=== PATIENT | male | born 1945 | race Caucasian/White ===

== ENCOUNTER → 2017-03-05 | Outpatient (REF) | payer MEDICARE, MEDICAID ==
[2016-10-17 10:15] VITALS: BMI 37.4
[~2017-03-05] MED LIST: ACE3 PO; ACE500 PO; ACET500T68 PO; ACET650T40 PO; ACLI400A2 IH; ACYC-1 PO; ALB0.5 IH; ALB17R INH; ALB18R INH; ALB6.7R INH; ALBU1.257 IH; ALBU8.5H IH; ALBUTEROL INH; AMOX-559 PO; AMOX1TAB3 PO; AMOX500T10 PO; ANUS PR; ASPI-764 PO; ASPI-816 PO; ATOR-1 PO; ATOR40TA24 PO; AZIT-1 PO; AZIT-18 PO; AZIT500T47 PO; BENZ200C38 PO; BUDE0.5A IH; BUM2 FT; CEF300 PO; CEFD300C35 PO; CEP500 PO; CETI10CA8 PO; CHOL200021 PO; CHOL200074 PO; CLIN300C99 PO; CYAN20003 PO; CYAN25004 PO; DEXL60CA6 PO; DIGO125T90 PO; DILT120C18 PO; DILT120T13 PO; DILT240C76 PO; DILT360T9 PO; DOCU-202 PO; DUONEB INH; DUTA0.5C14 PO; ENA10 PO; ENA5 PO; ENAL2.5T52 PO; ENAL20TA99 PO; ESOM40CA42 PO; EZET1TAB55 PO; FERR-53 PO; FEXO180T74 PO; FLUT10SP; FLUT16SP19 NS; FLUT1DIS29 IH; FLUT1DIS32 IH; FUR20 PO; FUR80 PO; FURO-47 PO; FURO20TA19 PO; FURO40SO5 PO; FURO40TA35 PO; FURO80TA10 PO; GABA-549 PO; GUAI1200 PO; GUAI600T57 PO; GUALA600 PO; HYDR-385 PO; HYDR-4225 PO; HYDR-4308 PO; IPRA0.2S8 IH; IPRA3AMP IH; IRO150 PO; IRON150C19 PO; KENALOG TOP; LEVO-3 PO; LEVO125T77 PO; LEVO50TA80 PO; LEVO750T27 PO; LEVO750T44 PO; LEVO75TA73 PO; LEVO88TA42 PO; LORA10CA3 PO; MELA3TAB31 PO; MELO-150 PO; MELO-207 PO; METO-231 PO; METO-253 PO; METO2.5T15 PO; METO25TA23 PO; METO25TA91 PO; METO25TA93 PO; METO5TAB79 PO; MIR PO; MOM PO; MONT10TA PO; MONT10TA4 PO; MOX400 PO; MULT-898 PO; MULT1TAB64 PO; NIT4 SL; OLO2ODPT ASDIRECTED; OLO2ODPT OP; OLO2ODPT OU; OXYGEN INH; OXYGENHOME INH; POLY17PO21 PO; POLY17PO25 PO; POTA10TA PO; POTA20TA94 PO; POTA25TA28 PO; POTA8CAP14 PO; PRAM0.2520 PO; PRAM1TAB22 PO; PRAV40TA77 PO; PRAV40TA78 PO; PRAV80TA29 PO; PRE10 PO; PRED-1 PO; PRED20TA6 PO; RIV10 PO; RIVA15TA PO; RIVA20TA PO; ROF0.5PT PO; ROPI0.5T24 PO; ROPI1TAB35 PO; ROPI1TAB36 PO; ROSU40TA18 PO; SALSP; SODI30SP6 NS; SPIR100T30 PO; SPIR25TA76 PO; SPIR25TA78 PO; SULF-198 PO; TADA20TA33 PO; TAM4 PO; TAMS0.4C70 PO; TUCKS TOP; UMEC1DIS INH; UMECLIDINIUM BRM INH; VILANTEROL TR INH; WAR5 PO; WARF-1 PO; WARF-12 PO; WARF7.5T26 PO; ZPACK; [UNRECOGNIZED DRUG - CODE] IV; [UNRECOGNIZED DRUG - CODE] OP; [UNRECOGNIZED DRUG - CODE] PO; [UNRECOGNIZED DRUG - CODE] PO; multivitamin; oxygen; oxygen INH
[2017-03-05 12:28] LABS: PLATELET COUNT, AUTOMATED 244 K/uL (150-450)
[2017-03-05 12:39] LABS: LDL CHOLESTEROL 101 mg/dl
== END ==
LOC: ZZSENDIN 12:17
PROVIDERS: ATTEND Emergency Medicine
DX: E03.9 Hypothyroidism, unspecified (principal); I10 Essential (primary) hypertension
CPT/HCPCS: 82040; 82247; 82310; 82374; 82435; 82465; 82565; 82947; 83718; 84075; 84132; 84155; 84295; 84443; 84450; 84460; 84478; 84520; 85025

== ENCOUNTER 2017-03-16 06:51 | Emergency (ER) | payer MEDICARE, MEDICAID ==
[2016-10-17 10:15] VITALS: Ht 182.9 cm; Wt 125.4 kg
[~2017-03-16] VITALS: Ht 182.9 cm; Wt 125.4 kg
[~2017-03-16 06:51] MED LIST changes: -DIPH-1 PO; -ONDA4TAB PO
--- NOTE | 2017-03-16 07:11 | ER Report ---
History and Physical Time Seen By MD: 07:10 Hx. of Stated Complaint: N/V/D, WEAKNESS SINCE THURSDAY. HPI/ROS CHIEF COMPLAINT: Nausea vomiting and diarrhea since Thursday also weakness HISTORY OF PRESENT ILLNESS: Patient is a 72-year-old male who presents to the emergency department complaining of nausea, vomiting and watery diarrhea along with weakness since this Thursday. Patient states that symptoms have persisted throughout the weekend. Because he's feeling no better and because he's been unable to take any of his prescribed medications at home since Thursday he presents to the emergency department for evaluation. Patient denies any headache or body aches but does report subjective fever and chills. Reports generalized abdominal pain without focality. Denies any dysuria or flank pain. Denies hematuria. Patient denies any chest pain or shortness of breath. REVIEW OF SYSTEMS: Constitutional: Fevers, chills Eyes: No discharge. No pain ENT: No sore throat. Cardiovascular: No chest pain, no palpitations. Respiratory: No cough, no shortness of breath. Gastrointestinal: Generalized abdominal pain, nausea, vomiting, diarrhea Genitourinary: No hematuria. Musculoskeletal: No back pain. Skin: No rashes. Neurological: No headache. Allergies: Coded Allergies: tiotropium (Verified Allergy, Mild, visual changes, 01/23/17) Home Meds Active Scripts Diphenoxylate Hcl/Atropine (LOMOTIL TABLET) 1 Each Tablet, 1 EACH PO Q4H for diarrhea, #10 TAB 0 Refills Prov:NORTH HIDALGO MD 03/16/17 Ondansetron (ZOFRAN ODT) 4 Mg Tab.rapdis, 4 MG PO Q8H for Nausea, #20 TAB.SHANE 0 Refills Prov:NORTH HIDALGO MD 03/16/17 Sertraline Hcl (ZOLOFT) 50 Mg Tablet, 1 TAB PO QDAY, #30 TAB Prov:JODY LALA MD 03/11/17 Pravastatin Sodium (PRAVASTATIN SODIUM) 80 Mg Tablet, 1 TAB PO QDAY, #90 TAB 3 Refills Prov:JODY LALA MD 03/11/17 Levothyroxine Sodium (LEVOTHYROXINE SODIUM) 150 Mcg Tablet, 150 MCG PO QDAY, # 30 TAB Prov:JODY LALA MD 03/11/17 Furosemide (LASIX) 80 Mg Tablet, 1 TAB PO BID, #180 TAB 3 Refills Prov:JODY LALA MD 03/05/17 Digoxin (Digox) 125 Mcg Tablet, 1 TAB PO QDAY, #90 TAB 1 Refill Prov:SAL TARANGO APRN 02/13/17 Dutasteride (AVODART) 0.5 Mg Capsule, 1 TAB PO QDAY, #90 CAPSULE 1 Refill Prov:SAL TARANGO APRN 02/09/17 Montelukast Sodium (SINGULAIR) 10 Mg Tablet, 1 TAB PO QDAY, #90 TAB 1 Refill Prov:JODY LALA MD 01/29/17 Polyethylene Glycol 3350 (MIRALAX) 17 Gm Powd.pack, 1 PACKET PO DAILY, #90 PKT 4 Refills Prov:JODY LALA MD 01/06/17 Gabapentin (GABAPENTIN) 300 Mg Capsule, 1 CAP PO TID, #90 CAPSULE 11 Refills Prov:SAL TARANGO APRN 01/01/17 Rivaroxaban 20 Mg (XARELTO 20 MG) 20 Mg Tablet, 1 TAB PO DAILY, #90 TAB 1 Refill Prov:SAL TARANGO APRN 10/31/16 Tamsulosin Hcl (TAMSULOSIN HCL) 0.4 Mg Cap.er.24h, 1 CAP PO BID, #180 CAP 1 Refill Prov:JODY LALA MD 10/09/16 Potassium Chloride (POTASSIUM CHLORIDE) 20 Meq Tab.er.prt, 2 TAB PO TID, #180 TAB 5 Refills Prov:MICHAEL DIEZ MD 09/11/16 Oxygen (OXYGEN) Inha, 7 L INH QDAY for 30 Days, L Prov:MICHAEL DIEZ MD 09/11/16 Fluticasone/Salmeterol (ADVAIR 500-50 DISKUS) 1 Each Disk.w.dev, 1 EACH IH BID, #1 EACH 11 Refills Prov:JODY LALA MD 09/08/16 Diltiazem Hcl (DILTIAZEM 24HR CD) 120 Mg Cap.er.24h, 240 MG PO QDAY, #180 3 Refills Prov:JODY LALA MD 07/31/16 Fluticasone Prop 50 Mcg Ns (FLONASE 50 MCG NS) 16 Gm [place].susp, 1 SPRAY NS DAILY, #1 BOT 11 Refills Prov:JODY LALA MD 06/06/16 Dexlansoprazole (DEXILANT) 60 Mg Cap., 1 CAP PO DAILY, #90 TAB 4 Refills Prov:JODY LALA MD 03/13/16 Nitroglycerin (NITROSTAT) 0.4 Mg Subl, 0.4 MG SL Q5MIN Y for CHEST PAIN, #30 TAB 11 Refills Prov:JODY LALA MD 02/04/16 Ropinirole Hcl (ROPINIROLE HCL) 1 Mg Tablet, 1 MG PO QHS, #30 TAB 9 Refills Prov:JODY LALA MD 08/06/15 Reported Medications Albuterol Sulfate (PROVENTIL HFA) 6.7 Gm Inh, 1-2 PUFF INH Q4-6H Y for SHORTNESS OF BREATH, INH 09/05/16 Cyanocobalamin (Vitamin B-12) (VITAMIN B-12) 2,000 Mcg Tablet.er, 2000 MCG PO DAILY 09/05/16 Ferrous Sulfate (FERROUS SULFATE) 325 Mg Tablet, 325 MG PO BID, #60 05/07/16 Cholecalciferol (Vitamin D3) (VITAMIN D-3) 2,000 Unit Capsule, 2000 UNIT PO DAILY, CAPSULE 12/21/14 Multivitamin (MULTI VITAMIN DAILY) 1 Each Tablet, 1 EACH PO DAILY 12/21/14 Guaifenesin (MUCINEX) 600 Mg Tablet.er, 600 MG PO BID 10/29/12 Discontinued Scripts Levothyroxine Sodium (SYNTHROID) 125 Mcg Tablet, 125 MCG PO QDAY, #30 TAB 1 Refill Prov:JODY LALA MD 03/02/17 Pravastatin Sodium (PRAVASTATIN SODIUM) 40 Mg Tablet, 40 MG PO QDAY, #30 TAB 11 Refills Prov:JODY LALA MD 01/06/17 Past Medical/Surgical History Past Family Social History Reviewed Reviewed by: Dr. 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) pulmonary embolism other respiratory history (cor pulmonale) Gastrointestinal: Reports hx of: GERD Genitourinary: Reports hx of: benign prostatic hypertro Endocrine: Reports hx of: hypothyroidism Hematology/oncology (M): Reports hx of: anemia Denies hx of: prostate cancer Past Surgical History Gastrointestinal: Reports hx of: other GI surgery (02/06: 8 polyps removed from colon (benign)) Hx Smoking: No Smoking Status: Former Smoker Exposure to Second Hand Smoke?: Yes Hx Substance Use Disorder: No Hx Alcohol Use: Yes Constitutional Vital Sign - Last 24 Hours 03/16/17 03/16/17 03/16/17 03/16/17 06:53 07:00 07:15 07:30 Temp 97.9 Pulse 122 112 101 95 Resp 20 12 14 13 B/P (MAP) 153/100 151/93 (112) 139/81 (100) 141/81 (101) Pulse Ox 91 95 95 96 O2 Delivery Nasal Cannula 03/16/17 03/16/17 03/16/17 03/16/17 07:45 08:00 08:00 08:19 Pulse 94 106 67 Resp 15 13 B/P (MAP) 140/89 (106) 147/84 (105) 130/70 (90) Pulse Ox 96 97 03/16/17 03/16/17 03/16/17 03/16/17 08:30 08:45 09:00 09:15 Pulse 100 123 104 76 Resp 14 20 15 13 B/P (MAP) 126/84 (98) 119/86 (97) 130/85 (100) 138/87 (104) Pulse Ox 96 94 97 97 03/16/17 03/16/17 03/16/17 03/16/17 09:30 09:45 10:08 10:15 Pulse 94 98 95 Resp 14 13 12 B/P (MAP) 129/78 (95) 135/73 (93) 120/52 (74) 139/80 (99) Pulse Ox 99 97 98 03/16/17 10:28 B/P (MAP) 131/61 (84) Intake and Output 03/16/17 03/16/17 03/17/17 15:00 23:00 07:00 Intake Total 750 ml Balance 750 ml Physical Exam General Appearance: The patient is alert, has no immediate need for airway protection and no signs of toxicity. Eyes: Pupils equal and round no pallor or injection. ENT, Mouth: Mucous membranes are dry Respiratory: There are no retractions, lungs are clear to auscultation. Cardiovascular: Irregularly irregular and tachycardic Gastrointestinal: Abdomen is protuberent; diffuse tenderness without focal tenderness, guarding or rebound Neurological: awake, alert, Skin: Warm and dry, venous stasis changes to b/l lower extremities Musculoskeletal: Neck is supple non tender. Extremities are nontender, nonswollen and have full range of motion. Medical Decision Making Data Points Result Diagram: 03/16/17 0706 03/16/17 0706 Laboratory Hematology Test 03/16/17 07:06 03/16/17 07:40 03/16/17 10:01 Red Blood Count 5.07 M/uL (4.00-5.60) Mean Corpuscular Volume 100.8 fL (80.0-96.0) Mean Corpuscular Hemoglobin 34.2 pg (26.0-33.0) Mean Corpuscular Hemoglobin Concent 33.9 g/dL (32.0-36.0) Red Cell Distribution Width 13.9 % (11.5-14.5) Mean Platelet Volume 6.9 fL (7.2-11.1) Neutrophils (%) (Auto) 74.7 % (39.4-72.5) Lymphocytes (%) (Auto) 13.9 % (17.6-49.6) Monocytes (%) (Auto) 8.1 % (4.1-12.4) Eosinophils (%) (Auto) 2.6 % (0.4-6.7) Basophils (%) (Auto) 0.7 % (0.3-1.4) Nucleated RBC Relative Count (auto) 0.1 /100WBC Neutrophils # (Auto) 5.1 K/uL (2.0-7.4) Lymphocytes # (Auto) 1.0 K/uL (1.3-3.6) Monocytes # (Auto) 0.6 K/uL (0.3-1.0) Eosinophils # (Auto) 0.2 K/uL (0.0-0.5) Basophils # (Auto) 0.0 K/uL (0.0-0.1) Nucleated RBC Absolute Count (auto) 0.01 K/uL Sodium Level 138 mmol/L (137-145) Potassium Level 3.3 mmol/L (3.5-5.0) Chloride Level 95 mmol/L (98-107) Carbon Dioxide Level 36 mmol/L (22-30) Blood Urea Nitrogen 7 mg/dl (9-21) Creatinine 0.90 mg/dl (0.66-1.25) Glomerular Filtration Rate Calc > 60.0 Random Glucose 97 mg/dl (75-110) Calcium Level 8.8 mg/dl (8.4-10.2) Total Bilirubin 1.5 mg/dl (0.2-1.3) Aspartate Amino Transf (AST/SGOT) 53 U/L (0-35) Alanine Aminotransferase (ALT/SGPT) 47 U/L (0-56) Alkaline Phosphatase 116 U/L (0-126) Total Protein 7.9 gm/dl (6.3-8.2) Albumin 3.9 g/dl (3.5-5.0) Lipase 103 U/L (23-300) Thyroid Stimulating Hormone (TSH) 13.40 uIU/ml (0.46-4.68) Digoxin Level 0.5 ng/ml Digoxin Last Dose Date 03/13/17 Digoxin Last Dose Time unk Influenza Virus Type A (PCR) Negative (NEGATIVE) Influenza Virus Type B (PCR) Negative (NEGATIVE) Urine Color Vita Urine Clarity Clear Urine pH 5.0 pH (4.8-9.5) Urine Specific [place] >1.060 Urine Protein 30 mg/dL (NEGATIVE) Urine Glucose (UA) Negative mg/dL (NEGATIVE) Urine Ketones Negative mg/dL (NEGATIVE) Urine Blood Small (NEGATIVE) Urine Nitrite Negative (NEGATIVE) Urine Bilirubin Negative (NEGATIVE) Urine Urobilinogen 4.0 mg/dL (0.2-1.9) Urine Leukocyte Esterase Negative (NEGATIVE) Urine RBC 8 /HPF (0-2/HPF) Urine WBC 2 /HPF (0-5/HPF) Urine Squamous Epithelial Cells Many /LPF (</=FEW) Urine Transitional Epithelial Cells Few /LPF (NONE-FEW) Urine Bacteria Negative /HPF (NONE-FEW) Urine Mucus None /HPF (NONE-FEW) Chemistry Test 03/16/17 07:06 03/16/17 07:40 03/16/17 10:01 White Blood Count 6.9 k/uL (4.5-11.0) Red Blood Count 5.07 M/uL (4.00-5.60) Hemoglobin 17.3 g/dL (14.0-18.0) Hematocrit 51.1 % (42.0-52.0) Mean Corpuscular Volume 100.8 fL (80.0-96.0) Mean Corpuscular Hemoglobin 34.2 pg (26.0-33.0) Mean Corpuscular Hemoglobin Concent 33.9 g/dL (32.0-36.0) Red Cell Distribution Width 13.9 % (11.5-14.5) Platelet Count 215 K/uL (150-450) Mean Platelet Volume 6.9 fL (7.2-11.1) Neutrophils (%) (Auto) 74.7 % (39.4-72.5) Lymphocytes (%) (Auto) 13.9 % (17.6-49.6) Monocytes (%) (Auto) 8.1 % (4.1-12.4) Eosinophils (%) (Auto) 2.6 % (0.4-6.7) Basophils (%) (Auto) 0.7 % (0.3-1.4) Nucleated RBC Relative Count (auto) 0.1 /100WBC Neutrophils # (Auto) 5.1 K/uL (2.0-7.4) Lymphocytes # (Auto) 1.0 K/uL (1.3-3.6) Monocytes # (Auto) 0.6 K/uL (0.3-1.0) Eosinophils # (Auto) 0.2 K/uL (0.0-0.5) Basophils # (Auto) 0.0 K/uL (0.0-0.1) Nucleated RBC Absolute Count (auto) 0.01 K/uL Glomerular Filtration Rate Calc > 60.0 Calcium Level 8.8 mg/dl (8.4-10.2) Total Bilirubin 1.5 mg/dl (0.2-1.3) Aspartate Amino Transf (AST/SGOT) 53 U/L (0-35) Alanine Aminotransferase (ALT/SGPT) 47 U/L (0-56) Alkaline Phosphatase 116 U/L (0-126) Total Protein 7.9 gm/dl (6.3-8.2) Albumin 3.9 g/dl (3.5-5.0) Lipase 103 U/L (23-300) Thyroid Stimulating Hormone (TSH) 13.40 uIU/ml (0.46-4.68) Digoxin Level 0.5 ng/ml Digoxin Last Dose Date 03/13/17 Digoxin Last Dose Time unk Influenza Virus Type A (PCR) Negative (NEGATIVE) Influenza Virus Type B (PCR) Negative (NEGATIVE) Urine Color Vita Urine Clarity Clear Urine pH 5.0 pH (4.8-9.5) Urine Specific [place] >1.060 Urine Protein 30 mg/dL (NEGATIVE) Urine Glucose (UA) Negative mg/dL (NEGATIVE) Urine Ketones Negative mg/dL (NEGATIVE) Urine Blood Small (NEGATIVE) Urine Nitrite Negative (NEGATIVE) Urine Bilirubin Negative (NEGATIVE) Urine Urobilinogen 4.0 mg/dL (0.2-1.9) Urine Leukocyte Esterase Negative (NEGATIVE) Urine RBC 8 /HPF (0-2/HPF) Urine WBC 2 /HPF (0-5/HPF) Urine Squamous Epithelial Cells Many /LPF (</=FEW) Urine Transitional Epithelial Cells Few /LPF (NONE-FEW) Urine Bacteria Negative /HPF (NONE-FEW) Urine Mucus None /HPF (NONE-FEW) Toxicology Test 03/16/17 07:06 Digoxin Level 0.5 ng/ml Digoxin Last Dose Date 03/13/17 Digoxin Last Dose Time unk Urinalysis Test 03/16/17 10:01 Urine Color Vita Urine Clarity Clear Urine pH 5.0 pH (4.8-9.5) Urine Specific [place] >1.060 Urine Protein 30 mg/dL (NEGATIVE) Urine Glucose (UA) Negative mg/dL (NEGATIVE) Urine Ketones Negative mg/dL (NEGATIVE) Urine Blood Small (NEGATIVE) Urine Nitrite Negative (NEGATIVE) Urine Bilirubin Negative (NEGATIVE) Urine Urobilinogen 4.0 mg/dL (0.2-1.9) Urine Leukocyte Esterase Negative (NEGATIVE) Urine RBC 8 /HPF (0-2/HPF) Urine WBC 2 /HPF (0-5/HPF) Urine Squamous Epithelial Cells Many /LPF (</=FEW) Urine Transitional Epithelial Cells Few /LPF (NONE-FEW) Urine Bacteria Negative /HPF (NONE-FEW) Urine Mucus None /HPF (NONE-FEW) EKG/Imaging EKG Interpretation EKG shows atrial flutter with variable block and ventricular rate is approximately 108 bpm. Monitor Interpretation: Atrial Flutter (with variable block) Imaging FACILITY: [facility] - [place] PATIENT NAME: Jaquan Orlando : 1945 MR: [id number] V: [id number] EXAM DATE: ORDERING PHYSICIAN: NORTH HIDALGO TECHNOLOGIST: Location: [facility] [place] Patient: Jaquan Orlando : 1945 Visit/Account:[id number] Date of Sevice: 03/16/2017 EXAMINATION: CT Abdomen and Pelvis With Contrast 03/16/2017 7:20 AM HISTORY: Abdominal pain. TECHNIQUE: Spiral scan was through the abdomen and pelvis during injection of nonionic iodinated intravenous contrast. Contrast: 75 mL of IV Isovue 370. One of the following dose optimization techniques was utilized in the performance of this exam: Automated exposure control; adjustment of the mA and/ or kV according to the patient's size; or use of an iterative reconstruction technique. Specific details can be referenced in the facility's radiology CT exam operational policy. COMPARISON STUDIES: CT 06/12/2008. FINDINGS: Liver / biliary: Mildly decreased attenuation fatty liver. Multiple small gallstones. Gallbladder is not clearly inflamed by CT. No choledocholithiasis or biliary dilatation. Pancreas: negative Spleen: Incidental accessory splenule. Adrenal glands: negative Kidneys / retroperitoneum: negative Pelvic structures: negative Bowel / peritoneum / mesenteries: Mild diverticulosis of the distal colon. No acute focal diverticular inflammation. What is probably a normal caliber small appendix is seen posteromedial to the cecum. Certainly there is no ileocecal area inflammatory change. No obstruction. Vessels: Short segment of the infrarenal abdominal aorta dilates to 3.5 x 3.5 cm , minimally increased from previous. Musculoskeletal / Body wall: Moderate L3 compression deformity. Eventration of the midline abdominal wall is mildly increased from previous. No hernia. Lymph node assessment: negative Lower chest: negative IMPRESSION: 1. Probably negative for significant acute finding in the abdomen or pelvis. 2. Cholecystolithiasis. No CT findings of acute cholecystitis or biliary obstruction. 3. 3.5 cm infrarenal abdominal aortic aneurysm is minimally grown since 2008. 4. Moderate L3 compression deformity. Comparing axial images this is probably stable since 2008. Report Dictated By: Frank Elder MD at 03/16/2017 8:32 AM Report E-Signed By: Frank Elder MD at 03/16/2017 8:44 AM WSN:DARIO ED Course/Re-evaluation Clinical Indication for ER IV: Hydration, IV Access ED Course After history and physical exam was performed differential diagnosis was formulated which includes but is not limited to gastroenteritis, GI obstruction , urinary tract infection, influenza. Plan at this time will be to perform abdominal workup including CBC CMP and lipase urinalysis with culture will also do a CT of the abdomen and pelvis I will also do influenza screen. I will give IV fluids and Zofran. We'll also give Pepcid along with oral trial of Xarelto and Cardizem which are his daily medications. Re-evaluation 03/16/2017 10:18:47 am patient feeling improved no further episodes of vomiting nausea is improved after IV fluids and Zofran. A CT scan of blood work is reassuring urinalysis just showing concentration of urine without evidence of infection. Further patient was able to tolerate some of his usual oral medications at this time. Plan will be discharge home with prescriptions for both nausea and diarrhea medicine we'll have him follow up with primary care provider 1-2 days or have him return to the emergency department if his symptoms worsen at any time. Decision to Disposition Date: Mar 16, 2017 Decision to Disposition Time: 10:19 Depart Departure Latest Vital Signs Vital Signs Date Time Temp Pulse Resp B/P (MAP) Pulse Ox O2 Delivery O2 Flow Rate FiO2 03/16/17 10:28 131/61 (84) 03/16/17 10:15 95 12 98 03/16/17 06:53 97.9 Nasal Cannula Impression: Primary Impression: Gastroenteritis Condition: Improved Disposition: HOME OR SELF-CARE Referrals: JODY LALA MD (PCP) 2 Days If symptoms persist New Scripts Diphenoxylate Hcl/Atropine (LOMOTIL TABLET) 1 Each Tablet 1 EACH PO Q4H for diarrhea, #10 TAB 0 Refills Prov: NORTH HIDALGO MD 03/16/17 Ondansetron (ZOFRAN ODT) 4 Mg Tab.rapdis 4 MG PO Q8H for Nausea, #20 TAB.SHANE 0 Refills Prov: NORTH HIDALGO MD 03/16/17 Patient Instructions: Gastroenteritis (ED) NORTH HIDALGO MD Mar 16, 2017 07:11
[2017-03-16] MEDS ORDERED: FAMOTIDINE(*) 20MG/50ML PREMIX 50 ML IVPB ONE (07:20)
[2017-03-16] MEDS ORDERED: NS(*) 0.9% 1000 ML BAG 1,000 ML IV ONE (07:20)
[2017-03-16] MEDS ORDERED: ONDANSETRON 4 MG/2 ML VIAL IVP ONE ×2 (07:20→08:00)
[2017-03-16] MEDS ORDERED: DILTIAZEM CD 120 MG CAPCR PO SCH (07:25)
[2017-03-16 07:34] LABS: PLATELET COUNT, AUTOMATED 215 K/uL (150-450)
[2017-03-16] MEDS ORDERED: DILTIAZEM CD 120 MG CAPCR PO ONE (07:35)
[2017-03-16] MEDS ORDERED: KCL (*) 20 MEQ/100 ML PREMIX 100 ML IV ONE (07:50)
[2017-03-16] MEDS ORDERED: IOPAMIDOL 76% 75 ML INFUS BTL 75 ML ONE (07:56)
[2017-03-16] MEDS ORDERED: NS(*) 0.9% 10 ML VIAL 0 ML ONE (07:56)
[2017-03-16] MEDS ORDERED: NS 0.9% 20 ML SDV 60 ML ONE (07:57)
[2017-03-16] MEDS ORDERED: DIGOXIN 0.125 MG TAB PO ONE (08:00)
--- NOTE | 2017-03-16 08:49 | RADIOLOGY IMAGING REPORT ---
FACILITY: [facility] [place] PATIENT NAME: Jaquan Orlando : 1945 MR: [id number] V: [id number] EXAM DATE: ORDERING PHYSICIAN: NORTH HIDALGO TECHNOLOGIST: Location: [facility] - [place] Patient: Jaquan Orlando : 1945 Visit/Account:[id number] Date of Sevice: 03/16/2017 EXAMINATION: CT Abdomen and Pelvis With Contrast 03/16/2017 7:20 AM HISTORY: Abdominal pain. TECHNIQUE: Spiral scan was through the abdomen and pelvis during injection of nonionic iodinated in travenous contrast. Contrast: 75 mL of IV Isovue 370. One of the following dose optimization techniques was utilized in the performance of this exam: Autom ated exposure control; adjustment of the mA and/or kV according to the patient's size; or use of an i terative reconstruction technique. Specific details can be referenced in the facility's radiology C T exam operational policy. COMPARISON STUDIES: CT 06/12/2008. FINDINGS: Liver / biliary: Mildly decreased attenuation fatty liver. Multiple small gallstones. Gallbladder i s not clearly inflamed by CT. No choledocholithiasis or biliary dilatation. Pancreas: negative Spleen: Incidental accessory splenule. Adrenal glands: negative Kidneys / retroperitoneum: negative Pelvic structures: negative Bowel / peritoneum / mesenteries: Mild diverticulosis of the distal colon. No acute focal diverticul ar inflammation. What is probably a normal caliber small appendix is seen posteromedial to the cecum . Certainly there is no ileocecal area inflammatory change. No obstruction. Vessels: Short segment of the infrarenal abdominal aorta dilates to 3.5 x 3.5 cm, minimally increased from previous. Musculoskeletal / Body wall: Moderate L3 compression deformity. Eventration of the midline abdominal wall is mildly increased from previous. No hernia. Lymph node assessment: negative Lower chest: negative IMPRESSION: 1. Probably negative for significant acute finding in the abdomen or pelvis. 2. Cholecystolithiasis. No CT findings of acute cholecystitis or biliary obstruction. 3. 3.5 cm infrarenal abdominal aortic aneurysm is minimally grown since 2008. 4. Moderate L3 compression deformity. Comparing axial images this is probably stable since 2008. Report Dictated By: Frank Edler MD at 03/16/2017 8:32 AM Report E-Signed By: Frank Elder MD at 03/16/2017 8:44 AM WSN:DARIO
[2017-03-16] MEDS ORDERED: RIVAROXABAN 10 MG TAB PO SCH (09:00)
[2017-03-16] MEDS ORDERED: DIPH-1 PO (10:23)
[2017-03-16] MEDS ORDERED: ONDA4TAB PO (10:23)
[2017-03-16 10:28] VITALS: BP 131/61
--- NOTE | 2017-03-16 14:21 | EKG ---
FACILITY: [facility] - [place] PATIENT NAME: LEWIS FLETCHER : [id number] MR: [id number] V: [id number] EXAM DATE: ORDERING PHYSICIAN: NORTH HIDALGO TECHNOLOGIST: REINA Curiel Reason : gi problem Blood Pressure : / mmHG Vent. Rate : 105 BPM Atrial Rate : 242 BPM P-R Int : 000 ms QRS Dur : 094 ms QT Int : 368 ms P-R-T Axes : 000 073 063 degrees QTc Int : 486 ms Atrial flutter with variable AV block Nonspecific ST abnormality Abnormal ECG Confirmed by MICHAEL DIEZ ([id number] on 03/16/2017 7:49:47 PM Referred By: Confirmed By:MICHAEL DIEZ
== END 2017-03-16 10:35 | disposition home or self-care (01) ==
LOC: ER 06:58
DX: K52.9 Noninfective gastroenteritis and colitis, unspecified (principal)
CPT/HCPCS: 74177; 80162; 81001; 83690; 84443; 85025; 87088; 87502; 93005; 96365; 96366; 96367; 96375; 99284; A9270; J2405; J3480; J3490; J7030; J7050; Q9967; 82040; 82247; 82310; 82374; 82435; 82565; 82947; 84075; 84132; 84155; 84295; 84450; 84460; 84520; 87077; 87186

== ENCOUNTER → 2017-03-16 | Outpatient (CLI) | payer MEDICARE, MEDICAID ==
[2016-10-17 10:15] VITALS: BMI 37.4
[~2017-03-16] MED LIST changes: +DIPH-1 PO; +LEVO150T78 PO; +ONDA4TAB PO; +SERT-1 PO
== END ==
LOC: AMB 10:35
PROVIDERS: ATTEND Nurse Practitioner
DX: K52.9 Noninfective gastroenteritis and colitis, unspecified (principal)
CPT/HCPCS: A0425; A0428

== ENCOUNTER → 2017-03-16 | Outpatient (CLI) | payer MEDICARE, MEDICAID ==
[2016-10-17 10:15] VITALS: BMI 37.4
== END ==
LOC: AMB 06:25
PROVIDERS: ATTEND Nurse Practitioner
DX: R53.1 Weakness (principal); R11.2 Nausea with vomiting, unspecified; R50.9 Fever, unspecified
CPT/HCPCS: A0425; A0427

== ENCOUNTER 2017-03-27 08:39 | Inpatient (IN) | payer MEDICARE, MEDICAID ==
[~2017-03-27] VITALS: Ht 182.9 cm; Wt 119.7 kg
--- NOTE | 2017-03-27 08:47 | ER Report ---
History and Physical Time Seen By MD: 08:44 HPI/ROS CHIEF COMPLAINT: Abdominal pain, black tarry stools HISTORY OF PRESENT ILLNESS: Patient a 72-year-old male who presents to the emergency department for complaint of left upper quadrant abdominal pain. He also has noticed black tarry stools over the last day. Patient is anticoagulated on Xarelto secondary to atrial fibrillation. He was seen in the emergency department on March 16 for nausea vomiting and some diarrhea. He was ultimately diagnosed as gastroenteritis at that time having a normal CT scan of his abdomen and pelvis. Patient states the abdominal discomfort and stools began early this morning but he waited for his home health nurse to come for evaluation before calling 911. REVIEW OF SYSTEMS: Constitutional: No fever, no chills. Eyes: No discharge. ENT: No sore throat. Cardiovascular: No chest pain, no palpitations. Respiratory: No cough, no shortness of breath. Gastrointestinal: Left upper quadrant abdominal pain, black tarry stools Genitourinary: No hematuria. Musculoskeletal: No back pain. Skin: No rashes. Neurological: No headache. Allergies: Coded Allergies: tiotropium (Verified Allergy, Mild, visual changes, 03/27/17) Home Meds Active Scripts Dexlansoprazole (DEXILANT) 60 Mg Cap., 1 CAP PO DAILY, #90 TAB 4 Refills Prov:EILEEN SANTANA MD 03/27/17 Diphenoxylate Hcl/Atropine (LOMOTIL TABLET) 1 Each Tablet, 1 EACH PO Q4H for diarrhea, #10 TAB 0 Refills Prov:NORTH HIDALGO MD 03/16/17 Ondansetron (ZOFRAN ODT) 4 Mg Tab.rapdis, 4 MG PO Q8H for Nausea, #20 TAB.SHANE 0 Refills Prov:NORTH HIDALGO MD 03/16/17 Sertraline Hcl (ZOLOFT) 50 Mg Tablet, 1 TAB PO QDAY, #30 TAB Prov:EILEEN SANTANA MD 03/11/17 Pravastatin Sodium (PRAVASTATIN SODIUM) 80 Mg Tablet, 1 TAB PO QDAY, #90 TAB 3 Refills Prov:EILEEN SANTANA MD 03/11/17 Levothyroxine Sodium (LEVOTHYROXINE SODIUM) 150 Mcg Tablet, 150 MCG PO QDAY, # 30 TAB Prov:EILEEN SANTANA MD 03/11/17 Furosemide (LASIX) 80 Mg Tablet, 1 TAB PO BID, #180 TAB 3 Refills Prov:EILEEN SANTANA MD 03/05/17 Digoxin (Digox) 125 Mcg Tablet, 1 TAB PO QDAY, #90 TAB 1 Refill Prov:SAL TARANGO APRN 02/13/17 Dutasteride (AVODART) 0.5 Mg Capsule, 1 TAB PO QDAY, #90 CAPSULE 1 Refill Prov:SAL TARANGO APRN 02/09/17 Montelukast Sodium (SINGULAIR) 10 Mg Tablet, 1 TAB PO QDAY, #90 TAB 1 Refill Prov:EILEEN SANTANA MD 01/29/17 Polyethylene Glycol 3350 (MIRALAX) 17 Gm Powd.pack, 1 PACKET PO DAILY, #90 PKT 4 Refills Prov:EILEEN SANTANA MD 01/06/17 Gabapentin (GABAPENTIN) 300 Mg Capsule, 1 CAP PO TID, #90 CAPSULE 11 Refills Prov:SAL TARANGO APRN 01/01/17 Rivaroxaban 20 Mg (XARELTO 20 MG) 20 Mg Tablet, 1 TAB PO DAILY, #90 TAB 1 Refill Prov:SLA TARANGO APRN 10/31/16 Tamsulosin Hcl (TAMSULOSIN HCL) 0.4 Mg Cap.er.24h, 1 CAP PO BID, #180 CAP 1 Refill Prov:EILEEN SANTANA MD 10/09/16 Potassium Chloride (POTASSIUM CHLORIDE) 20 Meq Tab.er.prt, 2 TAB PO TID, #180 TAB 5 Refills Prov:MICHAEL DIEZ MD 09/11/16 Oxygen (OXYGEN) Inha, 7 L INH QDAY for 30 Days, L Prov:MICHAEL DIEZ MD 09/11/16 Fluticasone/Salmeterol (ADVAIR 500-50 DISKUS) 1 Each Disk.w.dev, 1 EACH IH BID, #1 EACH 11 Refills Prov:EILEEN SANTANA MD 09/08/16 Diltiazem Hcl (DILTIAZEM 24HR CD) 120 Mg Cap.er.24h, 240 MG PO QDAY, #180 3 Refills Prov:EILEEN SANTANA MD 07/31/16 Fluticasone Prop 50 Mcg Ns (FLONASE 50 MCG NS) 16 Gm [place].susp, 1 SPRAY NS DAILY, #1 BOT 11 Refills Prov:EILEEN SANTANA MD 06/06/16 Nitroglycerin (NITROSTAT) 0.4 Mg Subl, 0.4 MG SL Q5MIN Y for CHEST PAIN, #30 TAB 11 Refills Prov:EILEEN SANTANA MD 02/04/16 Ropinirole Hcl (ROPINIROLE HCL) 1 Mg Tablet, 1 MG PO QHS, #30 TAB 9 Refills Prov:EILEEN SANTANA MD 08/06/15 Reported Medications Albuterol Sulfate (PROVENTIL HFA) 6.7 Gm Inh, 1-2 PUFF INH Q4-6H Y for SHORTNESS OF BREATH, INH 09/05/16 Cyanocobalamin (Vitamin B-12) (VITAMIN B-12) 2,000 Mcg Tablet.er, 2000 MCG PO DAILY 09/05/16 Ferrous Sulfate (FERROUS SULFATE) 325 Mg Tablet, 325 MG PO BID, #60 05/07/16 Cholecalciferol (Vitamin D3) (VITAMIN D-3) 2,000 Unit Capsule, 2000 UNIT PO DAILY, CAPSULE 12/21/14 Multivitamin (MULTI VITAMIN DAILY) 1 Each Tablet, 1 EACH PO DAILY 12/21/14 Guaifenesin (MUCINEX) 600 Mg Tablet.er, 600 MG PO BID 10/29/12 Past Medical/Surgical History Past medical history for stroke in 2014, history of atrial fibrillation history of peripheral edema. History of COPD and history of pulmonary embolism. History of gastroesophageal reflux disease, history of benign prostatic hypertrophy, history of hypothyroidism, history of anemia and prostate cancer. Hx Smoking: No Smoking Status: Former Smoker Exposure to Second Hand Smoke?: Yes Hx Substance Use Disorder: No Hx Alcohol Use: Yes Constitutional Vital Sign - Last 24 Hours 03/27/17 03/27/17 03/27/17 03/27/17 08:42 08:44 08:54 09:00 Temp 98.5 Pulse 90 91 Resp 16 13 B/P (MAP) 161/81 (107) 161/81 146/72 (96) Pulse Ox 98 95 O2 Delivery Nasal Cannula 03/27/17 03/27/17 03/27/17 03/27/17 09:09 09:24 09:30 09:39 Pulse 91 87 92 Resp 13 11 14 B/P (MAP) 137/90 (106) Pulse Ox 93 92 94 03/27/17 03/27/17 03/27/17 03/27/17 09:54 10:00 10:09 10:14 Pulse 91 93 93 Resp 13 18 9 B/P (MAP) 124/81 (95) Pulse Ox 92 93 92 Intake and Output 03/27/17 03/27/17 03/28/17 15:00 23:00 07:00 Intake Total 600 ml Balance 600 ml Physical Exam General Appearance: The patient is alert, has no immediate need for airway protection and no signs of toxicity. Eyes: Pupils equal and round no pallor or injection. ENT, Mouth: Mucous membranes are moist. Respiratory: There are no retractions, lungs are clear to auscultation. Cardiovascular: Irregularly irregular rhythm but rate controlled Gastrointestinal: Left upper quadrant pain with abdominal distention [Neurological:] Awake and alert Skin: Warm and dry, no rashes. Musculoskeletal: Neck is supple non tender. Extremities are nontender, nonswollen and have full range of motion. Rectal exam: Black tarry stool noted normal rectal tone [DIFFERENTIAL DIAGNOSIS: After history and physical exam differential diagnosis was considered for] [ ] Medical Decision Making Data Points Result Diagram: 03/27/1730 03/27/1730 Laboratory Hematology Test 03/27/17 09:30 03/27/17 09:45 Red Blood Count 4.85 M/uL (4.00-5.60) Mean Corpuscular Volume 101.8 fL (80.0-96.0) Mean Corpuscular Hemoglobin 34.2 pg (26.0-33.0) Mean Corpuscular Hemoglobin Concent 33.6 g/dL (32.0-36.0) Red Cell Distribution Width 14.4 % (11.5-14.5) Mean Platelet Volume 7.0 fL (7.2-11.1) Neutrophils (%) (Auto) 75.8 % (39.4-72.5) Lymphocytes (%) (Auto) 12.1 % (17.6-49.6) Monocytes (%) (Auto) 5.9 % (4.1-12.4) Eosinophils (%) (Auto) 3.8 % (0.4-6.7) Basophils (%) (Auto) 2.4 % (0.3-1.4) Nucleated RBC Relative Count (auto) 0.2 /100WBC Neutrophils # (Auto) 3.7 K/uL (2.0-7.4) Lymphocytes # (Auto) 0.6 K/uL (1.3-3.6) Monocytes # (Auto) 0.3 K/uL (0.3-1.0) Eosinophils # (Auto) 0.2 K/uL (0.0-0.5) Basophils # (Auto) 0.1 K/uL (0.0-0.1) Nucleated RBC Absolute Count (auto) 0.01 K/uL Prothrombin Time 14.7 seconds (12.0-14.4) Prothromb Time International Ratio 1.14 Activated Partial Thromboplast Time 33 seconds (23-35) Sodium Level 136 mmol/L (137-145) Potassium Level 3.9 mmol/L (3.5-5.0) Chloride Level 92 mmol/L (98-107) Carbon Dioxide Level 34 mmol/L (22-30) Blood Urea Nitrogen 7 mg/dl (9-21) Creatinine 0.90 mg/dl (0.66-1.25) Glomerular Filtration Rate Calc > 60.0 Random Glucose 91 mg/dl (75-110) Calcium Level 8.9 mg/dl (8.4-10.2) Total Bilirubin 1.2 mg/dl (0.2-1.3) Aspartate Amino Transf (AST/SGOT) 58 U/L (0-35) Alanine Aminotransferase (ALT/SGPT) 46 U/L (0-56) Alkaline Phosphatase 102 U/L (0-126) Total Protein 7.7 gm/dl (6.3-8.2) Albumin 3.8 g/dl (3.5-5.0) Amylase Level 58 U/L (0-110) Lipase 103 U/L (23-300) Digoxin Level 0.6 ng/ml Digoxin Last Dose Date unk Digoxin Last Dose Time unk Helicobacter pylori IgG Antibody Negative (NEGATIVE) Stool Occult Blood (IFOB) Positive (NEGATIVE) Chemistry Test 03/27/17 09:30 03/27/17 09:45 White Blood Count 4.9 k/uL (4.5-11.0) Red Blood Count 4.85 M/uL (4.00-5.60) Hemoglobin 16.6 g/dL (14.0-18.0) Hematocrit 49.4 % (42.0-52.0) Mean Corpuscular Volume 101.8 fL (80.0-96.0) Mean Corpuscular Hemoglobin 34.2 pg (26.0-33.0) Mean Corpuscular Hemoglobin Concent 33.6 g/dL (32.0-36.0) Red Cell Distribution Width 14.4 % (11.5-14.5) Platelet Count 178 K/uL (150-450) Mean Platelet Volume 7.0 fL (7.2-11.1) Neutrophils (%) (Auto) 75.8 % (39.4-72.5) Lymphocytes (%) (Auto) 12.1 % (17.6-49.6) Monocytes (%) (Auto) 5.9 % (4.1-12.4) Eosinophils (%) (Auto) 3.8 % (0.4-6.7) Basophils (%) (Auto) 2.4 % (0.3-1.4) Nucleated RBC Relative Count (auto) 0.2 /100WBC Neutrophils # (Auto) 3.7 K/uL (2.0-7.4) Lymphocytes # (Auto) 0.6 K/uL (1.3-3.6) Monocytes # (Auto) 0.3 K/uL (0.3-1.0) Eosinophils # (Auto) 0.2 K/uL (0.0-0.5) Basophils # (Auto) 0.1 K/uL (0.0-0.1) Nucleated RBC Absolute Count (auto) 0.01 K/uL Prothrombin Time 14.7 seconds (12.0-14.4) Prothromb Time International Ratio 1.14 Activated Partial Thromboplast Time 33 seconds (23-35) Glomerular Filtration Rate Calc > 60.0 Calcium Level 8.9 mg/dl (8.4-10.2) Total Bilirubin 1.2 mg/dl (0.2-1.3) Aspartate Amino Transf (AST/SGOT) 58 U/L (0-35) Alanine Aminotransferase (ALT/SGPT) 46 U/L (0-56) Alkaline Phosphatase 102 U/L (0-126) Total Protein 7.7 gm/dl (6.3-8.2) Albumin 3.8 g/dl (3.5-5.0) Amylase Level 58 U/L (0-110) Lipase 103 U/L (23-300) Digoxin Level 0.6 ng/ml Digoxin Last Dose Date unk Digoxin Last Dose Time unk Helicobacter pylori IgG Antibody Negative (NEGATIVE) Stool Occult Blood (IFOB) Positive (NEGATIVE) Coagulation Test 03/27/17 09:30 Prothrombin Time 14.7 seconds Prothromb Time International Ratio 1.14 Activated Partial Thromboplast Time 33 seconds Toxicology Test 03/27/17 09:30 Digoxin Level 0.6 ng/ml Digoxin Last Dose Date unk Digoxin Last Dose Time unk EKG/Imaging EKG Interpretation EKG shows atrial flutter with variable block ventricular rate is 90 bpm Monitor Interpretation: Atrial Flutter Imaging Date of [facility] [place]: 03/27/2017 ABDOMEN/PELVIS WITH CONTRAST HISTORY: abdominal pain TECHNIQUE: Following administration of IV contrast contiguous axial images acquired through the abdomen/pelvis. Coronal and sagittal reformatting also performed. Dose Lowering Technique One of the following dose optimization techniques was utilized in the performance of this exam: Automated exposure control; adjustment of the mA and/ or kV according to the patient's size; or use of an iterative reconstruction technique. Specific details can be referenced in the facility's radiology CT exam operational policy. CONTRAST: 75 mL Isovue-370 COMPARISON: March 16, 2017 FINDINGS: Visualized lung bases: Severe emphysematous changes are seen in the lower lung rodney. There is increasing linear stranding likely related to bibasilar atelectasis. There is a tiny posterior layering right pleural effusion. Hepatobiliary: In the mid right lobe there is a subtle irregular area of decreased attenuation. There was a small enhancing nodule in this location seen on a prior CT from June 12, 2008. There is suggestion of subtle enhancement centrally within this hypoattenuating region. Further evaluation with MR is recommended. Cholelithiasis although no evidence of biliary ductal dilatation Spleen: Negative. Adrenals: Negative. Pancreas: Negative. Kidneys ureters or bladder: Negative. Genitalia: Negative. GI: There is diverticulosis left-sided colon although no CT evidence of acute diverticulitis Vessels/spaces/nodes: Small infrarenal abdominal aortic aneurysm is again seen unchanged measuring 3.5 x 3.5 cm. moderate vascular calcification seen throughout the abdomen and pelvis. Bones/soft tissues: Diastases of the midline of the rectus sheath again noted. . Moderate compression fracture of L3 remains unchanged Additional findings: None pertinent. IMPRESSION: Severe emphysematous changes in the lower lung rodney. There is increasing linear stranding likely related to bibasilar atelectasis. Also noted is a tiny posterior layering right pleural effusion In the mid right lobe of the liver there is a subtle irregular area of decreased attenuation. There was a small enhancing nodule in this location on a prior CT from 2008. There is suggestion of subtle enhancement centrally within this hypoattenuating region there for further evaluation with MR is recommended Cholelithiasis although no evidence of biliary ductal dilatation Diverticulosis left-sided colon although no CT evidence of acute diverticulitis Small infrarenal abdominal aortic aneurysm unchanged measuring 3.5 cm in diameter. Additional chronic findings as described Report Dictated By: Yu Holden MD at 03/27/2017 10:54 AM Report E-Signed By: Yu Holden MD at 03/27/2017 11:05 AM WSN:DARIO ED Course/Re-evaluation ED Course 03/27/2017 11:39:44 am patient with lower GI bleed on several toe hemodynamically stable CT scan showing diverticulosis without evidence of diverticulitis. Because of the anticoagulation plan at this time will be to admit the patient for continued observation and potential surgical consult if needed for endoscopy due to GI bleed. Patient made aware no questions or concerns at time of disposition. History physical exam ED course and pertinent information shared with Dr. Tomas, who is accepted the patient at this time Decision to Disposition Date: Mar 27, 2017 Decision to Disposition Time: 11:39 Depart Departure Latest Vital Signs Vital Signs Date Time Temp Pulse Resp B/P (MAP) Pulse Ox O2 Delivery O2 Flow Rate FiO2 03/27/17 10:14 93 9 92 03/27/17 10:00 124/81 (95) 03/27/17 08:44 98.5 Nasal Cannula Impression: Primary Impression: GI bleed Condition: Improved Disposition: Admitted from ER (to dr tomas) Referrals: EILEEN SANTANA MD (PCP) Problem Qualifiers Primary Impression: GI bleed GI bleed type/associated pathology: unspecified gastrointestinal hemorrhage type Qualified Codes: K92.2 - Gastrointestinal hemorrhage, unspecified NORTH HIDALGO MD Mar 27, 2017 08:47
[2017-03-27] MEDS ORDERED: NS(*) 0.9% 500 ML BAG 500 ML IV ONE (08:52)
[2017-03-27] MEDS ORDERED: PANTOPRAZOLE SOD(*)40 MG VIAL 80 MG in NS(*) 0.9% 100 ML BAG 100 ML IV SCH (08:55)
[2017-03-27] MEDS ORDERED: PANTOPRAZOLE SOD(*)40 MG VIAL 80 MG in NS(*) 0.9% 100 ML BAG 100 ML IVPB ONE (08:55)
[2017-03-27] MEDS ORDERED: NS 0.9% 20 ML SDV 60 ML ONE (09:02)
[2017-03-27] MEDS ORDERED: IOPAMIDOL 76% 75 ML INFUS BTL 75 ML ONE (09:02)
--- NOTE | 2017-03-27 09:06 | EKG ---
FACILITY: [facility] PATIENT NAME: LEWIS FLETCHER : [id number] MR: [id number] V: [id number] EXAM DATE: ORDERING PHYSICIAN: NORTH HIDALGO TECHNOLOGIST: REINA Curiel Reason : Blood Pressure : / mmHG Vent. Rate : 090 BPM Atrial Rate : 258 BPM P-R Int : 000 ms QRS Dur : 096 ms QT Int : 366 ms P-R-T Axes : 262 072 056 degrees QTc Int : 447 ms Atrial flutter with variable AV block Nonspecific ST and T wave abnormality Abnormal ECG When compared with ECG of 16-MAR-2017 07:03, ST now depressed in Inferior leads Confirmed by RONAN NGUYEN ([id number]) on 03/28/2017 7:44:21 AM Referred By: ROCKY Confirmed By:RONAN NGUYEN
[2017-03-27] MEDS ORDERED: EMS NS 0.9%(*) 1000 ML BAG 1,000 ML IV ONE (09:10)
[2017-03-27 09:42] LABS: PLATELET COUNT, AUTOMATED 178 K/uL (150-450)
[2017-03-27] MEDS ORDERED: MORPHINE 4 MG/ML SYR IVP ONE (09:50)
[2017-03-27 09:51] LABS: INR 1.14
[2017-03-27] MEDS ORDERED: fentaNYL CITR 100 MCG/2 ML AMP IVP ONE (10:05)
--- NOTE | 2017-03-27 11:09 | RADIOLOGY IMAGING REPORT ---
FACILITY: [facility] [place] PATIENT NAME: Jaquan Orlando : 1945 MR: [id number] V: [id number] EXAM DATE: ORDERING PHYSICIAN: NORTH HIDALGO TECHNOLOGIST: Location: [facility] [place] Patient: Jaquan Orlando : 1945 Visit/Account:[id number] Date of Sevice: 03/27/2017 ABDOMEN/PELVIS WITH CONTRAST HISTORY: abdominal pain TECHNIQUE: Following administration of IV contrast contiguous axial images acquired through the abdom en/pelvis. Coronal and sagittal reformatting also performed. Dose Lowering Technique One of the following dose optimization techniques was utilized in the performance of this exam: Autom ated exposure control; adjustment of the mA and/or kV according to the patient's size; or use of an i terative reconstruction technique. Specific details can be referenced in the facility's radiology C T exam operational policy. CONTRAST: 75 mL Isovue-370 COMPARISON: March 16, 2017 FINDINGS: Visualized lung bases: Severe emphysematous changes are seen in the lower lung rodney. There is inc reasing linear stranding likely related to bibasilar atelectasis. There is a tiny posterior layering right pleural effusion. Hepatobiliary: In the mid right lobe there is a subtle irregular area of decreased attenuation. The re was a small enhancing nodule in this location seen on a prior CT from June 12, 2008. There is pena ggestion of subtle enhancement centrally within this hypoattenuating region. Further evaluation with MR is recommended. Cholelithiasis although no evidence of biliary ductal dilatation Spleen: Negative. Adrenals: Negative. Pancreas: Negative. Kidneys ureters or bladder: Negative. Genitalia: Negative. GI: There is diverticulosis left-sided colon although no CT evidence of acute diverticulitis Vessels/spaces/nodes: Small infrarenal abdominal aortic aneurysm is again seen unchanged measuring 3 .5 x 3.5 cm. moderate vascular calcification seen throughout the abdomen and pelvis. Bones/soft tissues: Diastases of the midline of the rectus sheath again noted. . Moderate compress ion fracture of L3 remains unchanged Additional findings: None pertinent. IMPRESSION: Severe emphysematous changes in the lower lung rodney. There is increasing linear stranding likely r elated to bibasilar atelectasis. Also noted is a tiny posterior layering right pleural effusion In the mid right lobe of the liver there is a subtle irregular area of decreased attenuation. There was a small enhancing nodule in this location on a prior CT from 2008. There is suggestion of subtle enhancement centrally within this hypoattenuating region there for further evaluation with MR is rec ommended Cholelithiasis although no evidence of biliary ductal dilatation Diverticulosis left-sided colon although no CT evidence of acute diverticulitis Small infrarenal abdominal aortic aneurysm unchanged measuring 3.5 cm in diameter. Additional chronic findings as described Report Dictated By: uY Holden MD at 03/27/2017 10:54 AM Report E-Signed By: Yu Holden MD at 03/27/2017 11:05 AM KVNGN:AMIAYANNAVGenie
[2017-03-27] MEDS ORDERED: LORazepam 2 MG/ML VIAL IVP ONE (11:20)
[2017-03-27] MEDS ORDERED: DEXL60CA6 PO (11:50)
[2017-03-27] MEDS ORDERED: NITROGLYCERIN 0.4 MG SUBL SL PRN (12:45)
[2017-03-27 12:48] VITALS: BP 155/84
[2017-03-27] MEDS ORDERED: NS(*) 0.9% 1000 ML BAG 1,000 ML IV PRN (13:45)
[2017-03-27] MEDS ORDERED: ONDANSETRON 4 MG/2 ML VIAL IVP PRN (13:45)
[2017-03-27] MEDS ORDERED: ROPI1TAB36 PO (14:02)
[2017-03-27] MEDS: GABAPENTIN 300 MG CAP PO SCH ×2 (14:44→21:13)
[2017-03-27] MEDS: MONTELUKAST SODIUM 10 MG TAB PO SCH (14:44)
--- NOTE | 2017-03-27 15:30 | History & Physical ---
History of Present Illness Chief Complaint Abdominal pain, black stools and swelling and redness of both Legs History of Present Illness Mr. Orlando is a 72-year-old male with PMH of HTN on Lasix 80mg bid, COPD on Sigulair and Advair, A.Flutter on Diltiazem CD 240mg, BPH/Prostate Cancer on Flomax and Avodart, Dyslipidemia on Pravacor 80mg, Hypothyroidism on Synthroid 150mcg, P. Neuropathy on Neurontin 300mg tid, h/o Pulmonary Embolism on Xarelto , who presented to the emergency department for complaint of left upper quadrant abdominal pain. He also has noticed black tarry stools over the last day. Patient is anticoagulated on Xarelto secondary to atrial fibrillation. He was seen in the emergency department on March 16 for nausea vomiting and some diarrhea. He was ultimately diagnosed as gastroenteritis at that time having a normal CT scan of his abdomen and pelvis. Patient stated the abdominal discomfort and stools began early this morning but he waited for his home health nurse to come for evaluation before calling 911. ER evaluation revealed stool guaiac positive but patient takes Iron pill daily. Thjere was no ER evidence having active GIB. His H/H are stable at 16/49 and he was hemodynamically stable with BP 142/76. I discussed the case with the ER-MD and admitted the patient for further evaluation and management. He has been having worsening legs swelling and redness of both LE. He also c/o hotness and pain in these legs. He does not have fever or high WBC. His chemistry was in normal range. Dexlansoprazole (DEXILANT) 60 Mg Boo., 1 CAP PO DAILY, #90 TAB 4 Refills Prov:EILEEN SANTANA MD 03/27/17 Diphenoxylate Hcl/Atropine (LOMOTIL TABLET) 1 Each Tablet, 1 EACH PO Q4H for diarrhea, #10 TAB 0 Refills Prov:NORTH HIDALGO MD 03/16/17 Ondansetron (ZOFRAN ODT) 4 Mg Tab.rapdis, 4 MG PO Q8H for Nausea, #20 TAB.SHANE 0 Refills Prov:NORTH HIDALGO MD 03/16/17 Sertraline Hcl (ZOLOFT) 50 Mg Tablet, 1 TAB PO QDAY, #30 TAB Prov:EILEEN SANTANA MD 03/11/17 Pravastatin Sodium (PRAVASTATIN SODIUM) 80 Mg Tablet, 1 TAB PO QDAY, #90 TAB 3 Refills Prov:EILEEN SANTANA MD 03/11/17 Levothyroxine Sodium (LEVOTHYROXINE SODIUM) 150 Mcg Tablet, 150 MCG PO QDAY, # 30 TAB Prov:EILEEN SANTANA MD 03/11/17 Furosemide (LASIX) 80 Mg Tablet, 1 TAB PO BID, #180 TAB 3 Refills Prov:EILEEN SANTANA MD 03/05/17 Digoxin (Digox) 125 Mcg Tablet, 1 TAB PO QDAY, #90 TAB 1 Refill Prov:SAL TARANGO APRN 02/13/17 Dutasteride (AVODART) 0.5 Mg Capsule, 1 TAB PO QDAY, #90 CAPSULE 1 Refill Prov:SAL TARANGO APRN 02/09/17 Montelukast Sodium (SINGULAIR) 10 Mg Tablet, 1 TAB PO QDAY, #90 TAB 1 Refill Prov:EILEEN SANTANA MD 01/29/17 Polyethylene Glycol 3350 (MIRALAX) 17 Gm Powd.pack, 1 PACKET PO DAILY, #90 PKT 4 Refills Prov:EILEEN SANTANA MD 01/06/17 Gabapentin (GABAPENTIN) 300 Mg Capsule, 1 CAP PO TID, #90 CAPSULE 11 Refills Prov:SAL TARANGO APRNC 01/01/17 Rivaroxaban 20 Mg (XARELTO 20 MG) 20 Mg Tablet, 1 TAB PO DAILY, #90 TAB 1 Refill Prov:SAL TARANGO APRNC 10/31/16 Tamsulosin Hcl (TAMSULOSIN HCL) 0.4 Mg Cap.er.24h, 1 CAP PO BID, #180 CAP 1 Refill Prov:EILEEN SANTANA MD 10/09/16 Potassium Chloride (POTASSIUM CHLORIDE) 20 Meq Tab.er.prt, 2 TAB PO TID, #180 TAB 5 Refills Prov:MICHAEL DIEZ MD 09/11/16 Oxygen (OXYGEN) Inha, 7 L INH QDAY for 30 Days, L Prov:MICHAEL DIEZ MD 09/11/16 Fluticasone/Salmeterol (ADVAIR 500-50 DISKUS) 1 Each Disk.w.dev, 1 EACH IH BID, #1 EACH 11 Refills Prov:EILEEN SANTANA MD 09/08/16 Diltiazem Hcl (DILTIAZEM 24HR CD) 120 Mg Cap.er.24h, 240 MG PO QDAY, #180 3 Refills Prov:EILEEN SANTANA MD 07/31/16 Fluticasone Prop 50 Mcg Ns (FLONASE 50 MCG NS) 16 Gm [place].susp, 1 SPRAY NS DAILY, #1 BOT 11 Refills Prov:EILEEN SANTANA MD 06/06/16 Nitroglycerin (NITROSTAT) 0.4 Mg Subl, 0.4 MG SL Q5MIN Y for CHEST PAIN, #30 TAB 11 Refills Prov:EILEEN SANTANA MD 02/04/16 Ropinirole Hcl (ROPINIROLE HCL) 1 Mg Tablet, 1 MG PO QHS, #30 TAB 9 Refills Prov:EILEEN SANTANA MD 08/06/15 Reported Medications Albuterol Sulfate (PROVENTIL HFA) 6.7 Gm Inh, 1-2 PUFF INH Q4-6H Y for SHORTNESS OF BREATH, INH 09/05/16 Cyanocobalamin (Vitamin B-12) (VITAMIN B-12) 2,000 Mcg Tablet.er, 2000 MCG PO DAILY 09/05/16 Ferrous Sulfate (FERROUS SULFATE) 325 Mg Tablet, 325 MG PO BID, #60 05/07/16 Cholecalciferol (Vitamin D3) (VITAMIN D-3) 2,000 Unit Capsule, 2000 UNIT PO DAILY, CAPSULE 12/21/14 Multivitamin (MULTI VITAMIN DAILY) 1 Each Tablet, 1 EACH PO DAILY 12/21/14 Guaifenesin (MUCINEX) 600 Mg Tablet.er, 600 MG PO BID 10/29/12 Past Medical/Surgical History Past medical history for stroke in 2015, history of atrial fibrillation history of peripheral edema. History of COPD and history of pulmonary embolism. History of gastroesophageal reflux disease, history of benign prostatic hypertrophy, history of hypothyroidism, history of anemia and prostate cancer. Hx Smoking: No Smoking Status: Former Smoker Exposure to Second Hand Smoke?: Yes Hx Substance Use Disorder: No Hx Alcohol Use: Yes Constitutional Vital Sign - Last 24 Hours 03/27/17 03/27/17 03/27/17 03/27/17 08:42 08:44 08:54 09:00 Temp 98.5 Pulse 90 91 Resp 16 13 B/P (MAP) 161/81 (107) 161/81 146/72 (96) Pulse Ox 98 95 History Home Meds Active Scripts Ropinirole Hcl (ROPINIROLE HCL) 1 Mg Tablet, 1 MG PO QHS, #30 TAB 11 Refills Prov:EILEEN SANTANA MD 03/27/17 Dexlansoprazole (DEXILANT) 60 Mg Cap., 1 CAP PO DAILY, #90 TAB 4 Refills Prov:EILEEN SANTANA MD 03/27/17 Diphenoxylate Hcl/Atropine (LOMOTIL TABLET) 1 Each Tablet, 1 EACH PO Q4H for diarrhea, #10 TAB 0 Refills Prov:NORTH HIDALGO MD 03/16/17 Ondansetron (ZOFRAN ODT) 4 Mg Tab.rapdis, 4 MG PO Q8H for Nausea, #20 TAB.SHANE 0 Refills Prov:NORTH HIDALGO MD 03/16/17 Sertraline Hcl (ZOLOFT) 50 Mg Tablet, 1 TAB PO QDAY, #30 TAB Prov:EILEEN SANTANA MD 03/11/17 Pravastatin Sodium (PRAVASTATIN SODIUM) 80 Mg Tablet, 1 TAB PO QDAY, #90 TAB 3 Refills Prov:EILEEN SANTANA MD 03/11/17 Levothyroxine Sodium (LEVOTHYROXINE SODIUM) 150 Mcg Tablet, 150 MCG PO QDAY, # 30 TAB Prov:EILEEN SANTANA MD 03/11/17 Furosemide (LASIX) 80 Mg Tablet, 1 TAB PO BID, #180 TAB 3 Refills Prov:EILEEN SANTANA MD 03/05/17 Digoxin (Digox) 125 Mcg Tablet, 1 TAB PO QDAY, #90 TAB 1 Refill Prov:SAL TARANGO APRN 02/13/17 Dutasteride (AVODART) 0.5 Mg Capsule, 1 TAB PO QDAY, #90 CAPSULE 1 Refill Prov:SAL TARANGO APRN 02/09/17 Montelukast Sodium (SINGULAIR) 10 Mg Tablet, 1 TAB PO QDAY, #90 TAB 1 Refill Prov:EILEEN SANTANA MD 01/29/17 Polyethylene Glycol 3350 (MIRALAX) 17 Gm Powd.pack, 1 PACKET PO DAILY, #90 PKT 4 Refills Prov:EILEEN SANTANA MD 01/06/17 Gabapentin (GABAPENTIN) 300 Mg Capsule, 1 CAP PO TID, #90 CAPSULE 11 Refills Prov:SAL TARANGO APRN-Aaron 01/01/17 Rivaroxaban 20 Mg (XARELTO 20 MG) 20 Mg Tablet, 1 TAB PO DAILY, #90 TAB 1 Refill Prov:SAL TARANGO APRN-Aaron 10/31/16 Tamsulosin Hcl (TAMSULOSIN HCL) 0.4 Mg Cap.er.24h, 1 CAP PO BID, #180 CAP 1 Refill Prov:EILEEN SANTANA MD 10/09/16 Potassium Chloride (POTASSIUM CHLORIDE) 20 Meq Tab.er.prt, 2 TAB PO TID, #180 TAB 5 Refills Prov:MICHAEL DIEZ MD 09/11/16 Oxygen (OXYGEN) Inha, 7 L INH QDAY for 30 Days, L Prov:MICHAEL DIEZ MD 09/11/16 Fluticasone/Salmeterol (ADVAIR 500-50 DISKUS) 1 Each Disk.w.dev, 1 EACH IH BID, #1 EACH 11 Refills Prov:EILEEN SANTANA MD 09/08/16 Diltiazem Hcl (DILTIAZEM 24HR CD) 120 Mg Cap.er.24h, 240 MG PO QDAY, #180 3 Refills Prov:EILEEN SANTANA MD 07/31/16 Fluticasone Prop 50 Mcg Ns (FLONASE 50 MCG NS) 16 Gm [place].susp, 1 SPRAY NS DAILY, #1 BOT 11 Refills Prov:EILEEN SANTANA MD 06/06/16 Nitroglycerin (NITROSTAT) 0.4 Mg Subl, 0.4 MG SL Q5MIN Y for CHEST PAIN, #30 TAB 11 Refills Prov:EILEEN SANTANA MD 02/04/16 Reported Medications Albuterol Sulfate (PROVENTIL HFA) 6.7 Gm Inh, 1-2 PUFF INH Q4-6H Y for SHORTNESS OF BREATH, INH 09/05/16 Cyanocobalamin (Vitamin B-12) (VITAMIN B-12) 2,000 Mcg Tablet.er, 2000 MCG PO DAILY 09/05/16 Ferrous Sulfate (FERROUS SULFATE) 325 Mg Tablet, 325 MG PO BID, #60 05/07/16 Cholecalciferol (Vitamin D3) (VITAMIN D-3) 2,000 Unit Capsule, 2000 UNIT PO DAILY, CAPSULE 12/21/14 Multivitamin (MULTI VITAMIN DAILY) 1 Each Tablet, 1 EACH PO DAILY 12/21/14 Guaifenesin (MUCINEX) 600 Mg Tablet.er, 600 MG PO BID 10/29/12 Allergies: Coded Allergies: tiotropium (Verified Allergy, Mild, visual changes, 03/27/17) Patient History: FH: multiple sclerosis BROTHER OR SISTER FH: prostate cancer FATHER Paraplegia MOTHER Hx Smoking: No Smoking Status: Former Smoker Exposure to Second Hand Smoke?: Yes Caffeine Intake: Soda Caffeine/Cups Per Day: none Hx Alcohol Use: Yes Hx Substance Use Disorder: No Social Drug Use: Never Review of Systems Constitutional: Weight Gain, No Fever, No Weight Loss, No Chills Neurological: Weakness, No Dizziness ENT: No Sinus Congestion, No Sore Throat Cardiovascular: No Chest Pain, No Palpitations Respiratory: Shortness of Breath, No Cough, No Wheezing Gastrointestinal: Nausea, No Vomiting, No Diarrhea, No Dysphagia, No Constipation, No Early Satiety, No Hematemesis, No Hematochezia, No Melena, No Abdominal Pain Genitourinary: No Dysuria, No Hematuria Musculoskeletal: Pain, No Sprain, No Strain Psychiatric: No Depression, No Anxiety Exam Vital Signs Vital Signs Date Time Temp Pulse Resp B/P (MAP) Pulse Ox O2 Delivery O2 Flow Rate FiO2 03/27/17 13:00 97 High-Flow Nasal Cannula 7.0 03/27/17 12:48 98.5 109 20 155/84 (107) General Appearance: Alert, Awake, No Acute Distress, Afebrile Neuro: No Gross deficits Eyes: PERRLA ENT: Normal Neck: No Masses Cardiovascular: Other (positive atrial flutter) Respiratory: Other (mild to moderate respiratory distress) GI: Abd Soft and Non-Tender : Normal Extremities: Warm, Edema (tender and hot bilateral loer legs) Psych: Alert & Oriented X3, Appropriate Mood & Affect Medical Decision Making Data Points Result Diagram: 03/27/17 0930 03/27/17 0930 EKG / Imaging Imaging reviewed Pre-Admit Course Medical Record Review: Yes Assessment and Plan Problems: (1) Bilateral cellulitis of lower leg Status: Acute Assessment & Plan: I will admit him to the medical floor for bilateral LE cellulitis and possible LGIB. I will start him on IVF with 40meq KCL at 60ml/h I will start Lasix 40mg IV q8h I will start IV Unasyn 3gm IVPB q 6h for Cellulitis I will elevate his legs above his heart level I will place SCD's for his DVTP (2) GI bleed Status: Acute Assessment & Plan: I will get CBC q8h for [address] IVF NS at 60ml/h with KCL 40meq I will get T & C if his H/H drops I will get surgical consult if he drops his Hb. (3) HTN (hypertension) Status: Chronic Assessment & Plan: I will resume his home medications including Lasix Central Venous Access Medical Necessity for Access: IV Access, Medication Administration Time Spent on Plan of Care: < 30 min Copies to: EILEEN SANTANA MD Venous Thromboembolism VTE Risk Physician Assess for VTE Risk: Yes Patient's VTE Risk: Low VTE Diagnostic Test 2 Days Prior to Admit: No Antithrombotics Is Pt On Any Antithrombotics?: No Heart Failure Ejection Fraction %: 68 RVSP (mmHg): 60 NYHA Class: III Is Patient on JUDY Inhibitor?: Yes Is Patient on Beta Janet?: Yes Admission Weight: 280 Exam Sepsis Risk: No Definite Risk Problem Qualifiers (1) GI bleed: GI bleed type/associated pathology: unspecified gastrointestinal hemorrhage type Qualified Codes: K92.2 - Gastrointestinal hemorrhage, unspecified CAILIN VIVAR MD Mar 27, 2017 15:30
[2017-03-27] MEDS ORDERED: KCL 2 MEQ/ML 20 MEQ/10 ML VIAL 40 MEQ in NS(*) 0.9% 1000 ML BAG 1,000 ML IV PRN (15:35)
[2017-03-27] MEDS: NS IVPB SCH ×2 (15:51→21:15)
[2017-03-27] MEDS: AMPICILLIN IVPB SCH ×2 (15:51→21:15)
[2017-03-27] MEDS: SULBACTAM IVPB SCH ×2 (15:51→21:15)
[2017-03-27 16:37] VITALS: BP 148/76
[2017-03-27] MEDS ORDERED: KETOROLAC 15 MG/ML VIAL IVP PRN (17:05)
[2017-03-27] MEDS: FUROSEMIDE 40 MG/4 ML VIAL IVP SCH (17:17)
[2017-03-27 18:10] LABS: PLATELET COUNT, AUTOMATED 181 K/uL (150-450)
[2017-03-27 18:50] VITALS: BP 137/74
[2017-03-27 19:33] VITALS: Ht 182.9 cm; Wt 119.7 kg
[2017-03-27] MEDS ORDERED: PANTOPRAZOLE SOD 40 MG IV VIAL IVP SCH (21:00)
[2017-03-27] MEDS: PRAVASTATIN SOD 20 MG TAB PO SCH (21:13)
[2017-03-27] MEDS: FERROUS SULFATE 325 MG TAB PO SCH (21:13)
[2017-03-27] MEDS: TAMSULOSIN HCL 0.4 MG CAP PO SCH (21:13)
[2017-03-27 23:03] VITALS: BP 130/75
[2017-03-28] MEDS: FUROSEMIDE 40 MG/4 ML VIAL IVP SCH ×3 (01:30→17:12)
[2017-03-28 03:13] VITALS: BP 127/81
[2017-03-28] MEDS: AMPICILLIN IVPB SCH (03:16)
[2017-03-28] MEDS: SULBACTAM IVPB SCH (03:16)
[2017-03-28] MEDS: NS IVPB SCH (03:16)
[2017-03-28 03:18] LABS: PLATELET COUNT, AUTOMATED 184 K/uL (150-450)
[2017-03-28] MEDS: SALMETEROL/FLUTIC 500/50 1 INH INH SCH ×2 (05:06→16:59)
[2017-03-28] MEDS: LEVOTHYROXINE SOD 0.150 MG TAB PO SCH (06:18)
[2017-03-28 07:51] VITALS: BP 122/76
[2017-03-28] MEDS ORDERED: GI COCKTAIL 60 ML BTL PO PRN (08:35)
[2017-03-28] MEDS ORDERED: DEXLANSOPRAZOLE PO SCH (09:00)
[2017-03-28] MEDS ORDERED: OXYGEN INH SCH (09:00)
[2017-03-28] MEDS: FLUTICASONE PROP 0.05% 16 GM SCH (09:24)
[2017-03-28] MEDS: POLYETHYLENE GLYCOL 17 GM PKT PO SCH (09:26)
[2017-03-28] MEDS: CHOLECALCIFEROL 1000 UNIT TAB PO SCH (09:31)
[2017-03-28] MEDS: DUTASTERIDE 0.5 MG CAP PO SCH (09:31)
[2017-03-28] MEDS: MONTELUKAST SODIUM 10 MG TAB PO SCH (09:31)
[2017-03-28] MEDS: CYANOCOBALAMIN 1000 MCG TAB PO SCH (09:31)
--- NOTE | 2017-03-28 09:31 | Hospitalist Progress Note ---
Subjective Progress Notes Subjective This patient was admitted for GI bleed, but has not had any of this since admission. He is complaining of swelling in the legs and abdominal pressure. Patient Complains of: Cardiovascular: No: Chest Pain Respiratory: No: Shortness of Breath Physical Exam Vital Signs Date Time Temp Pulse Resp B/P (MAP) Pulse Ox O2 Delivery O2 Flow Rate FiO2 03/28/17 07:51 98.1 107 20 122/76 (91) 95 High-Flow Nasal Cannula 8.0 102 Cardiovascular: Regular Rate and Rhythm, Other (JVD present.) Respiratory: Clear to Auscultation GI: Other (Distended with tenderness throughout.) Extremities: Edema Integumentary: No Cyanosis Result Diagram: 03/28/1730903/28/17309 Monitor Interpretation: Atrial Flutter Assessment and Plan Problems: (1) Acute diastolic (congestive) heart failure Assessment & Plan: He has been complaining of increased lower leg swelling and abdominal distention. A BNP was not done, but he does have a history of diastolic failure in the past. His last echocardiogram showed a preserved ejection fraction at 52%. He is receiving scheduled IV Lasix. Daily weights have been ordered. (2) Bilateral cellulitis of lower leg Status: Acute Assessment & Plan: He was reported to have increased edema of bilateral lower extremities and was started on Unasyn. He had no fever and his WBC was normal. Blood cultures are not available. Today these skin changes appear to be mostly chronic. Antibiotics have been discontinued. (3) GI bleed Status: Acute Assessment & Plan: He presented with complaints of black stools and was Hemoccult positive in the emergency department. His Xarelto was discontinued. His Hgb has been in normal range throughout this admission. We will restart his Xarelto. (4) Iron deficiency anemia Status: Chronic Assessment & Plan: He is on chronic iron therapy. (5) History of pulmonary embolism Status: Chronic Assessment & Plan: He is on chronic treatment with Xarelto. (6) Paroxysmal a-fib Status: Chronic Assessment & Plan: He is on chronic treatment with digoxin and diltiazem. (7) Centrilobular emphysema Status: Chronic Assessment & Plan: He is on chronic treatment with Advair. Central Venous Access Medical Necessity for Access: IV Access, Medication Administration Heart Failure Ejection Fraction %: 68 RVSP (mmHg): 60 NYHA Class: III Is Patient on JUDY Inhibitor?: Yes Is Patient on Beta Janet?: Yes Admission Weight: 280 Exam Sepsis Risk: No Definite Risk Problem Qualifiers (1) GI bleed: GI bleed type/associated pathology: unspecified gastrointestinal hemorrhage type Qualified Codes: K92.2 - Gastrointestinal hemorrhage, unspecified RONAN NGUYEN DO Mar 28, 2017 09:31
[2017-03-28] MEDS: GABAPENTIN 300 MG CAP PO SCH ×3 (09:32→21:04)
[2017-03-28] MEDS: guaiFENesin 600 MG TABCR PO SCH ×2 (09:32→21:04)
[2017-03-28] MEDS: TAMSULOSIN HCL 0.4 MG CAP PO SCH ×2 (09:32→21:04)
[2017-03-28] MEDS: FERROUS SULFATE 325 MG TAB PO SCH ×2 (09:32→17:11)
[2017-03-28] MEDS: MULTIVITAMINS TAB PO SCH (09:32)
[2017-03-28] MEDS: DILTIAZEM CD 120 MG CAPCR PO SCH (09:32)
[2017-03-28] MEDS: SERTRALINE HCL 50 MG TAB PO SCH (09:32)
[2017-03-28] MEDS: DIGOXIN 0.125 MG TAB PO SCH (09:35)
[2017-03-28] MEDS: GI COCKTAIL 60 ML BTL PO PRN ×2 (09:45→17:12)
[2017-03-28] MEDS: RIVAROXABAN 10 MG TAB PO SCH (11:56)
[2017-03-28] MEDS: ACETAMINOPHEN 325 MG TAB PO PRN ×2 (11:58→19:07)
[2017-03-28 11:59] VITALS: BP 132/62
[2017-03-28 14:39] VITALS: BP 119/67
[2017-03-28 19:05] VITALS: BP 124/65
[2017-03-28] MEDS: PRAVASTATIN SOD 20 MG TAB PO SCH (21:05)
[2017-03-29] MEDS: FUROSEMIDE 40 MG/4 ML VIAL IVP SCH (00:24)
[2017-03-29 00:28] VITALS: BP 109/59
[2017-03-29 04:13] VITALS: BP 129/71
[2017-03-29] MEDS: SALMETEROL/FLUTIC 500/50 1 INH INH SCH ×2 (05:11→19:03)
[2017-03-29] MEDS: LEVOTHYROXINE SOD 0.150 MG TAB PO SCH (06:23)
[2017-03-29 07:55] VITALS: BP 123/69
[2017-03-29] MEDS ORDERED: POTASSIUM CHL 20 MEQ TABCR PO SCH (08:00)
[2017-03-29] MEDS ORDERED: KCL (*) 20 MEQ/100 ML PREMIX 100 ML IV ONE (08:20)
[2017-03-29] MEDS ORDERED: SIMETHICONE 80 MG CHEW CHEW PRN (08:50)
--- NOTE | 2017-03-29 08:54 | Hospitalist Progress Note ---
Subjective Progress Notes Subjective He reports some improvement in his breathing and his legs are less swollen. He is still having some belching. Physical Exam Vital Signs Date Time Temp Pulse Resp B/P (MAP) Pulse Ox O2 Delivery O2 Flow Rate FiO2 03/29/17 07:55 97.7 88 20 123/69 (87) 90 High-Flow Nasal Cannula 8.0 General Appearance: Alert, Awake, No Acute Distress Cardiovascular: Regular Rate and Rhythm Respiratory: Clear to Auscultation (Doesn't move air well past about 2/3 down the lung) Extremities: Edema (Legs with wraps over up to the knees. Noticeably more swollen than baseline.) Result Diagram: 03/28/17 0310 03/29/17 0500 Monitor Interpretation: Atrial Flutter Assessment and Plan Problems: (1) Acute diastolic (congestive) heart failure Assessment & Plan: He has been complaining of increased lower leg swelling and abdominal distention. A BNP was not done, but he does have a history of diastolic failure in the past. His last echocardiogram showed a preserved ejection fraction at 52%. He is receiving scheduled IV Lasix. Daily weights have been ordered. He is feeing improvement. (2) Hypokalemia Status: Acute Assessment & Plan: Secondary to Lasix. He is back on oral potassium tid and his to get a dose of IV today. Will follow. (3) Bilateral cellulitis of lower leg Status: Acute Assessment & Plan: He was reported to have increased edema of bilateral lower extremities and was started on Unasyn. He had no fever and his WBC was normal. Blood cultures are not available. These skin changes appear to be mostly chronic. Antibiotics have been discontinued. (4) GI bleed Status: Acute Assessment & Plan: He presented with complaints of black stools and was Hemoccult positive in the emergency department., but he takes daily iron. His Xarelto was discontinued. His Hgb has been in normal range throughout this admission. Xarelto restarted. Follow Hgb. (5) Iron deficiency anemia Status: Chronic Assessment & Plan: He is on chronic iron therapy. (6) History of pulmonary embolism Status: Chronic Assessment & Plan: He is on chronic treatment with Xarelto. (7) Paroxysmal a-fib Status: Chronic Assessment & Plan: He is on chronic treatment with digoxin and diltiazem. (8) Centrilobular emphysema Status: Chronic Assessment & Plan: He is on chronic treatment with Advair. Central Venous Access Medical Necessity for Access: IV Access, Medication Administration Heart Failure Ejection Fraction %: 68 RVSP (mmHg): 60 NYHA Class: III Is Patient on JUDY Inhibitor?: Yes Is Patient on Beta Janet?: Yes Admission Weight: 280 Exam Sepsis Risk: No Definite Risk Problem Qualifiers (1) GI bleed: GI bleed type/associated pathology: unspecified gastrointestinal hemorrhage type Qualified Codes: K92.2 - Gastrointestinal hemorrhage, unspecified PAUL GAINES MD Mar 29, 2017 08:54
[2017-03-29] MEDS: FLUTICASONE PROP 0.05% 16 GM SCH (09:00)
[2017-03-29] MEDS ORDERED: RIVAROXABAN 10 MG TAB PO SCH (09:00)
[2017-03-29] MEDS: FUROSEMIDE 100 MG/10 ML VIAL IVP SCH ×2 (09:00→14:00)
[2017-03-29] MEDS: RIVAROXABAN 10 MG TAB PO SCH (09:10)
[2017-03-29] MEDS: POLYETHYLENE GLYCOL 17 GM PKT PO SCH (09:10)
[2017-03-29] MEDS: MULTIVITAMINS TAB PO SCH (09:11)
[2017-03-29] MEDS: DILTIAZEM CD 120 MG CAPCR PO SCH (09:12)
[2017-03-29] MEDS: MONTELUKAST SODIUM 10 MG TAB PO SCH (09:13)
[2017-03-29] MEDS: CHOLECALCIFEROL 1000 UNIT TAB PO SCH (09:13)
[2017-03-29] MEDS: CYANOCOBALAMIN 1000 MCG TAB PO SCH (09:13)
[2017-03-29] MEDS: TAMSULOSIN HCL 0.4 MG CAP PO SCH ×2 (09:13→20:48)
[2017-03-29] MEDS: guaiFENesin 600 MG TABCR PO SCH ×2 (09:13→20:48)
[2017-03-29] MEDS: FERROUS SULFATE 325 MG TAB PO SCH ×2 (09:14→17:31)
[2017-03-29] MEDS: GABAPENTIN 300 MG CAP PO SCH ×3 (09:14→20:48)
[2017-03-29] MEDS: SERTRALINE HCL 50 MG TAB PO SCH (09:14)
[2017-03-29] MEDS: DUTASTERIDE 0.5 MG CAP PO SCH (09:14)
[2017-03-29] MEDS: POTASSIUM CHL 20 MEQ TABCR PO SCH ×3 (09:14→17:31)
[2017-03-29] MEDS: GI COCKTAIL 60 ML BTL PO PRN (09:15)
[2017-03-29] MEDS: DIGOXIN 0.125 MG TAB PO SCH (09:19)
[2017-03-29] MEDS ORDERED: NS(*) 0.9% 1000 ML BAG 1,000 ML ONE (09:46)
[2017-03-29] MEDS: ACETAMINOPHEN 325 MG TAB PO PRN ×2 (12:41→19:26)
[2017-03-29 14:43] VITALS: BP 121/66
[2017-03-29 19:31] VITALS: BP 122/70
[2017-03-29] MEDS: PRAVASTATIN SOD 20 MG TAB PO SCH (20:49)
[2017-03-29 23:25] VITALS: BP 124/73
[2017-03-30 03:18] VITALS: BP 122/72
[2017-03-30] MEDS: ACETAMINOPHEN 325 MG TAB PO PRN (03:23)
[2017-03-30] MEDS: SALMETEROL/FLUTIC 500/50 1 INH INH SCH ×2 (05:06→16:56)
[2017-03-30 05:18] LABS: PLATELET COUNT, AUTOMATED 160 K/uL (150-450)
[2017-03-30] MEDS: LEVOTHYROXINE SOD 0.150 MG TAB PO SCH (05:36)
[2017-03-30 07:29] VITALS: BP 129/75
[2017-03-30] MEDS ORDERED: KCL (*) 20 MEQ/100 ML PREMIX 100 ML IV ONE (08:20)
[2017-03-30] MEDS: POLYETHYLENE GLYCOL 17 GM PKT PO SCH (08:42)
[2017-03-30] MEDS: CYANOCOBALAMIN 1000 MCG TAB PO SCH (08:43)
[2017-03-30] MEDS: DIGOXIN 0.125 MG TAB PO SCH (08:43)
[2017-03-30] MEDS: SERTRALINE HCL 50 MG TAB PO SCH (08:44)
[2017-03-30] MEDS: FERROUS SULFATE 325 MG TAB PO SCH ×2 (08:44→16:51)
[2017-03-30] MEDS: CHOLECALCIFEROL 1000 UNIT TAB PO SCH (08:44)
[2017-03-30] MEDS: POTASSIUM CHL 20 MEQ TABCR PO SCH ×3 (08:45→16:50)
[2017-03-30] MEDS: RIVAROXABAN 10 MG TAB PO SCH (08:45)
[2017-03-30] MEDS: DILTIAZEM CD 120 MG CAPCR PO SCH (08:46)
[2017-03-30] MEDS: DUTASTERIDE 0.5 MG CAP PO SCH (08:46)
[2017-03-30] MEDS: TAMSULOSIN HCL 0.4 MG CAP PO SCH ×2 (08:46→20:37)
[2017-03-30] MEDS: guaiFENesin 600 MG TABCR PO SCH ×2 (08:47→20:37)
[2017-03-30] MEDS: MONTELUKAST SODIUM 10 MG TAB PO SCH (08:47)
[2017-03-30] MEDS: FUROSEMIDE 100 MG/10 ML VIAL IVP SCH ×2 (08:47→13:35)
[2017-03-30] MEDS: GABAPENTIN 300 MG CAP PO SCH ×3 (08:47→20:37)
[2017-03-30] MEDS: MULTIVITAMINS TAB PO SCH (08:48)
[2017-03-30] MEDS: FLUTICASONE PROP 0.05% 16 GM SCH (08:48)
[2017-03-30] MEDS: MOISTURIZING CREAM 120 GM JAR TP SCH ×2 (08:48→20:38)
[2017-03-30] MEDS: TRIAMCINOLONE ACE 0.1% CR 80GM TP SCH ×2 (08:48→20:39)
--- NOTE | 2017-03-30 08:49 | Hospitalist Progress Note ---
Subjective Progress Notes Subjective No bloody stools. No diarrhea. Still some edema/leg discomfort. Physical Exam Vital Signs Date Time Temp Pulse Resp B/P (MAP) Pulse Ox O2 Delivery O2 Flow Rate FiO2 03/30/17 07:29 97.8 61 20 129/75 (93) 94 High-Flow Nasal Cannula 7.5 Intake and Output 03/31/17 07:00 # Voids 1 # Bowel Movements 1 General Appearance: Alert, Awake Cardiovascular: Other (Irregular distant tones) Respiratory: Other (diminished breath sounds throughout/no rales or wheezes) GI: Soft and Non-Tender Extremities: Warm, Perfused, Edema (1+ both LE/chronic venous stasis changes with some mild dermatitis) Psych: Alert & Oriented X3 Result Diagram: 03/30/1743903/30/17439 Monitor Interpretation: Atrial Flutter Assessment and Plan Problems: (1) Acute diastolic (congestive) heart failure Assessment & Plan: He has been complaining of increased lower leg swelling and abdominal distention. A BNP was not done, but he does have a history of diastolic failure in the past. His last echocardiogram showed a preserved ejection fraction at 52%. He is receiving scheduled IV Lasix. Daily weights have been ordered. He is feeing improved. Will re-check echocardiogram. (2) Hypokalemia Status: Acute Assessment & Plan: Secondary to Lasix. He is back on oral potassium and will resume his usual dose 40mEq TID. He will also get 20mEq rider IV today. Will follow. (3) Bilateral cellulitis of lower leg Status: Acute Assessment & Plan: He was reported to have increased edema of bilateral lower extremities and was started on Unasyn. He had no fever and his WBC was normal. Blood cultures are not available. These skin changes appear to be mostly chronic. Antibiotics have been discontinued. Will add soem Eucerin cream and a few days of Kenalog 1% topical BID. (4) GI bleed Status: Acute Assessment & Plan: He presented with complaints of black stools and was Hemoccult positive in the emergency department, but he takes daily iron. His Xarelto was discontinued initially. His Hgb/Hct have been in normal range throughout this admission. Xarelto has been restarted. He had EGD and colonoscopy in 12/2014 (unremarkable). Follow lab. (5) Iron deficiency anemia Status: Chronic Assessment & Plan: He has not been anemic during this stay, but has been on chronic iron therapy. He had endoscopy in 12/2014. (6) History of pulmonary embolism Status: Chronic Assessment & Plan: He is on chronic treatment with Xarelto. (7) Paroxysmal a-fib Status: Chronic Assessment & Plan: He is on chronic treatment with digoxin, diltiazem, and Xarelto. (8) Centrilobular emphysema Status: Chronic Assessment & Plan: He is on chronic treatment with Advair. Central Venous Access Medical Necessity for Access: IV Access, Medication Administration Heart Failure Ejection Fraction %: 68 RVSP (mmHg): 60 NYHA Class: III Is Patient on JUDY Inhibitor?: Yes Is Patient on Beta Janet?: Yes Admission Weight: 280 Exam Sepsis Risk: No Definite Risk Problem Qualifiers (1) GI bleed: GI bleed type/associated pathology: unspecified gastrointestinal hemorrhage type Qualified Codes: K92.2 - Gastrointestinal hemorrhage, unspecified MICHAEL DIEZ MD Mar 30, 2017 08:49
[2017-03-30 14:19] VITALS: BP 128/68
[2017-03-30] MEDS: APAP/HYDROCODONE 325/5 TAB PO PRN ×2 (17:03→23:32)
[2017-03-30 20:21] VITALS: BP 114/71
[2017-03-30] MEDS: PRAVASTATIN SOD 20 MG TAB PO SCH (20:37)
[2017-03-30 23:28] VITALS: BP 111/60
[2017-03-31] MEDS: APAP/HYDROCODONE 325/5 TAB PO PRN ×3 (03:35→13:11)
[2017-03-31 03:43] VITALS: BP 129/74
[2017-03-31] MEDS: SALMETEROL/FLUTIC 500/50 1 INH INH SCH (05:55)
[2017-03-31 05:58] LABS: PLATELET COUNT, AUTOMATED 172 K/uL (150-450)
[2017-03-31] MEDS: LEVOTHYROXINE SOD 0.150 MG TAB PO SCH (06:36)
[2017-03-31 07:59] VITALS: BP 132/78
[2017-03-31] MEDS: TAMSULOSIN HCL 0.4 MG CAP PO SCH (08:32)
[2017-03-31] MEDS: SERTRALINE HCL 50 MG TAB PO SCH (08:32)
[2017-03-31] MEDS: FERROUS SULFATE 325 MG TAB PO SCH (08:32)
[2017-03-31] MEDS: RIVAROXABAN 10 MG TAB PO SCH (08:32)
[2017-03-31] MEDS: MULTIVITAMINS TAB PO SCH (08:33)
[2017-03-31] MEDS: CHOLECALCIFEROL 1000 UNIT TAB PO SCH (08:33)
[2017-03-31] MEDS: DILTIAZEM CD 120 MG CAPCR PO SCH (08:33)
[2017-03-31] MEDS: POTASSIUM CHL 20 MEQ TABCR PO SCH ×2 (08:33→13:10)
[2017-03-31] MEDS: MONTELUKAST SODIUM 10 MG TAB PO SCH (08:33)
[2017-03-31] MEDS: GABAPENTIN 300 MG CAP PO SCH (08:33)
[2017-03-31] MEDS: DIGOXIN 0.125 MG TAB PO SCH (08:33)
[2017-03-31] MEDS: guaiFENesin 600 MG TABCR PO SCH (08:33)
[2017-03-31] MEDS: CYANOCOBALAMIN 1000 MCG TAB PO SCH (08:34)
[2017-03-31] MEDS: POLYETHYLENE GLYCOL 17 GM PKT PO SCH (08:34)
[2017-03-31] MEDS: DUTASTERIDE 0.5 MG CAP PO SCH (08:34)
[2017-03-31] MEDS: FLUTICASONE PROP 0.05% 16 GM SCH (08:39)
[2017-03-31] MEDS ORDERED: METOLAZONE 2.5 MG TAB PO SCH (09:00)
[2017-03-31] MEDS ORDERED: FUROSEMIDE 80 MG TAB PO SCH (09:00)
--- NOTE | 2017-03-31 09:11 | RADIOLOGY IMAGING REPORT ---
FACILITY: [facility] PATIENT NAME: LEWIS FLETCHER : [id number] MR: [id number] V: [id number] EXAM DATE: ORDERING PHYSICIAN: PAUL GAINES TECHNOLOGIST: Mary Javier EXAMINATION:TWO-DIMENSIONAL ECHOCARDIOGRAPH REASON:EDEMA. 2D Measurements (normal values in centimeters) LV endLV endRV endVent.LV PostAorticLeftPercent DiastolicSystolicDiastolicSeptumWallRootAtriumShortening (3.5-5.7)(0.9-2.6)(0.6-1.1)(0.6-1.1)(2.0-3.7)(1.9-4.0)(25-35%) [id number]% STROKE VOLUME: 61 mL ESTIMATED EJECTION FRACTION:52% PARASTERNAL LONG AXIS: The view was somewhat technically difficult. The aortic valve appears to be sclerotic. Left ventricular systolic function appears to be within normal ranges. Color examination of the aortic valve was unremarkable. The patient appears to be in atrial fibrillation. No thrombi are noted but the left atrial appendage is not seen. PARASTERNAL SHORT AXIS: Again somewhat technically difficult echocardiograph but overall left ventricular systolic function appears to be at the lower range of normal. The aortic valve was sclerotic but does not appear to be stenotic. It is trileaflet in configuration. APICAL FOUR AND TWO CHAMBER: Left ventricular function appears to be lower range of normal if not mildly decreased. Right ventricle is borderline enlarged. Right ventricle appears to contract normally. The TAPSE measured at 2.2. Aortic valve area and mitral valve area both measured within normal ranges at 3.3 and 2.7 cm2 respectively. The left atrial volume is measured within normal range at 23 ml/m2. Right atrial volume is severely increased at 52 ml/m2. A trace amount of tricuspid insufficiency is noted. Tricuspid regurgitation V-max is measured at 2.74 m/sec. Estimated right atrial pressure is 3 mmHg. No wall motion abnormalities are noted. Mild amount of mitral insufficiency is noted. SUBCOSTAL VIEW: No pericardial effusion was noted. No atrial septal or ventricular septal defects were appreciated. Doppler examination of the mitral valve in diastole does reveal a normal pattern. There is no reversal with Valsalva, and the medial and E prime velocities are measured within normal ranges. The patient may possibly be in atrial fib/flutter at times. IVC is mildly enlarged at 2.3 cm. OVERALL IMPRESSION: 1. The estimated ejection fraction of approximately 52% with normal diastolic function. 2. Right ventricle appears to be mildly enlarged. The right atrium is severely enlarged. The left sided heart chambers are normal in size. 3. A trileaflet aortic valve with mild aortic sclerosis but no stenosis and a trace of aortic insufficiency. 4. There is a trace of pulmonic insufficiency, a mild amount of mitral insufficiency and a trace to mild amount of tricuspid insufficiency. Estimated right ventricular systolic pressure is 43 mmHg which does include an estimated right atrial pressure of 8 mmHg indicating mild pulmonary hypertension and increased right ventricular systolic pressures. 5. At times the patient appears to be in atrial flutter. Clinical correlation is recommended. No thrombi were noted but the left atrial appendage was not seen. Dictated by: Usman Nuñez M.D. on 03/30/2017 at 18:44 Transcribed by: ADELA on 03/30/2017 at 22:00 Approved by: Usman Nuñez M.D. on 03/31/2017 at 9:10 [facility]
[2017-03-31] MEDS: TRIAMCINOLONE ACE 0.1% CR 80GM TP SCH (09:34)
[2017-03-31] MEDS: MOISTURIZING CREAM 120 GM JAR TP SCH (09:34)
[2017-03-31] MEDS ORDERED: METO2.5T15 PO (09:37)
--- NOTE | 2017-03-31 09:41 | Hospitalist Depart ---
Discharge Summary Reason for Hosp/Final Diag: (1) Acute diastolic (congestive) heart failure Hospital Course & Plan: He has been complaining of increased lower leg swelling and abdominal distention. A BNP was not done, but he does have a history of diastolic failure in the past. His last echocardiogram showed a preserved ejection fraction at 52% and it was measured at 50% during this admission. We did treat him with IV Lasix. He is now back on his scheduled Lasix dose and metolazone has been added to enhance his diuresis. (2) Hypokalemia Status: Acute Hospital Course & Plan: Resolved with supplementation. (3) Bilateral cellulitis of lower leg Status: Acute Hospital Course & Plan: He was reported to have increased edema of bilateral lower extremities and was started on Unasyn. He had no fever and his WBC was normal. Blood cultures are not available. These skin changes appear to be mostly chronic. Antibiotics have been discontinued. (4) GI bleed Status: Acute Hospital Course & Plan: He presented with complaints of black stools and was Hemoccult positive in the emergency department, but he takes daily iron. His Xarelto was discontinued initially. His Hgb/Hct have been in normal range throughout this admission. Xarelto has been restarted. He had EGD and colonoscopy in 12/2014 (unremarkable). (5) Iron deficiency anemia Status: Chronic Hospital Course & Plan: He has not been anemic during this stay, but has been on chronic iron therapy. He had endoscopy in 12/2014. (6) History of pulmonary embolism Status: Chronic Hospital Course & Plan: He is on chronic treatment with Xarelto. (7) Paroxysmal a-fib Status: Chronic Hospital Course & Plan: He is on chronic treatment with digoxin, diltiazem, and Xarelto. (8) Centrilobular emphysema Status: Chronic Hospital Course & Plan: He is on chronic treatment with Advair. Departure Latest Vital Signs Vital Signs 03/31/17 08:33 Pulse 88 Weight (Pounds): 264 Weight (Ounces): 9.0 Result Diagram: 03/31/1754003/31/17540 Condition: Improved Discharge: Home, Home Health Home Health RN Follow Up For: Nursing Assessment Home Health [employer] Follow Up For: ADL Assistance Discharge Code Status: DNR, DNI Discharge Instructions Home Meds Active Scripts Metolazone (METOLAZONE) 2.5 Mg Tablet, 2.5 MG PO BIDD, #60 TAB Prov:RONAN NGUYEN DO 03/31/17 Ropinirole Hcl (ROPINIROLE HCL) 1 Mg Tablet, 1 MG PO QHS, #30 TAB 11 Refills Prov:EILEEN SANTANA MD 03/27/17 Dexlansoprazole (DEXILANT) 60 Mg Cap., 1 CAP PO DAILY, #90 TAB 4 Refills Prov:EILEEN SANTANA MD 03/27/17 Sertraline Hcl (ZOLOFT) 50 Mg Tablet, 1 TAB PO QDAY, #30 TAB Prov:EILEEN SANTANA MD 03/11/17 Pravastatin Sodium (PRAVASTATIN SODIUM) 80 Mg Tablet, 1 TAB PO QDAY, #90 TAB 3 Refills Prov:EILEEN SANTANA MD 03/11/17 Levothyroxine Sodium (LEVOTHYROXINE SODIUM) 150 Mcg Tablet, 150 MCG PO QDAY, # 30 TAB Prov:EILEEN SANTANA MD 03/11/17 Furosemide (LASIX) 80 Mg Tablet, 1 TAB PO BID, #180 TAB 3 Refills Prov:EILEEN SANTANA MD 03/05/17 Digoxin (Digox) 125 Mcg Tablet, 1 TAB PO QDAY, #90 TAB 1 Refill Prov:SAL TARANGO APRN 02/13/17 Dutasteride (AVODART) 0.5 Mg Capsule, 1 TAB PO QDAY, #90 CAPSULE 1 Refill Prov:SAL TARANGO APRN 02/09/17 Montelukast Sodium (SINGULAIR) 10 Mg Tablet, 1 TAB PO QDAY, #90 TAB 1 Refill Prov:EILEEN SANTANA MD 01/29/17 Polyethylene Glycol 3350 (MIRALAX) 17 Gm Powd.pack, 1 PACKET PO DAILY, #90 PKT 4 Refills Prov:EILEEN SANTANA MD 01/06/17 Gabapentin (GABAPENTIN) 300 Mg Capsule, 1 CAP PO TID, #90 CAPSULE 11 Refills Prov:SAL TARANGO APRN-C 01/01/17 Rivaroxaban 20 Mg (XARELTO 20 MG) 20 Mg Tablet, 1 TAB PO DAILY, #90 TAB 1 Refill Prov:EMELINASAL BART HARDWARE ENGINEER-C 10/31/16 Tamsulosin Hcl (TAMSULOSIN HCL) 0.4 Mg Cap.er.24h, 1 CAP PO BID, #180 CAP 1 Refill Prov:EILEEN SANTANA MD 10/09/16 Potassium Chloride (POTASSIUM CHLORIDE) 20 Meq Tab.er.prt, 2 TAB PO TID, #180 TAB 5 Refills Prov:MICHAEL DIEZ MD 09/11/16 Oxygen (OXYGEN) Inha, 7 L INH QDAY for 30 Days, L Prov:MICHAEL DIEZ MD 09/11/16 Fluticasone/Salmeterol (ADVAIR 500-50 DISKUS) 1 Each Disk.w.dev, 1 EACH IH BID, #1 EACH 11 Refills Prov:EILEEN SANTANA MD 09/08/16 Diltiazem Hcl (DILTIAZEM 24HR CD) 120 Mg Cap.er.24h, 240 MG PO QDAY, #180 3 Refills Prov:EILEEN SANTANA MD 07/31/16 Fluticasone Prop 50 Mcg Ns (FLONASE 50 MCG NS) 16 Gm [place].susp, 1 SPRAY NS DAILY, #1 BOT 11 Refills Prov:EILEEN SANTANA MD 06/06/16 Nitroglycerin (NITROSTAT) 0.4 Mg Subl, 0.4 MG SL Q5MIN Y for CHEST PAIN, #30 TAB 11 Refills Prov:EILEEN SANTANA MD 02/04/16 Reported Medications Albuterol Sulfate (PROVENTIL HFA) 6.7 Gm Inh, 1-2 PUFF INH Q4-6H Y for SHORTNESS OF BREATH, INH 09/05/16 Cyanocobalamin (Vitamin B-12) (VITAMIN B-12) 2,000 Mcg Tablet.er, 2000 MCG PO DAILY 09/05/16 Ferrous Sulfate (FERROUS SULFATE) 325 Mg Tablet, 325 MG PO BID, #60 05/07/16 Cholecalciferol (Vitamin D3) (VITAMIN D-3) 2,000 Unit Capsule, 2000 UNIT PO DAILY, CAPSULE 12/21/14 Multivitamin (MULTI VITAMIN DAILY) 1 Each Tablet, 1 EACH PO DAILY 12/21/14 Guaifenesin (MUCINEX) 600 Mg Tablet.er, 600 MG PO BID 10/29/12 Discontinued Scripts Diphenoxylate Hcl/Atropine (LOMOTIL TABLET) 1 Each Tablet, 1 EACH PO Q4H for diarrhea, #10 TAB 0 Refills Prov:NORTH HIDALGO MD 03/16/17 Ondansetron (ZOFRAN ODT) 4 Mg Tab.rapdis, 4 MG PO Q8H for Nausea, #20 TAB.SHANE 0 Refills Prov:NORTH HIDALGO MD 03/16/17 Diet: Regular Activity: As Tolerated Copies to: EILEEN SANTANA MD Venous Thromboembolism Antithrombotics Is Pt On Any Antithrombotics?: No Heart Failure Ejection Fraction %: 68 RVSP (mmHg): 60 NYHA Class: III Is Patient on JUDY Inhibitor?: Yes Is Patient on Beta Janet?: Yes Admission Weight: 280 [id number] Certification Face to Face Home Health Certification Institutional Provider conducted the [id number] encounter. Electronic Undersigning Physician Certifies Home Health. I certify that the patient has been under my care and that I had a [id number] encounter that meets the physician [id number] encounter requirements with this patient. This patient is home-bound due to safety issues and continues to require assistance with ADL's. I certify that based on my findings, that Nursing, Aides and the following Home Health services are medically necessary: Medical Necessity: Nursing Date Face to Face Conducted: Mar 31, 2017 Problem Qualifiers (1) GI bleed: GI bleed type/associated pathology: unspecified gastrointestinal hemorrhage type Qualified Codes: K92.2 - Gastrointestinal hemorrhage, unspecified RONAN NGUYEN DO Mar 31, 2017 09:41
== END 2017-03-31 13:30 | disposition home health service (06) | DRG 292 ==
LOC: ER 08:40 → MED 12:20
PROVIDERS: ADMIT Specialist; ATTEND Specialist
DX: I11.0 Hypertensive heart disease with heart failure (principal); K92.2 Gastrointestinal hemorrhage, unspecified; L03.115 Cellulitis of right lower limb; L03.116 Cellulitis of left lower limb; I50.31 Acute diastolic (congestive) heart failure; I48.0 Paroxysmal atrial fibrillation; E03.9 Hypothyroidism, unspecified; G62.9 Polyneuropathy, unspecified; J43.2 Centrilobular emphysema; D50.9 Iron deficiency anemia, unspecified; E87.6 Hypokalemia; E78.5 Hyperlipidemia, unspecified; G47.30 Sleep apnea, unspecified; Z79.01 Long term (current) use of anticoagulants; Z66 Do not resuscitate; Z88.8 Allergy status to other drugs, medicaments and biological substances; Z99.81 Dependence on supplemental oxygen; Z86.73 Personal history of transient ischemic attack (TIA), and cerebral infarction without residual deficits; Z87.891 Personal history of nicotine dependence; Z86.711 Personal history of pulmonary embolism; Z85.46 Personal history of malignant neoplasm of prostate; K21.9 Gastro-esophageal reflux disease without esophagitis; Z87.438 Personal history of other diseases of male genital organs
CPT/HCPCS: 36415; 74177; 80162; 81001; 81479; 82040; 82150; 82247; 82274; 82310; 82374; 82435; 82565; 82947; 83690; 84075; 84132; 84155; 84295; 84450; 84460; 84520; 85025; 85610; 85730; 86677; 86850; 86870; 86900; 86901; 87088; 87186; 93005; 93306; 94640; 96361; 96374; 96375; 97161; 99285; C9113; J0295; J1940; J2060; J3010; J3480; J7030; J7050; Q9967

== ENCOUNTER → 2017-03-27 | Outpatient (CLI) | payer MEDICARE, MEDICAID ==
[~2017-03-27] MED LIST changes: +DIPH-1 PO; +ONDA4TAB PO
[2017-03-27 19:33] VITALS: BMI 37.0
== END ==
LOC: AMB 08:18
PROVIDERS: ATTEND Nurse Practitioner
DX: R10.12 Left upper quadrant pain (principal); I48.91 Unspecified atrial fibrillation; R09.02 Hypoxemia
CPT/HCPCS: A0425; A0427

== ENCOUNTER → 2017-03-31 | Outpatient (CLI) | payer MEDICARE, MEDICAID ==
[2017-03-27 19:33] VITALS: BMI 37.0
== END ==
LOC: AMB 13:22
PROVIDERS: ATTEND Nurse Practitioner
DX: Z76.89 Persons encountering health services in other specified circumstances (principal)
CPT/HCPCS: A0425; A0428

== ENCOUNTER → 2017-04-14 | Outpatient (CLI) | payer MEDICARE, MEDICAID ==
[2017-03-27 19:33] VITALS: BMI 37.0
[2017-04-14 14:34] LABS: LDL CHOLESTEROL 71 mg/dl
== END ==
LOC: LAB 14:06
PROVIDERS: ATTEND Emergency Medicine
DX: E78.5 Hyperlipidemia, unspecified (principal); R06.9 Unspecified abnormalities of breathing; E03.9 Hypothyroidism, unspecified
CPT/HCPCS: 36415; 82310; 82374; 82435; 82465; 82565; 82947; 83718; 84132; 84295; 84443; 84478; 84520

== ENCOUNTER 2017-07-03 08:16 | Emergency (ER) | payer MEDICARE, MEDICAID ==
[2017-03-27 19:33] VITALS: Wt 109.8 kg
--- NOTE | 2017-07-03 08:21 | ER Report ---
History and Physical Time Seen By MD: 08:20 HPI/ROS CHIEF COMPLAINT: Constipation, Diffuse abdominal discomfort, dehydration, Nausea HISTORY OF PRESENT ILLNESS: Patient is a 72-year-old male here with complaints of 4 days of constipation. Last bowel movement was 4 days ago. Patient reports associated nausea without vomiting, poor PO intake, decreased urine output. Patient also has a history of congestive heart failure, on Lasix and reports baseline oxygen requirement of 7 L/m. Patient reports diffuse abdominal pain and distention. Patient denies fevers, chills, chest pain, worsening shortness breath, blood in stools or urine. REVIEW OF SYSTEMS: Constitutional: No fever, no chills. Eyes: No discharge. ENT: No sore throat. Cardiovascular: No chest pain, no palpitations. Respiratory: No cough, no shortness of breath. Gastrointestinal: + Diffuse, aching abdominal pain, no vomiting. Genitourinary: No hematuria, + decreased UO Musculoskeletal: + mild low back pain. Skin: No rashes. Neurological: No headache. Allergies: Coded Allergies: tiotropium (Verified Allergy, Mild, visual changes, 03/27/17) Home Meds Active Scripts Rivaroxaban 20 Mg (XARELTO 20 MG) 20 Mg Tablet, 1 TAB PO DAILY, #90 TAB 1 Refill Prov:SAL TARANGO APRNP-C 04/30/17 Potassium Chloride (POTASSIUM CHLORIDE) 20 Meq Tab.er.prt, 2 TAB PO TID, #180 TAB 5 Refills Prov:EILEEN SANTANA MD 04/27/17 Acetaminophen With Codeine # 3 (TYLENOL WITH CODEINE #3 TABLET) 1 Each Tablet, 2 EACH PO Q4-6H, #30 TAB Prov:EILEEN SANTANA MD 04/23/17 Sertraline Hcl (ZOLOFT) 50 Mg Tablet, 1 TAB PO QDAY, #90 TAB 1 Refill Prov:EILEEN SANTANA MD 04/16/17 Tamsulosin Hcl (TAMSULOSIN HCL) 0.4 Mg Cap.er.24h, 1 CAP PO BID, #180 CAP 1 Refill Prov:EILEEN SANTANA MD 04/16/17 Levothyroxine Sodium (LEVOTHYROXINE SODIUM) 150 Mcg Tablet, 150 MCG PO QDAY, # 90 TAB 3 Refills Prov:EILEEN SANTANA MD 04/15/17 Metolazone (METOLAZONE) 2.5 Mg Tablet, 2.5 MG PO BIDD, #180 TAB 3 Refills Prov:EILEEN SANTANA MD 04/14/17 Ropinirole Hcl (ROPINIROLE HCL) 1 Mg Tablet, 1 MG PO QHS, #30 TAB 11 Refills Prov:EILEEN SANTANA MD 03/27/17 Dexlansoprazole (DEXILANT) 60 Mg Cap., 1 CAP PO DAILY, #90 TAB 4 Refills Prov:EILEEN SANTANA MD 03/27/17 Pravastatin Sodium (PRAVASTATIN SODIUM) 80 Mg Tablet, 1 TAB PO QDAY, #90 TAB 3 Refills Prov:EILEEN SANTANA MD 03/11/17 Furosemide (LASIX) 80 Mg Tablet, 1 TAB PO BID, #180 TAB 3 Refills Prov:EILEEN SANTNAA MD 03/05/17 Digoxin (Digox) 125 Mcg Tablet, 1 TAB PO QDAY, #90 TAB 1 Refill Prov:SAL TARANGO APRN-Aaron 02/13/17 Dutasteride (AVODART) 0.5 Mg Capsule, 1 TAB PO QDAY, #90 CAPSULE 1 Refill Prov:SAL TARANGO APRN 02/09/17 Montelukast Sodium (SINGULAIR) 10 Mg Tablet, 1 TAB PO QDAY, #90 TAB 1 Refill Prov:EILEEN SANTANA MD 01/29/17 Polyethylene Glycol 3350 (MIRALAX) 17 Gm Powd.pack, 1 PACKET PO DAILY, #90 PKT 4 Refills Prov:EILEEN SANTANA MD 01/06/17 Gabapentin (GABAPENTIN) 300 Mg Capsule, 1 CAP PO TID, #90 CAPSULE 11 Refills Prov:SAL TARANGO APRNC 01/01/17 Oxygen (OXYGEN) Inha, 7 L INH QDAY for 30 Days, L Prov:MICHAEL DIEZ MD 09/11/16 Fluticasone/Salmeterol (ADVAIR 500-50 DISKUS) 1 Each Disk.w.dev, 1 EACH IH BID, #1 EACH 11 Refills Prov:EILEEN SANTANA MD 09/08/16 Diltiazem Hcl (DILTIAZEM 24HR CD) 120 Mg Cap.er.24h, 240 MG PO QDAY, #180 3 Refills Prov:EILEEN SANTANA MD 07/31/16 Fluticasone Prop 50 Mcg Ns (FLONASE 50 MCG NS) 16 Gm [place].susp, 1 SPRAY NS DAILY, #1 BOT 11 Refills Prov:EILEEN SANTANA MD 06/06/16 Nitroglycerin (NITROSTAT) 0.4 Mg Subl, 0.4 MG SL Q5MIN Y for CHEST PAIN, #30 TAB 11 Refills Prov:EILEEN SANTANA MD 02/04/16 Reported Medications Albuterol Sulfate (PROVENTIL HFA) 6.7 Gm Inh, 1-2 PUFF INH Q4-6H Y for SHORTNESS OF BREATH, INH 09/05/16 Cyanocobalamin (Vitamin B-12) (VITAMIN B-12) 2,000 Mcg Tablet.er, 2000 MCG PO DAILY 09/05/16 Ferrous Sulfate (FERROUS SULFATE) 325 Mg Tablet, 325 MG PO BID, #60 05/07/16 Cholecalciferol (Vitamin D3) (VITAMIN D-3) 2,000 Unit Capsule, 2000 UNIT PO DAILY, CAPSULE 12/21/14 Multivitamin (MULTI VITAMIN DAILY) 1 Each Tablet, 1 EACH PO DAILY 12/21/14 Guaifenesin (MUCINEX) 600 Mg Tablet.er, 600 MG PO BID 10/29/12 Past Medical/Surgical History TIA, CVA, NV, AFIB, CHF, DVT, Pneumonia, PE, Arthritis, CABG Reviewed Nurses Notes: Yes Old Medical Records Reviewed: Yes Hx Smoking: No Smoking Status: Former Smoker Exposure to Second Hand Smoke?: Yes Hx Substance Use Disorder: No Hx Alcohol Use: Yes Constitutional Vital Sign - Last 24 Hours 07/03/17 07/03/17 07/03/17 07/03/17 08:18 08:21 08:30 08:46 Pulse 91 Resp 24 9 B/P (MAP) 128/77 128/77 (94) 108/53 (71) Pulse Ox 79 89 O2 Delivery Nasal Cannula 07/03/17 07/03/17 07/03/17 07/03/17 09:16 09:30 09:46 10:00 Pulse 104 98 Resp 24 13 B/P (MAP) 118/64 (82) 123/57 (79) Pulse Ox 95 93 07/03/17 07/03/17 07/03/17 07/03/17 10:15 10:20 11:30 13:00 Temp 97.7 Pulse 95 95 107 Resp 12 B/P (MAP) 123/106 (112) 118/70 (86) Pulse Ox 98 85 O2 Delivery Oxy Mask O2 Flow Rate 7 Intake and Output 07/03/17 07/03/17 07/04/17 14:59 22:59 06:59 Intake Total 500 ml Balance 500 ml Physical Exam General Appearance: The patient is alert, has no immediate need for airway protection and no signs of toxicity. No acute distress Eyes: Pupils equal and round no pallor or injection. ENT, Mouth: Mucous membranes are moist. Respiratory: There are no retractions, lungs are clear to auscultation. Cardiovascular: Regular rate and rhythm. Gastrointestinal: Abdomen is soft with mild distension, + diffusely tender without rebound or guarding Neurological: No acute focal neurological deficits Skin: Warm and dry, no rashes. Musculoskeletal: Neck is supple non tender. Extremities are nontender, nonswollen and have full range of motion. DIFFERENTIAL DIAGNOSIS: After history and physical exam differential diagnosis was considered for abdominal pain including but not limited to bowel obstruction , constipation, cholecystitis, gastritis, urinary tract infection, nephrolithiasis Medical Decision Making Data Points Result Diagram: 07/03/17 0829 07/03/17 0829 Laboratory Hematology Test 07/03/17 08:29 07/03/17 08:47 Red Blood Count 4.59 M/uL (4.00-5.60) Mean Corpuscular Volume 98.2 fL (80.0-96.0) Mean Corpuscular Hemoglobin 34.4 pg (26.0-33.0) Mean Corpuscular Hemoglobin Concent 35.0 g/dL (32.0-36.0) Red Cell Distribution Width 13.7 % (11.5-14.5) Mean Platelet Volume 7.1 fL (7.2-11.1) Neutrophils (%) (Auto) 74.5 % (39.4-72.5) Lymphocytes (%) (Auto) 14.7 % (17.6-49.6) Monocytes (%) (Auto) 6.8 % (4.1-12.4) Eosinophils (%) (Auto) 3.5 % (0.4-6.7) Basophils (%) (Auto) 0.5 % (0.3-1.4) Nucleated RBC Relative Count (auto) 0.1 /100WBC Neutrophils # (Auto) 6.1 K/uL (2.0-7.4) Lymphocytes # (Auto) 1.2 K/uL (1.3-3.6) Monocytes # (Auto) 0.6 K/uL (0.3-1.0) Eosinophils # (Auto) 0.3 K/uL (0.0-0.5) Basophils # (Auto) 0.0 K/uL (0.0-0.1) Nucleated RBC Absolute Count (auto) 0.00 K/uL Sodium Level 134 mmol/L (137-145) Potassium Level 2.6 mmol/L (3.5-5.0) Chloride Level 77 mmol/L (98-107) Carbon Dioxide Level 46 mmol/L (22-30) Blood Urea Nitrogen 14 mg/dl (9-21) Creatinine 1.00 mg/dl (0.66-1.25) Glomerular Filtration Rate Calc > 60.0 Random Glucose 117 mg/dl (75-110) Lactate 1.7 mmol/L (0.7-2.1) Calcium Level 9.0 mg/dl (8.4-10.2) Total Bilirubin 0.8 mg/dl (0.2-1.3) Aspartate Amino Transf (AST/SGOT) 38 U/L (0-35) Alanine Aminotransferase (ALT/SGPT) 24 U/L (0-56) Alkaline Phosphatase 102 U/L (0-126) Total Protein 7.6 gm/dl (6.3-8.2) Albumin 3.5 g/dl (3.5-5.0) Lipase 92 U/L (23-300) Stool Occult Blood (IFOB) Positive (NEGATIVE) Chemistry Test 07/03/17 08:29 07/03/17 08:47 White Blood Count 8.2 k/uL (4.5-11.0) Red Blood Count 4.59 M/uL (4.00-5.60) Hemoglobin 15.8 g/dL (14.0-18.0) Hematocrit 45.1 % (42.0-52.0) Mean Corpuscular Volume 98.2 fL (80.0-96.0) Mean Corpuscular Hemoglobin 34.4 pg (26.0-33.0) Mean Corpuscular Hemoglobin Concent 35.0 g/dL (32.0-36.0) Red Cell Distribution Width 13.7 % (11.5-14.5) Platelet Count 246 K/uL (150-450) Mean Platelet Volume 7.1 fL (7.2-11.1) Neutrophils (%) (Auto) 74.5 % (39.4-72.5) Lymphocytes (%) (Auto) 14.7 % (17.6-49.6) Monocytes (%) (Auto) 6.8 % (4.1-12.4) Eosinophils (%) (Auto) 3.5 % (0.4-6.7) Basophils (%) (Auto) 0.5 % (0.3-1.4) Nucleated RBC Relative Count (auto) 0.1 /100WBC Neutrophils # (Auto) 6.1 K/uL (2.0-7.4) Lymphocytes # (Auto) 1.2 K/uL (1.3-3.6) Monocytes # (Auto) 0.6 K/uL (0.3-1.0) Eosinophils # (Auto) 0.3 K/uL (0.0-0.5) Basophils # (Auto) 0.0 K/uL (0.0-0.1) Nucleated RBC Absolute Count (auto) 0.00 K/uL Glomerular Filtration Rate Calc > 60.0 Lactate 1.7 mmol/L (0.7-2.1) Calcium Level 9.0 mg/dl (8.4-10.2) Total Bilirubin 0.8 mg/dl (0.2-1.3) Aspartate Amino Transf (AST/SGOT) 38 U/L (0-35) Alanine Aminotransferase (ALT/SGPT) 24 U/L (0-56) Alkaline Phosphatase 102 U/L (0-126) Total Protein 7.6 gm/dl (6.3-8.2) Albumin 3.5 g/dl (3.5-5.0) Lipase 92 U/L (23-300) Stool Occult Blood (IFOB) Positive (NEGATIVE) EKG/Imaging EKG Interpretation 12 lead EKG: Atrial Flutter with variable block, stable when compared to prior EKG on 03/27/17 Rhythm: Atrial Flutter w/ variable AV block Rate: 99 Monitor Interpretation: Atrial Flutter Imaging Exam type: ACUTE ABDOMEN SERIES 3 VIEW History: diffuse abdominal pain Comparison: Abdomen series November 20, 2015 and chest October 16, 2016. Findings: Linear scarring in the lung bases appears relatively unchanged. Chronic interstitial prominence and peribronchial thickening also appears stable. No acute areas of pulmonary consolidation are seen. The cardiac silhouette is normal in size. Supine and upright views of abdomen reveal a moderate amount of fecal material in the right-sided colon. Air-fluid levels are seen in several loops of minimally prominent small bowel in the left upper abdomen. There is no gross evidence of organomegaly. There are moderate spondylotic changes of the lumbar spine IMPRESSION: 1. Bibasilar scarring in the lungs and chronic interstitial prominence and peribronchial thickening throughout the lungs appear stable Moderate amount of fecal material seen in the right-sided colon Air-fluid levels are seen in several loops of minimally prominent small bowel left upper abdomen. This could represent localized ileus. Obstructive pattern would be less likely. EXAMINATION: CT abdomen with IV contrast CT pelvis with IV contrast HISTORY: Diffuse abdominal pain. Hemoccult positive. COMPARISON: 03/27/2017. TECHNIQUE: Axial images were taken through the abdomen and pelvis with intravenous contrast. Sagittal and coronal reformatted images are also submitted. CONTRAST: 100 mL of IV [id number] One of the following dose optimization techniques was utilized in the performance of this exam: Automated exposure control; adjustment of the mA and/ or kV according to the patient's size; or use of an iterative reconstruction technique. Specific details can be referenced in the facility's radiology CT exam operational policy. FINDINGS: Liver/biliary: Cholelithiasis without CT evidence of cholecystitis. The liver is unremarkable. Pancreas: Negative. Spleen: Negative. Accessory spleen at the splenic hilum. Adrenal glands: Negative. Kidneys: Negative. Pelvic structures: Urinary bladder wall appears mildly thickened, likely due to underdistention. Bowel: There is haziness and stranding circumferentially in the perirectal fat. The wall of the rectum may be mildly thickened circumferentially. Colonic diverticulosis without evidence of diverticulitis. Normal appendix. Peritoneum/retroperitoneum/mesenteries: Haziness and stranding in the perirectal fat as noted above. No intraperitoneal free air. Vessels: Fusiform aneurysm of the infrarenal abdominal aorta measuring 3.7 x 3.5 cm in axial dimensions. Calcified plaque along the aorta and iliac arteries. Musculoskeletal/body wall: Diastases of the rectus abdominis. Unchanged chronic moderate compression deformity of the L3 vertebral body. Lymph node assessment: Negative. Lower chest: Severe emphysematous changes in the lungs. Subsegmental atelectasis scattered at the lung bases. IMPRESSION: The wall of the rectum appears mildly thickened circumferentially and there is haziness and stranding in the perirectal fat circumferentially. These findings are suggestive of a proctitis. Colonic diverticulosis without evidence of diverticulitis. Cholelithiasis. Infrarenal abdominal aortic aneurysm measuring 3.7 x 3.5 cm in axial dimensions. Hypoattenuating region in the liver noted on the previous CT examination is not seen on the current examination. Pulmonary emphysema. ED Course/Re-evaluation Clinical Indication for ER IV: Hydration, IV Access ED Course Patient is a 72-year-old male here with complaints of diffuse abdominal pain, constipation, decreased oral intake, decreased urine output in the setting of congestive heart failure, ongoing constipation. Patient has a nonobstructive bowel gas pattern on abdominal x-ray with possible ileus. He was noted to have hypokalemia was repleted with oral potassium. At home, he takes 40 meq TID with concurrent lasix dosing BID (80mg). Patient was given a Fleet enema with + BM. Heme occult test was performed with ELDA with soft stool palpated, stool was heme +. Due to persistent abdominal pain with stool being heme +, CT AP was ordered. EKG was completed due to presence of electrolyte imbalance, no acute differences were noted when compared to prior EKG. Patient was advised to follow up with primary care doctor in the next several days to 1 week to have stools checked for blood, blood counts checked, electrolytes checked. CT scan of the abdomen and pelvis was completed and showed signs of constipation, possible proctitis. I discussed the findings with the patient and he voiced understanding. Patient was stable at time of discharge. Re-evaluation Patient had a moderate-sized bowel movement and voiced that he had moderate improvement of his abdominal pain and distention. Decision to Disposition Date: July 03, 2017 Decision to Disposition Time: 12:42 Depart Departure Latest Vital Signs Vital Signs Date Time Temp Pulse Resp B/P (MAP) Pulse Ox O2 Delivery O2 Flow Rate FiO2 07/03/17 13:00 97.7 107 118/70 (86) 85 Oxy Mask 7 07/03/17 10:20 12 Impression: Primary Impression: Constipation Additional Impressions: GI bleed Hypokalemia Condition: Improved Disposition: HOME OR SELF-CARE Referrals: EILEEN SANTANA MD (PCP) Patient Instructions: Constipation (ED), Hypokalemia (ED), Laxative, Stool Softeners (By mouth) Additional Instructions: Today you were found to have a large amount of stool in the bowels consistent with constipation. You're also noted to have stool that was positive for blood. Your blood counts were stable today however we recommend that you follow-up with your family doctor in a week to have repeat blood work or repeat stool checks for blood. You may consider taking stool softeners along with her MiraLAX to help with stool transit. Please return promptly if you notice increased dark stools, bright red blood in her stools, increased weakness, pallor, shortness of breath, abdominal pain, fevers or chills. You are also found to have low potassium levels which were supplemented with oral potassium here today. Please have your potassium levels rechecked in the next several days. Low potassium levels can cause you to have neurological issues as well as metabolic problems. Problem Qualifiers JUDITH NIXON DO July 03, 2017 08:21
[2017-07-03] MEDS ORDERED: NS(*) 0.9% 500 ML BAG 500 ML IV ONE (08:38)
[2017-07-03] MEDS ORDERED: ONDANSETRON 4 MG/2 ML VIAL IVP ONE (08:40)
[2017-07-03 08:57] LABS: PLATELET COUNT, AUTOMATED 246 K/uL (150-450)
--- NOTE | 2017-07-03 09:24 | EKG ---
FACILITY: [facility] - [place], [place] PATIENT NAME: LEWIS FLETCHER : [id number] MR: [id number] V: [id number] EXAM DATE: ORDERING PHYSICIAN: JUDITH NIXON TECHNOLOGIST: REINA Curiel Reason : LOW POTASSIUM Blood Pressure : / mmHG Vent. Rate : 099 BPM Atrial Rate : 242 BPM P-R Int : 000 ms QRS Dur : 096 ms QT Int : 346 ms P-R-T Axes : 073 068 050 degrees QTc Int : 444 ms Atrial flutter with variable AV block with premature ventricular or aberrantly conducted complexes Nonspecific ST and T wave abnormality Abnormal ECG When compared with ECG of 27-MAR-2017 08:58, Nonspecific T wave abnormality, improved in Inferior leads Confirmed by RONAN NGUYEN ([id number]) on 07/03/2017 1:03:16 PM Referred By: Confirmed By:RONAN NGUYEN
[2017-07-03] MEDS ORDERED: POTASSIUM CHL 20 MEQ TABCR PO ONE (09:25)
--- NOTE | 2017-07-03 09:44 | RADIOLOGY IMAGING REPORT ---
FACILITY: [facility] - [place] PATIENT NAME: Jaquan Orlando : 1945 MR: [id number] V: [id number] EXAM DATE: ORDERING PHYSICIAN: JUDITH NIXON TECHNOLOGIST: Location: [facility] [place] Patient: Jaquan Orlando : 1945 Visit/Account:[id number] Date of Sevice: 07/03/2017 Exam type: ACUTE ABDOMEN SERIES 3 VIEW History: diffuse abdominal pain Comparison: Abdomen series November 20, 2015 and chest October 16, 2016. Findings: Linear scarring in the lung bases appears relatively unchanged. Chronic interstitial prominence and peribronchial thickening also appears stable. No acute areas of pulmonary consolidation are seen. T he cardiac silhouette is normal in size. Supine and upright views of abdomen reveal a moderate amount of fecal material in the right-sided col on. Air-fluid levels are seen in several loops of minimally prominent small bowel in the left upper abdomen. There is no gross evidence of organomegaly. There are moderate spondylotic changes of the lumbar spine IMPRESSION: 1. Bibasilar scarring in the lungs and chronic interstitial prominence and peribronchial thickening throughout the lungs appear stable Moderate amount of fecal material seen in the right-sided colon Air-fluid levels are seen in several loops of minimally prominent small bowel left upper abdomen. Th is could represent localized ileus. Obstructive pattern would be less likely. Report Dictated By: Yu Holden MD at 07/03/2017 9:37 AM Report E-Signed By: Yu Holden MD at 07/03/2017 9:40 AM WSN:[id number]
[2017-07-03] MEDS ORDERED: IOPAMIDOL 76% 100 ML INFUS BTL 100 ML ONE (11:21)
[2017-07-03] MEDS ORDERED: NS 0.9% 150 ML BAG 150 ML ONE (11:21)
--- NOTE | 2017-07-03 12:22 | RADIOLOGY IMAGING REPORT ---
FACILITY: [facility] - [place] PATIENT NAME: Jaquan Orlando : 1945 MR: [id number] V: [id number] EXAM DATE: ORDERING PHYSICIAN: JUDITH NIXON TECHNOLOGIST: Location: [facility] - [place] Patient: Jaquan Orlando : 1945 Visit/Account:[id number] Date of Sevice: 07/03/2017 EXAMINATION: CT abdomen with IV contrast CT pelvis with IV contrast HISTORY: Diffuse abdominal pain. Hemoccult positive. COMPARISON: 03/27/2017. TECHNIQUE: Axial images were taken through the abdomen and pelvis with intravenous contrast. Sagitt al and coronal reformatted images are also submitted. CONTRAST: 100 mL of IV [id number] One of the following dose optimization techniques was utilized in the performance of this exam: Autom ated exposure control; adjustment of the mA and/or kV according to the patient's size; or use of an i terative reconstruction technique. Specific details can be referenced in the facility's radiology C T exam operational policy. FINDINGS: Liver/biliary: Cholelithiasis without CT evidence of cholecystitis. The liver is unremarkable. Pancreas: Negative. Spleen: Negative. Accessory spleen at the splenic hilum. Adrenal glands: Negative. Kidneys: Negative. Pelvic structures: Urinary bladder wall appears mildly thickened, likely due to underdistention. Bowel: There is haziness and stranding circumferentially in the perirectal fat. The wall of the rectu m may be mildly thickened circumferentially. Colonic diverticulosis without evidence of diverticuliti s. Normal appendix. Peritoneum/retroperitoneum/mesenteries: Haziness and stranding in the perirectal fat as noted above. No intraperitoneal free air. Vessels: Fusiform aneurysm of the infrarenal abdominal aorta measuring 3.7 x 3.5 cm in axial dimensio ns. Calcified plaque along the aorta and iliac arteries. Musculoskeletal/body wall: Diastases of the rectus abdominis. Unchanged chronic moderate compression deformity of the L3 vertebral body. Lymph node assessment: Negative. Lower chest: Severe emphysematous changes in the lungs. Subsegmental atelectasis scattered at the ahsan g bases. IMPRESSION: The wall of the rectum appears mildly thickened circumferentially and there is haziness and stranding in the perirectal fat circumferentially. These findings are suggestive of a proctitis. Colonic diverticulosis without evidence of diverticulitis. Cholelithiasis. Infrarenal abdominal aortic aneurysm measuring 3.7 x 3.5 cm in axial dimensions. Hypoattenuating region in the liver noted on the previous CT examination is not seen on the current e xamination. Pulmonary emphysema. Report Dictated By: Rolando Senior MD at 07/03/2017 11:57 AM Report E-Signed By: Rolando Senior MD at 07/03/2017 12:17 PM WSN:[id number]
[2017-07-03 13:00] VITALS: BP 118/70
== END 2017-07-03 13:23 | disposition home or self-care (01) ==
LOC: ER 08:17
DX: K59.00 Constipation, unspecified (principal); K92.2 Gastrointestinal hemorrhage, unspecified; E87.6 Hypokalemia
CPT/HCPCS: 74022; 74177; 82274; 83605; 83690; 85025; 93005; 96361; 96374; 99284; A9270; J2405; J7040; Q9967; 82040; 82247; 82310; 82374; 82435; 82565; 82947; 84075; 84132; 84155; 84295; 84450; 84460; 84520

== ENCOUNTER → 2017-07-03 | Outpatient (CLI) | payer MEDICARE, MEDICAID ==
[~2017-07-03] MED LIST changes: +ACET-3017 PO; -ASPI-816 PO; +ASPI-870 PO
[2017-07-06 09:39] VITALS: BMI 30.1
== END ==
LOC: AMB 13:18
PROVIDERS: ATTEND Nurse Practitioner
DX: K59.00 Constipation, unspecified (principal); R09.02 Hypoxemia; E86.0 Dehydration
CPT/HCPCS: A0425; A0428

== ENCOUNTER → 2017-07-03 | Outpatient (CLI) | payer MEDICARE, MEDICAID ==
[2017-07-06 09:39] VITALS: BMI 30.1
== END ==
LOC: AMB 08:02
PROVIDERS: ATTEND Nurse Practitioner
DX: M54.9 Dorsalgia, unspecified (principal); K59.00 Constipation, unspecified; R09.02 Hypoxemia; E86.0 Dehydration
CPT/HCPCS: A0425; A0427

== ENCOUNTER 2017-07-05 16:20 | Inpatient (IN) | payer MEDICARE, MEDICAID ==
[~2017-07-05] VITALS: Ht 182.9 cm; Wt 117.9 kg
--- NOTE | 2017-07-05 16:27 | ER Report ---
History and Physical Time Seen By MD: 16:27 HPI/ROS CHIEF COMPLAINT: Stroke symptoms HISTORY OF PRESENT ILLNESS: This is a 72 help male who presents to the emergency department with concerns of a stroke. Patient states that he woke up at 3:30 this morning and felt like he was having a "mini stroke again" however he did go to the bathroom and ended up going back to bed and thought "it would just go away". Patient states that he aches all over, no headache specifically, no nausea or vomiting. Patient states that he has "muscle twitches". Patient denies any visual changes no unilateral the Marquez, he states that he has weakness all over. Patient is very vague with his description of symptoms. Patient also states he has not had a bowel movement since he was discharged from the emergency department 2 days ago. Patient denies chest pain, rashes, no worsening shortness breath. REVIEW OF SYSTEMS: Constitutional: No fever, no chills. Eyes: No discharge. ENT: No sore throat. Cardiovascular: No chest pain, no palpitations. Respiratory: No cough, no shortness of breath. Gastrointestinal: As above. Genitourinary: No hematuria. Musculoskeletal: No back pain. Skin: No rashes. Neurological: As above. Allergies: Coded Allergies: tiotropium (Verified Allergy, Mild, visual changes, 07/05/17) Home Meds Active Scripts Rivaroxaban 20 Mg (XARELTO 20 MG) 20 Mg Tablet, 1 TAB PO DAILY, #90 TAB 1 Refill Prov:SAL TARANGO APRN PLODDER OPERATOR-C 04/30/17 Potassium Chloride (POTASSIUM CHLORIDE) 20 Meq Tab.er.prt, 2 TAB PO TID, #180 TAB 5 Refills Prov:EILEEN SANTANA MD 04/27/17 Acetaminophen With Codeine # 3 (TYLENOL WITH CODEINE #3 TABLET) 1 Each Tablet, 2 EACH PO Q4-6H, #30 TAB Prov:EILEEN SANTANA MD 04/23/17 Sertraline Hcl (ZOLOFT) 50 Mg Tablet, 1 TAB PO QDAY, #90 TAB 1 Refill Prov:EILEEN SANTANA MD 04/16/17 Tamsulosin Hcl (TAMSULOSIN HCL) 0.4 Mg Cap.er.24h, 1 CAP PO BID, #180 CAP 1 Refill Prov:EILEEN SANTANA MD 04/16/17 Levothyroxine Sodium (LEVOTHYROXINE SODIUM) 150 Mcg Tablet, 150 MCG PO QDAY, # 90 TAB 3 Refills Prov:EILEEN SANTANA MD 04/15/17 Metolazone (METOLAZONE) 2.5 Mg Tablet, 2.5 MG PO BIDD, #180 TAB 3 Refills Prov:EILEEN SANTANA MD 04/14/17 Ropinirole Hcl (ROPINIROLE HCL) 1 Mg Tablet, 1 MG PO QHS, #30 TAB 11 Refills Prov:EILEEN SANTANA MD 03/27/17 Dexlansoprazole (DEXILANT) 60 Mg Cap., 1 CAP PO DAILY, #90 TAB 4 Refills Prov:EILEEN SANTANA MD 03/27/17 Pravastatin Sodium (PRAVASTATIN SODIUM) 80 Mg Tablet, 1 TAB PO QDAY, #90 TAB 3 Refills Prov:EILEEN SANTANA MD 03/11/17 Furosemide (LASIX) 80 Mg Tablet, 1 TAB PO BID, #180 TAB 3 Refills Prov:EILEEN SANTANA MD 03/05/17 Digoxin (Digox) 125 Mcg Tablet, 1 TAB PO QDAY, #90 TAB 1 Refill Prov:SAL TARANGO APRN 02/13/17 Dutasteride (AVODART) 0.5 Mg Capsule, 1 TAB PO QDAY, #90 CAPSULE 1 Refill Prov:SAL TARANGO APRN-C 02/09/17 Montelukast Sodium (SINGULAIR) 10 Mg Tablet, 1 TAB PO QDAY, #90 TAB 1 Refill Prov:EILEEN SANTANA MD 01/29/17 Polyethylene Glycol 3350 (MIRALAX) 17 Gm Powd.pack, 1 PACKET PO DAILY, #90 PKT 4 Refills Prov:EILEEN SANTANA MD 01/06/17 Gabapentin (GABAPENTIN) 300 Mg Capsule, 1 CAP PO TID, #90 CAPSULE 11 Refills Prov:SAL TARANGO APRN-C 01/01/17 Oxygen (OXYGEN) Inha, 7 L INH QDAY for 30 Days, L Prov:MICHAEL DIEZ MD 09/11/16 Fluticasone/Salmeterol (ADVAIR 500-50 DISKUS) 1 Each Disk.w.dev, 1 EACH IH BID, #1 EACH 11 Refills Prov:EILEEN SANTANA MD 09/08/16 Diltiazem Hcl (DILTIAZEM 24HR CD) 120 Mg Cap.er.24h, 240 MG PO QDAY, #180 3 Refills Prov:EILEEN SANTANA MD 07/31/16 Fluticasone Prop 50 Mcg Ns (FLONASE 50 MCG NS) 16 Gm [place].susp, 1 SPRAY NS DAILY, #1 BOT 11 Refills Prov:EILEEN SANTANA MD 06/06/16 Nitroglycerin (NITROSTAT) 0.4 Mg Subl, 0.4 MG SL Q5MIN Y for CHEST PAIN, #30 TAB 11 Refills Prov:EILEEN SANTANA MD 02/04/16 Reported Medications Albuterol Sulfate (PROVENTIL HFA) 6.7 Gm Inh, 1-2 PUFF INH Q4-6H Y for SHORTNESS OF BREATH, INH 09/05/16 Cyanocobalamin (Vitamin B-12) (VITAMIN B-12) 2,000 Mcg Tablet.er, 2000 MCG PO DAILY 09/05/16 Ferrous Sulfate (FERROUS SULFATE) 325 Mg Tablet, 325 MG PO BID, #60 05/07/16 Cholecalciferol (Vitamin D3) (VITAMIN D-3) 2,000 Unit Capsule, 2000 UNIT PO DAILY, CAPSULE 12/21/14 Multivitamin (MULTI VITAMIN DAILY) 1 Each Tablet, 1 EACH PO DAILY 12/21/14 Guaifenesin (MUCINEX) 600 Mg Tablet.er, 600 MG PO BID 10/29/12 Past Medical/Surgical History Patient has a past medical and surgical history of TIAs, heart attack, angina, A. fib, CHF, DVT, hypertension, hypercholesterolemia, pneumonia, PE, COPD, constipation, history of polyps, urinary retention, enlarged prostate, left knee surgery, arthritis, ankle fracture, chronic eye watering, wears glasses, blind in right eye, from a stroke, hard of hearing, hypothyroidism, cellulitis, alcohol abuse. Reviewed Nurses Notes: Yes Hx Smoking: No Smoking Status: Former Smoker Exposure to Second Hand Smoke?: Yes Hx Substance Use Disorder: No Hx Alcohol Use: Yes Constitutional Vital Sign - Last 24 Hours 07/05/17 07/05/17 07/05/17 07/05/17 16:21 16:23 16:30 16:50 Temp 98.1 Pulse 90 82 Resp 20 13 B/P (MAP) 133/64 133/64 (87) 123/98 (106) Pulse Ox 98 94 O2 Delivery Non-Rebreather 07/05/17 07/05/17 07/05/17 07/05/17 16:55 17:00 17:05 17:15 Pulse 91 Resp 15 B/P (MAP) 120/63 (82) 105/54 (71) ???/??? (1665) Pulse Ox 94 07/05/17 07/05/17 07/05/17 07/05/17 17:30 17:35 17:45 18:00 Pulse ??? Resp 31 B/P (MAP) 108/54 (72) 119/59 (79) 113/52 (72) Pulse Ox 96 07/05/17 07/05/17 07/05/17 07/05/17 18:05 18:15 18:20 18:30 Pulse 80 95 Resp 13 12 B/P (MAP) 116/55 (75) 120/52 (74) Pulse Ox 94 93 07/05/17 07/05/17 07/05/17 07/05/17 18:35 18:45 18:50 18:55 Pulse 81 80 81 Resp 15 17 15 B/P (MAP) 114/53 (73) Pulse Ox 96 97 97 07/05/17 07/05/17 07/05/17 07/05/17 19:00 19:10 19:15 19:25 Pulse 83 81 Resp 9 13 B/P (MAP) 110/52 (71) 106/48 (67) Pulse Ox 90 90 07/05/17 07/05/17 07/05/17 19:30 19:40 19:42 Pulse 80 Resp 17 B/P (MAP) 117/53 (74) 112/51 (71) Pulse Ox 90 Intake and Output 07/05/17 07/05/17 07/06/17 14:59 22:59 06:59 Intake Total 100 ml Balance 100 ml Physical Exam General Appearance: The patient is alert, has no immediate need for airway protection and no signs of toxicity, appears mildly anxious but interactive. Eyes: Pupils equal and round no pallor or injection. ENT, Mouth: Mucous membranes are moist. Respiratory: There are no retractions, lungs are clear to auscultation. Distant lung sounds. Cardiovascular: Regular rate and rhythm, no murmurs, clicks or rubs. Gastrointestinal: Abdomen is firm, round and non tender, no masses, very few bowel sounds in all quadrants. Neurological: Alert and oriented 4. Moving all extremities. Following all commands. No focal neuro deficits. He shouldn't is able to lift his legs off the gurney, no unilateral deficits identified. Cranial nerves II through XII intact. Skin: Warm and dry, no rashes. Musculoskeletal: Neck is supple non tender. Extremities are nontender, nonswollen and have full range of motion. DIFFERENTIAL DIAGNOSIS: After history and physical exam differential diagnosis was considered for weakness including but not limited to electrolyte abnormality , depression, anxiety, CVA, spinal cord abnormality, and infectious causes. abdominal pain including but not limited to appendicitis, GI bleed, constipation , cholecystitis, gastritis and urinary tract infection. Medical Decision Making Data Points Result Diagram: 07/05/17 1654 07/05/17 1654 Laboratory Hematology Test 07/05/17 00:00 07/05/17 16:54 07/05/17 17:41 07/05/17 18:40 Prothrombin Time 19.9 seconds (12.0-14.4) Prothromb Time International Ratio 1.66 Activated Partial Thromboplast Time 50 seconds (23-35) Red Blood Count 3.90 M/uL (4.00-5.60) Mean Corpuscular Volume 100.0 fL (80.0-96.0) Mean Corpuscular Hemoglobin 35.1 pg (26.0-33.0) Mean Corpuscular Hemoglobin Concent 35.1 g/dL (32.0-36.0) Red Cell Distribution Width 14.5 % (11.5-14.5) Mean Platelet Volume 7.1 fL (7.2-11.1) Neutrophils (%) (Auto) 78.0 % (39.4-72.5) Lymphocytes (%) (Auto) 11.9 % (17.6-49.6) Monocytes (%) (Auto) 7.1 % (4.1-12.4) Eosinophils (%) (Auto) 1.9 % (0.4-6.7) Basophils (%) (Auto) 1.1 % (0.3-1.4) Nucleated RBC Relative Count (auto) 0.1 /100WBC Neutrophils # (Auto) 6.8 K/uL (2.0-7.4) Lymphocytes # (Auto) 1.0 K/uL (1.3-3.6) Monocytes # (Auto) 0.6 K/uL (0.3-1.0) Eosinophils # (Auto) 0.2 K/uL (0.0-0.5) Basophils # (Auto) 0.1 K/uL (0.0-0.1) Nucleated RBC Absolute Count (auto) 0.01 K/uL Peripheral Blood Smear Yes Y/N Sodium Level 135 mmol/L (137-145) Potassium Level 3.1 mmol/L (3.5-5.0) Chloride Level 83 mmol/L (98-107) Carbon Dioxide Level 44 mmol/L (22-30) Blood Urea Nitrogen 23 mg/dl (9-21) Creatinine 1.60 mg/dl (0.66-1.25) Glomerular Filtration Rate Calc 42.5 Random Glucose 176 mg/dl (75-110) Calcium Level 8.3 mg/dl (8.4-10.2) Total Bilirubin 0.6 mg/dl (0.2-1.3) Aspartate Amino Transf (AST/SGOT) 32 U/L (0-35) Alanine Aminotransferase (ALT/SGPT) 21 U/L (0-56) Alkaline Phosphatase 84 U/L (0-126) Troponin I 0.015 ng/ml Total Protein 6.8 gm/dl (6.3-8.2) Albumin 3.2 g/dl (3.5-5.0) Serum Alcohol < 10 mg/dl Urine Color Straw Urine Clarity Clear Urine pH 5.0 pH (4.8-9.5) Urine Specific [place] 1.006 Urine Protein Negative mg/dL (NEGATIVE) Urine Glucose (UA) Negative mg/dL (NEGATIVE) Urine Ketones Negative mg/dL (NEGATIVE) Urine Blood Negative (NEGATIVE) Urine Nitrite Negative (NEGATIVE) Urine Bilirubin Negative (NEGATIVE) Urine Urobilinogen Negative mg/dL (0.2-1.9) Urine Leukocyte Esterase Trace (NEGATIVE) Urine RBC None /HPF (0-2/HPF) Urine WBC 4 /HPF (0-5/HPF) Urine Squamous Epithelial Cells None /LPF (</=FEW) Urine Bacteria Negative /HPF (NONE-FEW) Urine Hyaline Casts Few /LPF (NONE-FEW) Urine Mucus None /HPF (NONE-FEW) Stool Occult Blood (IFOB) Positive (NEGATIVE) Chemistry Test 07/05/17 00:00 07/05/17 16:54 07/05/17 17:41 07/05/17 18:40 Prothrombin Time 19.9 seconds (12.0-14.4) Prothromb Time International Ratio 1.66 Activated Partial Thromboplast Time 50 seconds (23-35) White Blood Count 8.7 k/uL (4.5-11.0) Red Blood Count 3.90 M/uL (4.00-5.60) Hemoglobin 13.7 g/dL (14.0-18.0) Hematocrit 39.0 % (42.0-52.0) Mean Corpuscular Volume 100.0 fL (80.0-96.0) Mean Corpuscular Hemoglobin 35.1 pg (26.0-33.0) Mean Corpuscular Hemoglobin Concent 35.1 g/dL (32.0-36.0) Red Cell Distribution Width 14.5 % (11.5-14.5) Platelet Count 221 K/uL (150-450) Mean Platelet Volume 7.1 fL (7.2-11.1) Neutrophils (%) (Auto) 78.0 % (39.4-72.5) Lymphocytes (%) (Auto) 11.9 % (17.6-49.6) Monocytes (%) (Auto) 7.1 % (4.1-12.4) Eosinophils (%) (Auto) 1.9 % (0.4-6.7) Basophils (%) (Auto) 1.1 % (0.3-1.4) Nucleated RBC Relative Count (auto) 0.1 /100WBC Neutrophils # (Auto) 6.8 K/uL (2.0-7.4) Lymphocytes # (Auto) 1.0 K/uL (1.3-3.6) Monocytes # (Auto) 0.6 K/uL (0.3-1.0) Eosinophils # (Auto) 0.2 K/uL (0.0-0.5) Basophils # (Auto) 0.1 K/uL (0.0-0.1) Nucleated RBC Absolute Count (auto) 0.01 K/uL Peripheral Blood Smear Yes Y/N Glomerular Filtration Rate Calc 42.5 Calcium Level 8.3 mg/dl (8.4-10.2) Total Bilirubin 0.6 mg/dl (0.2-1.3) Aspartate Amino Transf (AST/SGOT) 32 U/L (0-35) Alanine Aminotransferase (ALT/SGPT) 21 U/L (0-56) Alkaline Phosphatase 84 U/L (0-126) Troponin I 0.015 ng/ml Total Protein 6.8 gm/dl (6.3-8.2) Albumin 3.2 g/dl (3.5-5.0) Serum Alcohol < 10 mg/dl Urine Color Straw Urine Clarity Clear Urine pH 5.0 pH (4.8-9.5) Urine Specific [place] 1.006 Urine Protein Negative mg/dL (NEGATIVE) Urine Glucose (UA) Negative mg/dL (NEGATIVE) Urine Ketones Negative mg/dL (NEGATIVE) Urine Blood Negative (NEGATIVE) Urine Nitrite Negative (NEGATIVE) Urine Bilirubin Negative (NEGATIVE) Urine Urobilinogen Negative mg/dL (0.2-1.9) Urine Leukocyte Esterase Trace (NEGATIVE) Urine RBC None /HPF (0-2/HPF) Urine WBC 4 /HPF (0-5/HPF) Urine Squamous Epithelial Cells None /LPF (</=FEW) Urine Bacteria Negative /HPF (NONE-FEW) Urine Hyaline Casts Few /LPF (NONE-FEW) Urine Mucus None /HPF (NONE-FEW) Stool Occult Blood (IFOB) Positive (NEGATIVE) Coagulation Test 07/05/17 00:00 Prothrombin Time 19.9 seconds Prothromb Time International Ratio 1.66 Activated Partial Thromboplast Time 50 seconds Toxicology Test 07/05/17 16:54 Serum Alcohol < 10 mg/dl Urinalysis Test 07/05/17 17:41 Urine Color Straw Urine Clarity Clear Urine pH 5.0 pH (4.8-9.5) Urine Specific [place] 1.006 Urine Protein Negative mg/dL (NEGATIVE) Urine Glucose (UA) Negative mg/dL (NEGATIVE) Urine Ketones Negative mg/dL (NEGATIVE) Urine Blood Negative (NEGATIVE) Urine Nitrite Negative (NEGATIVE) Urine Bilirubin Negative (NEGATIVE) Urine Urobilinogen Negative mg/dL (0.2-1.9) Urine Leukocyte Esterase Trace (NEGATIVE) Urine RBC None /HPF (0-2/HPF) Urine WBC 4 /HPF (0-5/HPF) Urine Squamous Epithelial Cells None /LPF (</=FEW) Urine Bacteria Negative /HPF (NONE-FEW) Urine Hyaline Casts Few /LPF (NONE-FEW) Urine Mucus None /HPF (NONE-FEW) EKG/Imaging EKG Interpretation 12 lead EKG: Time of EKG 1629. Rhythm: Sinus rhythm, 81 bpm. [place]: normal QRS: normal ST segments: No ST depression or elevation identified. There is however there are flattened and inverted T waves in the V leads. No significant changes from the 07/03/2017 EKG other than it that show a PVC, it does show flattened and inverted T waves in the V leads as well. Imaging KUB SINGLE VIEW ABDOMEN INDICATION: No bowel movement in 4 days. Altered level of consciousness. COMPARISON: 07/03/2017. FINDINGS: AP view the abdomen. Some stool seen throughout colon. Bowel gas pattern is nonobstructed and nondilated. Abdominal soft tissues are grossly normal without suspicious lucencies or abnormal calcifications. Lung bases show mild scarring. No acute bony abnormality. IMPRESSION: Unremarkable exam of the abdomen. Report Dictated By: Ross Steve at 07/05/2017 5:58 PM Report E-Signed By: Ross Steve at 07/05/2017 6:01 PM [id number] CHEST SINGLE AP Indication: Altered level of consciousness.. Comparison: 07/03/2017. Findings: Cardiac silhouettes upper limits normal for size. Mediastinal silhouette and pulmonary vessels within normal limits. Lungs show chronic interstitial changes with mild scarring seen in both lower lobes. There is continued mild blunting the right costophrenic angle which could be due to pleural thickening or small effusion. No left effusion. No indication of pneumothorax or discrete nodules. No focal consolidations. Upper abdomen is unremarkable. No acute bony abnormality. Surgical clips seen overlying the upper right chest. IMPRESSION: 1. No acute cardiopulmonary process. Report Dictated By: Ross Steve at 07/05/2017 6:01 PM Report E-Signed By: Ross Steve at 07/05/2017 6:03 PM [id number] CT Head without contrast Indication: Altered level of consciousness. Comparison: 01/23/2017. Technique: Axial CT images were obtained through the brain from the skull base to the vertex without administration of IV contrast. Reformatted coronal and sagittal images were also obtained. One of the following dose optimization techniques was utilized in the performance of this exam: automated exposure control; adjustment of the mA and/ or kV according to the patient's size; or use of an iterative reconstruction technique. Specific details can be referenced in the facility's radiology CT exam operational policy. Findings: No evidence of mass, mass effect, or midline shift. No acute intracranial hemorrhage or acute territorial infarction. No extra-axial fluid collection or hydrocephalus. Age-related related cerebral atrophy is again present. There is continued periventricular white matter ischemic changes consistent small vessel disease. Focal geographic area of decreased attenuation in the right cerebellar hemisphere and the left occipital lobe consistent previous ischemic events. [place]/white matter differentiation appears normal. Bony structures show no fractures or lesions. Small amount of debris seen in the left external auditory canal. The visualized paranasal sinuses and mastoid air cells are clear. IMPRESSION: 1. Stable exam without acute abnormality. Report Dictated By: Ross Steve at 07/05/2017 6:03 PM Report E-Signed By: Ross Steve at 07/05/2017 6:08 PM [id number] ED Course/Re-evaluation Clinical Indication for ER IV: IV Access ED Course The patient was admitted to room. A history and physical were obtained. Differential diagnoses were considered. An IV is started. A CBC, CMP, PT and INR were obtained. H&H is down from 2 days ago, 13.7 and 39.0. BUN and creatinine are now elevated at 23 and 1.60, which is a change from previous studies. Glucose 176. Positive for occult blood in the stool. Head CT negative. Negative chest x-ray. KUB unremarkable. Patient was given 1 g of IV Ofimirev, 4 mg IV morphine for generalized pain and back pain. I did review these results with the patient and his daughter, we discussed the possibility of an admission because of his drop in his hemoglobin and hematocrits and the change in his BUN and creatinine. Patient also states that he does not feel he be able to take care of himself at home and his current state. The patient was concerned about "a stroke or mini stroke" however during my neurologic exam there were no deficits that were consistent with a stroke. I did review this with the patient and his daughter. I did speak with Dr. Tomas the hospitalist on-call, he is accepted the patient into his services for occult blood in the stool and dehydration. The patient and his daughter are in agreement with this and will be admitted to the medical floor. 07/05/2017 6:41:51 pm I did speak with Dr. Tomas the hospitalist on-call about admitting Mr. Orlando, he said check stool for occult blood. I did do a rectal exam patient does have a very firm stool in the rectal vault. No bright red blood. A sample was collected and sent to lab. 07/05/2017 7:30:29 pm I did speak with Dr. Tomas again who has accepted the patient into his services. Decision to Disposition Date: July 05, 2017 Decision to Disposition Time: 19:27 Depart Departure Latest Vital Signs Vital Signs Date Time Temp Pulse Resp B/P (MAP) Pulse Ox O2 Delivery O2 Flow Rate FiO2 07/05/17 19:42 112/51 (71) 07/05/17 19:40 80 17 90 07/05/17 16:21 98.1 Non-Rebreather Impression: Primary Impression: Occult blood positive stool Additional Impressions: Dehydration Chronic anticoagulation Condition: Improved Disposition: Admitted from ER Referrals: EILEEN SANTANA MD (PCP) Problem Qualifiers PROMISE BOGGS PLODDER OPERATOR-BC July 05, 2017 16:27
--- NOTE | 2017-07-05 16:58 | EKG ---
[place] [facility] [place] NAME[place] LEWIS FLETCHER : [id number] MR: [id number] V: [id number] EXAM DATE: ORDERING PHYSICIAN: PROMISE BOGGS TECHNOLOGIST: Test Reason : stroke symptoms Blood Pressure : / mmHG Vent. Rate : 081 BPM Atrial Rate : 078 BPM P-R Int : 182 ms QRS Dur : 100 ms QT Int : 386 ms P-R-T Axes : 000 073 051 degrees QTc Int : 448 ms Atrial flutter with controlled ventricular response Poor R wave progression anteriorly Nonspecific interventricular conduction delay Artifact in several leads - repeat if needed Abnormal ECG Confirmed by MICHAEL DIEZ ([id number] on 07/06/2017 11:26:27 AM Referred By: Confirmed By:MICHAEL DIEZ
[2017-07-05 17:05] LABS: PLATELET COUNT, AUTOMATED 221 K/uL (150-450)
[2017-07-05] MEDS ORDERED: ACETAMINOPHEN(*)1000 MG/100 ML 100 ML IVPB ONE (17:50)
[2017-07-05 18:04] LABS: INR 1.66
--- NOTE | 2017-07-05 18:04 | RADIOLOGY IMAGING REPORT ---
FACILITY: [facility] PATIENT NAME: Jaquan Orlando : 1945 MR: [id number] V: [id number] EXAM DATE: ORDERING PHYSICIAN: PROMISE BOGGS TECHNOLOGIST: [place] [facility] [place] Jaquan Orlando : 1945 Visit/Account:[id number] Date of Sevice: 07/05/2017 KUB SINGLE VIEW ABDOMEN INDICATION: No bowel movement in 4 days. Altered level of consciousness. COMPARISON: 07/03/2017. FINDINGS: AP view the abdomen. Some stool seen throughout colon. Bowel gas pattern is nonobstructed and nondilated. Abdominal soft tissues are grossly normal without suspicious lucencies or abnormal c alcifications. Lung bases show mild scarring. No acute bony abnormality. IMPRESSION: Unremarkable exam of the abdomen. Report Dictated By: Ross Steve at 07/05/2017 5:58 PM Report E-Signed By: Ross Steve at 07/05/2017 6:01 PM [id number]
--- NOTE | 2017-07-05 18:06 | RADIOLOGY IMAGING REPORT ---
FACILITY: [facility] PATIENT NAME: Jaquan Orlando : 1945 MR: [id number] V: [id number] EXAM DATE: ORDERING PHYSICIAN: PROMISE BOGGS TECHNOLOGIST: Location: [facility] Patient: Jaquan Orlando : 1945 Visit/Account:[id number] Date of Sevice: 07/05/2017 CHEST SINGLE AP Indication: Altered level of consciousness.. Comparison: 07/03/2017. Findings: Cardiac silhouettes upper limits normal for size. Mediastinal silhouette and pulmonary vessels within normal limits. Lungs show chronic interstitial changes with mild scarring seen in both lower lobes. There is continu ed mild blunting the right costophrenic angle which could be due to pleural thickening or small effus ion. No left effusion. No indication of pneumothorax or discrete nodules. No focal consolidations. Upper abdomen is unremarkable. No acute bony abnormality. Surgical clips seen overlying the upper rig ht chest. IMPRESSION: 1. No acute cardiopulmonary process. Report Dictated By: Ross Steve at 07/05/2017 6:01 PM Report E-Signed By: Ross Steve at 07/05/2017 6:03 PM WSN:[id number]
--- NOTE | 2017-07-05 18:12 | RADIOLOGY IMAGING REPORT ---
[place] [facility] [place] NAME: Jaquan Orlando : 1945 MR: [id number] V: [id number] EXAM DATE: ORDERING PHYSICIAN: PROMISE BOGGS TECHNOLOGIST: Location: [facility] - [place] Patient: Jaquan Orlando : 1945 Visit/Account:[id number] Date of Sevice: 07/05/2017 CT Head without contrast Indication: Altered level of consciousness. Comparison: 01/23/2017. Technique: Axial CT images were obtained through the brain from the skull base to the vertex without administration of IV contrast. Reformatted coronal and sagittal images were also obtained. One of the following dose optimization techniques was utilized in the performance of this exam: autom ated exposure control; adjustment of the mA and/or kV according to the patient's size; or use of an i terative reconstruction technique. Specific details can be referenced in the facility's radiology CT exam operational policy. Findings: No evidence of mass, mass effect, or midline shift. No acute intracranial hemorrhage or acute territorial infarction. No extra-axial fluid collection or hydrocephalus. Age-related related cerebral atrophy is again prese nt. There is continued periventricular white matter ischemic changes consistent small vessel disease. Focal geographic area of decreased attenuation in the right cerebellar hemisphere and the left occip ital lobe consistent previous ischemic events. [place]/white matter differentiation appears normal. Bony structures show no fractures or lesions. Small amount of debris seen in the left external audito ry canal. The visualized paranasal sinuses and mastoid air cells are clear. IMPRESSION: 1. Stable exam without acute abnormality. Report Dictated By: Ross Steve at 07/05/2017 6:03 PM Report E-Signed By: Ross Steve at 07/05/2017 6:08 PM [id number]
[2017-07-05] MEDS ORDERED: MORPHINE 4 MG/ML SDV IVP ONE (19:40)
[2017-07-05 20:05] VITALS: BP 112/54
--- NOTE | 2017-07-05 20:45 | History & Physical ---
History of Present Illness Chief Complaint Generalized weakness, "I am having stroke" History of Present Illness Mr. Orlando is a 72 y.o male with PMH of HTN on Lasix 80mg bid, COPD on Singulair and Advair, A.Flutter on Cardizem and Xarelto, BPH/Prostate cancer on Flomax and Avodart, Dyslipidemia on Pravastatin 80mg, Hypothyroidism on Synthroid 150mcg, P.Neuropathy on Neurontin 300mg tid, h/o PE on Xarelto who presented to the emergency department with concerns of a stroke. Patient stated that he woke up at 3:30 this morning and felt like he was having a "mini stroke again" however he did go to the bathroom and ended up going back to bed and thought " it would just go away". Patient stated that he had generalized fatigue and headache but no nausea or vomiting, chest pain, rashes or worsening shortness of breath. Patient stated that he had "muscle twitches". Patient denied any visual changes,dysarthria or dysphagia. Patient was very vague with his description of symptoms. Patient also stated he has not had a bowel movement since he was discharged from the emergency department 2 days ago. ER Course: ER evaluation revealed low Hb 13.7 and high BUN/ creatinine at 23 and 1.60 with low GFR , changed from previous studies. His stool was positive for occult blood. Head CT negative. Negative chest x-ray. KUB unremarkable. Patient was given 1 g of IV Tylenol, 4 mg IV morphine for generalized pain and back pain. Case was discussed with family member by the ER-MD. Patient also stated that he would not be able to take care of himself at home at his current state. The patient was concerned about "a stroke or mini stroke" however during neurologic exam there were no deficits that were consistent with a stroke done by the ER-MD. I discussed the case with the ER-MD and admitted the patient for further evaluation and management on the medical floor. Patient remained very weak and fatigued but moving all his extremities.He denies any fever, CP/dysphagia/ dysarthria/visual changes etc. His CT scan of head was negative for acute stroke or hemorrhage. History Home Meds Active Scripts Rivaroxaban 20 Mg (XARELTO 20 MG) 20 Mg Tablet, 1 TAB PO DAILY, #90 TAB 1 Refill Prov:SAL TARANGO APRNC 04/30/17 Potassium Chloride (POTASSIUM CHLORIDE) 20 Meq Tab.er.prt, 2 TAB PO TID, #180 TAB 5 Refills Prov:EILEEN SANTANA MD 04/27/17 Tamsulosin Hcl (TAMSULOSIN HCL) 0.4 Mg Cap.er.24h, 1 CAP PO BID, #180 CAP 1 Refill Prov:EILEEN SANTANA MD 04/16/17 Levothyroxine Sodium (LEVOTHYROXINE SODIUM) 150 Mcg Tablet, 150 MCG PO QDAY, # 90 TAB 3 Refills Prov:EILEEN SANTANA MD 04/15/17 Ropinirole Hcl (ROPINIROLE HCL) 1 Mg Tablet, 1 MG PO QHS, #30 TAB 11 Refills Prov:EILEEN SANTANA MD 03/27/17 Dexlansoprazole (DEXILANT) 60 Mg Cap., 1 CAP PO DAILY, #90 TAB 4 Refills Prov:EILEEN SANTANA MD 03/27/17 Pravastatin Sodium (PRAVASTATIN SODIUM) 80 Mg Tablet, 1 TAB PO QDAY, #90 TAB 3 Refills Prov:EILEEN SANTANA MD 03/11/17 Furosemide (LASIX) 80 Mg Tablet, 1 TAB PO BID, #180 TAB 3 Refills Prov:EILEEN SANTANA MD 03/05/17 Digoxin (Digox) 125 Mcg Tablet, 1 TAB PO QDAY, #90 TAB 1 Refill Prov:SAL TARANGO APRN-Aaron 02/13/17 Dutasteride (AVODART) 0.5 Mg Capsule, 1 TAB PO QDAY, #90 CAPSULE 1 Refill Prov:SAL TARANGO APRN-C 02/09/17 Montelukast Sodium (SINGULAIR) 10 Mg Tablet, 1 TAB PO QDAY, #90 TAB 1 Refill Prov:EILEEN SANTANA MD 01/29/17 Polyethylene Glycol 3350 (MIRALAX) 17 Gm Powd.pack, 1 PACKET PO DAILY, #90 PKT 4 Refills Prov:EILEEN SANTANA MD 01/06/17 Gabapentin (GABAPENTIN) 300 Mg Capsule, 1 CAP PO TID, #90 CAPSULE 11 Refills Prov:SAL TARANGO APRN 01/01/17 Oxygen (OXYGEN) Inha, 7 L INH QDAY for 30 Days, L Prov:MICHAEL DIEZ MD 09/11/16 Fluticasone/Salmeterol (ADVAIR 500-50 DISKUS) 1 Each Disk.w.dev, 1 EACH IH BID, #1 EACH 11 Refills Prov:EILEEN SANTANA MD 09/08/16 Diltiazem Hcl (DILTIAZEM 24HR CD) 120 Mg Cap.er.24h, 240 MG PO QDAY, #180 3 Refills Prov:EILEEN SANTANA MD 07/31/16 Fluticasone Prop 50 Mcg Ns (FLONASE 50 MCG NS) 16 Gm [place].susp, 1 SPRAY NS DAILY, #1 BOT 11 Refills Prov:EILEEN SANTANA MD 06/06/16 Nitroglycerin (NITROSTAT) 0.4 Mg Subl, 0.4 MG SL Q5MIN Y for CHEST PAIN, #30 TAB 11 Refills Prov:EILEEN SANTANA MD 02/04/16 Reported Medications Metolazone (METOLAZONE) 2.5 Mg Tablet, 2.5 MG PO DAILY, #1 07/05/17 Guaifenesin (MUCINEX) 600 Mg Tablet.er, 1200 MG PO BID, #2 TAB 07/05/17 Albuterol Sulfate (PROVENTIL HFA) 6.7 Gm Inh, 1-2 PUFF INH Q4-6H Y for SHORTNESS OF BREATH, INH 09/05/16 Cyanocobalamin (Vitamin B-12) (VITAMIN B-12) 2,000 Mcg Tablet.er, 2000 MCG PO DAILY 09/05/16 Ferrous Sulfate (FERROUS SULFATE) 325 Mg Tablet, 325 MG PO BID, #60 05/07/16 Cholecalciferol (Vitamin D3) (VITAMIN D-3) 2,000 Unit Capsule, 2000 UNIT PO DAILY, CAPSULE 12/21/14 Multivitamin (MULTI VITAMIN DAILY) 1 Each Tablet, 1 EACH PO DAILY 12/21/14 Discontinued Reported Medications Guaifenesin (MUCINEX) 600 Mg Tablet.er, 600 MG PO BID 10/29/12 Discontinued Scripts Acetaminophen With Codeine # 3 (TYLENOL WITH CODEINE #3 TABLET) 1 Each Tablet, 2 EACH PO Q4-6H, #30 TAB Prov:EILEEN SANTANA MD 04/23/17 Sertraline Hcl (ZOLOFT) 50 Mg Tablet, 1 TAB PO QDAY, #90 TAB 1 Refill Prov:EILEEN SANTANA MD 04/16/17 Metolazone (METOLAZONE) 2.5 Mg Tablet, 2.5 MG PO BIDD, #180 TAB 3 Refills Prov:EILEEN SANTANA MD 04/14/17 Allergies: Coded Allergies: tiotropium (Verified Allergy, Mild, visual changes, 07/05/17) Patient History: FH: multiple sclerosis BROTHER OR SISTER FH: prostate cancer FATHER Paraplegia MOTHER Hx Smoking: No Smoking Status: Former Smoker Exposure to Second Hand Smoke?: Yes Caffeine Intake: Soda Caffeine/Cups Per Day: none Hx Alcohol Use: Yes (COUPLE DAILY, NOT TODAY) Hx Substance Use Disorder: No Social Drug Use: Never Review of Systems Constitutional: No Fever, No Weight Loss, No Weight Gain, No Chills Neurological: No Confusion, No Weakness, No Dizziness Cardiovascular: No Chest Pain, No Palpitations Respiratory: Shortness of Breath, No Cough Gastrointestinal: No Nausea, No Vomiting, No Diarrhea, No Dysphagia, Constipation, No Hematochezia, No Melena, No Abdominal Pain Genitourinary: No Dysuria, No Hematuria Musculoskeletal: Impaired Mobility, No Pain, No Sprain, No Strain Psychiatric: No Depression, No Anxiety Exam Vital Signs Vital Signs Date Time Temp Pulse Resp B/P (MAP) Pulse Ox O2 Delivery O2 Flow Rate FiO2 07/05/17 20:05 98.3 96 16 112/54 (73) 91 High-Flow Nasal Cannula 10.0 General Appearance: Alert, Awake, No Acute Distress, Afebrile Neuro: No Gross deficits Eyes: PERRLA ENT: Normal Cardiovascular: No Edema, No JVD, Other (a.flutter) Respiratory: No Respiratory Distress GI: Abd Soft and Non-Tender (mild tender on deep palpation, no R/G/D) Extremities: Soft and Non Tender Psych: Alert & Oriented X3 Medical Decision Making Data Points Result Diagram: 07/05/17 1654 07/05/17 1654 EKG / Imaging Monitor Interpretation: Atrial Flutter Pre-Admit Course ED Medications reviewed Medical Record Review: Yes Assessment and Plan Problems: (1) GI bleed Status: Acute Assessment & Plan: Patient's last Hb was 16gm and he presented with Hb of 13g and his stool was positive for occult blood. He was on Xarelto for his A.flutter and PE and his INR was 1.66 I will admit the patient to medical floor for further evaluation and management for possible GIB I will hold his Xarelto for now I will start Protonix 40mg IV bid I will keep the patient NPO for now except meds I will start Zofran 4mg IV as needed for nausea I will use Miralax for his constipation I will get surgical consult in am for possible colonoscopy I will check BMP, BNP, Troponin, CBC in am I will also check his H/H q 4h for 12h and then q 12h I will get type and cross and possible transfusion if his Hb drops. I will use FFP if he actively bleeds. (2) Acute kidney injury Status: Acute Assessment & Plan: Patient's BUN/Cr is elevated 23/1.6 with GFR 42.5 ml/min likely due to high doses of diuretics I will hold his Lasix 80mg bid I will start IVF D5NS wit 20meq KCL at 100ml/h I will repeat his renal function in am I will also check his K and Mag level (3) Dehydration Status: Acute Assessment & Plan: Patient was taking Lasix 80mg po bid and presented with hypokalemia, contracted metabolic alkalosis and clinically dehydrated I will hold his Lasix 80mg bid I will start IVF D5NS with 20meq KCL at 100ml/h I will repeat BMP in am (4) COPD (chronic obstructive pulmonary disease) Status: Chronic Assessment & Plan: I will continue his Advair and Singulair I will start Albuterol nebulizer as needed (5) Hypokalemia Status: Acute Assessment & Plan: I will hold his Lasix 80mg bid I will start IVF D5NS with 20meq KCL at 100ml/h I will repeat BMP in am and Mag level Central Venous Access Medical Necessity for Access: IV Access, Medication Administration Time Spent on Plan of Care: > 30 min Copies to: EILEEN SANTANA MD Venous Thromboembolism VTE Risk Physician Assess for VTE Risk: Yes Patient's VTE Risk: Low VTE Diagnostic Test 2 Days Prior to Admit: No Antithrombotics Is Pt On Any Antithrombotics?: No Heart Failure Ejection Fraction %: 68 RVSP (mmHg): 60 NYHA Class: III Is Patient on JUDY Inhibitor?: Yes Is Patient on Beta Janet?: Yes Admission Weight: 280 Exam Sepsis Risk: No Definite Risk CAILIN VIVAR MD July 05, 2017 20:45
[2017-07-05] MEDS ORDERED: METO2.5T15 PO (20:49)
[2017-07-05] MEDS ORDERED: GUAI600T57 PO (20:49)
[2017-07-05] MEDS ORDERED: NITROGLYCERIN 0.4 MG SUBL SL PRN (23:00)
[2017-07-05] MEDS ORDERED: ONDANSETRON 4 MG/2 ML VIAL IVP PRN (23:15)
[2017-07-05] MEDS: KCL/DNS 20 MEQ/1000 ML PREMIX 1,000 ML IV SCH (23:42)
[2017-07-05] MEDS: PRAVASTATIN SOD 20 MG TAB PO SCH (23:42)
[2017-07-05] MEDS: MONTELUKAST SODIUM 10 MG TAB PO SCH (23:42)
[2017-07-05] MEDS: POLYETHYLENE GLYCOL 17 GM PKT PO SCH (23:42)
[2017-07-05 23:55] VITALS: BP 125/62
[2017-07-06] MEDS: ACETAMINOPHEN 325 MG TAB PO PRN (02:10)
[2017-07-06 02:46] VITALS: BP 119/59
[2017-07-06] MEDS: SALMETEROL/FLUTIC 250/50 1 INH INH SCH ×2 (05:33→16:53)
[2017-07-06] MEDS: LEVOTHYROXINE SOD 0.150 MG TAB PO SCH (06:33)
[2017-07-06] MEDS: ACETAMIN/CODEINE #3 300-30 MG PO PRN ×3 (06:33→20:17)
[2017-07-06 07:55] VITALS: BP 127/85
[2017-07-06] MEDS: TAMSULOSIN HCL 0.4 MG CAP PO SCH (08:56)
[2017-07-06] MEDS: DIGOXIN 0.125 MG TAB PO SCH (08:56)
[2017-07-06] MEDS: PANTOPRAZOLE SOD 40 MG IV VIAL IVP SCH ×2 (08:56→20:17)
[2017-07-06] MEDS: GABAPENTIN 300 MG CAP PO SCH ×3 (08:57→20:16)
[2017-07-06] MEDS: DILTIAZEM CD 120 MG CAPCR PO SCH (08:57)
[2017-07-06] MEDS: DUTASTERIDE 0.5 MG CAP PO SCH (08:57)
[2017-07-06] MEDS: KCL (*) 20 MEQ/100 ML PREMIX 100 ML IV SCH ×3 (08:57→18:19)
[2017-07-06] MEDS: POLYETHYLENE GLYCOL 17 GM PKT PO SCH (08:57)
[2017-07-06] MEDS ORDERED: BISACODYL 10 MG SUPP PR ONE ×2 (09:05→16:20)
[2017-07-06] MEDS: FLUTICASONE PROP 0.05% 16 GM ENA SCH (09:23)
--- NOTE | 2017-07-06 09:36 | RADIOLOGY IMAGING REPORT ---
FACILITY: [facility] PATIENT NAME: Jaquan Orlando : 1945 MR: [id number] V: [id number] EXAM DATE: ORDERING PHYSICIAN: MICHAEL DIEZ TECHNOLOGIST: Location: [facility] [place] Patient: Jaquan Orlando : 1945 Visit/Account:[id number] Date of Sevice: 07/06/2017 Study: FINGER RIGHT 5TH DIGIT Indication: Injury Comparison study: None available Findings: AP lateral and oblique views of the right upper extremity fifth digit demonstrates no evide nce of acute bony abnormality. There is mild degenerative arthropathy at the distal and proximal interphalangeal joints. There is m ild soft tissue swelling present. There is no evidence of lytic or blastic bony lesion. IMPRESSION: Mild degenerative arthropathy at the interphalangeal joints. No evidence of acute bony a bnormality. Report Dictated By: Conor Christie at 07/06/2017 9:31 AM Report E-Signed By: Conor Christie at 07/06/2017 9:33 AM WSN:[id number]
[2017-07-06 09:39] VITALS: Ht 182.9 cm; Wt 117.9 kg
[2017-07-06] MEDS ORDERED: KCL (*) 20 MEQ/100 ML PREMIX 100 ML IV ONE ×2 (10:00→12:00)
--- NOTE | 2017-07-06 10:12 | Hospitalist Progress Note ---
Subjective Progress Notes Subjective He reports constipation. No BM for several days now. No abdominal pain, but some distended sensation. Pain/swelling right 5th finger. Physical Exam Vital Signs Date Time Temp Pulse Resp B/P (MAP) Pulse Ox O2 Delivery O2 Flow Rate FiO2 07/06/17 08:56 85 07/06/17 07:55 97.9 16 127/85 (99) 93 Nasal Cannula 8.0 07/06/17 02:46 96.0 General Appearance: Alert, Awake Cardiovascular: Other (Irregular with distant tones.) Respiratory: Other (diminished breath sounds bilaterally/no rales or wheezes) GI: Other (slightly distended, but soft/BS present) Extremities: Warm, Perfused, Edema, Other (PETR hose on/swelling and tenderness proximal and distal to IP joint right 5th finger) Integumentary: Generalized Fragile Skin Psych: Alert & Oriented X3 Result Diagram: 07/06/17 0709 07/06/17 0543 Monitor Interpretation: Atrial Flutter Assessment and Plan Problems: (1) GI bleed Status: Acute Assessment & Plan: Patient's last Hgb was 16gm and he presented with Hb of 13g and his stool was positive for occult blood. He was on Xarelto for his A.flutter and PE and his INR was 1.66 I will admit the patient to medical floor for further evaluation and management for possible GIB I will hold his Xarelto for now I will start Protonix 40mg IV bid I will keep the patient NPO for now except meds I will start Zofran 4mg IV as needed for nausea I will use Miralax for his constipation I will get surgical consult in am for possible colonoscopy I will check BMP, BNP, Troponin, CBC in am I will also check his H/H q 4h for 12h and then q 12h I will get type and cross and possible transfusion if his Hb drops. I will use FFP if he actively bleeds. 07/06: Hgb/Hct have been stable, albeit slightly low. He does not appear to have any ongoing acute bleeding. He did have EGD and colonoscopy in 12/2014. He was found to have a few polyps that did have adenomatous changes and diverticulosis. We did discuss the fact that he will need a follow up colonoscopy soon. As it appears he is not acutely bleeding at this time, will start him on clear liquid diet. Continue to watch Hgb/Hct closely. Hold off on endoscopy for now, unless he had evidence of ongoing/recurrent bleeding. (2) Acute kidney injury Status: Acute Assessment & Plan: Patient's BUN/Cr is elevated 23/1.6 with GFR 42.5 ml/min likely due to high doses of diuretics I will hold his Lasix 80mg bid I will start IVF D5NS wit 20meq KCL at 100ml/h I will repeat his renal function in am I will also check his K and Mag level 07/06: Creatinine significantly improved with IV fluids and off diuretics. Watch labs closely. (3) Dehydration Status: Acute Assessment & Plan: Patient was taking Lasix 80mg po bid and presented with hypokalemia, contracted metabolic alkalosis and clinically dehydrated I will hold his Lasix 80mg bid I will start IVF D5NS with 20meq KCL at 100ml/h I will repeat BMP in am 07/06: Clinically appears improved. No changes at this time. (4) COPD (chronic obstructive pulmonary disease) Status: Chronic Assessment & Plan: I will continue his Advair and Singulair I will start Albuterol nebulizer as needed 07/06: He appears stable from respiratory standpoint. (5) Hypokalemia Status: Acute Assessment & Plan: I will hold his Lasix 80mg bid I will start IVF D5NS with 20meq KCL at 100ml/h I will repeat BMP in am and Mag level 07/06: Even a little lower today. Will replace with IV formulations. Watch labs. Re- check magnesium level in AM as well. (6) Finger pain Status: Acute Assessment & Plan: It appear he may have an acute injury to his right fifth digit. Will check x-rays. Central Venous Access Medical Necessity for Access: IV Access, Medication Administration Heart Failure Ejection Fraction %: 68 RVSP (mmHg): 60 NYHA Class: III Is Patient on JUDY Inhibitor?: Yes Is Patient on Beta Janet?: Yes Admission Weight: 280 Exam Sepsis Risk: No Definite Risk MICHAEL DIEZ MD July 06, 2017 10:12
[2017-07-06] MEDS: KCL/DNS 20 MEQ/1000 ML PREMIX 1,000 ML IV SCH ×2 (11:19→19:53)
[2017-07-06] MEDS: NYSTATIN 100,000 U/GM PWD 15GM TP SCH ×2 (11:58→20:17)
[2017-07-06 19:31] VITALS: BP 145/74
[2017-07-06 20:14] VITALS: BP 120/71
[2017-07-06] MEDS: MONTELUKAST SODIUM 10 MG TAB PO SCH (20:16)
[2017-07-06] MEDS: PRAVASTATIN SOD 20 MG TAB PO SCH (20:16)
[2017-07-06 22:19] VITALS: BP 150/59
[2017-07-07] MEDS: ACETAMIN/CODEINE #3 300-30 MG PO PRN ×4 (02:03→20:12)
[2017-07-07 03:45] VITALS: BP 119/61
[2017-07-07] MEDS: LEVOTHYROXINE SOD 0.150 MG TAB PO SCH (05:25)
[2017-07-07] MEDS: ACETAMINOPHEN 325 MG TAB PO PRN (05:25)
[2017-07-07] MEDS: SALMETEROL/FLUTIC 250/50 1 INH INH SCH ×2 (05:46→17:00)
[2017-07-07 06:17] LABS: PLATELET COUNT, AUTOMATED 208 K/uL (150-450)
[2017-07-07] MEDS ORDERED: KCL (*) 20 MEQ/100 ML PREMIX 100 ML IV ONE ×4 (06:50→19:00)
[2017-07-07 07:37] VITALS: BP 118/75
[2017-07-07] MEDS: FLUTICASONE PROP 0.05% 16 GM ENA SCH (09:53)
[2017-07-07] MEDS: TAMSULOSIN HCL 0.4 MG CAP PO SCH (09:54)
[2017-07-07] MEDS: POLYETHYLENE GLYCOL 17 GM PKT PO SCH (09:54)
[2017-07-07] MEDS: DUTASTERIDE 0.5 MG CAP PO SCH (09:54)
[2017-07-07] MEDS: DILTIAZEM CD 120 MG CAPCR PO SCH (09:54)
[2017-07-07] MEDS: GABAPENTIN 300 MG CAP PO SCH ×3 (09:54→20:21)
[2017-07-07] MEDS: PANTOPRAZOLE SOD 40 MG IV VIAL IVP SCH ×2 (09:54→20:21)
[2017-07-07] MEDS: DIGOXIN 0.125 MG TAB PO SCH (09:54)
[2017-07-07] MEDS: NYSTATIN 100,000 U/GM PWD 15GM TP SCH ×2 (09:55→20:21)
[2017-07-07 10:44] VITALS: BP 133/80
--- NOTE | 2017-07-07 13:54 | Hospitalist Progress Note ---
Subjective Progress Notes Subjective Mr. Orlando is a 72 y.o male with PMH of HTN on Lasix 80mg bid, COPD on Singulair and Advair, A.Flutter on Cardizem and Xarelto, BPH/Prostate cancer on Flomax and Avodart, Dyslipidemia on Pravastatin 80mg, Hypothyroidism on Synthroid 150mcg, P.Neuropathy on Neurontin 300mg tid, h/o PE on Xarelto who presented to the emergency department with concerns of a stroke. Patient stated that he woke up at 3:30 this morning and felt like he was having a "mini stroke again" however he did go to the bathroom and ended up going back to bed and thought " it would just go away". Patient stated that he had generalized fatigue and headache but no nausea or vomiting, chest pain, rashes or worsening shortness of breath. Patient stated that he had "muscle twitches". Patient denied any visual changes,dysarthria or dysphagia. Patient was very vague with his description of symptoms. Patient also stated he has not had a bowel movement since he was discharged from the emergency department 2 days ago. ER Course: ER evaluation revealed low Hb 13.7 and high BUN/ creatinine at 23 and 1.60 with low GFR , changed from previous studies. His stool was positive for occult blood. Head CT negative. Negative chest x-ray. KUB unremarkable. Patient was given 1 g of IV Tylenol, 4 mg IV morphine for generalized pain and back pain. Case was discussed with family member by the ER-MD. Patient also stated that he would not be able to take care of himself at home at his current state. The patient was concerned about "a stroke or mini stroke" however during neurologic exam there were no deficits that were consistent with a stroke done by the ER-MD. I discussed the case with the ER-MD and admitted the patient for further evaluation and management on the medical floor. Patient remained very weak and fatigued but moving all his extremities.He denies any fever, CP/dysphagia/ dysarthria/visual changes etc. His CT scan of head was negative for acute stroke or hemorrhage. 07/07: Today patient is afebrile and hemodynamically stable with c/o generalized weakness and fatigue. His K level is still low despite replacement. His Mag level is normal. He is metabolically alkalotic due to his underlying COPD and he is on D5NS. His HB is stable and no active bleed noted. I discussed the case with Dr. Stewart regarding out patient EGD/Colonoscopy. Patient Complains of: Neurological: Weakness, No: Confusion, Dizziness Cardiovascular: No: Chest Pain, Palpitations Respiratory: No: Cough, Congestion, Shortness of Breath Gastrointestinal: Flatus, Bowel Movement, No Nausea, No Vomiting Genitourinary: No Dysuria, No Hematuria Musculoskeletal: Pain, Impaired Mobility, No: Sprain, Strain Physical Exam Vital Signs Date Time Temp Pulse Resp B/P (MAP) Pulse Ox O2 Delivery O2 Flow Rate FiO2 07/07/17 10:44 97.8 79 20 133/80 (97) 94 High-Flow Nasal Cannula 6.0 07/06/17 02:46 96.0 Intake and Output 07/08/17 06:59 Intake Total 2655 ml Output Total 400 ml Balance 2255 ml Intake Oral 920 ml IV Total 1735 ml Output Urine Total 400 ml # Voids 1 General Appearance: Alert, Awake, No Acute Distress, Afebrile Neuro: No Gross deficits Eyes: PERRLA ENT: Normal Neck: No Masses Cardiovascular: No Edema, No JVD, Other (positive for AF) Respiratory: No Respiratory Distress GI: Soft and Non-Tender (mild tender on deep palpation) Extremities: Other (Discoloration and tender with symmetrical decrease strength ) Psych: Alert & Oriented X3, Appropriate Mood & Affect Result Diagram: 07/07/17 0610 07/07/17 0610 Monitor Interpretation: Atrial Flutter Assessment and Plan Problems: (1) GI bleed Status: Acute Assessment & Plan: Patient's last Hgb was 16gm and he presented with Hb of 13g and his stool was positive for occult blood. He was on Xarelto for his A.flutter and PE and his INR was 1.66 I will admit the patient to medical floor for further evaluation and management for possible GIB I will hold his Xarelto for now I will start Protonix 40mg IV bid I will keep the patient NPO for now except meds I will start Zofran 4mg IV as needed for nausea I will use Miralax for his constipation I will get surgical consult in am for possible colonoscopy I will check BMP, BNP, Troponin, CBC in am I will also check his H/H q 4h for 12h and then q 12h I will get type and cross and possible transfusion if his Hb drops. I will use FFP if he actively bleeds. 07/06: Hgb/Hct have been stable, albeit slightly low. He does not appear to have any ongoing acute bleeding. He did have EGD and colonoscopy in 12/2014. He was found to have a few polyps that did have adenomatous changes and diverticulosis. We did discuss the fact that he will need a follow up colonoscopy soon. As it appears he is not acutely bleeding at this time, will start him on clear liquid diet. Continue to watch Hgb/Hct closely. Hold off on endoscopy for now, unless he had evidence of ongoing/recurrent bleeding. 07/07: Today patient is afebrile and hemodynamically stable with c/o generalized weakness and fatigue. His K level is still low despite replacement. His Mag level is normal. He is metabolically alkalotic due to his underlying COPD and he is on D5NS and these could be the reason for his low K level. His HB is stable and no active bleed noted. His Hb level is 13.1 and stable. I will repeat his CBC in am and continue the present management (2) Acute kidney injury Status: Resolved Assessment & Plan: Patient's BUN/Cr is elevated 23/1.6 with GFR 42.5 ml/min likely due to high doses of diuretics I will hold his Lasix 80mg bid I will start IVF D5NS wit 20meq KCL at 100ml/h I will repeat his renal function in am I will also check his K and Mag level 07/06: Creatinine significantly improved with IV fluids and off diuretics. Watch labs closely. 07/07: His renal function improved with IVF (3) Dehydration Status: Resolved Assessment & Plan: Patient was taking Lasix 80mg po bid and presented with hypokalemia, contracted metabolic alkalosis and clinically dehydrated I will hold his Lasix 80mg bid I will start IVF D5NS with 20meq KCL at 100ml/h I will repeat BMP in am 07/06: Clinically appears improved. No changes at this time. (4) COPD (chronic obstructive pulmonary disease) Status: Chronic Assessment & Plan: I will continue his Advair and Singulair I will start Albuterol nebulizer as needed 07/06: He appears stable from respiratory standpoint. (5) Hypokalemia Status: Acute Assessment & Plan: I will hold his Lasix 80mg bid I will start IVF D5NS with 20meq KCL at 100ml/h I will repeat BMP in am and Mag level 07/06: Even a little lower today. Will replace with IV formulations. Watch labs. Re- check magnesium level in AM as well. 07/07: Today patient is afebrile and hemodynamically stable with c/o generalized weakness and fatigue. His K level is still low despite replacement. His Mag level is normal. He is metabolically alkalotic due to his underlying COPD and he is on D5NS and these could be the reason for his low K level. His K level is 2.9 I will replace 80meq KCL IV today I will repeat his BMP in am (6) Finger pain Status: Acute Assessment & Plan: It appear he may have an acute injury to his right fifth digit. Will check x-rays. Central Venous Access Medical Necessity for Access: IV Access, Medication Administration Time Spent on Plan of Care: < 30 min Copies to: EILEEN SANTANA MD Heart Failure Ejection Fraction %: 68 RVSP (mmHg): 60 NYHA Class: III Is Patient on JUDY Inhibitor?: Yes Is Patient on Beta Janet?: Yes Admission Weight: 280 Exam Sepsis Risk: No Definite Risk CAILIN VIVAR MD July 07, 2017 13:54
[2017-07-07] MEDS: KCL/DNS 20 MEQ/1000 ML PREMIX 1,000 ML IV SCH (18:32)
[2017-07-07] MEDS: MONTELUKAST SODIUM 10 MG TAB PO SCH (20:21)
[2017-07-07] MEDS: PRAVASTATIN SOD 20 MG TAB PO SCH (20:21)
[2017-07-07 20:30] VITALS: BP 125/73
[2017-07-08] MEDS: ACETAMIN/CODEINE #3 300-30 MG PO PRN ×4 (02:07→20:23)
[2017-07-08 02:08] VITALS: BP 123/69
[2017-07-08] MEDS: SALMETEROL/FLUTIC 250/50 1 INH INH SCH ×2 (04:31→18:27)
[2017-07-08] MEDS: LEVOTHYROXINE SOD 0.150 MG TAB PO SCH (06:00)
[2017-07-08 06:45] LABS: INR 1.09
[2017-07-08] MEDS ORDERED: KCL (*) 20 MEQ/100 ML PREMIX 100 ML IV ONE ×4 (07:30→21:30)
[2017-07-08 08:09] VITALS: BP 121/65
[2017-07-08] MEDS: DUTASTERIDE 0.5 MG CAP PO SCH (08:24)
[2017-07-08] MEDS: POTASSIUM CHL 20 MEQ TABCR PO SCH ×2 (08:24→17:43)
[2017-07-08] MEDS: DIGOXIN 0.125 MG TAB PO SCH (08:24)
[2017-07-08] MEDS: POLYETHYLENE GLYCOL 17 GM PKT PO SCH (08:24)
[2017-07-08] MEDS: GABAPENTIN 300 MG CAP PO SCH ×3 (08:24→20:19)
[2017-07-08] MEDS: DILTIAZEM CD 120 MG CAPCR PO SCH (08:24)
[2017-07-08] MEDS: guaiFENesin 600 MG TABCR PO SCH ×2 (08:24→20:19)
[2017-07-08] MEDS: TAMSULOSIN HCL 0.4 MG CAP PO SCH (08:24)
[2017-07-08] MEDS: NYSTATIN 100,000 U/GM PWD 15GM TP SCH ×2 (08:25→20:43)
[2017-07-08] MEDS: FLUTICASONE PROP 0.05% 16 GM ENA SCH (08:25)
[2017-07-08] MEDS: PANTOPRAZOLE SOD 40 MG IV VIAL IVP SCH (08:25)
--- NOTE | 2017-07-08 09:33 | Hospitalist Progress Note ---
Subjective Progress Notes Subjective Mr. Orlnado is a 72 y.o male with PMH of HTN on Lasix 80mg bid, COPD on Singulair and Advair, A.Flutter on Cardizem and Xarelto, BPH/Prostate cancer on Flomax and Avodart, Dyslipidemia on Pravastatin 80mg, Hypothyroidism on Synthroid 150mcg, P.Neuropathy on Neurontin 300mg tid, h/o PE on Xarelto who presented to the emergency department with concerns of a stroke. Patient stated that he woke up at 3:30 this morning and felt like he was having a "mini stroke again" however he did go to the bathroom and ended up going back to bed and thought " it would just go away". Patient stated that he had generalized fatigue and headache but no nausea or vomiting, chest pain, rashes or worsening shortness of breath. Patient stated that he had "muscle twitches". Patient denied any visual changes,dysarthria or dysphagia. Patient was very vague with his description of symptoms. Patient also stated he has not had a bowel movement since he was discharged from the emergency department 2 days ago. ER Course: ER evaluation revealed low Hb 13.7 and high BUN/ creatinine at 23 and 1.60 with low GFR , changed from previous studies. His stool was positive for occult blood. Head CT negative. Negative chest x-ray. KUB unremarkable. Patient was given 1 g of IV Tylenol, 4 mg IV morphine for generalized pain and back pain. Case was discussed with family member by the ER-MD. Patient also stated that he would not be able to take care of himself at home at his current state. The patient was concerned about "a stroke or mini stroke" however during neurologic exam there were no deficits that were consistent with a stroke done by the ER-MD. I discussed the case with the ER-MD and admitted the patient for further evaluation and management on the medical floor. Patient remained very weak and fatigued but moving all his extremities.He denies any fever, CP/dysphagia/ dysarthria/visual changes etc. His CT scan of head was negative for acute stroke or hemorrhage. 07/07: Today patient is afebrile and hemodynamically stable with c/o generalized weakness and fatigue. His K level is still low despite replacement. His Mag level is normal. He is metabolically alkalotic due to his underlying COPD and he is on D5NS. His HB is stable and no active bleed noted. I discussed the case with Dr. Stewart regarding out patient EGD/Colonoscopy. 07/08: Today patient is afebrile and hemodynamically stable with c/o ongoing SOB and he feels weak and fatigued. His K level is 3.1 and Mag level is 2.1. He said he has been feeling somewhat better than since admission. Patient Complains of: Neurological: Weakness, No: Confusion, Dizziness Cardiovascular: No: Chest Pain, Palpitations Respiratory: Shortness of Breath, No: Cough, Congestion Gastrointestinal: No Nausea, No Vomiting, No Bowel Movement Genitourinary: No Dysuria, No Hematuria Musculoskeletal: Other (generalized weakness), No: Pain, Sprain, Strain, Impaired Mobility Physical Exam Vital Signs Date Time Temp Pulse Resp B/P (MAP) Pulse Ox O2 Delivery O2 Flow Rate FiO2 07/08/17 08:24 105 07/08/17 08:20 91 High-Flow Nasal Cannula 7.0 07/08/17 08:09 98.5 20 121/65 (83) 07/06/17 02:46 96.0 Intake and Output 07/09/17 07:00 Intake Total 440 ml Output Total 300 ml Balance 140 ml Intake Oral 440 ml Output Urine Total 300 ml General Appearance: Alert, Awake, No Acute Distress (mild respiratory distress) , Afebrile Neuro: No Gross deficits Eyes: PERRLA ENT: Other (dry oral mucosa) Neck: No Masses Cardiovascular: No Edema, Other (positive for AF) Respiratory: No Respiratory Distress (decrease BS) GI: Soft and Non-Tender Extremities: Soft and Non Tender Integumentary: Generalized Fragile Skin Psych: Alert & Oriented X3, Other (seems down) Result Diagram: 07/08/17 0630 07/08/17 0630 Monitor Interpretation: Atrial Flutter Assessment and Plan Problems: (1) Hypokalemia Status: Acute Assessment & Plan: I will hold his Lasix 80mg bid I will start IVF D5NS with 20meq KCL at 100ml/h I will repeat BMP in am and Mag level 07/06: Even a little lower today. Will replace with IV formulations. Watch labs. Re- check magnesium level in AM as well. 07/07: Today patient is afebrile and hemodynamically stable with c/o generalized weakness and fatigue. His K level is still low despite replacement. His Mag level is normal. He is metabolically alkalotic due to his underlying COPD and he is on D5NS and these could be the reason for his low K level. His K level is 2.9 I will replace 80meq KCL IV today I will repeat his BMP in am 07/08: His K level is still low to 3.1 and Mag level is 2.1. I will replace K with 80meq KCL IV and 20meq po bid I will repeat his BMP in am I will get PT evaluation and management (2) GI bleed Status: Resolved Assessment & Plan: Patient's last Hgb was 16gm and he presented with Hb of 13g and his stool was positive for occult blood. He was on Xarelto for his A.flutter and PE and his INR was 1.66 I will admit the patient to medical floor for further evaluation and management for possible GIB I will hold his Xarelto for now I will start Protonix 40mg IV bid I will keep the patient NPO for now except meds I will start Zofran 4mg IV as needed for nausea I will use Miralax for his constipation I will get surgical consult in am for possible colonoscopy I will check BMP, BNP, Troponin, CBC in am I will also check his H/H q 4h for 12h and then q 12h I will get type and cross and possible transfusion if his Hb drops. I will use FFP if he actively bleeds. 07/06: Hgb/Hct have been stable, albeit slightly low. He does not appear to have any ongoing acute bleeding. He did have EGD and colonoscopy in 12/2014. He was found to have a few polyps that did have adenomatous changes and diverticulosis. We did discuss the fact that he will need a follow up colonoscopy soon. As it appears he is not acutely bleeding at this time, will start him on clear liquid diet. Continue to watch Hgb/Hct closely. Hold off on endoscopy for now, unless he had evidence of ongoing/recurrent bleeding. 07/07: Today patient is afebrile and hemodynamically stable with c/o generalized weakness and fatigue. His K level is still low despite replacement. His Mag level is normal. He is metabolically alkalotic due to his underlying COPD and he is on D5NS and these could be the reason for his low K level. His HB is stable and no active bleed noted. His Hb level is 13.1 and stable. I will repeat his CBC in am and continue the present management 07/08: His Hb has been stable without any obvious evidence of GIB since his admission. (3) Acute kidney injury Status: Resolved Assessment & Plan: Patient's BUN/Cr is elevated 23/1.6 with GFR 42.5 ml/min likely due to high doses of diuretics I will hold his Lasix 80mg bid I will start IVF D5NS wit 20meq KCL at 100ml/h I will repeat his renal function in am I will also check his K and Mag level 07/06: Creatinine significantly improved with IV fluids and off diuretics. Watch labs closely. 07/07: His renal function improved with IVF (4) Dehydration Status: Resolved Assessment & Plan: Patient was taking Lasix 80mg po bid and presented with hypokalemia, contracted metabolic alkalosis and clinically dehydrated I will hold his Lasix 80mg bid I will start IVF D5NS with 20meq KCL at 100ml/h I will repeat BMP in am 07/06: Clinically appears improved. No changes at this time. (5) COPD (chronic obstructive pulmonary disease) Status: Chronic Assessment & Plan: I will continue his Advair and Singulair I will start Albuterol nebulizer as needed 07/06: He appears stable from respiratory standpoint. (6) Finger pain Status: Acute Assessment & Plan: It appear he may have an acute injury to his right fifth digit. Will check x-rays. Central Venous Access Medical Necessity for Access: IV Access, Medication Administration Time Spent on Plan of Care: < 30 min Copies to: EILEEN SANTANA MD Heart Failure Ejection Fraction %: 68 RVSP (mmHg): 60 NYHA Class: III Is Patient on JUDY Inhibitor?: Yes Is Patient on Beta Janet?: Yes Admission Weight: 280 Exam Sepsis Risk: No Definite Risk CAILIN VIVAR MD July 08, 2017 09:33
[2017-07-08] MEDS: PANTOPRAZOLE SOD 40 MG TABEC PO SCH ×2 (10:12→20:20)
[2017-07-08] MEDS: FOLIC ACID/CYANOCOB/PYRIDOXINE PO SCH (11:01)
[2017-07-08] MEDS: traMADol 50 MG TAB PO PRN ×3 (11:01→23:51)
[2017-07-08 11:12] VITALS: BP 127/75
--- NOTE | 2017-07-08 15:18 | Medical Nutrition Therapy ---
Nutrition Anthropometrics Height (Inches): 72.00 Height (Calculated Centimeters: 182.667726 Weight (Pounds): 257 Weight (Calculated Kilograms): 116.573 BMI Calculated: 30.11 Hank Nutrition Score: Adequate Hank Nutrition Risk Score: 17 Dietary Referral Nutrition Risk Factors: Special Diet Nutrition Risk Comment: NO SALT Physical Findings Physical Appearance: Obese BMI 30-39 Skin Appearance Skin Appearance: Edema Edema Location Modifier: Both Edema Location: Leg Type of Edema: Degree of Edema: 1+ Gastrointestinal Symptoms GI Symtoms: Blood in Stool, Constipation, Change in Bowel Pattern Tube Present: Bowel Sounds: Recent Bowel Pattern: Constipated Stool Characteristics: Nutritional Diagnosis Nutritional Risk Acuity 3: Fair Appetite, GERD, COPD Unstable Past Medical History: COPD, HTN, GERD, hypothyroid, anemia, a-fib, hypothyroidism, hyperlipidemia, acute diastolic heart failure, finger pain. Nutritional Acuity: 3-Mild Nutrition Diagnosis: Increased Nutrient Needs Nutrition Etiology: Physiological Causes Nutrition Problem/Etiology/Sym: Increase nutrient needs related to physiological causes AEB low Na 134 and low K+3.1. Energy Requirement: 2169 (Velasquez Strunk Adj >BMI 27.5 X 1.3 AF) Adjusted Energy Requirement Re: 117 (1g/kg 1 X 116.75) Fluid Requirement: 2169 (1ml/kcal 1 X 2169) Diet Type: Cardiac Nutrition Intervention: Cont diet as ordered, Change diet, Incr diet as tolerated Do Not Serve Any of the Follow: Broccoli, Brussel Sprouts, Spinach, [place] Lettuce, Cranberry Juice Nutrition Monitoring & Eval Nutrition Goals: Eat 75-100% Meal RD Patient Assessment Time: [address] Assessment Type: RD Assessment Patient Nutrition Acuity: 3-Mild Follow Up Date: July 11, 2017 Nutritional Comment: 07/06: Pt admitted for possible stroke and blood in stool. Pt was diagnosed with GI bleed and was on a NPO diet and was advanced to clear liquid diet this morning. No intake has been documented at this time. Pt states he is not experinceing N/V. Pt has low K+ 2.6 and is taking a supplement at this time. Pt has elevated random blood glucose 128. Continue to monitor pt progress and diet advancement.-MT 07/08 Pt continue on cardiac diet with oral intake 75-100%. Pt states he feel weak and fatigue, and feeling somewhat better. GI bleed is resolved, acute kidney injury resolved and dehydration has been resolved. [place] labs at this time are K+ remains to be low 3.1 and Na 134. Continue to montior pt progress and encourage intake. DEYSI RICE July 08, 2017 10:55
[2017-07-08 15:46] VITALS: BP 131/78
[2017-07-08 20:15] VITALS: BP 133/75
[2017-07-08] MEDS: PRAVASTATIN SOD 20 MG TAB PO SCH (20:20)
[2017-07-08] MEDS: MONTELUKAST SODIUM 10 MG TAB PO SCH (20:20)
[2017-07-08 23:41] VITALS: BP 116/68
[2017-07-09] MEDS: ACETAMIN/CODEINE #3 300-30 MG PO PRN ×3 (02:53→15:43)
[2017-07-09 02:58] VITALS: BP 116/69
[2017-07-09] MEDS: SALMETEROL/FLUTIC 250/50 1 INH INH SCH ×2 (05:26→16:53)
[2017-07-09] MEDS: LEVOTHYROXINE SOD 0.150 MG TAB PO SCH (05:40)
[2017-07-09] MEDS: traMADol 50 MG TAB PO PRN ×3 (05:58→22:34)
[2017-07-09 06:01] LABS: PLATELET COUNT, AUTOMATED 210 K/uL (150-450)
[2017-07-09 06:49] VITALS: BP 128/60
[2017-07-09] MEDS: POTASSIUM CHL 20 MEQ TABCR PO SCH ×2 (08:57→16:21)
[2017-07-09] MEDS: RIVAROXABAN 10 MG TAB PO SCH (08:58)
[2017-07-09] MEDS: TAMSULOSIN HCL 0.4 MG CAP PO SCH (08:58)
[2017-07-09] MEDS: guaiFENesin 600 MG TABCR PO SCH ×2 (08:58→20:36)
[2017-07-09] MEDS: PANTOPRAZOLE SOD 40 MG TABEC PO SCH ×2 (08:58→20:36)
[2017-07-09] MEDS: GABAPENTIN 300 MG CAP PO SCH ×3 (08:58→20:36)
[2017-07-09] MEDS: FOLIC ACID/CYANOCOB/PYRIDOXINE PO SCH (08:58)
[2017-07-09] MEDS: POLYETHYLENE GLYCOL 17 GM PKT PO SCH (08:58)
[2017-07-09] MEDS: DUTASTERIDE 0.5 MG CAP PO SCH (08:59)
[2017-07-09] MEDS: FLUTICASONE PROP 0.05% 16 GM ENA SCH (09:01)
[2017-07-09] MEDS: NYSTATIN 100,000 U/GM PWD 15GM TP SCH ×2 (09:02→20:41)
[2017-07-09] MEDS: SPIRONOLACTONE 25 MG TAB PO SCH (09:02)
[2017-07-09] MEDS: FUROSEMIDE 80 MG TAB PO SCH (09:02)
[2017-07-09] MEDS: DILTIAZEM CD 120 MG CAPCR PO SCH (09:02)
[2017-07-09] MEDS: DIGOXIN 0.125 MG TAB PO SCH (10:36)
[2017-07-09 11:16] VITALS: BP 107/71
--- NOTE | 2017-07-09 11:18 | Hospitalist Progress Note ---
Subjective Progress Notes Subjective He reports continued malaise. He still has a higher than baseline O2 requirement. Physical Exam Vital Signs Date Time Temp Pulse Resp B/P (MAP) Pulse Ox O2 Delivery O2 Flow Rate FiO2 07/09/17 10:36 84 07/09/17 09:15 91 High-Flow Nasal Cannula 12.0 07/09/17 06:49 97.9 15 128/60 (82) 07/06/17 02:46 96.0 Intake and Output 07/10/17 07:00 Intake Total 24 ml Balance 24 ml Intake Oral 24 ml # Voids 2 General Appearance: Alert, Awake, Other (Mild increased work of breathing) Cardiovascular: Regular Rate and Rhythm Respiratory: Clear to Auscultation Extremities: Edema (trace pitting edema in the shins) Result Diagram: 07/09/17 0538 07/09/17 0538 Monitor Interpretation: Atrial Flutter Assessment and Plan Problems: (1) Hypokalemia Status: Acute Assessment & Plan: He presented with a potassium of 3.1 that has required multiple IV infusions to correct. Mg has been wnl. Likely, chronic Lasix use has depleted his body stores. Today, the potassium is 3.7. Will continue oral supplementation (2) GI bleed Status: Resolved Assessment & Plan: Patient's last Hgb prior to admission was 16 and he presented with Hgb of 13. His stool was positive for occult blood. He was on Xarelto for his A.flutter and PE, which was stopped upon admission. Since admission, his Hgb has been stable and hasn't had any BM. Will restart Xarelto today and follow symptoms and Hgb. (3) Acute kidney injury Status: Resolved Assessment & Plan: He presented with a creatinine of 1.6 with GFR 42.5 ml/min likely due to high doses of diuretics. He was hydrated and Lasix was held. Will restart his chronic Lasix but only with once a day dosing. Also, will start spironolactone. (4) Dehydration Status: Resolved Assessment & Plan: Patient was taking Lasix 80mg po bid and presented with hypokalemia, contracted metabolic alkalosis and clinically dehydrated I will hold his Lasix 80mg bid I will start IVF D5NS with 20meq KCL at 100ml/h I will repeat BMP in am 07/06: Clinically appears improved. No changes at this time. (5) Atrial flutter Status: Chronic Assessment & Plan: Rate controlled with digoxin and diltiazem. Digoxin level is wnl. Chronically, he is on Xarelto for stroke prophylaxis. See above. (6) COPD (chronic obstructive pulmonary disease) Status: Chronic Assessment & Plan: Lungs are clear, but his O2 requirement is higher than baseline. Will continue Advair, Singulair and prn Albuterol. (7) Finger pain Status: Acute Assessment & Plan: He had an acute injury to his right fifth digit. No fracture by Xray. Will follow symptoms. Central Venous Access Medical Necessity for Access: IV Access, Medication Administration Heart Failure Ejection Fraction %: 68 RVSP (mmHg): 60 NYHA Class: III Is Patient on JUDY Inhibitor?: Yes Is Patient on Beta Janet?: Yes Admission Weight: 280 Exam Sepsis Risk: No Definite Risk PAUL GAINES MD July 09, 2017 11:18
[2017-07-09] MEDS: KCL/DNS 20 MEQ/1000 ML PREMIX 1,000 ML IV SCH (13:39)
[2017-07-09 20:26] VITALS: BP 128/71
[2017-07-09] MEDS: PRAVASTATIN SOD 20 MG TAB PO SCH (20:36)
[2017-07-09] MEDS: MONTELUKAST SODIUM 10 MG TAB PO SCH (20:37)
[2017-07-09 23:23] VITALS: BP 122/68
[2017-07-10] MEDS: SALMETEROL/FLUTIC 250/50 1 INH INH SCH ×2 (05:52→16:59)
[2017-07-10 05:54] LABS: PLATELET COUNT, AUTOMATED 200 K/uL (150-450)
[2017-07-10] MEDS: LEVOTHYROXINE SOD 0.150 MG TAB PO SCH (05:57)
[2017-07-10 07:40] VITALS: BP_SYST 120; BP_DIAS 7; BP_DIAS 71
[2017-07-10] MEDS: FOLIC ACID/CYANOCOB/PYRIDOXINE PO SCH (08:41)
[2017-07-10] MEDS: DILTIAZEM CD 120 MG CAPCR PO SCH (08:41)
[2017-07-10] MEDS: DUTASTERIDE 0.5 MG CAP PO SCH (08:42)
[2017-07-10] MEDS: RIVAROXABAN 10 MG TAB PO SCH (08:42)
[2017-07-10] MEDS: guaiFENesin 600 MG TABCR PO SCH ×2 (08:42→20:22)
[2017-07-10] MEDS: DIGOXIN 0.125 MG TAB PO SCH (08:42)
[2017-07-10] MEDS: TAMSULOSIN HCL 0.4 MG CAP PO SCH (08:42)
[2017-07-10] MEDS: GABAPENTIN 300 MG CAP PO SCH ×3 (08:42→20:22)
[2017-07-10] MEDS: PANTOPRAZOLE SOD 40 MG TABEC PO SCH ×2 (08:42→20:22)
[2017-07-10] MEDS: SPIRONOLACTONE 25 MG TAB PO SCH (08:43)
[2017-07-10] MEDS: POLYETHYLENE GLYCOL 17 GM PKT PO SCH (08:43)
[2017-07-10] MEDS: NYSTATIN 100,000 U/GM PWD 15GM TP SCH ×2 (08:43→20:27)
[2017-07-10] MEDS: FLUTICASONE PROP 0.05% 16 GM ENA SCH (08:50)
[2017-07-10] MEDS: POTASSIUM CHL 20 MEQ TABCR PO SCH ×2 (08:50→16:24)
[2017-07-10] MEDS ORDERED: FUROSEMIDE 40 MG/4 ML VIAL IVP ONE ×2 (09:00→15:00)
--- NOTE | 2017-07-10 10:43 | Hospitalist Progress Note ---
Subjective Progress Notes Subjective This patient was admitted for diarrhea and bloody stools. He continues to have an increased oxygen requirement. Patient Complains of: Cardiovascular: No: Chest Pain Respiratory: Shortness of Breath Physical Exam Vital Signs Date Time Temp Pulse Resp B/P (MAP) Pulse Ox O2 Delivery O2 Flow Rate FiO2 07/10/17 08:42 104 07/10/17 07:48 92 High-Flow Nasal Cannula 10.0 07/10/17 07:40 97.7 16 120/71 (87) Intake and Output 07/11/17 07:00 Intake Total 1040 ml Output Total 1300 ml Balance -260 ml Intake Oral 1040 ml Output Urine Total 1300 ml # Voids 4 Result Diagram: 07/10/17 0507/10/17 05 Monitor Interpretation: Atrial Flutter Assessment and Plan Problems: (1) GI bleed Status: Resolved Assessment & Plan: He did present with diarrhea and bloody stools. His Xarelto was placed on hold. The bleeding has since stopped and his Hgb has remained stable. The Xarelto has been restarted. (2) Hypokalemia Status: Acute Assessment & Plan: He did have a decreased potassium at admission. It has been gradually improving, but we increased his dose further today secondary to restarting the Lasix. (3) Acute kidney injury Status: Resolved Assessment & Plan: Resolved with IV fluids. (4) Dehydration Status: Resolved Assessment & Plan: Resolved with IV fluids. (5) Atrial flutter Status: Chronic Assessment & Plan: He is on chronic treatment with digoxin and diltiazem. He is also on Xarelto. (6) COPD (chronic obstructive pulmonary disease) Status: Chronic Assessment & Plan: He is on chronic treatment with Advair, Singulair and prn Albuterol. (7) Finger pain Status: Acute Assessment & Plan: He had an acute injury to his right fifth digit. No fracture by Xray. (8) Acute diastolic (congestive) heart failure Status: Acute Assessment & Plan: He does have a 4KG weight gain and an increased oxygen requirement. We have restarted his Lasix and will also give an IV dose today. Spironolactone has also been added. Central Venous Access Medical Necessity for Access: IV Access, Medication Administration Heart Failure Ejection Fraction %: 68 RVSP (mmHg): 60 NYHA Class: III Is Patient on JUDY Inhibitor?: Yes Is Patient on Beta Janet?: Yes Admission Weight: 280 Exam Sepsis Risk: No Definite Risk RONAN NGUYEN DO July 10, 2017 10:43
[2017-07-10 11:17] VITALS: BP 114/74
[2017-07-10] MEDS: ACETAMIN/CODEINE #3 300-30 MG PO PRN ×3 (11:21→23:39)
[2017-07-10] MEDS: traMADol 50 MG TAB PO PRN ×2 (13:18→19:40)
[2017-07-10 14:46] VITALS: BP 123/60
[2017-07-10 19:04] VITALS: BP 119/63
[2017-07-10] MEDS: PRAVASTATIN SOD 20 MG TAB PO SCH (20:22)
[2017-07-10] MEDS: MONTELUKAST SODIUM 10 MG TAB PO SCH (20:22)
[2017-07-10 22:56] VITALS: BP 105/59
[2017-07-11] MEDS: KCL/DNS 20 MEQ/1000 ML PREMIX 1,000 ML IV SCH (00:26)
[2017-07-11 04:37] VITALS: BP 114/84
[2017-07-11] MEDS: traMADol 50 MG TAB PO PRN ×3 (04:44→21:03)
[2017-07-11] MEDS: SALMETEROL/FLUTIC 250/50 1 INH INH SCH ×2 (05:15→17:12)
[2017-07-11] MEDS: LEVOTHYROXINE SOD 0.150 MG TAB PO SCH (05:20)
[2017-07-11 06:05] LABS: PLATELET COUNT, AUTOMATED 220 K/uL (150-450)
[2017-07-11 08:14] VITALS: BP 123/76
[2017-07-11 08:29] VITALS: BP 126/68
[2017-07-11] MEDS: POTASSIUM CHL 20 MEQ TABCR PO SCH ×2 (08:45→17:46)
[2017-07-11] MEDS: NYSTATIN 100,000 U/GM PWD 15GM TP SCH ×2 (08:45→21:01)
[2017-07-11] MEDS: PANTOPRAZOLE SOD 40 MG TABEC PO SCH ×2 (08:46→21:02)
[2017-07-11] MEDS: RIVAROXABAN 10 MG TAB PO SCH (08:46)
[2017-07-11] MEDS: TAMSULOSIN HCL 0.4 MG CAP PO SCH (08:46)
[2017-07-11] MEDS: guaiFENesin 600 MG TABCR PO SCH ×2 (08:46→21:01)
[2017-07-11] MEDS: DILTIAZEM CD 120 MG CAPCR PO SCH (08:46)
[2017-07-11] MEDS: SPIRONOLACTONE 25 MG TAB PO SCH (08:46)
[2017-07-11] MEDS: GABAPENTIN 300 MG CAP PO SCH ×3 (08:46→21:01)
[2017-07-11] MEDS: FLUTICASONE PROP 0.05% 16 GM ENA SCH (08:46)
[2017-07-11] MEDS: DUTASTERIDE 0.5 MG CAP PO SCH (08:46)
[2017-07-11] MEDS: FOLIC ACID/CYANOCOB/PYRIDOXINE PO SCH (08:49)
[2017-07-11] MEDS: POLYETHYLENE GLYCOL 17 GM PKT PO SCH (08:49)
[2017-07-11] MEDS: DIGOXIN 0.125 MG TAB PO SCH (08:49)
[2017-07-11] MEDS: FUROSEMIDE 80 MG TAB PO SCH (09:56)
--- NOTE | 2017-07-11 10:02 | Hospitalist Progress Note ---
Subjective Progress Notes Subjective This patient was admitted for GI bleeding, but then developed worsening hypoxia. He had no acute issues overnight. Patient Complains of: Cardiovascular: No: Chest Pain Respiratory: No: Shortness of Breath Physical Exam Vital Signs Date Time Temp Pulse Resp B/P (MAP) Pulse Ox O2 Delivery O2 Flow Rate FiO2 07/11/17 08:49 60 07/11/17 08:29 98.5 15 126/68 (87) 93 Nasal Cannula 11.0 07/10/17 19:45 96.0 Intake and Output 07/12/17 07:00 Intake Total 222 ml Balance 222 ml Intake Oral 222 ml # Voids 2 Cardiovascular: Regular Rate and Rhythm Respiratory: Clear to Auscultation Extremities: No Edema Result Diagram: 07/11/17 0523 07/11/17 05 Monitor Interpretation: Atrial Flutter Assessment and Plan Problems: (1) GI bleed Status: Resolved Assessment & Plan: He did present with diarrhea and bloody stools. His Xarelto was placed on hold. The bleeding has since stopped and his Hgb has remained stable. The Xarelto has been restarted. (2) Hypokalemia Status: Acute Assessment & Plan: He did have a decreased potassium at admission. It has been gradually improving, but we increased his dose further after restarting the Lasix. (3) Acute kidney injury Status: Resolved Assessment & Plan: Resolved with IV fluids. (4) Dehydration Status: Resolved Assessment & Plan: Resolved with IV fluids. (5) Atrial flutter Status: Chronic Assessment & Plan: He is on chronic treatment with digoxin and diltiazem. He is also on Xarelto. (6) COPD (chronic obstructive pulmonary disease) Status: Chronic Assessment & Plan: He is on chronic treatment with Advair, Singulair and prn Albuterol. (7) Finger pain Status: Acute Assessment & Plan: He had an acute injury to his right fifth digit. No fracture by Xray. (8) Acute diastolic (congestive) heart failure Status: Acute Assessment & Plan: He does have a 4KG weight gain and an increased oxygen requirement. We have restarted his Lasix and also gave additional IV dose yesterday. Spironolactone has also been added. His weights are pending for today. (9) Hypoxia Assessment & Plan: He has had increased hypoxia this admission. It seems to have improved slightly after diuretics, but there was a gap in his anticoagulation. We may need to consider a CT scan if this continues. Central Venous Access Medical Necessity for Access: IV Access, Medication Administration Heart Failure Ejection Fraction %: 68 RVSP (mmHg): 60 NYHA Class: III Is Patient on JUDY Inhibitor?: Yes Is Patient on Beta Janet?: Yes Admission Weight: 280 Exam Sepsis Risk: No Definite Risk RONAN NGUYEN DO July 11, 2017 10:02
[2017-07-11] MEDS: ACETAMIN/CODEINE #3 300-30 MG PO PRN ×2 (12:58→21:03)
--- NOTE | 2017-07-11 13:45 | Medical Nutrition Therapy ---
Nutrition Anthropometrics Height (Inches): 72.00 Height (Calculated Centimeters: 182.873730 Weight (Pounds): 263 Weight (Calculated Kilograms): 119.295 BMI Calculated: 30.11 Hank Nutrition Score: Adequate Hank Nutrition Risk Score: 17 Dietary Referral Nutrition Risk Factors: Special Diet Nutrition Risk Comment: NO SALT Physical Findings Physical Appearance: Obese BMI 30-39 Skin Appearance Skin Appearance: Edema Edema Location Modifier: Both Edema Location: Leg Type of Edema: Degree of Edema: 2+ Gastrointestinal Symptoms GI Symtoms: Constipation Tube Present: Bowel Sounds: Recent Bowel Pattern: Constipated Stool Characteristics: Nutrition/Food History No Significant Nutr. HX Nutritional Diagnosis Nutritional Risk Acuity 3: GERD, COPD Unstable Nutritional Risk Acuity 4: Good Appetite Past Medical History: COPD, HTN, GERD, hypothyroid, anemia, a-fib, hypothyroidism, hyperlipidemia, acute diastolic heart failure, finger pain. Nutritional Acuity: 3-Mild Nutrition Diagnosis: Increased Nutrient Needs Nutrition Etiology: Physiological Causes Nutrition Problem/Etiology/Sym: Increase nutrient needs related to physiological causes AEB low Na 134 and low K+3.1. Energy Requirement: 2169 (Velasquez [place] Adj >BMI 27.5 X 1.3 AF) Adjusted Energy Requirement Re: 117 (1g/kg 1 X 116.75) Fluid Requirement: 2169 (1ml/kcal 1 X 2169) Diet Type: Cardiac Nutrition Intervention: Cont diet as ordered Do Not Serve Any of the Follow: Broccoli, Brussel Sprouts, Spinach, [place] Lettuce, Cranberry Juice Nutrition Monitoring & Eval Nutrition Goals: Eat 50-100% Meal RD Patient Assessment Time: [address] Assessment Type: RD Re-Assessment Patient Nutrition Acuity: 3-Mild Follow Up Date: July 14, 2017 Nutritional Comment: 07/06: Pt admitted for possible stroke and blood in stool. Pt was diagnosed with GI bleed and was on a NPO diet and was advanced to clear liquid diet this morning. No intake has been documented at this time. Pt states he is not experinceing N/V. Pt has low K+ 2.6 and is taking a supplement at this time. Pt has elevated random blood glucose 128. Continue to monitor pt progress and diet advancement.-MT 07/08 Pt continue on cardiac diet with oral intake 75-100%. Pt states he feel weak and fatigue, and feeling somewhat better. GI bleed is resolved, acute kidney injury resolved and dehydration has been resolved. [place]bale labs at this time are K+ remains to be low 3.1 and Na 134. Continue to montior pt progress and encourage intake. MT 07/11 Alb 2.8, Low Na+/K+. Hypoxia continues. Pt receiving Cardiac diet and tolerating with 75-100% intake. Follow intake, labs, clinical progression, etc. MERE BUENO July 11, 2017 13:45
[2017-07-11 13:55] VITALS: BP 118/64
[2017-07-11 20:56] VITALS: BP 117/63
[2017-07-11] MEDS: PRAVASTATIN SOD 20 MG TAB PO SCH (21:02)
[2017-07-11] MEDS: MONTELUKAST SODIUM 10 MG TAB PO SCH (21:02)
[2017-07-12] MEDS: ALBUTEROL 2.5 MG/3 ML NEB NEB PRN ×2 (02:11→18:58)
[2017-07-12 03:00] VITALS: BP 124/70
[2017-07-12] MEDS: traMADol 50 MG TAB PO PRN ×3 (03:05→17:28)
[2017-07-12] MEDS: ACETAMIN/CODEINE #3 300-30 MG PO PRN ×3 (03:06→17:28)
[2017-07-12] MEDS: SALMETEROL/FLUTIC 250/50 1 INH INH SCH ×2 (05:28→16:58)
[2017-07-12] MEDS: LEVOTHYROXINE SOD 0.150 MG TAB PO SCH (05:31)
[2017-07-12 07:27] VITALS: BP 108/63
[2017-07-12] MEDS: POTASSIUM CHL 20 MEQ TABCR PO SCH ×2 (08:39→17:44)
[2017-07-12] MEDS: FUROSEMIDE 80 MG TAB PO SCH (08:40)
[2017-07-12] MEDS: TAMSULOSIN HCL 0.4 MG CAP PO SCH (08:40)
[2017-07-12] MEDS: RIVAROXABAN 10 MG TAB PO SCH (08:40)
[2017-07-12] MEDS: DUTASTERIDE 0.5 MG CAP PO SCH (08:40)
[2017-07-12] MEDS: SPIRONOLACTONE 25 MG TAB PO SCH (08:40)
[2017-07-12] MEDS: POLYETHYLENE GLYCOL 17 GM PKT PO SCH (08:40)
[2017-07-12] MEDS: DILTIAZEM CD 120 MG CAPCR PO SCH (08:41)
[2017-07-12] MEDS: GABAPENTIN 300 MG CAP PO SCH ×3 (08:41→20:58)
[2017-07-12] MEDS: PANTOPRAZOLE SOD 40 MG TABEC PO SCH ×2 (08:41→20:59)
[2017-07-12] MEDS: guaiFENesin 600 MG TABCR PO SCH ×2 (08:41→20:59)
[2017-07-12] MEDS: DIGOXIN 0.125 MG TAB PO SCH (08:43)
[2017-07-12] MEDS: FLUTICASONE PROP 0.05% 16 GM ENA SCH (08:44)
[2017-07-12] MEDS: NYSTATIN 100,000 U/GM PWD 15GM TP SCH ×2 (08:44→20:59)
[2017-07-12] MEDS: FOLIC ACID/CYANOCOB/PYRIDOXINE PO SCH (08:45)
[2017-07-12 11:06] VITALS: BP 117/56
[2017-07-12] MEDS: KCL (*) 20 MEQ/100 ML PREMIX 100 ML IV SCH ×2 (12:16→14:25)
[2017-07-12] MEDS: KCL/DNS 20 MEQ/1000 ML PREMIX 1,000 ML IV SCH (12:17)
--- NOTE | 2017-07-12 13:15 | Hospitalist Progress Note ---
Subjective Progress Notes Subjective He reports still feeling very tired and increased WOB. His appetite is marginal. Physical Exam Vital Signs Date Time Temp Pulse Resp B/P (MAP) Pulse Ox O2 Delivery O2 Flow Rate FiO2 07/12/17 11:06 97.6 83 18 117/56 (76) 91 High-Flow Nasal Cannula 8.0 07/10/17 19:45 96.0 Intake and Output 07/13/17 07:00 Intake Total 1240 ml Output Total 525 ml Balance 715 ml Intake Oral 240 ml IV Total 1000 ml Output Urine Total 525 ml # Voids 1 General Appearance: Alert, Awake, Other (pale and has mild increased wob) Cardiovascular: Other (distant heart tones) Respiratory: Clear to Auscultation Extremities: Edema (Compression stocking on LE, but has trace pitting in shins) Result Diagram: 07/11/1752207/11/17522 Monitor Interpretation: Atrial Flutter Assessment and Plan Problems: (1) Acute diastolic (congestive) heart failure Status: Acute Assessment & Plan: He does have a 4KG weight gain and an increased oxygen requirement. We have restarted his oral Lasix (but only once daily) and given IV doses. Spironolactone has also been added. Will give an afternoon dose of IV Lasix and follow symptoms. Check CRP/ESR tomorrow because of the diffuse weakness concerns. (2) Hypoxia Assessment & Plan: He has had increased hypoxia this admission. No evidence of pneumonia or COPD exacerbation. Will continue diuresis for now. We may need to consider a CT scan if this continues. (3) GI bleed Status: Resolved Assessment & Plan: He did present with diarrhea and bloody stools. His Xarelto was placed on hold. He had had no BM since admission, so the Xarelto was restarted pm 07/09 and Hgb has continued to be stable. (4) Hypokalemia Status: Acute Assessment & Plan: He presented with a potassium of 3.1 that has required multiple IV infusions to correct. Mg has been wnl. Likely, chronic Lasix use has depleted his body stores. Continue supplementation orally and is getting IV KCL today. (5) Acute kidney injury Status: Resolved Assessment & Plan: Resolved with IV fluids. (6) Dehydration Status: Resolved Assessment & Plan: Resolved with IV fluids. (7) Atrial flutter Status: Chronic Assessment & Plan: He is on chronic treatment with digoxin and diltiazem. He is also on Xarelto. (8) COPD (chronic obstructive pulmonary disease) Status: Chronic Assessment & Plan: He is on chronic treatment with Advair, Singulair and prn Albuterol. (9) Finger pain Status: Acute Assessment & Plan: He had an acute injury to his right fifth digit. No fracture by Xray. Central Venous Access Medical Necessity for Access: IV Access, Medication Administration Heart Failure Ejection Fraction %: 68 RVSP (mmHg): 60 NYHA Class: III Is Patient on JUDY Inhibitor?: Yes Is Patient on Beta Janet?: Yes Admission Weight: 280 Exam Sepsis Risk: No Definite Risk PAUL GAINES MD July 12, 2017 13:15
[2017-07-12] MEDS ORDERED: FUROSEMIDE 40 MG/4 ML VIAL IVP ONE (14:00)
[2017-07-12 19:08] VITALS: BP 127/69
[2017-07-12] MEDS: MONTELUKAST SODIUM 10 MG TAB PO SCH (20:58)
[2017-07-12] MEDS: PRAVASTATIN SOD 20 MG TAB PO SCH (20:59)
[2017-07-12 23:00] VITALS: BP 122/56
[2017-07-13] MEDS: ACETAMIN/CODEINE #3 300-30 MG PO PRN ×4 (00:54→20:05)
[2017-07-13] MEDS: traMADol 50 MG TAB PO PRN ×4 (00:54→20:06)
[2017-07-13] MEDS: SALMETEROL/FLUTIC 250/50 1 INH INH SCH ×2 (05:34→17:03)
[2017-07-13] MEDS: LEVOTHYROXINE SOD 0.150 MG TAB PO SCH (05:35)
[2017-07-13 05:48] LABS: PLATELET COUNT, AUTOMATED 231 K/uL (150-450)
[2017-07-13 07:29] VITALS: BP 123/72
[2017-07-13] MEDS: POTASSIUM CHL 20 MEQ TABCR PO SCH ×2 (08:35→17:34)
[2017-07-13] MEDS: POLYETHYLENE GLYCOL 17 GM PKT PO SCH (09:19)
[2017-07-13] MEDS: FUROSEMIDE 80 MG TAB PO SCH (09:20)
[2017-07-13] MEDS: DIGOXIN 0.125 MG TAB PO SCH (09:20)
[2017-07-13] MEDS: NYSTATIN 100,000 U/GM PWD 15GM TP SCH ×2 (09:20→20:07)
[2017-07-13] MEDS: PANTOPRAZOLE SOD 40 MG TABEC PO SCH ×2 (09:21→20:05)
[2017-07-13] MEDS: FOLIC ACID/CYANOCOB/PYRIDOXINE PO SCH (09:21)
[2017-07-13] MEDS: guaiFENesin 600 MG TABCR PO SCH ×2 (09:21→20:06)
[2017-07-13] MEDS: DILTIAZEM CD 120 MG CAPCR PO SCH (09:21)
[2017-07-13] MEDS: GABAPENTIN 300 MG CAP PO SCH ×3 (09:21→20:06)
[2017-07-13] MEDS: DUTASTERIDE 0.5 MG CAP PO SCH (09:21)
[2017-07-13] MEDS: TAMSULOSIN HCL 0.4 MG CAP PO SCH (09:21)
[2017-07-13] MEDS: SPIRONOLACTONE 25 MG TAB PO SCH (09:21)
[2017-07-13] MEDS: RIVAROXABAN 10 MG TAB PO SCH (09:21)
[2017-07-13] MEDS: FLUTICASONE PROP 0.05% 16 GM ENA SCH (09:22)
[2017-07-13] MEDS ORDERED: BISACODYL 10 MG SUPP PR PRN (09:40)
[2017-07-13] MEDS: DOCUSATE SOD/SENNA 1 EACH TAB PO SCH ×2 (10:29→20:07)
--- NOTE | 2017-07-13 10:57 | Hospitalist Progress Note ---
Subjective Progress Notes Subjective Overall, he feels improved. Still some abdominal distension and constipation. O2 requirement is still at 8-9L (usually 6-7L at home). Physical Exam Vital Signs Date Time Temp Pulse Resp B/P (MAP) Pulse Ox O2 Delivery O2 Flow Rate FiO2 07/13/17 09:20 99 07/13/17 07:55 91 Nasal Cannula 9.0 07/13/17 07:29 98.3 18 123/72 (89) 07/10/17 19:45 96.0 Intake and Output 07/14/17 07:00 Intake Total 230 ml Output Total 300 ml Balance -70 ml Intake Oral 230 ml Output Urine Total 300 ml General Appearance: Alert, Awake Neuro: No Gross deficits Cardiovascular: Other (Irregular distant tones) Respiratory: Other (diminished breath sounds bilaterally/no rales or wheezes ) GI: Other (soft/distended/diminished BS) Extremities: Warm, Perfused, Edema (trace) Integumentary: Other (chronic venous stasis changes both LE) Result Diagram: 07/13/17 0528 07/13/17 05 Monitor Interpretation: Atrial Flutter Assessment and Plan Problems: (1) Acute diastolic (congestive) heart failure Status: Acute Assessment & Plan: He does have a 4KG weight gain and an increased oxygen requirement. We have restarted his oral Lasix (but only once daily) and given intermittent IV doses. Spironolactone has also been added. Overall, he appears improved. (2) Hypoxia Assessment & Plan: He has had increased hypoxia this admission. No evidence of pneumonia or COPD exacerbation. Will continue diuresis for now. We will also try to relieve his constipation as it may cause some decrease in diaphragmatic excursion. (3) GI bleed Status: Resolved Assessment & Plan: He did present with diarrhea and bloody stools. His Xarelto was placed on hold. He has had no BM since admission, so the Xarelto was restarted 07/09 and Hgb/Hct have continued to be stable. (4) Hypokalemia Status: Acute Assessment & Plan: He presented with a potassium of 3.1 that has required multiple IV infusions to correct. Mg++ has been wnl. Likely, chronic Lasix use has depleted his body stores. Continue supplementation. (5) Acute kidney injury Status: Resolved Assessment & Plan: Resolved with IV fluids. (6) Dehydration Status: Resolved Assessment & Plan: Resolved with IV fluids. (7) Atrial flutter Status: Chronic Assessment & Plan: He is on chronic treatment with digoxin and diltiazem. He is also on Xarelto. (8) COPD (chronic obstructive pulmonary disease) Status: Chronic Assessment & Plan: He is on chronic treatment with Advair, Singulair and prn Albuterol. (9) Finger pain Status: Acute Assessment & Plan: He had an acute injury to his right fifth digit. No fracture by X-ray. Central Venous Access Medical Necessity for Access: IV Access, Medication Administration Heart Failure Ejection Fraction %: 68 RVSP (mmHg): 60 NYHA Class: III Is Patient on JUDY Inhibitor?: Yes Is Patient on Beta Janet?: Yes Admission Weight: 280 Exam Sepsis Risk: No Definite Risk MICHAEL DIEZ MD July 13, 2017 10:57
[2017-07-13 11:00] VITALS: BP 128/75
--- NOTE | 2017-07-13 12:40 | Medical Nutrition Therapy ---
Nutrition Anthropometrics Height (Inches): 72.00 Height (Calculated Centimeters: 182.561378 Weight (Pounds): 264 Weight (Calculated Kilograms): 119.748 BMI Calculated: 30.11 Hank Nutrition Score: Adequate Hank Nutrition Risk Score: 17 Dietary Referral Nutrition Risk Factors: Special Diet Nutrition Risk Comment: NO SALT Physical Findings Physical Appearance: Obese BMI 30-39 Skin Appearance Skin Appearance: Edema Edema Location Modifier: Left Edema Location: Arm Type of Edema: Degree of Edema: 1+ Gastrointestinal Symptoms GI Symtoms: Constipation Tube Present: Bowel Sounds: Recent Bowel Pattern: Constipated Stool Characteristics: Nutritional Diagnosis Nutritional Risk Acuity 3: GERD, COPD Unstable Nutritional Risk Acuity 4: Good Appetite Past Medical History: COPD, HTN, GERD, hypothyroid, anemia, a-fib, hypothyroidism, hyperlipidemia, acute diastolic heart failure, finger pain. Nutritional Acuity: 3-Mild Nutrition Diagnosis: Increased Nutrient Needs Nutrition Etiology: Physiological Causes Nutrition Problem/Etiology/Sym: Increase nutrient needs related to physiological causes AEB low Na 133. Energy Requirement: 2169 (Velasquez [place] Adj >BMI 27.5 X 1.3 AF) Adjusted Energy Requirement Re: 117 (1g/kg 1 X 116.75) Fluid Requirement: 2169 (1ml/kcal 1 X 2169) Diet Type: Cardiac Nutrition Intervention: Cont diet as ordered Drug: Diuretics Do Not Serve Any of the Follow: Broccoli, Brussel Sprouts, Spinach, [place] Lettuce, Cranberry Juice Nutrition Monitoring & Eval RD Patient Assessment Time: [address] Assessment Type: RD Re-Assessment Patient Nutrition Acuity: 3-Mild Follow Up Date: July 17, 2017 Nutritional Comment: 07/06: Pt admitted for possible stroke and blood in stool. Pt was diagnosed with GI bleed and was on a NPO diet and was advanced to clear liquid diet this morning. No intake has been documented at this time. Pt states he is not experinceing N/V. Pt has low K+ 2.6 and is taking a supplement at this time. Pt has elevated random blood glucose 128. Continue to monitor pt progress and diet advancement.-MT 07/08 Pt continue on cardiac diet with oral intake 75-100%. Pt states he feel weak and fatigue, and feeling somewhat better. GI bleed is resolved, acute kidney injury resolved and dehydration has been resolved. [place] labs at this time are K+ remains to be low 3.1 and Na 134. Continue to montior pt progress and encourage intake. MT 07/11 Alb 2.8, Low Na+/K+. Hypoxia continues. Pt receiving Cardiac diet and tolerating with 75-100% intake. Follow intake, labs, clinical progression, etc. DRT 07/13 Na continues to remain low 133. Pt continues on Cardiac diet with oral intake 100%. Pt has abdominal distension and constipation. Hypoxia continues. Continue to monitor pt progress and encourage intake. ND EMMANUEL,DEYSI July 13, 2017 12:39
[2017-07-13 20:00] VITALS: BP 139/76
[2017-07-13] MEDS: MONTELUKAST SODIUM 10 MG TAB PO SCH (20:06)
[2017-07-13] MEDS: PRAVASTATIN SOD 20 MG TAB PO SCH (20:06)
[2017-07-13 23:21] VITALS: BP 111/60
[2017-07-14 03:09] VITALS: BP 118/61
[2017-07-14] MEDS: traMADol 50 MG TAB PO PRN ×2 (04:32→11:01)
[2017-07-14] MEDS: ACETAMIN/CODEINE #3 300-30 MG PO PRN ×2 (04:32→11:01)
[2017-07-14] MEDS: LEVOTHYROXINE SOD 0.150 MG TAB PO SCH (05:46)
[2017-07-14] MEDS: SALMETEROL/FLUTIC 250/50 1 INH INH SCH (05:56)
[2017-07-14 07:36] VITALS: BP 126/66
[2017-07-14] MEDS: DOCUSATE SOD/SENNA 1 EACH TAB PO SCH (08:33)
[2017-07-14] MEDS: FOLIC ACID/CYANOCOB/PYRIDOXINE PO SCH (08:33)
[2017-07-14] MEDS: FUROSEMIDE 80 MG TAB PO SCH (08:33)
[2017-07-14] MEDS: GABAPENTIN 300 MG CAP PO SCH ×2 (08:33→13:20)
[2017-07-14] MEDS: guaiFENesin 600 MG TABCR PO SCH (08:33)
[2017-07-14] MEDS: POTASSIUM CHL 20 MEQ TABCR PO SCH (08:33)
[2017-07-14] MEDS: DILTIAZEM CD 120 MG CAPCR PO SCH (08:33)
[2017-07-14] MEDS: NYSTATIN 100,000 U/GM PWD 15GM TP SCH (08:33)
[2017-07-14] MEDS: SPIRONOLACTONE 25 MG TAB PO SCH (08:34)
[2017-07-14] MEDS: PANTOPRAZOLE SOD 40 MG TABEC PO SCH (08:34)
[2017-07-14] MEDS: TAMSULOSIN HCL 0.4 MG CAP PO SCH (08:34)
[2017-07-14] MEDS: RIVAROXABAN 10 MG TAB PO SCH (08:34)
[2017-07-14] MEDS: DIGOXIN 0.125 MG TAB PO SCH (08:34)
[2017-07-14] MEDS: DUTASTERIDE 0.5 MG CAP PO SCH (08:34)
[2017-07-14] MEDS: FLUTICASONE PROP 0.05% 16 GM ENA SCH (08:35)
[2017-07-14 10:55] VITALS: BP 122/58
[2017-07-14] MEDS ORDERED: DILT120C18 PO (12:44)
[2017-07-14] MEDS ORDERED: SPIR25TA78 PO (12:44)
--- NOTE | 2017-07-14 12:54 | Hospitalist Depart ---
Discharge Summary Reason for Hosp/Final Diag: (1) Acute diastolic (congestive) heart failure Status: Acute Hospital Course & Plan: He did have a 4KG weight gain and an increased oxygen requirement after IVF for ARF. We have restarted his oral Lasix and given intermittent IV doses. Spironolactone has also been added. Overall, he appears improved, but now has an O2 requirement of 8-9 liters (previously was at 7 liters). He wants to go home and has the equipment to have O2 at 8-9 liters. Will continue oral Lasix and Spironolactone. He is to get a BMP on (2) Hypoxia Hospital Course & Plan: He has had increased hypoxia this admission. No evidence of pneumonia or COPD exacerbation. Will continue diuresis for now. See above. His CRP and ESR are a bit elevated. No evidence of acute infection. Will repeat next week. Likely, it is his baseline. (3) GI bleed Status: Resolved Hospital Course & Plan: He did present with diarrhea and bloody stools. His Xarelto was placed on hold. He has had no BM since admission, so the Xarelto was restarted 07/09 and Hgb/Hct have continued to be stable. (4) Hypokalemia Status: Acute Hospital Course & Plan: He presented with a potassium of 3.1 that has required multiple IV infusions to correct. Mg++ has been wnl. Likely, chronic Lasix use has depleted his body stores. Continue supplementation. (5) Acute kidney injury Status: Resolved Hospital Course & Plan: Resolved with IV fluids. (6) Dehydration Status: Resolved Hospital Course & Plan: Resolved with IV fluids. (7) Atrial flutter Status: Chronic Hospital Course & Plan: He is on chronic treatment with digoxin and diltiazem ( he has been on 120mg while in the hospital with good rate control). He is also on Xarelto. Digoxin level was wnl. (8) COPD (chronic obstructive pulmonary disease) Status: Chronic Hospital Course & Plan: Lungs are clear. He is on chronic treatment with Advair, Singulair and prn Albuterol. (9) Finger pain Status: Acute Hospital Course & Plan: He had an acute injury to his right fifth digit. No fracture by X-ray. Departure Weight (Pounds): 260 Weight (Ounces): 9.0 Result Diagram: 07/13/17 0528 07/13/17 0528 Item Value Date Time White Blood Count 6.9 k/uL 07/08/17 0630 Hemoglobin 13.2 g/dL L 07/08/17 0630 Hemoglobin 12.9 g/dL L 07/09/17 0538 Hemoglobin 12.6 g/dL L 07/10/17 0522 Hemoglobin 13.2 g/dL L 07/11/17 0523 Hemoglobin 12.3 g/dL L 07/13/17 0528 White Blood Count 8.7 k/uL 07/05/17 1654 Hemoglobin 13.7 g/dL L 07/05/17 1654 Neutrophils (%) (Auto) 78.0 % H 07/05/17 1654 Mean Corpuscular Volume 100.0 fL H 07/05/17 1654 Hemoglobin 13.8 g/dL L 07/05/17 2321 Hemoglobin 13.0 g/dL L 07/06/17 0318 Hemoglobin 13.2 g/dL L 07/06/17 0543 Hemoglobin 13.7 g/dL L 07/06/17 0709 Hemoglobin 13.1 g/dL L 07/07/17 0610 White Blood Count 7.6 k/uL 07/07/17 0610 Mean Corpuscular Volume 99.5 fL H 07/07/17 0610 White Blood Count 6.9 k/uL 07/13/17 0528 Neutrophils (%) (Auto) 73.0 % H 07/13/17 0528 Erythrocyte Sedimentation Rate 51 mm/HOUR H 07/13/17 0528 Prothromb Time International Ratio 1.09 07/08/17 0630 Prothromb Time International Ratio 1.66 07/05/17 0000 Magnesium Level 2.9 mg/dl H 07/05/17 0000 Potassium Level 3.1 mmol/L L 07/05/17 1654 Potassium Level 2.6 mmol/L *L 07/06/17 0543 Potassium Level 3.1 mmol/L L 07/06/17 1843 Potassium Level 2.9 mmol/L *L 07/07/17 0610 Creatinine 1.60 mg/dl H 07/05/17 1654 Creatinine 1.10 mg/dl 07/06/17 0543 Creatinine 0.90 mg/dl 07/06/17 1843 Creatinine 0.80 mg/dl 07/07/17 0610 Random Glucose 176 mg/dl H 07/05/17 1654 Random Glucose 128 mg/dl H 07/06/17 0543 Random Glucose 138 mg/dl H 07/06/17 1843 Random Glucose 108 mg/dl 07/07/17 0610 Total Bilirubin 0.6 mg/dl 07/05/17 1654 Aspartate Amino Transf (AST/SGOT) 32 U/L 07/05/17 1654 Alanine Aminotransferase (ALT/SGPT) 21 U/L 07/05/17 1654 Alkaline Phosphatase 84 U/L 07/05/17 1654 Troponin I 0.015 ng/ml 07/05/17 1654 Troponin I 0.021 ng/ml 07/06/17 0543 B-Type Natriuretic Peptide 92 pg/ml 07/06/17 0543 Total Bilirubin 0.8 mg/dl 07/07/17 0610 Aspartate Amino Transf (AST/SGOT) 35 U/L 07/07/17 0610 Alanine Aminotransferase (ALT/SGPT) 28 U/L 07/07/17 0610 Alkaline Phosphatase 74 U/L 07/07/17 0610 Carbon Dioxide Level 44 mmol/L *H 07/05/17 1654 Carbon Dioxide Level 43 mmol/L *H 07/06/17 0543 Carbon Dioxide Level 40 mmol/L H 07/06/17 1843 Carbon Dioxide Level 44 mmol/L *H 07/07/17 0610 Chloride Level 85 mmol/L *L 07/07/17 0610 Chloride Level 87 mmol/L L 07/06/17 1843 Chloride Level 85 mmol/L *L 07/06/17 0543 Chloride Level 83 mmol/L *L 07/05/17 1654 Chloride Level 86 mmol/L L 07/08/17 0630 Carbon Dioxide Level 43 mmol/L *H 07/08/17 0630 Chloride Level 88 mmol/L L 07/09/17 0538 Carbon Dioxide Level 42 mmol/L *H 07/09/17 0538 Chloride Level 90 mmol/L L 07/13/17 0528 Carbon Dioxide Level 38 mmol/L H 07/13/17 0528 Carbon Dioxide Level 40 mmol/L H 07/11/17 0523 Chloride Level 84 mmol/L *L 07/11/17 0523 Chloride Level 86 mmol/L L 07/10/17 0522 Carbon Dioxide Level 42 mmol/L *H 07/10/17 0522 Creatinine 0.90 mg/dl 07/08/17 0630 Creatinine 0.90 mg/dl 07/09/17 0538 Creatinine 0.90 mg/dl 07/10/17 0522 Creatinine 1.00 mg/dl 07/11/17 0523 Creatinine 1.00 mg/dl 07/13/17 0528 C-Reactive Protein 3.3 mg/dl H 07/13/17 0528 Total Bilirubin 1.2 mg/dl 07/10/17 0522 Aspartate Amino Transf (AST/SGOT) 46 U/L H 07/10/17 0522 Alanine Aminotransferase (ALT/SGPT) 31 U/L 07/10/17 0522 Alkaline Phosphatase 126 U/L 07/10/17 0522 Potassium Level 3.1 mmol/L L 07/08/17 06 Potassium Level 3.7 mmol/L 07/09/17 0538 Potassium Level 3.4 mmol/L L 07/10/17 0522 Potassium Level 3.4 mmol/L L 07/11/17 0523 Potassium Level 4.2 mmol/L 07/13/17 0528 Urine Leukocyte Esterase Trace H 07/05/17 1741 Urine RBC None /HPF 07/05/17 1741 Urine Squamous Epithelial Cells None /LPF 07/05/17 1741 Serum Alcohol < 10 mg/dl 07/05/17 1654 Digoxin Level 0.8 ng/ml 07/09/17 0819 Stool Occult Blood (IFOB) Positive H 07/05/17 1840 Imaging 07/06/17 Finger Xray - Mild degenerative arthropathy at the interphalangeal joints. No evidence of acute bony abnormality. 07/05/17 CXR - 1. No acute cardiopulmonary process. 07/05/17 KUB Xray - Unremarkable exam of the abdomen. 07/05/[address] - 1. Stable exam without acute abnormality. EKG Vent. Rate : 081 BPM Atrial Rate : 078 BPM P-R Int : 182 ms QRS Dur : 100 ms QT Int : 386 ms P-R-T Axes : 000 073 051 degrees QTc Int : 448 ms Atrial flutter with controlled ventricular response Poor R wave progression anteriorly Nonspecific interventricular conduction delay Artifact in several leads - repeat if needed Abnormal ECG Confirmed by MICHAEL DIEZ ([id number]) on 07/06/2017 11:26:27 AM Condition: Improved Discharge: Home Home Health RN Follow Up For: Medication Management, Nursing Assessment, Other Home Health [employer] Follow Up For: ADL Assistance Discharge Instructions Home Meds Active Scripts Spironolactone (SPIRONOLACTONE) 25 Mg Tablet, 25 MG PO QDAY, #30 Prov:PAUL GAINES MD 07/14/17 Diltiazem Hcl (DILTIAZEM 24HR CD) 120 Mg Cap.er.24h, 120 MG PO QDAY for 30 Days , 0 Refills Prov:PAUL GAINES MD 07/14/17 Rivaroxaban 20 Mg (XARELTO 20 MG) 20 Mg Tablet, 1 TAB PO DAILY, #90 TAB 1 Refill Prov:SAL TARANGO APRN-C 04/30/17 Potassium Chloride (POTASSIUM CHLORIDE) 20 Meq Tab.er.prt, 2 TAB PO TID, #180 TAB 5 Refills Prov:EILEEN SANTANA MD 04/27/17 Tamsulosin Hcl (TAMSULOSIN HCL) 0.4 Mg Cap.er.24h, 1 CAP PO BID, #180 CAP 1 Refill Prov:EILEEN SANTANA MD 04/16/17 Levothyroxine Sodium (LEVOTHYROXINE SODIUM) 150 Mcg Tablet, 150 MCG PO QDAY, # 90 TAB 3 Refills Prov:EILEEN SANTANA MD 04/15/17 Ropinirole Hcl (ROPINIROLE HCL) 1 Mg Tablet, 1 MG PO QHS, #30 TAB 11 Refills Prov:EILEEN SANTANA MD 03/27/17 Dexlansoprazole (DEXILANT) 60 Mg Boo., 1 CAP PO DAILY, #90 TAB 4 Refills Prov:EILEEN SANTANA MD 03/27/17 Pravastatin Sodium (PRAVASTATIN SODIUM) 80 Mg Tablet, 1 TAB PO QDAY, #90 TAB 3 Refills Prov:EILEEN SANTANA MD 03/11/17 Furosemide (LASIX) 80 Mg Tablet, 1 TAB PO BID, #180 TAB 3 Refills Prov:EILEEN SANTANA MD 03/05/17 Digoxin (Digox) 125 Mcg Tablet, 1 TAB PO QDAY, #90 TAB 1 Refill Prov:SAL TARANGO APRN-C 02/13/17 Dutasteride (AVODART) 0.5 Mg Capsule, 1 TAB PO QDAY, #90 CAPSULE 1 Refill Prov:SAL TARANGO APRN 02/09/17 Montelukast Sodium (SINGULAIR) 10 Mg Tablet, 1 TAB PO QDAY, #90 TAB 1 Refill Prov:EILEEN SANTANA MD 01/29/17 Polyethylene Glycol 3350 (MIRALAX) 17 Gm Powd.pack, 1 PACKET PO DAILY, #90 PKT 4 Refills Prov:EILEEN SANTANA MD 01/06/17 Gabapentin (GABAPENTIN) 300 Mg Capsule, 1 CAP PO TID, #90 CAPSULE 11 Refills Prov:SAL TARANGO APRN 01/01/17 Fluticasone/Salmeterol (ADVAIR 500-50 DISKUS) 1 Each Disk.w.dev, 1 EACH IH BID, #1 EACH 11 Refills Prov:EILEEN SANTANA MD 09/08/16 Fluticasone Prop 50 Mcg Ns (FLONASE 50 MCG NS) 16 Gm [place].susp, 1 SPRAY NS DAILY, #1 BOT 11 Refills Prov:EILEEN SANTANA MD 06/06/16 Nitroglycerin (NITROSTAT) 0.4 Mg Subl, 0.4 MG SL Q5MIN Y for CHEST PAIN, #30 TAB 11 Refills Prov:EILEEN SANTANA MD 02/04/16 Reported Medications Guaifenesin (MUCINEX) 600 Mg Tablet.er, 1200 MG PO BID, #2 TAB 07/05/17 Albuterol Sulfate (PROVENTIL HFA) 6.7 Gm Inh, 1-2 PUFF INH Q4-6H Y for SHORTNESS OF BREATH, INH 09/05/16 Cyanocobalamin (Vitamin B-12) (VITAMIN B-12) 2,000 Mcg Tablet.er, 2000 MCG PO DAILY 09/05/16 Ferrous Sulfate (FERROUS SULFATE) 325 Mg Tablet, 325 MG PO BID, #60 05/07/16 Cholecalciferol (Vitamin D3) (VITAMIN D-3) 2,000 Unit Capsule, 2000 UNIT PO DAILY, CAPSULE 12/21/14 Multivitamin (MULTI VITAMIN DAILY) 1 Each Tablet, 1 EACH PO DAILY 12/21/14 Discontinued Reported Medications Metolazone (METOLAZONE) 2.5 Mg Tablet, 2.5 MG PO DAILY, #1 07/05/17 Discontinued Scripts Oxygen (OXYGEN) Inha, 7 L INH QDAY for 30 Days, L Prov:MICHAEL DIEZ MD 09/11/16 Diet: Fluid Restricted, No Added Salt (VERNON) Activity: As Tolerated Special Instructions: He is to get a CMP/CBC/Mg/ESR/CRP on 07/20 Fluid restrict to 2 liters a day total. Weight yourself daily and call for an increase of 5 pounds from baseline. Follow up with your PCP in 1-2 weeks. Copies to: EILEEN SANTANA MD Venous Thromboembolism Antithrombotics Is Pt On Any Antithrombotics?: No Heart Failure Ejection Fraction %: 68 RVSP (mmHg): 60 NYHA Class: III Is Patient on JUDY Inhibitor?: Yes Is Patient on Beta Janet?: Yes Admission Weight: 280 [id number]-[id number] Certification Face to Face Home Health Certification Institutional Provider conducted the [id number] encounter. Electronic Undersigning Physician Certifies Home Health. I certify that the patient has been under my care and that I had a [id number] encounter that meets the physician [id number] encounter requirements with this patient. This patient is home-bound due to safety issues and continues to require assistance with ADL's. I certify that based on my findings, that Nursing, Aides and the following Home Health services are medically necessary: Medical Necessity: Nursing Date Face to Face Conducted: July 14, 2017 PAUL GAINES MD July 14, 2017 12:54
[2017-07-23] MEDS ORDERED: CIPR-214 PO (10:29)
[2017-07-23] MEDS ORDERED: DILT120C18 PO (12:54)
[2017-07-23] MEDS ORDERED: SPIR25TA78 PO (12:54)
== END 2017-07-14 14:05 | disposition home or self-care (01) | DRG 813 ==
LOC: EDUNIT# 16:20 → ER 16:22 → MED 19:44
PROVIDERS: ADMIT Specialist; ATTEND Specialist
DX: D68.32 Hemorrhagic disorder due to extrinsic circulating anticoagulants (principal); I50.33 Acute on chronic diastolic (congestive) heart failure; K92.1 Melena; N17.9 Acute kidney failure, unspecified; I48.92 Unspecified atrial flutter; E87.3 Alkalosis; I11.0 Hypertensive heart disease with heart failure; T45.515A Adverse effect of anticoagulants, initial encounter; I48.2 Chronic atrial fibrillation; E78.00 Pure hypercholesterolemia, unspecified; J44.9 Chronic obstructive pulmonary disease, unspecified; N40.1 Benign prostatic hyperplasia with lower urinary tract symptoms; R33.8 Other retention of urine; E03.9 Hypothyroidism, unspecified; E86.0 Dehydration; E87.6 Hypokalemia; R09.02 Hypoxemia; M79.644 Pain in right finger(s); H54.61 Unqualified visual loss, right eye, normal vision left eye; Z79.01 Long term (current) use of anticoagulants; Z86.718 Personal history of other venous thrombosis and embolism; Z86.711 Personal history of pulmonary embolism; Z87.891 Personal history of nicotine dependence; I69.398 Other sequelae of cerebral infarction; Z85.46 Personal history of malignant neoplasm of prostate; Z99.81 Dependence on supplemental oxygen
CPT/HCPCS: 36415; 70450; 71045; 74018; 74022; 74177; 80162; 80320; 81001; 82040; 82247; 82274; 82310; 82374; 82435; 82565; 82947; 83605; 83690; 83735; 83880; 84075; 84132; 84155; 84295; 84450; 84460; 84484; 84520; 85014; 85018; 85025; 85027; 85610; 85651; 85730; 86140; 93005; 94640; 96361; 96374; 97162; 99284; 99285; C9113; J0131; J1940; J2270; J2405; J3480; J7040; J7613; Q9967

== ENCOUNTER → 2017-07-05 | Outpatient (CLI) | payer MEDICARE, MEDICAID ==
[2017-07-06 09:39] VITALS: BMI 30.1
== END ==
LOC: AMB 16:03
PROVIDERS: ATTEND Nurse Practitioner
DX: R06.00 Dyspnea, unspecified (principal); R09.02 Hypoxemia; R20.0 Anesthesia of skin; Z86.73 Personal history of transient ischemic attack (TIA), and cerebral infarction without residual deficits
CPT/HCPCS: A0425; A0429

== ENCOUNTER → 2017-07-14 | Outpatient (CLI) | payer MEDICARE, MEDICAID ==
[2017-07-06 09:39] VITALS: BMI 30.1
[~2017-07-14] MED LIST changes: +CIPR-214 PO
== END ==
LOC: AMB 13:52
PROVIDERS: ATTEND Nurse Practitioner
DX: J44.1 Chronic obstructive pulmonary disease with (acute) exacerbation (principal)
CPT/HCPCS: A0425; A0428

== ENCOUNTER → 2017-07-22 | Outpatient (REF) | payer MEDICARE, MEDICAID ==
[2017-07-06 09:39] VITALS: BMI 30.1
== END ==
LOC: ZZSENDIN 10:56
PROVIDERS: ATTEND Internal Medicine
DX: R30.0 Dysuria (principal)
CPT/HCPCS: 81001; 87088

== ENCOUNTER → 2017-07-23 | Outpatient (CLI) | payer MEDICARE, MEDICAID ==
[2017-07-06 09:39] VITALS: BMI 30.1
[2017-07-23 11:26] LABS: PLATELET COUNT, AUTOMATED 325 K/uL (150-450)
== END ==
LOC: LAB 10:27
PROVIDERS: ATTEND Emergency Medicine
DX: N40.1 Benign prostatic hyperplasia with lower urinary tract symptoms (principal); I10 Essential (primary) hypertension
CPT/HCPCS: 36415; 82040; 82247; 82310; 82374; 82435; 82565; 82947; 83735; 84075; 84132; 84153; 84155; 84295; 84450; 84460; 84520; 85025; 85651; 86140

== ENCOUNTER → 2017-07-27 | Outpatient (CLI) | payer MEDICARE, MEDICAID ==
[2017-07-06 09:39] VITALS: BMI 30.1
[~2017-07-27] MED LIST changes: +IOPAMIDOL 76% 75 ML INFUS BTL 75 ML ONE
--- NOTE | 2017-07-27 11:48 | RADIOLOGY IMAGING REPORT ---
FACILITY[place] [facility] [place] NAME: Jaquan Orlando : 1945 MR: [id number] V: [id number] EXAM DATE: ORDERING PHYSICIAN: EILEEN SANTANA TECHNOLOGIST: Location: [facility] - [place] Patient: Jaquan Orlando : 1945 Visit/Account:[id number] Date of Sevice: 07/27/2017 ABDOMEN/PELVIS W/WO CONTRAST HISTORY: gross hematuria TECHNIQUE: Axial images acquired through the abdomen/pelvis both with and without IV contrast.. Emma nal and sagittal reformatting also performed. Dose Lowering Technique One of the following dose optimization techniques was utilized in the performance of this exam: Autom ated exposure control; adjustment of the mA and/or kV according to the patient's size; or use of an i terative reconstruction technique. Specific details can be referenced in the facility's radiology C T exam operational policy. CONTRAST: 75 mL [id number] COMPARISON: July 03, 2017 FINDINGS: Visualized lung bases: Severe emphysematous changes throughout the lungs again seen in addition to e xtensive pleural parenchymal scarring Hepatobiliary: Cholelithiasis although no evidence of biliary ductal dilatation Spleen: Borderline enlarged at 13.5 cm in length although stable. Accessory splenule also noted Adrenals: Negative. Pancreas: Negative. Kidneys ureters and bladder: No demonstration of urolithiasis, hydronephrosis or hydroureter. The bl adder wall appears thickened and asymmetric fashion which is more prominent on the right Genitalia: Negative. GI: There is diverticulosis left-sided colon although no CT evidence of acute diverticulitis. Previous rectal thickening and hazy fat stranding appears improved Vessels/spaces/nodes: Infrarenal abdominal aortic aneurysm relatively unchanged in size measuring 3. 5 x 3.7 cm. Also stable is mild aneurysmal dilatation of the left common iliac artery measuring 1.8 cm in AP dimension Bones/soft tissues: Moderate compression fracture of L3 remains relatively unchanged Additional findings: None pertinent. IMPRESSION: There is no demonstration of urolithiasis, hydronephrosis or hydroureter. The bladder wall appears thickened in a symmetric fashion which is more prominent on the right. Give n the clinical history of gross hematuria cystoscopy may be helpful. 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
== END ==
LOC: CT 02:53
PROVIDERS: ATTEND Emergency Medicine
DX: K80.20 Calculus of gallbladder without cholecystitis without obstruction (principal); R91.8 Other nonspecific abnormal finding of lung field; K57.30 Diverticulosis of large intestine without perforation or abscess without bleeding; I71.4 Abdominal aortic aneurysm, without rupture; M48.56XS Collapsed vertebra, not elsewhere classified, lumbar region, sequela of fracture
CPT/HCPCS: 74178; Q9967

== ENCOUNTER 2017-08-18 16:57 | Inpatient (IN) | payer MEDICARE, MEDICAID ==
[~2017-08-18] VITALS: Ht 182.9 cm; Wt 121.8 kg
[~2017-08-18 16:57] MED LIST changes: -CEFU250T11 PO; -DILT240C4 PO
[2017-08-18] MEDS ORDERED: NS(*) 0.9% 1000 ML BAG 1,000 ML IV ONE (17:04)
[2017-08-18] MEDS ORDERED: ALBUTEROL 2.5 MG/3 ML NEB NEB ONE (17:05)
[2017-08-18] MEDS ORDERED: methylPREDNIS SUCC 125 MG/2ML IVP ONE (17:05)
[2017-08-18] MEDS ORDERED: FUROSEMIDE 20 MG/2 ML VIAL IVP ONE (17:10)
--- NOTE | 2017-08-18 17:24 | ER Report ---
History and Physical Time Seen By MD: 17:00 Hx. of Stated Complaint: EMS REPORTS THAT PATIENT WAS SHORT OF BREATH UPON ARRIVAL. EMS REPORTS THAT THE PATIENT HAD A BREATHING TREATMENT PRIVOR TO ARRIVAL. PATIENT IS UNABLE TO ANSWER QUESTIONS HPI/ROS 72 Asaf OLD H/O AFIB, CHF, COPD. PROGRESSIVE SOB X 2 DAYS ON 7 LITERS OF O2 AT HOME . PATIENT TELLS BOTH MYSELF AND DR WILL HE DOES NOT WANT TO BE INTUBATED Remainder of the 14 system rev: Yes Allergies: Coded Allergies: tiotropium (Verified Allergy, Mild, visual changes, 07/05/17) Home Meds Active Scripts Montelukast Sodium (SINGULAIR) 10 Mg Tablet, 1 TAB PO QDAY, #90 TAB 3 Refills Prov:EILEEN SANTANA MD 08/14/17 Ropinirole Hcl (ROPINIROLE HCL) 1 Mg Tablet, 2 MG PO QHS, #100 TAB 11 Refills Increase by half a tab every week if needed to a maximum of 4 tabs a night. Prov:EILEEN SANTANA MD 08/13/17 Spironolactone (SPIRONOLACTONE) 25 Mg Tablet, 25 MG PO QDAY, #90 3 Refills Prov:EILEEN SANTANA MD 07/23/17 Diltiazem Hcl (DILTIAZEM 24HR CD) 120 Mg Cap.er.24h, 120 MG PO QDAY for 30 Days , #90 3 Refills Prov:EILEEN SANTANA MD 07/23/17 Ciprofloxacin Hcl (CIPROFLOXACIN HCL) 500 Mg Tablet, 500 MG PO Q12H, #14 TAB Prov:EILEEN SANTANA MD 07/23/17 Rivaroxaban 20 Mg (XARELTO 20 MG) 20 Mg Tablet, 1 TAB PO DAILY, #90 TAB 1 Refill Prov:SAL TARANGO APRN SPARERIBS TRIMMER-C 04/30/17 Potassium Chloride (POTASSIUM CHLORIDE) 20 Meq Tab.er.prt, 2 TAB PO TID, #180 TAB 5 Refills Prov:EILEEN SANTANA MD 04/27/17 Tamsulosin Hcl (TAMSULOSIN HCL) 0.4 Mg Cap.er.24h, 1 CAP PO BID, #180 CAP 1 Refill Prov:EILEEN SANTANA MD 04/16/17 Levothyroxine Sodium (LEVOTHYROXINE SODIUM) 150 Mcg Tablet, 150 MCG PO QDAY, # 90 TAB 3 Refills Prov:EILEEN SANTANA MD 04/15/17 Dexlansoprazole (DEXILANT) 60 Mg Cap., 1 CAP PO DAILY, #90 TAB 4 Refills Prov:EILEEN SANTANA MD 03/27/17 Pravastatin Sodium (PRAVASTATIN SODIUM) 80 Mg Tablet, 1 TAB PO QDAY, #90 TAB 3 Refills Prov:EILEEN SANTANA MD 03/11/17 Furosemide (LASIX) 80 Mg Tablet, 1 TAB PO BID, #180 TAB 3 Refills Prov:EILEEN SANTANA MD 03/05/17 Digoxin (Digox) 125 Mcg Tablet, 1 TAB PO QDAY, #90 TAB 1 Refill Prov:SAL TARANGO APRN-Aaron 02/13/17 Dutasteride (AVODART) 0.5 Mg Capsule, 1 TAB PO QDAY, #90 CAPSULE 1 Refill Prov:SAL TARANGO APRN-Aaron 02/09/17 Polyethylene Glycol 3350 (MIRALAX) 17 Gm Powd.pack, 1 PACKET PO DAILY, #90 PKT 4 Refills Prov:EILEEN SANTANA MD 01/06/17 Gabapentin (GABAPENTIN) 300 Mg Capsule, 1 CAP PO TID, #90 CAPSULE 11 Refills Prov:SAL TARANGO APRN-Aaron 01/01/17 Fluticasone/Salmeterol (ADVAIR 500-50 DISKUS) 1 Each Disk.w.dev, 1 EACH IH BID, #1 EACH 11 Refills Prov:EILEEN SANTANA MD 09/08/16 Fluticasone Prop 50 Mcg Ns (FLONASE 50 MCG NS) 16 Gm [place].susp, 1 SPRAY NS DAILY, #1 BOT 11 Refills Prov:EILEEN SANTANA MD 06/06/16 Nitroglycerin (NITROSTAT) 0.4 Mg Subl, 0.4 MG SL Q5MIN Y for CHEST PAIN, #30 TAB 11 Refills Prov:EILEEN SANTANA MD 02/04/16 Reported Medications Guaifenesin (MUCINEX) 600 Mg Tablet.er, 1200 MG PO BID, #2 TAB 07/05/17 Albuterol Sulfate (PROVENTIL HFA) 6.7 Gm Inh, 1-2 PUFF INH Q4-6H Y for SHORTNESS OF BREATH, INH 09/05/16 Cyanocobalamin (Vitamin B-12) (VITAMIN B-12) 2,000 Mcg Tablet.er, 2000 MCG PO DAILY 09/05/16 Ferrous Sulfate (FERROUS SULFATE) 325 Mg Tablet, 325 MG PO BID, #60 05/07/16 Cholecalciferol (Vitamin D3) (VITAMIN D-3) 2,000 Unit Capsule, 2000 UNIT PO DAILY, CAPSULE 12/21/14 Multivitamin (MULTI VITAMIN DAILY) 1 Each Tablet, 1 EACH PO DAILY 12/21/14 Past Medical/Surgical History Hypothyroid, heart hearing, stroke 2014, TIA, atrial fib, congestive heart failure, heart murmur, peripheral vascular disease, cardiac bypass in 2000, cor pulmonale, DVT right shoulder artery blockage in 2018, home oxygen and BiPAP use Reviewed Nurses Notes: Yes Old Medical Records Reviewed: Yes Hx Smoking: No (2001) Smoking Status: Former Smoker Exposure to Second Hand Smoke?: Yes Hx Substance Use Disorder: No Hx Alcohol Use: Yes (COUPLE DAILY, "been 3-4 days") Family History of: HTN Constitutional Vital Sign - Last 24 Hours 08/18/17 08/18/17 08/18/17 08/18/17 17:02 17:07 17:10 17:12 Temp 98.5 Pulse 93 98 Resp 28 12 B/P (MAP) 122/66 (84) 122/66 (84) Pulse Ox 99 83 99 O2 Delivery Non-Rebreather CPAP O2 Flow Rate 15 08/18/17 08/18/17 08/18/17 08/18/17 17:15 17:27 17:37 17:37 Pulse 101 102 Resp 17 18 Pulse Ox 96 97 O2 Delivery Bi-PAP FiO2 60.0 50.0 08/18/17 08/18/17 08/18/17 08/18/17 17:42 17:43 17:43 17:50 Pulse 97 98 Resp 20 18 B/P (MAP) 133/73 (93) Pulse Ox 93 97 O2 Delivery Bi-PAP FiO2 50.0 50.0 08/18/17 08/18/17 08/18/17 08/18/17 17:57 18:00 18:05 18:15 Pulse 101 174 Resp 13 19 B/P (MAP) 113/71 (85) 122/78 (93) Pulse Ox 94 93 08/18/17 08/18/17 08/18/17 08/18/17 18:20 18:30 18:35 18:45 Pulse 101 169 Resp 15 17 B/P (MAP) 126/63 (84) 124/79 (94) Pulse Ox 93 94 08/18/17 08/18/17 08/18/17 08/18/17 18:50 19:00 19:05 19:15 Pulse 98 100 Resp 15 18 B/P (MAP) 115/72 (86) 120/64 (82) Pulse Ox 95 94 Intake and Output 08/18/17 08/18/17 08/19/17 15:00 23:00 07:00 Intake Total 815.4 ml Balance 815.4 ml Physical Exam Patient is a 72-year-old male in acute respiratory distress has CPAP mask on him did discuss his code status with him on arrival he says he does not want to be intubated Dr. rangel in the room we had this discussion does agree to try BiPAP for his acute respiratory distress. HR TACHY, LUNGS LITTLE AIR EXCHANGE, AND OBESE [place], 3 PLUE EDEMA BLE Medical Decision Making Data Points Result Diagram: 08/18/17 1709 08/18/17 1709 Laboratory Hematology Test 08/18/17 17:09 08/18/17 17:37 Red Blood Count 3.97 M/uL (4.00-5.60) Mean Corpuscular Volume 100.3 fL (80.0-96.0) Mean Corpuscular Hemoglobin 34.4 pg (26.0-33.0) Mean Corpuscular Hemoglobin Concent 34.3 g/dL (32.0-36.0) Red Cell Distribution Width 14.4 % (11.5-14.5) Mean Platelet Volume 6.9 fL (7.2-11.1) Neutrophils (%) (Auto) 73.3 % (39.4-72.5) Lymphocytes (%) (Auto) 15.9 % (17.6-49.6) Monocytes (%) (Auto) 7.4 % (4.1-12.4) Eosinophils (%) (Auto) 3.0 % (0.4-6.7) Basophils (%) (Auto) 0.4 % (0.3-1.4) Nucleated RBC Relative Count (auto) 0.1 /100WBC Neutrophils # (Auto) 5.1 K/uL (2.0-7.4) Lymphocytes # (Auto) 1.1 K/uL (1.3-3.6) Monocytes # (Auto) 0.5 K/uL (0.3-1.0) Eosinophils # (Auto) 0.2 K/uL (0.0-0.5) Basophils # (Auto) 0.0 K/uL (0.0-0.1) Nucleated RBC Absolute Count (auto) 0.01 K/uL Prothrombin Time 19.1 seconds (12.0-14.4) Prothromb Time International Ratio 1.57 Activated Partial Thromboplast Time 47 seconds (23-35) D-Dimer Quantitative (PE/DVT) 0.70 ug/ml (0-0.50) Sodium Level 140 mmol/L (137-145) Potassium Level 4.1 mmol/L (3.5-5.0) Chloride Level 93 mmol/L (98-107) Carbon Dioxide Level 38 mmol/L (22-30) Blood Urea Nitrogen 12 mg/dl (9-21) Creatinine 1.10 mg/dl (0.66-1.25) Glomerular Filtration Rate Calc > 60.0 Random Glucose 125 mg/dl (75-110) Calcium Level 8.5 mg/dl (8.4-10.2) Total Bilirubin 0.4 mg/dl (0.2-1.3) Aspartate Amino Transf (AST/SGOT) 23 U/L (0-35) Alanine Aminotransferase (ALT/SGPT) 22 U/L (0-56) Alkaline Phosphatase 84 U/L (0-126) Troponin I < 0.012 ng/ml B-Type Natriuretic Peptide 25 pg/ml (0-100) Total Protein 7.5 g/dl (6.3-8.2) Albumin 3.7 g/dl (3.5-5.0) Blood Gas Puncture Site Left radial Blood Gas Patient Temperature 98.5 DEGREES Arterial Blood pH 7.33 (7.35-7.45) Arterial Blood Partial Pressure CO2 68 mmHg (32-37) Arterial Blood Partial Pressure O2 106 mmHg (60-80) Arterial Blood HCO3 36 mmol/L (20-26) Arterial Blood Oxygen Saturation 97 % (92-100) Arterial Blood Base Excess 10.0 mmol/L Angel Test Acceptable Oxygen Liters/Minute 60 Chemistry Test 08/18/17 17:09 08/18/17 17:37 White Blood Count 7.0 k/uL (4.5-11.0) Red Blood Count 3.97 M/uL (4.00-5.60) Hemoglobin 13.7 g/dL (14.0-18.0) Hematocrit 39.8 % (42.0-52.0) Mean Corpuscular Volume 100.3 fL (80.0-96.0) Mean Corpuscular Hemoglobin 34.4 pg (26.0-33.0) Mean Corpuscular Hemoglobin Concent 34.3 g/dL (32.0-36.0) Red Cell Distribution Width 14.4 % (11.5-14.5) Platelet Count 204 K/uL (150-450) Mean Platelet Volume 6.9 fL (7.2-11.1) Neutrophils (%) (Auto) 73.3 % (39.4-72.5) Lymphocytes (%) (Auto) 15.9 % (17.6-49.6) Monocytes (%) (Auto) 7.4 % (4.1-12.4) Eosinophils (%) (Auto) 3.0 % (0.4-6.7) Basophils (%) (Auto) 0.4 % (0.3-1.4) Nucleated RBC Relative Count (auto) 0.1 /100WBC Neutrophils # (Auto) 5.1 K/uL (2.0-7.4) Lymphocytes # (Auto) 1.1 K/uL (1.3-3.6) Monocytes # (Auto) 0.5 K/uL (0.3-1.0) Eosinophils # (Auto) 0.2 K/uL (0.0-0.5) Basophils # (Auto) 0.0 K/uL (0.0-0.1) Nucleated RBC Absolute Count (auto) 0.01 K/uL Prothrombin Time 19.1 seconds (12.0-14.4) Prothromb Time International Ratio 1.57 Activated Partial Thromboplast Time 47 seconds (23-35) D-Dimer Quantitative (PE/DVT) 0.70 ug/ml (0-0.50) Glomerular Filtration Rate Calc > 60.0 Calcium Level 8.5 mg/dl (8.4-10.2) Total Bilirubin 0.4 mg/dl (0.2-1.3) Aspartate Amino Transf (AST/SGOT) 23 U/L (0-35) Alanine Aminotransferase (ALT/SGPT) 22 U/L (0-56) Alkaline Phosphatase 84 U/L (0-126) Troponin I < 0.012 ng/ml B-Type Natriuretic Peptide 25 pg/ml (0-100) Total Protein 7.5 g/dl (6.3-8.2) Albumin 3.7 g/dl (3.5-5.0) Blood Gas Puncture Site Left radial Blood Gas Patient Temperature 98.5 DEGREES Arterial Blood pH 7.33 (7.35-7.45) Arterial Blood Partial Pressure CO2 68 mmHg (32-37) Arterial Blood Partial Pressure O2 106 mmHg (60-80) Arterial Blood HCO3 36 mmol/L (20-26) Arterial Blood Oxygen Saturation 97 % (92-100) Arterial Blood Base Excess 10.0 mmol/L Angel Test Acceptable Oxygen Liters/Minute 60 Coagulation Test 08/18/17 17:09 Prothrombin Time 19.1 seconds Prothromb Time International Ratio 1.57 Activated Partial Thromboplast Time 47 seconds D-Dimer Quantitative (PE/DVT) 0.70 ug/ml EKG/Imaging Monitor Interpretation: Atrial Fibrillation Imaging FACILITY: [facility] PATIENT NAME: Jaquan Orlando : 1945 MR: [id number] V: [id number] EXAM DATE: [id number] ORDERING PHYSICIAN: ABRAHAM JACOBS TECHNOLOGIST: Location: [facility] Patient: Jaquan Orlando : 1945 Visit/Account:[id number] Date of Sevice: 08/18/2017 Exam type: CHEST SINGLE AP History: RESP DISTRESS Comparison: July 05, 2017. Findings: Cardiac silhouette is upper limits of normal in size. Chronic interstitial changes are again seen throughout the lungs. There does appear to be an overall subtle increase in the interstitial markings which could represent a superimposed acute interstitial process. Chronic scarring in the lung bases again noted surgical clips project over the right upper thorax IMPRESSION: 1. Subtle increase in the interstitial markings superimposed on the previously noted chronic interstitial changes. An acute interstitial process such as mild pulmonary edema or incisional pneumonia not totally excluded particularly in light of the clinical history Borderline cardiomegaly unchanged Report Dictated By: Yu Holden MD at 08/18/2017 5:34 PM Report E-Signed By: Yu Holden MD at 08/18/2017 5:36 PM WSN:[email or web address] ED Course/Re-evaluation ED Course N emergency room received 2 albuterol nebs was placed on BiPAP titrated by respiratory therapy received Lasix 40 IV push nitro paste a half inch to chest wall Solu-Medrol 125 mg IV Ativan 0.5 IV to tolerate BiPAP tolerated treatment well sats 95% on BiPAP was able to tolerated my did talk to Dr. Gary Hernandez agrees to admit him acute respiratory failure Re-evaluation DIAGNOSED COPD, COR PULMONALE ACUTE RESPIRATORY FAILURE Decision to Disposition Date: Aug 18, 2017 Decision to Disposition Time: 19:13 Depart Departure Latest Vital Signs Vital Signs Date Time Temp Pulse Resp B/P (MAP) Pulse Ox O2 Delivery O2 Flow Rate FiO2 08/18/17 19:15 120/64 (82) 08/18/17 19:05 100 18 94 08/18/17 17:50 50.0 08/18/17 17:43 Bi-PAP 08/18/17 17:07 98.5 15 Impression: Primary Impression: COPD (chronic obstructive pulmonary disease) Additional Impressions: Hypoxia Cor pulmonale, chronic DNI (do not intubate) Paroxysmal a-fib Condition: Improved Disposition: Admitted from ER Referrals: EILEEN SANTANA MD (PCP) Problem Qualifiers ABRAHAM JACOBS APRN-C Aug 18, 2017 17:24
[2017-08-18] MEDS ORDERED: LORazepam 2 MG/ML VIAL IVP ONE (17:25)
[2017-08-18] MEDS ORDERED: NITROGLYCERIN OINT 1 GM PKT TP ONE (17:25)
[2017-08-18 17:33] LABS: PLATELET COUNT, AUTOMATED 204 K/uL (150-450)
--- NOTE | 2017-08-18 17:39 | RADIOLOGY IMAGING REPORT ---
FACILITY: [facility] PATIENT NAME: Jaquan Orlando : 1945 MR: [id number] V: [id number] EXAM DATE: ORDERING PHYSICIAN: ABRAHAM JACOBS TECHNOLOGIST: Location: [facility] Patient: Jaquan Orlando : 1945 Visit/Account:[id number] Date of Sevice: 08/18/2017 Exam type: CHEST SINGLE AP History: RESP DISTRESS Comparison: July 05, 2017. Findings: Cardiac silhouette is upper limits of normal in size. Chronic interstitial changes are again seen th roughout the lungs. There does appear to be an overall subtle increase in the interstitial markings which could represent a superimposed acute interstitial process. Chronic scarring in the lung bases again noted surgical clips project over the right upper thorax IMPRESSION: 1. Subtle increase in the interstitial markings superimposed on the previously noted chronic interst itial changes. An acute interstitial process such as mild pulmonary edema or incisional pneumonia no t totally excluded particularly in light of the clinical history Borderline cardiomegaly unchanged Report Dictated By: Yu Holden MD at 08/18/2017 5:34 PM Report E-Signed By: Yu Holden MD at 08/18/2017 5:36 PM WSN:DARIO
[2017-08-18 17:43] LABS: INR 1.57
[2017-08-18] MEDS ORDERED: LEVOFLOXACIN/D5W 750 MG/150 ML 150 ML IVPB ONE (18:20)
--- NOTE | 2017-08-18 18:35 | EKG ---
FACILITY: [facility] [place] PATIENT NAME: LEWIS FLETCHER : [id number] MR: [id number] V: [id number] EXAM DATE: ORDERING PHYSICIAN: ABRAHAM JACOBS TECHNOLOGIST: MAGO Curiel Reason : Blood Pressure : / mmHG Vent. Rate : 094 BPM Atrial Rate : 102 BPM P-R Int : 000 ms QRS Dur : 092 ms QT Int : 356 ms P-R-T Axes : 000 067 064 degrees QTc Int : 445 ms Atrial fibrillation Nonspecific interventricular conduction delay Decreased R wave progression anteriorly Abnormal ECG Confirmed by MICHAEL DIEZ ([id number] on 08/18/2017 7:40:21 PM Referred By: Confirmed By:MICHAEL DIEZ
[2017-08-18 19:47] VITALS: BP 138/70
[2017-08-18] MEDS ORDERED: INFLUENZA VIRUS VAC 0.5 ML SYR IM ONLY ONE (19:55)
[2017-08-18] MEDS ORDERED: LEVALBUTEROL 1.25 MG/3 ML NEB NEB PRN (19:55)
--- NOTE | 2017-08-18 20:19 | History & Physical ---
History of Present Illness Chief Complaint Short of breath History of Present Illness 72yo male with PMHx significant for COPD, cor pulmonale, diastolic heart failure , a-fib/flutter, CVA, hypothyroidism. He reports doing fairly well for past few weeks, but had onset of significant dyspnea. It began rather abruptly this afternoon. He denied any chest pain. He did note his heart was racing with rate on his pulse oximeter in 160bpm range. He has had some sputum production last few days. No fevers or chills. His edema has been under good control on his current diuretic regimen. He was evaluated in the ER and recommended for admission. History Problems: (1) Constipation Status: Chronic (2) Chronic anticoagulation Status: Chronic (3) COPD (chronic obstructive pulmonary disease) Status: Chronic (4) Dependent edema Status: Chronic (5) GERD (gastroesophageal reflux disease) Status: Chronic (6) HTN (hypertension) Status: Chronic (7) Cor pulmonale, chronic Status: Chronic (8) Hyperlipidemia Status: Chronic (9) Hypothyroidism Status: Chronic (10) Neuropathy Status: Chronic (11) RLS (restless legs syndrome) Status: Chronic (12) Stenosis of right subclavian artery Status: Chronic (13) History of pulmonary embolism Status: Chronic (14) Embolic stroke Status: Chronic (15) Paroxysmal a-fib Status: Chronic (16) BPH w urinary obs/LUTS Status: Chronic (17) GI bleed Status: Resolved (18) Acute diastolic (congestive) heart failure Status: Acute (19) S/P knee surgery Status: Resolved Home Meds Active Scripts Montelukast Sodium (SINGULAIR) 10 Mg Tablet, 1 TAB PO QDAY, #90 TAB 3 Refills Prov:JODY LALA MD 08/14/17 Ropinirole Hcl (ROPINIROLE HCL) 1 Mg Tablet, 2 MG PO QHS, #100 TAB 11 Refills Increase by half a tab every week if needed to a maximum of 4 tabs a night. Prov:JODY LALA MD 08/13/17 Spironolactone (SPIRONOLACTONE) 25 Mg Tablet, 25 MG PO QDAY, #90 3 Refills Prov:JODY LALA MD 07/23/17 Diltiazem Hcl (DILTIAZEM 24HR CD) 120 Mg Cap.er.24h, 120 MG PO QDAY for 30 Days , #90 3 Refills Prov:JODY LALA MD 07/23/17 Ciprofloxacin Hcl (CIPROFLOXACIN HCL) 500 Mg Tablet, 500 MG PO Q12H, #14 TAB Prov:JODY LALA MD 07/23/17 Rivaroxaban 20 Mg (XARELTO 20 MG) 20 Mg Tablet, 1 TAB PO DAILY, #90 TAB 1 Refill Prov:SAL TARANGO APRN 04/30/17 Potassium Chloride (POTASSIUM CHLORIDE) 20 Meq Tab.er.prt, 2 TAB PO TID, #180 TAB 5 Refills Prov:JODY LALA MD 04/27/17 Tamsulosin Hcl (TAMSULOSIN HCL) 0.4 Mg Cap.er.24h, 1 CAP PO BID, #180 CAP 1 Refill Prov:JODY LALA MD 04/16/17 Levothyroxine Sodium (LEVOTHYROXINE SODIUM) 150 Mcg Tablet, 150 MCG PO QDAY, # 90 TAB 3 Refills Prov:JODY LALA MD 04/15/17 Dexlansoprazole (DEXILANT) 60 Mg Boo., 1 CAP PO DAILY, #90 TAB 4 Refills Prov:JODY LALA MD 03/27/17 Pravastatin Sodium (PRAVASTATIN SODIUM) 80 Mg Tablet, 1 TAB PO QDAY, #90 TAB 3 Refills Prov:JODY LALA MD 03/11/17 Furosemide (LASIX) 80 Mg Tablet, 1 TAB PO BID, #180 TAB 3 Refills Prov:JODY LALA MD 03/05/17 Digoxin (Digox) 125 Mcg Tablet, 1 TAB PO QDAY, #90 TAB 1 Refill Prov:SAL TARANGO APRN 02/13/17 Dutasteride (AVODART) 0.5 Mg Capsule, 1 TAB PO QDAY, #90 CAPSULE 1 Refill Prov:SAL TARANGO APRN 02/09/17 Polyethylene Glycol 3350 (MIRALAX) 17 Gm Powd.pack, 1 PACKET PO DAILY, #90 PKT 4 Refills Prov:JODY LALA MD 01/06/17 Gabapentin (GABAPENTIN) 300 Mg Capsule, 1 CAP PO TID, #90 CAPSULE 11 Refills Prov:SAL TARANGO APRN PREBOARDER-C 01/01/17 Fluticasone/Salmeterol (ADVAIR 500-50 DISKUS) 1 Each Disk.w.dev, 1 EACH IH BID, #1 EACH 11 Refills Prov:JODY LALA MD 09/08/16 Fluticasone Prop 50 Mcg Ns (FLONASE 50 MCG NS) 16 Gm [place].susp, 1 SPRAY NS DAILY, #1 BOT 11 Refills Prov:JODY LALA MD 06/06/16 Nitroglycerin (NITROSTAT) 0.4 Mg Subl, 0.4 MG SL Q5MIN Y for CHEST PAIN, #30 TAB 11 Refills Prov:JODY LALA MD 02/04/16 Reported Medications Guaifenesin (MUCINEX) 600 Mg Tablet.er, 1200 MG PO BID, #2 TAB 07/05/17 Albuterol Sulfate (PROVENTIL HFA) 6.7 Gm Inh, 1-2 PUFF INH Q4-6H Y for SHORTNESS OF BREATH, INH 09/05/16 Cyanocobalamin (Vitamin B-12) (VITAMIN B-12) 2,000 Mcg Tablet.er, 2000 MCG PO DAILY 09/05/16 Ferrous Sulfate (FERROUS SULFATE) 325 Mg Tablet, 325 MG PO BID, #60 05/07/16 Cholecalciferol (Vitamin D3) (VITAMIN D-3) 2,000 Unit Capsule, 2000 UNIT PO DAILY, CAPSULE 12/21/14 Multivitamin (MULTI VITAMIN DAILY) 1 Each Tablet, 1 EACH PO DAILY 12/21/14 Allergies: Coded Allergies: tiotropium (Verified Allergy, Mild, visual changes, 07/05/17) Patient History: FH: multiple sclerosis BROTHER OR SISTER FH: prostate cancer FATHER Paraplegia MOTHER Hx Smoking: Yes Smoking Status: Former Smoker Exposure to Second Hand Smoke?: Yes Caffeine Intake: Soda Caffeine/Cups Per Day: 2 can per day Hx Alcohol Use: Yes (COUPLE DAILY, "been 3-4 days") Hx Substance Use Disorder: No Social Drug Use: Never Review of Systems Constitutional: No Fever, No Chills Neurological: No Syncope, No Confusion, No Weakness, No Dizziness Eyes: No Vision Change, No Loss of Vision ENT: Sinus Congestion, No Hearing Loss Cardiovascular: Palpitations, No Chest Pain, No Orthostatic Hypotension Respiratory: Shortness of Breath, Cough, No Wheezing Gastrointestinal: No Nausea, No Vomiting, No Diarrhea, No Constipation Genitourinary: No Dysuria, No Hematuria Exam Vital Signs Vital Signs Date Time Temp Pulse Resp B/P (MAP) Pulse Ox O2 Delivery O2 Flow Rate FiO2 08/18/17 19:47 17 138/70 (92) 92 Bi-PAP 08/18/17 19:05 100 08/18/17 17:50 50.0 08/18/17 17:07 98.5 15 General Appearance: Alert, Awake Neuro: No Gross deficits Eyes: PERRLA ENT: Oropharynx Clear Neck: No Masses Cardiovascular: Other (Irregular with distant tones) Respiratory: Other (Fairly clear with slightly prolonged expiratory phase no rales or wheezes were noted) Chest: No Tenderness GI: Other (obese/soft/NT/BS present) Extremities: Warm, Perfused, Edema (1+ both feet) Psych: Alert & Oriented X3 Medical Decision Making Data Points Result Diagram: 08/18/17 1709 08/18/17 1709 Item Value Date Time Sodium Level 138 mmol/L 09/05/16 1638 Potassium Level 3.3 mmol/L L 09/05/16 1638 Chloride Level 93 mmol/L L 09/05/16 1638 Carbon Dioxide Level 32 mmol/L H 09/05/16 1638 Blood Urea Nitrogen 10 mg/dl 09/05/16 1638 Creatinine 1.00 mg/dl 09/05/16 1638 Glomerular Filtration Rate Calc > 60.0 09/05/16 1638 Random Glucose 101 mg/dl 09/05/16 1638 Calcium Level 8.7 mg/dl 09/05/16 1638 Total Bilirubin 0.9 mg/dl 09/05/16 1638 Aspartate Amino Transf (AST/SGOT) 41 U/L H 09/05/16 1638 Alanine Aminotransferase (ALT/SGPT) 32 U/L 09/05/16 1638 Alkaline Phosphatase 90 U/L 09/05/16 1638 Troponin I < 0.012 ng/ml 09/05/16 1638 Total Protein 7.4 gm/dl 09/05/16 1638 Albumin 3.9 g/dl 09/05/16 1638 B-Type Natriuretic Peptide 79 pg/ml 09/05/16 1638 Total Bilirubin 1.0 mg/dl 09/08/16 0520 Aspartate Amino Transf (AST/SGOT) 179 U/L H 09/08/16 0520 Alanine Aminotransferase (ALT/SGPT) 78 U/L H 09/08/16 0520 Alkaline Phosphatase 58 U/L 09/08/16 0520 Amylase Level < 30 U/L 09/08/16 0520 Lipase 43 U/L 09/08/16 0520 Total Bilirubin 0.7 mg/dl 09/10/16 0520 Aspartate Amino Transf (AST/SGOT) 83 U/L H 09/10/16 0520 Alanine Aminotransferase (ALT/SGPT) 72 U/L H 09/10/16 0520 Alkaline Phosphatase 53 U/L 09/10/16 0520 D-Dimer Quantitative (PE/DVT) 2.29 ug/ml H 09/05/16 1638 White Blood Count 7.4 k/uL 09/05/16 1638 Hemoglobin 15.6 g/dL 09/05/16 1638 Hematocrit 46.3 % 09/05/16 1638 Platelet Count 221 K/uL 09/05/16 1638 Digoxin Level 0.7 ng/ml 09/06/16 0454 Blood Gas Puncture Site Left radial 09/05/16 1704 Blood Gas Patient Temperature 97.8 DEGREES 09/05/16 1704 Arterial Blood pH 7.43 09/05/16 1704 Arterial Blood Partial Pressure CO2 53 mmHg *H 09/05/16 1704 Arterial Blood Partial Pressure O2 54 mmHg L 09/05/16 1704 Arterial Blood HCO3 35 mmol/L H 09/05/16 1704 Arterial Blood Oxygen Saturation 88 % L 09/05/16 1704 Arterial Blood Base Excess 11.0 mmol/L 09/05/16 1704 Angel Test Acceptable 09/05/16 1704 Oxygen Liters/Minute 6l 09/05/16 1704 Clostridium Difficile Toxin A & B Negative 09/09/16 0920 Clostridium difficile Antigen Negative 09/09/16 0920 Random Glucose 84 mg/dl 09/11/16 0532 Total Bilirubin 0.4 mg/dl 08/18/17 1709 Calcium Level 8.5 mg/dl 08/18/17 1709 Aspartate Amino Transf (AST/SGOT) 23 U/L 08/18/17 1709 Alanine Aminotransferase (ALT/SGPT) 22 U/L 08/18/17 1709 Alkaline Phosphatase 84 U/L 08/18/17 1709 Troponin I < 0.012 ng/ml 08/18/17 1709 Total Protein 7.5 g/dl 08/18/17 1709 Albumin 3.7 g/dl 08/18/17 1709 B-Type Natriuretic Peptide 25 pg/ml 08/18/17 1709 D-Dimer Quantitative (PE/DVT) 0.70 ug/ml H 08/18/17 1709 Activated Partial Thromboplast Time 47 seconds H 08/18/17 1709 Prothromb Time International Ratio 1.57 08/18/17 1709 Prothrombin Time 19.1 seconds H 08/18/17 1709 Blood Gas Patient Temperature 98.5 DEGREES 08/18/17 1737 Arterial Blood pH 7.33 L 08/18/17 1737 Arterial Blood Partial Pressure CO2 68 mmHg *H 08/18/17 1737 Arterial Blood Partial Pressure O2 106 mmHg *H 08/18/17 1737 Arterial Blood HCO3 36 mmol/L H 08/18/17 1737 Arterial Blood Oxygen Saturation 97 % 08/18/17 1737 Arterial Blood Base Excess 10.0 mmol/L 08/18/17 1737 Angel Test Acceptable 08/18/17 1737 Oxygen Liters/Minute 60 08/18/17 1737 Blood Gas Puncture Site Left radial 08/18/17 1737 EKG / Imaging EKG Interpretation PATIENT NAME: JAQUAN FLETCHER : [id number] MR: [id number] V: [id number] EXAM DATE: ORDERING PHYSICIAN: ABRAHAM JACOBS TECHNOLOGIST: PANTIER Test Reason : Blood Pressure : / mmHG Vent. Rate : 094 BPM Atrial Rate : 102 BPM P-R Int : 000 ms QRS Dur : 092 ms QT Int : 356 ms P-R-T Axes : 000 067 064 degrees QTc Int : 445 ms Atrial fibrillation Nonspecific interventricular conduction delay Decreased R wave progression anteriorly Abnormal ECG Confirmed by MICHAEL DIEZ ([id number]) on 08/18/2017 7:40:21 PM Referred By: Confirmed By:MICHAEL DIEZ Imaging PATIENT NAME: Jaquan Fletcher : 1945 MR: [id number] V: [id number] EXAM DATE: ORDERING PHYSICIAN: ABRAHAM JACOBS TECHNOLOGIST: Location: [facility] [place] Patient: Jaquan Fletcher : 1945 Visit/Account:[id number] Date of Sevice: 08/18/2017 Exam type: CHEST SINGLE AP History: RESP DISTRESS Comparison: July 05, 2017. Findings: Cardiac silhouette is upper limits of normal in size. Chronic interstitial changes are again seen throughout the lungs. There does appear to be an overall subtle increase in the interstitial markings which could represent a superimposed acute interstitial process. Chronic scarring in the lung bases again noted surgical clips project over the right upper thorax IMPRESSION: 1. Subtle increase in the interstitial markings superimposed on the previously noted chronic interstitial changes. An acute interstitial process such as mild pulmonary edema or incisional pneumonia not totally excluded particularly in light of the clinical history Borderline cardiomegaly unchanged Report Dictated By: Yu Holden MD at 08/18/2017 5:34 PM Report E-Signed By: Yu Holden MD at 08/18/2017 5:36 PM WSN:DARIO Assessment and Plan Problems: (1) Dyspnea *Optional Permanent Comment*: Reason for Deletion: Last Edited By: Jody Lala on Mar 08, 2015 13:57 Status: Acute Assessment & Plan: This may be multifactorial including an acute exacerbation of his underlying COPD, a-fib/flutter with rapid ventricular response, exacerbation of diastolic heart failure/cor pulmonale. At present, he appears to be modestly improved on the BiPAP and with reasonable hear rate control. Will continue with the non-invasive pulmonary support as he does not want to be intubated (DNI). He does understand if he does worsen and is not intubated he could . Will also continue his respiratory treatments. He will stay on his current regimen for his a-fib/flutter - Xarelto, digoxin, and diltiazem. Follow labs. Will watch closely and modify as needed. (2) COPD (chronic obstructive pulmonary disease) Status: Chronic Assessment & Plan: Will continue treatment as noted above. He did receive a dose of Levaquin in the ER. It is possible he may have an atypical infection, so it may warrant a course of antibiotics. (3) Cor pulmonale, chronic Status: Chronic Assessment & Plan: Long-standing. (4) History of pulmonary embolism Status: Chronic Assessment & Plan: He will continue on his usual Xarelto 20mg daily. (5) Paroxysmal a-fib Status: Chronic Assessment & Plan: This may have been what set off this episode. His rate is under much better control at present. Will continue his usual digoxin and diltiazem for rate control. He is on the Xarelto as noted. (6) Hypothyroidism Status: Chronic Assessment & Plan: Continue replacement therapy. Central Venous Access Medical Necessity for Access: IV Access, Medication Administration Copies to: JODY LALA MD Venous Thromboembolism Antithrombotics Is Pt On Any Antithrombotics?: Yes Heart Failure Ejection Fraction %: 68 RVSP (mmHg): 60 NYHA Class: III Is Patient on JUDY Inhibitor?: Yes Is Patient on Beta Janet?: Yes Admission Weight: 280 Exam Sepsis Risk: No Definite Risk MICHAEL DIEZ MD Aug 18, 2017 20:19
[2017-08-18] MEDS: POTASSIUM CHL 20 MEQ TABCR PO SCH (21:18)
[2017-08-18] MEDS: GABAPENTIN 300 MG CAP PO SCH (21:18)
[2017-08-18] MEDS: FUROSEMIDE 80 MG TAB PO SCH (21:18)
[2017-08-18] MEDS: TAMSULOSIN HCL 0.4 MG CAP PO SCH (21:18)
[2017-08-18 22:47] VITALS: BP 130/73
[2017-08-19 02:45] VITALS: BP 131/92
[2017-08-19] MEDS ORDERED: methylPREDNIS SUCC 125 MG/2ML IVP SCH (05:00)
[2017-08-19] MEDS: LEVOTHYROXINE SOD 0.150 MG TAB PO SCH (05:40)
[2017-08-19 06:06] LABS: PLATELET COUNT, AUTOMATED 207 K/uL (150-450)
[2017-08-19 07:25] VITALS: BP 137/77
[2017-08-19] MEDS ORDERED: DILTIAZEM CD 120 MG CAPCR PO SCH (09:00)
[2017-08-19 09:39] VITALS: Ht 182.9 cm; Wt 121.8 kg
[2017-08-19] MEDS: POTASSIUM CHL 20 MEQ TABCR PO SCH ×3 (09:52→20:46)
[2017-08-19] MEDS: DILTIAZEM CD 120 MG CAPCR PO SCH (09:52)
[2017-08-19] MEDS: FUROSEMIDE 80 MG TAB PO SCH ×2 (09:53→20:47)
[2017-08-19] MEDS: POLYETHYLENE GLYCOL 17 GM PKT PO SCH (09:53)
[2017-08-19] MEDS: SPIRONOLACTONE 25 MG TAB PO SCH (09:53)
[2017-08-19] MEDS: DIGOXIN 0.125 MG TAB PO SCH (09:53)
[2017-08-19] MEDS: RIVAROXABAN 10 MG TAB PO SCH (09:53)
[2017-08-19] MEDS: MONTELUKAST SODIUM 10 MG TAB PO SCH (09:54)
[2017-08-19] MEDS: DUTASTERIDE 0.5 MG CAP PO SCH (09:54)
[2017-08-19] MEDS: TAMSULOSIN HCL 0.4 MG CAP PO SCH ×2 (09:54→20:46)
[2017-08-19] MEDS: GABAPENTIN 300 MG CAP PO SCH ×3 (09:54→20:47)
--- NOTE | 2017-08-19 11:05 | Hospitalist Progress Note ---
Subjective Progress Notes Subjective Less SOB. No concerns from staff. Patient reporting that he was recently cut back on his diltiazem. Physical Exam Vital Signs Date Time Temp Pulse Resp B/P (MAP) Pulse Ox O2 Delivery O2 Flow Rate FiO2 08/19/17 09:53 104 08/19/17 07:30 90 High-Flow Nasal Cannula 7.0 08/19/17 07:25 98.4 22 137/77 (97) 08/19/17 00:23 45.0 Intake and Output 08/20/17 07:00 Intake Total 240 ml Balance 240 ml Intake Oral 240 ml General Appearance: Alert, Awake, No Acute Distress Respiratory: Clear to Auscultation Extremities: No Edema Result Diagram: 08/19/17 0540 08/19/17 0540 Monitor Interpretation: Atrial Fibrillation Assessment and Plan Problems: (1) Dyspnea *Optional Permanent Comment*: Reason for Deletion: Last Edited By: Jody Lala on Mar 08, 2015 13:57 Status: Acute Assessment & Plan: He presented with dyspnea and tachycardia. He reports that he was decreased on Diltiazem from 240mg to 120mg last week. He is feeling better from admission. He was given a dose of Methylprednisolone and started on BIPAP. Lungs are currently clear and he is off BIPAP. See below. (2) Paroxysmal a-fib Status: Chronic Assessment & Plan: His rate has been 100-120 o/n. Will increase his Diltiazem back to 240mg a day. It had been decreased last week. He is on the Xarelto chronically for stroke prophylaxis. Continue telemetry. (3) COPD (chronic obstructive pulmonary disease) Status: Chronic Assessment & Plan: He did receive a dose of Levaquin in the ER, but hasn't been continued. He was started on methylprednisolone, which will be stopped. See above. (4) Cor pulmonale, chronic Status: Chronic Assessment & Plan: Long-standing. (5) History of pulmonary embolism Status: Chronic Assessment & Plan: He will continue on his usual Xarelto 20mg daily. (6) Hypothyroidism Status: Chronic Assessment & Plan: Continue replacement therapy. Central Venous Access Medical Necessity for Access: IV Access, Medication Administration Heart Failure Ejection Fraction %: 68 RVSP (mmHg): 60 NYHA Class: III Is Patient on JUDY Inhibitor?: Yes Is Patient on Beta Janet?: Yes Admission Weight: 280 Exam Sepsis Risk: No Definite Risk GAINES,LARS MD Aug 19, 2017 11:05
[2017-08-19 11:18] VITALS: BP 131/78
[2017-08-19 15:02] VITALS: BP 128/63
[2017-08-19] MEDS: ACETAMINOPHEN 325 MG TAB PO PRN ×2 (15:07→20:50)
[2017-08-19 20:43] VITALS: BP 137/69
[2017-08-19 23:46] VITALS: BP 135/76
[2017-08-20 02:28] VITALS: BP 122/69
[2017-08-20] MEDS: ACETAMINOPHEN 325 MG TAB PO PRN ×2 (03:05→08:58)
[2017-08-20] MEDS: LEVOTHYROXINE SOD 0.150 MG TAB PO SCH (05:55)
[2017-08-20 06:41] LABS: PLATELET COUNT, AUTOMATED 211 K/uL (150-450)
[2017-08-20 08:52] VITALS: BP 103/70
[2017-08-20] MEDS: MONTELUKAST SODIUM 10 MG TAB PO SCH (08:59)
[2017-08-20] MEDS: DIGOXIN 0.125 MG TAB PO SCH (08:59)
[2017-08-20] MEDS: GABAPENTIN 300 MG CAP PO SCH (08:59)
[2017-08-20] MEDS: DUTASTERIDE 0.5 MG CAP PO SCH (08:59)
[2017-08-20] MEDS: DILTIAZEM CD 120 MG CAPCR PO SCH (08:59)
[2017-08-20] MEDS: POLYETHYLENE GLYCOL 17 GM PKT PO SCH (08:59)
[2017-08-20] MEDS: SPIRONOLACTONE 25 MG TAB PO SCH (08:59)
[2017-08-20] MEDS: FUROSEMIDE 80 MG TAB PO SCH (08:59)
[2017-08-20] MEDS: TAMSULOSIN HCL 0.4 MG CAP PO SCH (08:59)
[2017-08-20] MEDS: RIVAROXABAN 10 MG TAB PO SCH (09:00)
[2017-08-20] MEDS: POTASSIUM CHL 20 MEQ TABCR PO SCH (09:00)
[2017-08-20] MEDS ORDERED: DILT240C4 PO (09:08)
--- NOTE | 2017-08-20 09:12 | Hospitalist Depart ---
Discharge Summary Reason for Hosp/Final Diag: (1) Dyspnea *Optional Permanent Comment*: Reason for Deletion: Last Edited By: Jody Lala on Mar 08, 2015 13:57 Status: Acute Hospital Course & Plan: He presented with dyspnea and tachycardia. He reports that he was decreased on Diltiazem from 240mg to 120mg last week. He is feeling better after his dose was increased. (2) Paroxysmal a-fib Status: Chronic Hospital Course & Plan: He is on chronic treatment with diltiazem, digoxin, and Xarelto. His diltiazem has been increased as above. (3) COPD (chronic obstructive pulmonary disease) Status: Chronic Hospital Course & Plan: He is on chronic treatment with albuterol and Advair. (4) Cor pulmonale, chronic Status: Chronic Hospital Course & Plan: Long-standing. (5) History of pulmonary embolism Status: Chronic Hospital Course & Plan: He will continue on his usual Xarelto 20mg daily. (6) Hypothyroidism Status: Chronic Hospital Course & Plan: Continue replacement therapy. Departure Latest Vital Signs Vital Signs 08/19/17 08/20/17 08/20/17 08/20/17 00:23 08:52 08:55 08:59 Temp 97.8 Pulse 92 Resp 16 B/P (MAP) 103/70 (81) Pulse Ox 95 O2 Delivery High-Flow Nasal Cannula O2 Flow Rate 7.0 FiO2 45.0 Weight (Pounds): 268 Weight (Ounces): 9.0 Result Diagram: 08/20/17 0000 08/20/17 0000 Condition: Improved Discharge: Home, Home Health Home Health [employer]ICER Follow Up For: ADL Assistance Discharge Code Status: DNR, DNI Discharge Instructions Home Meds Active Scripts Diltiazem Hcl (DILTIAZEM 24HR CD) 240 Mg Cap.er.24h, 240 MG PO QDAY, #30 CAP.SR.24H Prov:RONAN NGUYEN DO 08/20/17 Montelukast Sodium (SINGULAIR) 10 Mg Tablet, 1 TAB PO QDAY, #90 TAB 3 Refills Prov:JODY LALA MD 08/14/17 Ropinirole Hcl (ROPINIROLE HCL) 1 Mg Tablet, 2 MG PO QHS, #100 TAB 11 Refills Increase by half a tab every week if needed to a maximum of 4 tabs a night. Prov:JODY LALA MD 08/13/17 Spironolactone (SPIRONOLACTONE) 25 Mg Tablet, 25 MG PO QDAY, #90 3 Refills Prov:JODY LALA MD 07/23/17 Rivaroxaban 20 Mg (XARELTO 20 MG) 20 Mg Tablet, 1 TAB PO DAILY, #90 TAB 1 Refill Prov:SAL TARANGO APRN 04/30/17 Potassium Chloride (POTASSIUM CHLORIDE) 20 Meq Tab.er.prt, 2 TAB PO TID, #180 TAB 5 Refills Prov:JODY LALA MD 04/27/17 Tamsulosin Hcl (TAMSULOSIN HCL) 0.4 Mg Cap.er.24h, 1 CAP PO BID, #180 CAP 1 Refill Prov:JODY LALA MD 04/16/17 Levothyroxine Sodium (LEVOTHYROXINE SODIUM) 150 Mcg Tablet, 150 MCG PO QDAY, # 90 TAB 3 Refills Prov:JODY LALA MD 04/15/17 Dexlansoprazole (DEXILANT) 60 Mg Boo., 1 CAP PO DAILY, #90 TAB 4 Refills Prov:JODY LALA MD 03/27/17 Pravastatin Sodium (PRAVASTATIN SODIUM) 80 Mg Tablet, 1 TAB PO QDAY, #90 TAB 3 Refills Prov:JODY LALA MD 03/11/17 Furosemide (LASIX) 80 Mg Tablet, 1 TAB PO BID, #180 TAB 3 Refills Prov:JODY LALA MD 03/05/17 Digoxin (Digox) 125 Mcg Tablet, 1 TAB PO QDAY, #90 TAB 1 Refill Prov:SAL TARANGO APRNC 02/13/17 Dutasteride (AVODART) 0.5 Mg Capsule, 1 TAB PO QDAY, #90 CAPSULE 1 Refill Prov:SAL TARANGO APRN 02/09/17 Polyethylene Glycol 3350 (MIRALAX) 17 Gm Powd.pack, 1 PACKET PO DAILY, #90 PKT 4 Refills Prov:JODY LALA MD 01/06/17 Gabapentin (GABAPENTIN) 300 Mg Capsule, 1 CAP PO TID, #90 CAPSULE 11 Refills Prov:SAL TARANGO APRN-C 01/01/17 Fluticasone/Salmeterol (ADVAIR 500-50 DISKUS) 1 Each Disk.w.dev, 1 EACH IH BID, #1 EACH 11 Refills Prov:JODY LALA MD 09/08/16 Fluticasone Prop 50 Mcg Ns (FLONASE 50 MCG NS) 16 Gm [place].susp, 1 SPRAY NS DAILY, #1 BOT 11 Refills Prov:JODY LALA MD 06/06/16 Nitroglycerin (NITROSTAT) 0.4 Mg Subl, 0.4 MG SL Q5MIN Y for CHEST PAIN, #30 TAB 11 Refills Prov:JODY LALA MD 02/04/16 Reported Medications Guaifenesin (MUCINEX) 600 Mg Tablet.er, 1200 MG PO BID, #2 TAB 07/05/17 Albuterol Sulfate (PROVENTIL HFA) 6.7 Gm Inh, 1-2 PUFF INH Q4-6H Y for SHORTNESS OF BREATH, INH 09/05/16 Cyanocobalamin (Vitamin B-12) (VITAMIN B-12) 2,000 Mcg Tablet.er, 2000 MCG PO DAILY 09/05/16 Ferrous Sulfate (FERROUS SULFATE) 325 Mg Tablet, 325 MG PO BID, #60 05/07/16 Cholecalciferol (Vitamin D3) (VITAMIN D-3) 2,000 Unit Capsule, 2000 UNIT PO DAILY, CAPSULE 12/21/14 Multivitamin (MULTI VITAMIN DAILY) 1 Each Tablet, 1 EACH PO DAILY 12/21/14 Discontinued Scripts Diltiazem Hcl (DILTIAZEM 24HR CD) 120 Mg Cap.er.24h, 120 MG PO QDAY for 30 Days , #90 3 Refills Prov:JODY LALA MD 07/23/17 Ciprofloxacin Hcl (CIPROFLOXACIN HCL) 500 Mg Tablet, 500 MG PO Q12H, #14 TAB Prov:JODY LALA MD 07/23/17 Diet: Regular Activity: As Tolerated Copies to: JODY LALA MD Venous Thromboembolism Antithrombotics Is Pt On Any Antithrombotics?: Yes Heart Failure Ejection Fraction %: 68 RVSP (mmHg): 60 NYHA Class: III Is Patient on JUDY Inhibitor?: Yes Is Patient on Beta Janet?: Yes Admission Weight: 280 RONAN NGUYEN Aug 20, 2017 09:12
[2017-08-21] MEDS ORDERED: DUTA0.5C14 PO (13:59)
== END 2017-08-20 11:00 | disposition home or self-care (01) | DRG 309 ==
LOC: ER 17:04 → MED 19:30
PROVIDERS: ADMIT Internal Medicine; ATTEND Internal Medicine
PROC: 5A09357 Assistance with Respiratory Ventilation, Less than 24 Consecutive Hours, Continuous Positive Airway Pressure (ICD-10-PCS; principal; 2017-08-18)
DX: I48.0 Paroxysmal atrial fibrillation (principal); I50.32 Chronic diastolic (congestive) heart failure; N13.8 Other obstructive and reflux uropathy; T46.1X5A Adverse effect of calcium-channel blockers, initial encounter; J44.9 Chronic obstructive pulmonary disease, unspecified; I27.81 Cor pulmonale (chronic); E03.9 Hypothyroidism, unspecified; I48.2 Chronic atrial fibrillation; I73.9 Peripheral vascular disease, unspecified; R09.02 Hypoxemia; K59.09 Other constipation; K21.9 Gastro-esophageal reflux disease without esophagitis; I11.0 Hypertensive heart disease with heart failure; E78.5 Hyperlipidemia, unspecified; G62.9 Polyneuropathy, unspecified; G25.81 Restless legs syndrome; I70.8 Atherosclerosis of other arteries; R06.00 Dyspnea, unspecified; N40.1 Benign prostatic hyperplasia with lower urinary tract symptoms; Z86.711 Personal history of pulmonary embolism; Z79.01 Long term (current) use of anticoagulants; Z88.8 Allergy status to other drugs, medicaments and biological substances; Z86.73 Personal history of transient ischemic attack (TIA), and cerebral infarction without residual deficits; Z95.1 Presence of aortocoronary bypass graft; Z86.718 Personal history of other venous thrombosis and embolism; Z87.891 Personal history of nicotine dependence
CPT/HCPCS: 36415; 36600; 71045; 80162; 82040; 82247; 82310; 82374; 82435; 82565; 82803; 82947; 83880; 84075; 84132; 84155; 84295; 84443; 84450; 84460; 84484; 84520; 85025; 85379; 85610; 85730; 87040; 93005; 94640; 94660; 96361; 96365; 96375; 99284; J1940; J1956; J2060; J2930; J7030; J7613

== ENCOUNTER → 2017-08-18 | Outpatient (CLI) | payer MEDICARE, MEDICAID ==
[~2017-08-18] MED LIST changes: +CEFU250T11 PO; +DILT240C4 PO; -IOPAMIDOL 76% 75 ML INFUS BTL 75 ML ONE
[2017-08-19 09:39] VITALS: BMI 36.3
== END ==
LOC: AMB 16:37
PROVIDERS: ATTEND Nurse Practitioner
DX: R06.02 Shortness of breath (principal); R09.02 Hypoxemia; R53.83 Other fatigue; J44.9 Chronic obstructive pulmonary disease, unspecified
CPT/HCPCS: A0425; A0427

== ENCOUNTER → 2017-08-20 | Outpatient (CLI) | payer MEDICARE, MEDICAID ==
[2017-08-19 09:39] VITALS: BMI 36.3
[~2017-08-20] MED LIST changes: +CEFU250T11 PO; +DILT240C4 PO
== END ==
LOC: AMB 10:45
PROVIDERS: ATTEND Nurse Practitioner
DX: Z99.81 Dependence on supplemental oxygen (principal)
CPT/HCPCS: A0425; A0428

== ENCOUNTER 2017-08-24 17:20 | Emergency (ER) | payer MEDICARE, MEDICAID ==
[2017-08-19 09:39] VITALS: Wt 121.6 kg
[~2017-08-24 17:20] MED LIST changes: -CEFU250T11 PO
[2017-08-24] MEDS ORDERED: ALBUTEROL 2.5 MG/0.5ML ER ONLY NEB ONE (17:45)
[2017-08-24] MEDS ORDERED: methylPREDNIS SUCC 125 MG/2ML IVP ONE (17:45)
[2017-08-24] MEDS ORDERED: ALBUTEROL 2.5 MG/3 ML NEB ONE (17:48)
--- NOTE | 2017-08-24 17:57 | ER Report ---
History and Physical Time Seen By MD: 17:56 Hx. of Stated Complaint: patient states increased shortness of breath and swelling to legs over the last 2days. HPI/ROS CHIEF COMPLAINT: Shortness of breath HISTORY OF PRESENT ILLNESS: 72-year-old male with an extensive past medical history that includes COPD, chronic atrial fibrillation on Xarelto, cor pulmonale, right-sided heart failure. Patient was recently admitted for 2 day hospital stay. On 08/18/17, through the . Patient's only been home for 5 days. He states yesterday he began to feel short of breath in the afternoon. He is normally on 7 L. He increased it 8. EMS brought him in on nonrebreather mask this afternoon after having one alcoholic drink. Patient's breathing became worse after the alcoholic drink. He became more short of breath and decided to come to the ER for evaluation. She denies fever, chills or productive cough. Patient denies chest pain. Patient denies leg swelling. Patient's also complaining he is unable to void his urine. REVIEW OF SYSTEMS: Respiratory: No cough, no dyspnea. Cardiovascular: No chest pain, no palpitations. Gastrointestinal: No vomiting, no abdominal pain. Musculoskeletal: No back pain. Allergies: Coded Allergies: tiotropium (Verified Allergy, Mild, visual changes, 07/05/17) Home Meds Active Scripts Prednisone 10 Mg Tab (PREDNISONE 10 MG TAB) 10 Mg Tablet, 10 MG PO QDAY Y for reduce lung inflammation, #21 4 tabs daily for 3 days 2 tabs daily for 3 days 1 tab daily for 3 days Prov:KI LANDEROS DO 08/24/17 Cefuroxime Axetil (CEFUROXIME) 250 Mg Tablet, 250 MG PO BID for infection, #14 TAB Prov:KI LANDEROS DO 08/24/17 Dutasteride (AVODART) 0.5 Mg Capsule, 1 TAB PO QDAY, #90 CAPSULE 2 Refills Prov:EILEEN LALA MD 08/21/17 Diltiazem Hcl (DILTIAZEM 24HR CD) 240 Mg Cap.er.24h, 240 MG PO QDAY, #30 CAP.SR.24H Prov:RONAN NGUYEN DO 08/20/17 Montelukast Sodium (SINGULAIR) 10 Mg Tablet, 1 TAB PO QDAY, #90 TAB 3 Refills Prov:EILEEN LALA MD 08/14/17 Ropinirole Hcl (ROPINIROLE HCL) 1 Mg Tablet, 2 MG PO QHS, #100 TAB 11 Refills Increase by half a tab every week if needed to a maximum of 4 tabs a night. Prov:EILEEN LALA MD 08/13/17 Spironolactone (SPIRONOLACTONE) 25 Mg Tablet, 25 MG PO QDAY, #90 3 Refills Prov:EILEEN LALA MD 07/23/17 Rivaroxaban 20 Mg (XARELTO 20 MG) 20 Mg Tablet, 1 TAB PO DAILY, #90 TAB 1 Refill Prov:SAL TARANGO APRN-C 04/30/17 Potassium Chloride (POTASSIUM CHLORIDE) 20 Meq Tab.er.prt, 2 TAB PO TID, #180 TAB 5 Refills Prov:EILEEN LALA MD 04/27/17 Tamsulosin Hcl (TAMSULOSIN HCL) 0.4 Mg Cap.er.24h, 1 CAP PO BID, #180 CAP 1 Refill Prov:EILEEN LALA MD 04/16/17 Levothyroxine Sodium (LEVOTHYROXINE SODIUM) 150 Mcg Tablet, 150 MCG PO QDAY, # 90 TAB 3 Refills Prov:EILEEN LALA MD 04/15/17 Dexlansoprazole (DEXILANT) 60 Mg Cap., 1 CAP PO DAILY, #90 TAB 4 Refills Prov:EILEEN LALA MD 03/27/17 Pravastatin Sodium (PRAVASTATIN SODIUM) 80 Mg Tablet, 1 TAB PO QDAY, #90 TAB 3 Refills Prov:EILEEN LALA MD 03/11/17 Furosemide (LASIX) 80 Mg Tablet, 1 TAB PO BID, #180 TAB 3 Refills Prov:EILEEN LALA MD 03/05/17 Digoxin (Digox) 125 Mcg Tablet, 1 TAB PO QDAY, #90 TAB 1 Refill Prov:SAL TARANGO APRN-C 02/13/17 Polyethylene Glycol 3350 (MIRALAX) 17 Gm Powd.pack, 1 PACKET PO DAILY, #90 PKT 4 Refills Prov:EILEEN LALA MD 01/06/17 Gabapentin (GABAPENTIN) 300 Mg Capsule, 1 CAP PO TID, #90 CAPSULE 11 Refills Prov:EMELINASAL BART BAKER OPERATOR AUTOMATIC-C 01/01/17 Fluticasone/Salmeterol (ADVAIR 500-50 DISKUS) 1 Each Disk.w.dev, 1 EACH IH BID, #1 EACH 11 Refills Prov:EILEEN LALA MD 09/08/16 Fluticasone Prop 50 Mcg Ns (FLONASE 50 MCG NS) 16 Gm [place].susp, 1 SPRAY NS DAILY, #1 BOT 11 Refills Prov:EILEEN LALA MD 06/06/16 Nitroglycerin (NITROSTAT) 0.4 Mg Subl, 0.4 MG SL Q5MIN Y for CHEST PAIN, #30 TAB 11 Refills Prov:EILEEN LALA MD 02/04/16 Reported Medications Guaifenesin (MUCINEX) 600 Mg Tablet.er, 1200 MG PO BID, #2 TAB 07/05/17 Albuterol Sulfate (PROVENTIL HFA) 6.7 Gm Inh, 1-2 PUFF INH Q4-6H Y for SHORTNESS OF BREATH, INH 09/05/16 Cyanocobalamin (Vitamin B-12) (VITAMIN B-12) 2,000 Mcg Tablet.er, 2000 MCG PO DAILY 09/05/16 Ferrous Sulfate (FERROUS SULFATE) 325 Mg Tablet, 325 MG PO BID, #60 05/07/16 Cholecalciferol (Vitamin D3) (VITAMIN D-3) 2,000 Unit Capsule, 2000 UNIT PO DAILY, CAPSULE 12/21/14 Multivitamin (MULTI VITAMIN DAILY) 1 Each Tablet, 1 EACH PO DAILY 12/21/14 Discontinued Scripts Diltiazem Hcl (DILTIAZEM 24HR CD) 120 Mg Cap.er.24h, 120 MG PO QDAY for 30 Days , #90 3 Refills Prov:EILEEN LALA MD 07/23/17 Ciprofloxacin Hcl (CIPROFLOXACIN HCL) 500 Mg Tablet, 500 MG PO Q12H, #14 TAB Prov:EILEEN LALA MD 07/23/17 Past Medical/Surgical History Past Medical History Neurologic: Reports hx of: stroke (-08/2014) Cardiovascular: Reports hx of: atrial fibrillation edema Respiratory: Reports hx of: COPD (with cor pulmonale) pulmonary embolism other respiratory history (cor pulmonale) Gastrointestinal: Reports hx of: GERD Genitourinary: Reports hx of: benign prostatic hypertro Endocrine: Reports hx of: hypothyroidism Hematology/oncology (M): Reports hx of: anemia Denies hx of: prostate cancer Past Surgical History Gastrointestinal: Reports hx of: other GI surgery (02/06: 8 polyps removed from colon (benign)) Reviewed Nurses Notes: Yes Old Medical Records Reviewed: Yes Hx Smoking: Yes Smoking Status: Former Smoker Exposure to Second Hand Smoke?: Yes Hx Substance Use Disorder: No Hx Alcohol Use: Yes (COUPLE DAILY, "been 3-4 days") Constitutional Vital Sign - Last 24 Hours 08/24/17 08/24/17 08/24/17 08/24/17 17:26 17:44 17:47 17:50 Temp 98.4 Pulse 93 Resp 24 B/P (MAP) 138/74 111/83 (92) Pulse Ox 96 96 O2 Delivery Room Air Non-Rebreather O2 Flow Rate 15.0 15.0 08/24/17 08/24/17 08/24/17 08/24/17 17:50 17:50 18:00 18:05 Pulse 124 112 ??? Resp 13 18 24 B/P (MAP) 130/63 (85) Pulse Ox 95 08/24/17 08/24/17 08/24/17 08/24/17 18:17 18:17 18:20 18:30 Pulse 120 98 Resp 18 12 B/P (MAP) 119/62 (81) Pulse Ox 92 92 O2 Delivery Nasal Cannula O2 Flow Rate 6.0 08/24/17 08/24/17 08/24/17 08/24/17 18:35 18:39 18:40 18:55 Pulse 103 122 98 99 Resp 14 20 14 41 Pulse Ox 96 91 79 08/24/17 08/24/17 08/24/17 08/24/17 19:00 19:05 19:20 19:30 Pulse 225 108 Resp 13 13 B/P (MAP) 106/61 (76) 124/67 (86) Pulse Ox 94 93 08/24/17 19:35 Pulse 108 Resp 14 Pulse Ox 95 Physical Exam General Appearance: The patient is alert, has no immediate need for airway protection and no current signs of toxicity. Mild respiratory distress, vital signs stable, afebrile HEENT: Pupils equal and round no injection. Oropharynx without redness or exudate, mucous. Membranes are moist Respiratory: Chest is non tender, faint expiratory wheezing Cardiac: Irregular regular rate and rhythm, no murmur Gastrointestinal: Abdomen is soft and non tender, no masses, bowel sounds normal. Musculoskeletal: Neck: Neck is supple and non tender. No JVD, no lymphadenopathy Extremities have full range of motion and are non tender. Skin: No rashes or lesions. DIFFERENTIAL DIAGNOSIS: After history and physical exam differential diagnosis was considered for shortness of breath including but not limited to pulmonary infectious process, COPD, asthma, pulmonary embolus and congestive heart failure. Medical Decision Making Data Points Result Diagram: 08/24/17 1758 08/24/17 1758 Laboratory Hematology Test 08/24/17 17:58 08/24/17 19:01 Red Blood Count 4.40 M/uL (4.00-5.60) Mean Corpuscular Volume 99.3 fL (80.0-96.0) Mean Corpuscular Hemoglobin 33.9 pg (26.0-33.0) Mean Corpuscular Hemoglobin Concent 34.2 g/dL (32.0-36.0) Red Cell Distribution Width 14.3 % (11.5-14.5) Mean Platelet Volume 6.7 fL (7.2-11.1) Neutrophils (%) (Auto) 74.3 % (39.4-72.5) Lymphocytes (%) (Auto) 15.9 % (17.6-49.6) Monocytes (%) (Auto) 6.8 % (4.1-12.4) Eosinophils (%) (Auto) 2.5 % (0.4-6.7) Basophils (%) (Auto) 0.5 % (0.3-1.4) Nucleated RBC Relative Count (auto) 0.0 /100WBC Neutrophils # (Auto) 7.7 K/uL (2.0-7.4) Lymphocytes # (Auto) 1.7 K/uL (1.3-3.6) Monocytes # (Auto) 0.7 K/uL (0.3-1.0) Eosinophils # (Auto) 0.3 K/uL (0.0-0.5) Basophils # (Auto) 0.1 K/uL (0.0-0.1) Nucleated RBC Absolute Count (auto) 0.00 K/uL Prothrombin Time 16.8 seconds (12.0-14.4) Prothromb Time International Ratio 1.35 Activated Partial Thromboplast Time 42 seconds (23-35) Sodium Level 136 mmol/L (137-145) Potassium Level 4.0 mmol/L (3.5-5.0) Chloride Level 89 mmol/L (98-107) Carbon Dioxide Level 41 mmol/L (22-30) Blood Urea Nitrogen 13 mg/dl (9-21) Creatinine 0.90 mg/dl (0.66-1.25) Glomerular Filtration Rate Calc > 60.0 Random Glucose 85 mg/dl (75-110) Calcium Level 8.5 mg/dl (8.4-10.2) Total Bilirubin 0.6 mg/dl (0.2-1.3) Aspartate Amino Transf (AST/SGOT) 36 U/L (0-35) Alanine Aminotransferase (ALT/SGPT) 27 U/L (0-56) Alkaline Phosphatase 83 U/L (0-126) Troponin I < 0.012 ng/ml B-Type Natriuretic Peptide 20 pg/ml (0-100) Total Protein 7.7 g/dl (6.3-8.2) Albumin 3.7 g/dl (3.5-5.0) Digoxin Level < 0.4 ng/ml Digoxin Last Dose Date unk Digoxin Last Dose Time unk Serum Alcohol 40 mg/dl Urine Color Straw Urine Clarity Clear Urine pH 6.0 pH (4.8-9.5) Urine Specific [place] 1.006 Urine Protein Negative mg/dL (NEGATIVE) Urine Glucose (UA) Negative mg/dL (NEGATIVE) Urine Ketones Negative mg/dL (NEGATIVE) Urine Blood Small (NEGATIVE) Urine Nitrite Negative (NEGATIVE) Urine Bilirubin Negative (NEGATIVE) Urine Urobilinogen Negative mg/dL (0.2-1.9) Urine Leukocyte Esterase Negative (NEGATIVE) Urine RBC 1 /HPF (0-2/HPF) Urine WBC 1 /HPF (0-5/HPF) Urine Squamous Epithelial Cells Few /LPF (NONE-FEW) Urine Bacteria Negative /HPF (NONE-FEW) Urine Hyaline Casts Few /LPF (NONE-FEW) Urine Mucus None /HPF (NONE-FEW) Chemistry Test 08/24/17 17:58 08/24/17 19:01 White Blood Count 10.4 k/uL (4.5-11.0) Red Blood Count 4.40 M/uL (4.00-5.60) Hemoglobin 14.9 g/dL (14.0-18.0) Hematocrit 43.7 % (42.0-52.0) Mean Corpuscular Volume 99.3 fL (80.0-96.0) Mean Corpuscular Hemoglobin 33.9 pg (26.0-33.0) Mean Corpuscular Hemoglobin Concent 34.2 g/dL (32.0-36.0) Red Cell Distribution Width 14.3 % (11.5-14.5) Platelet Count 215 K/uL (150-450) Mean Platelet Volume 6.7 fL (7.2-11.1) Neutrophils (%) (Auto) 74.3 % (39.4-72.5) Lymphocytes (%) (Auto) 15.9 % (17.6-49.6) Monocytes (%) (Auto) 6.8 % (4.1-12.4) Eosinophils (%) (Auto) 2.5 % (0.4-6.7) Basophils (%) (Auto) 0.5 % (0.3-1.4) Nucleated RBC Relative Count (auto) 0.0 /100WBC Neutrophils # (Auto) 7.7 K/uL (2.0-7.4) Lymphocytes # (Auto) 1.7 K/uL (1.3-3.6) Monocytes # (Auto) 0.7 K/uL (0.3-1.0) Eosinophils # (Auto) 0.3 K/uL (0.0-0.5) Basophils # (Auto) 0.1 K/uL (0.0-0.1) Nucleated RBC Absolute Count (auto) 0.00 K/uL Prothrombin Time 16.8 seconds (12.0-14.4) Prothromb Time International Ratio 1.35 Activated Partial Thromboplast Time 42 seconds (23-35) Glomerular Filtration Rate Calc > 60.0 Calcium Level 8.5 mg/dl (8.4-10.2) Total Bilirubin 0.6 mg/dl (0.2-1.3) Aspartate Amino Transf (AST/SGOT) 36 U/L (0-35) Alanine Aminotransferase (ALT/SGPT) 27 U/L (0-56) Alkaline Phosphatase 83 U/L (0-126) Troponin I < 0.012 ng/ml B-Type Natriuretic Peptide 20 pg/ml (0-100) Total Protein 7.7 g/dl (6.3-8.2) Albumin 3.7 g/dl (3.5-5.0) Digoxin Level < 0.4 ng/ml Digoxin Last Dose Date unk Digoxin Last Dose Time unk Serum Alcohol 40 mg/dl Urine Color Straw Urine Clarity Clear Urine pH 6.0 pH (4.8-9.5) Urine Specific [place] 1.006 Urine Protein Negative mg/dL (NEGATIVE) Urine Glucose (UA) Negative mg/dL (NEGATIVE) Urine Ketones Negative mg/dL (NEGATIVE) Urine Blood Small (NEGATIVE) Urine Nitrite Negative (NEGATIVE) Urine Bilirubin Negative (NEGATIVE) Urine Urobilinogen Negative mg/dL (0.2-1.9) Urine Leukocyte Esterase Negative (NEGATIVE) Urine RBC 1 /HPF (0-2/HPF) Urine WBC 1 /HPF (0-5/HPF) Urine Squamous Epithelial Cells Few /LPF (NONE-FEW) Urine Bacteria Negative /HPF (NONE-FEW) Urine Hyaline Casts Few /LPF (NONE-FEW) Urine Mucus None /HPF (NONE-FEW) Coagulation Test 08/24/17 17:58 Prothrombin Time 16.8 seconds Prothromb Time International Ratio 1.35 Activated Partial Thromboplast Time 42 seconds Toxicology Test 08/24/17 17:58 Digoxin Level < 0.4 ng/ml Digoxin Last Dose Date unk Digoxin Last Dose Time unk Serum Alcohol 40 mg/dl Urinalysis Test 08/24/17 19:01 Urine Color Straw Urine Clarity Clear Urine pH 6.0 pH (4.8-9.5) Urine Specific [place] 1.006 Urine Protein Negative mg/dL (NEGATIVE) Urine Glucose (UA) Negative mg/dL (NEGATIVE) Urine Ketones Negative mg/dL (NEGATIVE) Urine Blood Small (NEGATIVE) Urine Nitrite Negative (NEGATIVE) Urine Bilirubin Negative (NEGATIVE) Urine Urobilinogen Negative mg/dL (0.2-1.9) Urine Leukocyte Esterase Negative (NEGATIVE) Urine RBC 1 /HPF (0-2/HPF) Urine WBC 1 /HPF (0-5/HPF) Urine Squamous Epithelial Cells Few /LPF (NONE-FEW) Urine Bacteria Negative /HPF (NONE-FEW) Urine Hyaline Casts Few /LPF (NONE-FEW) Urine Mucus None /HPF (NONE-FEW) EKG/Imaging EKG Interpretation 12 lead EK Rhythm: Atrial fibrillation with variable AV block [place]: normal QRS: normal ST segments: normal, comparison to previous EKG dated 08/18/17, no significant morphologic change. Imaging X-ray: Single view chest x-ray was obtained. I viewed the images myself on the PACS system. My interpretation of the images is: Chronic scarring, atelectasis in the right lower lobe, unchanged from previous x-ray dated 08/18/17. The radiologist interpretation had no clinically significant variation from this interpretation. ED Course/Re-evaluation Clinical Indication for ER IV: IV Access ED Course Patient was admitted to an examination room. H&P was done. The differential diagnoses was considered. On clinical examination, having some difficulty breathing. His vital signs are relatively stable. She notes shortness of breath for 36 hours with a productive cough, mostly clear sputum. He's had no fevers or chest pain. He's had no leg swelling. Patient's EKG is unchanged from previous. Patient's troponin is unremarkable. Patient's treated with Solu -Medrol and nebulizer treatment with some improvement of his breathing. Patient was unable to void. A bladder scan was performed noting more than 600 mL of urine. Osei catheter was inserted. A specimen was sent for urinalysis. There is no evidence of infection. Patient appears to have a COPD exacerbation. Chest x-ray shows no obvious infiltrate. Her some chronic scarring in the right lower lobe noted. Patient's on Xarelto don't think is a pulmonary embolism. He has no lower extremity edema or calf tenderness. Patient's CO2 was elevated at appears chronically elevated as he is a CO2 retainer. Patient's blood alcohol returned at 40. Patient's digoxin level was undetectable. I'm unsure whether he still taking this medication or not. It looks like it was recently prescribed is most recent as 6 months ago. Patient be treated with Ceftin and a prednisone taper. He has plenty of albuterol inhaler and nebulizer treatments at home. Patient's advised to follow-up with his primary care Dr Lala Decision to Disposition Date: Aug 24, 2017 Decision to Disposition Time: 19:04 Depart Departure Latest Vital Signs Vital Signs Date Time Temp Pulse Resp B/P (MAP) Pulse Ox O2 Delivery O2 Flow Rate FiO2 7/2/18 19:35 108 14 95 08/24/17 19:30 124/67 (86) 08/24/17 18:17 Nasal Cannula 6.0 08/24/17 17:26 98.4 Impression: Primary Impression: COPD with exacerbation Additional Impressions: Atrial fibrillation/flutter Cor pulmonale Right-sided heart failure History of pulmonary embolism Condition: Improved Disposition: HOME OR SELF-CARE Referrals: EILEEN LALA MD (PCP) New Scripts Prednisone 10 Mg Tab (PREDNISONE 10 MG TAB) 10 Mg Tablet 10 MG PO QDAY Y for reduce lung inflammation, #21 4 tabs daily for 3 days 2 tabs daily for 3 days 1 tab daily for 3 days Prov: KI LANDEROS DO 08/24/17 Cefuroxime Axetil (CEFUROXIME) 250 Mg Tablet 250 MG PO BID for infection, #14 TAB Prov: KI LANDEROS DO 08/24/17 Patient Instructions: COPD (Chronic Obstructive Pulmonary Disease) (ED) Additional Instructions: Follow-up with your primary care doctor in the next 1-3 days for reevaluation Problem Qualifiers Additional Impressions: Right-sided heart failure Heart failure chronicity: chronic Qualified Codes: I50.812 - Chronic right heart failure KI LANDEROS DO Aug 24, 2017 17:57
[2017-08-24 18:02] LABS: PLATELET COUNT, AUTOMATED 215 K/uL (150-450)
--- NOTE | 2017-08-24 18:15 | EKG ---
FACILITY: [facility] PATIENT NAME: LEWIS FLETCHER : [id number] MR: [id number] V: [id number] EXAM DATE: ORDERING PHYSICIAN: ELYSE KIM TECHNOLOGIST: Test Reason : Blood Pressure : / mmHG Vent. Rate : 093 BPM Atrial Rate : 241 BPM P-R Int : 000 ms QRS Dur : 096 ms QT Int : 370 ms P-R-T Axes : 000 089 080 degrees QTc Int : 460 ms Atrial flutter with variable AV block Abnormal ECG No previous ECGs available Confirmed by RONAN NGUYEN ([id number] on 08/25/2017 7:46:51 AM Referred By: Confirmed By:RONAN NGUYEN
[2017-08-24 18:17] LABS: INR 1.35
[2017-08-24] MEDS ORDERED: PRED-1 PO (19:08)
[2017-08-24] MEDS ORDERED: CEFU250T11 PO (19:08)
[2017-08-24 19:30] VITALS: BP 124/67
--- NOTE | 2017-08-24 19:31 | RADIOLOGY IMAGING REPORT ---
FACILITY: [facility] PATIENT NAME: Jaquan Orlando : 1945 MR: [id number] V: [id number] EXAM DATE: ORDERING PHYSICIAN: ELYSE KIM TECHNOLOGIST: Location: [facility] Patient: Jaquan Orlando : 1945 Visit/Account:[id number] Date of Sevice: 08/24/2017 Technique: CHEST SINGLE AP HISTORY: RESP DISTRESS Comparison studies: Chest radiograph August 18, 2017 FINDINGS: Interstitial opacities are again noted most pronounced within the right lung base as well a s the peripheral margin of the right and left midlungs. No acute airspace consolidation. The cardiome diastinal silhouette is unchanged. IMPRESSION: 1. No significant interval change. Report Dictated By: Taras Ortega DO at 08/24/2017 7:24 PM Report E-Signed By: Taras Ortega DO at 08/24/2017 7:27 PM [id number]
[2017-08-28] MEDS ORDERED: DIGO125T90 PO ×2 (12:10→12:13)
== END 2017-08-24 19:50 | disposition home or self-care (01) ==
LOC: ER 17:40
DX: J44.1 Chronic obstructive pulmonary disease with (acute) exacerbation (principal); I48.2 Chronic atrial fibrillation; I27.81 Cor pulmonale (chronic); I50.9 Heart failure, unspecified; Z86.711 Personal history of pulmonary embolism; Z79.01 Long term (current) use of anticoagulants
CPT/HCPCS: 71045; 80162; 81001; 83880; 84484; 85025; 85610; 85730; 93005; 94644; 96374; 99284; G0480; J2930; J7613; 80320; 82040; 82247; 82310; 82374; 82435; 82565; 82947; 84075; 84132; 84155; 84295; 84450; 84460; 84520

== ENCOUNTER → 2017-08-24 | Outpatient (CLI) | payer MEDICARE, MEDICAID ==
[2017-08-19 09:39] VITALS: BMI 36.3
[~2017-08-24] MED LIST changes: +SPIR25TA80 PO
== END ==
LOC: AMB 19:45
PROVIDERS: ATTEND Nurse Practitioner
DX: Z76.89 Persons encountering health services in other specified circumstances (principal)
CPT/HCPCS: A0425; A0428

== ENCOUNTER → 2017-08-24 | Outpatient (CLI) | payer MEDICARE, MEDICAID ==
[2017-08-19 09:39] VITALS: BMI 36.3
[~2017-08-24] MED LIST changes: -SPIR25TA80 PO
== END ==
LOC: AMB 16:59
PROVIDERS: ATTEND Nurse Practitioner
DX: R06.02 Shortness of breath (principal)
CPT/HCPCS: A0425; A0427

== ENCOUNTER 2017-09-23 12:19 | Emergency (ER) | payer MEDICARE, MEDICAID ==
[2017-08-19 09:39] VITALS: BMI 36.3
[~2017-09-23 12:19] MED LIST changes: -HYDR-4309 PO
[2017-09-23] MEDS ORDERED: ASPIRIN 81 MG CHEW PO ONE (12:25)
[2017-09-23] MEDS ORDERED: DILTIAZEM 5 MG/ML 5ML IVPUSH IVP ONE (12:30)
[2017-09-23 12:37] LABS: PLATELET COUNT, AUTOMATED 257 K/uL (150-450)
--- NOTE | 2017-09-23 12:37 | EKG ---
FACILITY: [facility] PATIENT NAME: LEWIS FLETCHER : [id number] MR: [id number] V: [id number] EXAM DATE: ORDERING PHYSICIAN: FIFI DAVIS TECHNOLOGIST: NKECHI Test Reason : ER Blood Pressure : / mmHG Vent. Rate : 107 BPM Atrial Rate : 122 BPM P-R Int : 000 ms QRS Dur : 092 ms QT Int : 316 ms P-R-T Axes : 000 058 049 degrees QTc Int : 421 ms Atrial fibrillation with rapid ventricular response Abnormal ECG When compared with ECG of 24-AUG-2017 17:24, Atrial fibrillation has replaced Atrial flutter Confirmed by MICHAEL DIEZ ([id number] on 09/23/2017 12:47:45 PM Referred By: SUSAN Confirmed By:MICHAEL DIEZ
--- NOTE | 2017-09-23 12:54 | ER Report ---
History and Physical Time Seen By MD: 12:35 Hx. of Stated Complaint: PT C/O L SHOULDER PAIN SINCE THIS AM. THIS IS NOT HIS USUAL CARDIAC PAIN. STATES HE FEELS WEIRD HPI/ROS CHIEF COMPLAINT: Left shoulder pain HISTORY OF PRESENT ILLNESS: 72-year-old male presents long history of atrial fibrillation COPD CHF with waking with left shoulder pain localized anterior by the shoulder hurts with abduction and adduction flexion and palpation of the shoulder no chest pain no jaw pain no shortness of breath other than baseline no nausea vomiting diarrhea Nevers had pain in his shoulder before was concerned this may be heart attack, and 1 arrival here he uses supplemental oxygen at home approximate 4 L daily and however been moving up his oxygen the last couple days is not a liters nasal cannula on arrival. Again aside from anterior shoulder pain no additional pain pain complaints no additional complaints noted REVIEW OF SYSTEMS: Respiratory: No cough, no dyspnea. Cardiovascular: No chest pain, no palpitations. Gastrointestinal: No vomiting, no abdominal pain. Musculoskeletal: Left shoulder pain Allergies: Coded Allergies: tiotropium (Verified Allergy, Mild, visual changes, 07/05/17) Home Meds Active Scripts Digoxin (Digox) 125 Mcg Tablet, 1 TAB PO QDAY, #90 TAB PRN Refills Prov:SAL TARANGO APRN MEDICAL CODING AUDITOR-C 08/28/17 Prednisone 10 Mg Tab (PREDNISONE 10 MG TAB) 10 Mg Tablet, 10 MG PO QDAY Y for reduce lung inflammation, #21 4 tabs daily for 3 days 2 tabs daily for 3 days 1 tab daily for 3 days Prov:KI LANDEROS DO 08/24/17 Cefuroxime Axetil (CEFUROXIME) 250 Mg Tablet, 250 MG PO BID for infection, #14 TAB Prov:KI LANDEROS DO 08/24/17 Dutasteride (AVODART) 0.5 Mg Capsule, 1 TAB PO QDAY, #90 CAPSULE 2 Refills Prov:EILEEN SANTANA MD 08/21/17 Diltiazem Hcl (DILTIAZEM 24HR CD) 240 Mg Cap.er.24h, 240 MG PO QDAY, #30 CAP.SR.24H Prov:RONAN NGUYEN DO 08/20/17 Montelukast Sodium (SINGULAIR) 10 Mg Tablet, 1 TAB PO QDAY, #90 TAB 3 Refills Prov:EILEEN SANTANA MD 08/14/17 Ropinirole Hcl (ROPINIROLE HCL) 1 Mg Tablet, 2 MG PO QHS, #100 TAB 11 Refills Increase by half a tab every week if needed to a maximum of 4 tabs a night. Prov:EILEEN SANTANA MD 08/13/17 Spironolactone (SPIRONOLACTONE) 25 Mg Tablet, 25 MG PO QDAY, #90 3 Refills Prov:EILEEN SANTANA MD 07/23/17 Rivaroxaban 20 Mg (XARELTO 20 MG) 20 Mg Tablet, 1 TAB PO DAILY, #90 TAB 1 Refill Prov:SAL TARANGO APRN-C 04/30/17 Potassium Chloride (POTASSIUM CHLORIDE) 20 Meq Tab.er.prt, 2 TAB PO TID, #180 TAB 5 Refills Prov:EILEEN SANTANA MD 04/27/17 Tamsulosin Hcl (TAMSULOSIN HCL) 0.4 Mg Cap.er.24h, 1 CAP PO BID, #180 CAP 1 Refill Prov:EILEEN SANTANA MD 04/16/17 Levothyroxine Sodium (LEVOTHYROXINE SODIUM) 150 Mcg Tablet, 150 MCG PO QDAY, # 90 TAB 3 Refills Prov:EILEEN SANTANA MD 04/15/17 Dexlansoprazole (DEXILANT) 60 Mg Boo., 1 CAP PO DAILY, #90 TAB 4 Refills Prov:EILEEN SANTANA MD 03/27/17 Pravastatin Sodium (PRAVASTATIN SODIUM) 80 Mg Tablet, 1 TAB PO QDAY, #90 TAB 3 Refills Prov:EILEEN SANTANA MD 03/11/17 Furosemide (LASIX) 80 Mg Tablet, 1 TAB PO BID, #180 TAB 3 Refills Prov:EILEEN SANTANA MD 03/05/17 Polyethylene Glycol 3350 (MIRALAX) 17 Gm Powd.pack, 1 PACKET PO DAILY, #90 PKT 4 Refills Prov:EILEEN SANTANA MD 01/06/17 Gabapentin (GABAPENTIN) 300 Mg Capsule, 1 CAP PO TID, #90 CAPSULE 11 Refills Prov:SAL TARANGO APRNP-C 01/01/17 Fluticasone/Salmeterol (ADVAIR 500-50 DISKUS) 1 Each Disk.w.dev, 1 EACH IH BID, #1 EACH 11 Refills Prov:EILEEN SANTANA MD 09/08/16 Fluticasone Prop 50 Mcg Ns (FLONASE 50 MCG NS) 16 Gm Clyde.susp, 1 SPRAY NS DAILY, #1 BOT 11 Refills Prov:EILEEN SANTANA MD 06/06/16 Nitroglycerin (NITROSTAT) 0.4 Mg Subl, 0.4 MG SL Q5MIN Y for CHEST PAIN, #30 TAB 11 Refills Prov:EILEEN SANTANA MD 02/04/16 Reported Medications Guaifenesin (MUCINEX) 600 Mg Tablet.er, 1200 MG PO BID, #2 TAB 07/05/17 Albuterol Sulfate (PROVENTIL HFA) 6.7 Gm Inh, 1-2 PUFF INH Q4-6H Y for SHORTNESS OF BREATH, INH 09/05/16 Cyanocobalamin (Vitamin B-12) (VITAMIN B-12) 2,000 Mcg Tablet.er, 2000 MCG PO DAILY 09/05/16 Ferrous Sulfate (FERROUS SULFATE) 325 Mg Tablet, 325 MG PO BID, #60 05/07/16 Cholecalciferol (Vitamin D3) (VITAMIN D-3) 2,000 Unit Capsule, 2000 UNIT PO DAILY, CAPSULE 12/21/14 Multivitamin (MULTI VITAMIN DAILY) 1 Each Tablet, 1 EACH PO DAILY 12/21/14 Reviewed Nurses Notes: Yes Old Medical Records Reviewed: Yes Hx Smoking: Yes Smoking Status: Former Smoker Exposure to Second Hand Smoke?: Yes Hx Substance Use Disorder: No Hx Alcohol Use: Yes (COUPLE DAILY, "been 3-4 days") Constitutional Vital Sign - Last 24 Hours 09/23/17 09/23/17 09/23/17 09/23/17 12:19 12:24 12:26 12:30 Temp 99.7 Pulse ??? 120 Resp 22 B/P (MAP) 141/87 141/87 (105) 126/81 (96) Pulse Ox 80 O2 Delivery Nasal Cannula 09/23/17 09/23/17 09/23/17 09/23/17 12:39 12:40 12:49 13:08 Pulse 97 Resp 25 B/P (MAP) 117/65 (82) 128/71 (90) Pulse Ox 99 O2 Flow Rate 1.0 09/23/17 09/23/17 13:24 13:30 Pulse 102 Resp 17 B/P (MAP) 119/110 (113) Pulse Ox 98 Physical Exam General Appearance: [The patient is alert, has no immediate need for airway protection and no current signs of toxicity.] [ ] Eyes: Pupils equal and round no injection. Respiratory: Decreased breath sounds bilaterally seen no bilaterally no coarse crackles no wheezes Cardiac: regular rate and rhythm [ ] Gastrointestinal: Abdomen is soft and non tender, no masses, bowel sounds normal. Musculoskeletal: Right shoulder examination pain with mild palpation to the anterior shoulder pain with abduction and abduction extension and rotation of the shoulder at all positions barely able to move almost frozen neurovascularly intact otherwise unremarkable Neck is supple and non tender. Extremities have full range of motion and are non tender. Other than stated above Skin: No rashes or lesions. [ ] DIFFERENTIAL DIAGNOSIS: After history and physical exam differential diagnosis was considered for shoulder frozen dislocated shoulder nerve impingement cervical radiculopathy myocardial infarction Medical Decision Making Data Points Result Diagram: 09/23/17 1223 09/23/17 1223 Laboratory Hematology Test 09/23/17 00:00 09/23/17 12:23 B-Type Natriuretic Peptide 32 pg/ml (0-100) Red Blood Count 4.36 M/uL (4.00-5.60) Mean Corpuscular Volume 101.3 fL (80.0-96.0) Mean Corpuscular Hemoglobin 33.8 pg (26.0-33.0) Mean Corpuscular Hemoglobin Concent 33.3 g/dL (32.0-36.0) Red Cell Distribution Width 16.1 % (11.5-14.5) Mean Platelet Volume 6.5 fL (7.2-11.1) Neutrophils (%) (Auto) 74.0 % (39.4-72.5) Lymphocytes (%) (Auto) 13.3 % (17.6-49.6) Monocytes (%) (Auto) 9.1 % (4.1-12.4) Eosinophils (%) (Auto) 2.4 % (0.4-6.7) Basophils (%) (Auto) 1.2 % (0.3-1.4) Nucleated RBC Relative Count (auto) 0.1 /100WBC Neutrophils # (Auto) 4.8 K/uL (2.0-7.4) Lymphocytes # (Auto) 0.9 K/uL (1.3-3.6) Monocytes # (Auto) 0.6 K/uL (0.3-1.0) Eosinophils # (Auto) 0.2 K/uL (0.0-0.5) Basophils # (Auto) 0.1 K/uL (0.0-0.1) Nucleated RBC Absolute Count (auto) 0.00 K/uL Peripheral Blood Smear No Y/N D-Dimer Quantitative (PE/DVT) 0.78 ug/ml (0-0.50) Sodium Level 137 mmol/L (137-145) Potassium Level 4.6 mmol/L (3.5-5.0) Chloride Level 90 mmol/L (98-107) Carbon Dioxide Level 40 mmol/L (22-30) Blood Urea Nitrogen 14 mg/dl (9-21) Creatinine 1.10 mg/dl (0.66-1.25) Glomerular Filtration Rate Calc > 60.0 Random Glucose 100 mg/dl (75-110) Calcium Level 8.9 mg/dl (8.4-10.2) Total Bilirubin 0.8 mg/dl (0.2-1.3) Aspartate Amino Transf (AST/SGOT) 24 U/L (0-35) Alanine Aminotransferase (ALT/SGPT) 22 U/L (0-56) Alkaline Phosphatase 104 U/L (0-126) Troponin I < 0.012 ng/ml Total Protein 7.3 g/dl (6.3-8.2) Albumin 3.9 g/dl (3.5-5.0) Chemistry Test 09/23/17 00:00 09/23/17 12:23 B-Type Natriuretic Peptide 32 pg/ml (0-100) White Blood Count 6.4 k/uL (4.5-11.0) Red Blood Count 4.36 M/uL (4.00-5.60) Hemoglobin 14.7 g/dL (14.0-18.0) Hematocrit 44.2 % (42.0-52.0) Mean Corpuscular Volume 101.3 fL (80.0-96.0) Mean Corpuscular Hemoglobin 33.8 pg (26.0-33.0) Mean Corpuscular Hemoglobin Concent 33.3 g/dL (32.0-36.0) Red Cell Distribution Width 16.1 % (11.5-14.5) Platelet Count 257 K/uL (150-450) Mean Platelet Volume 6.5 fL (7.2-11.1) Neutrophils (%) (Auto) 74.0 % (39.4-72.5) Lymphocytes (%) (Auto) 13.3 % (17.6-49.6) Monocytes (%) (Auto) 9.1 % (4.1-12.4) Eosinophils (%) (Auto) 2.4 % (0.4-6.7) Basophils (%) (Auto) 1.2 % (0.3-1.4) Nucleated RBC Relative Count (auto) 0.1 /100WBC Neutrophils # (Auto) 4.8 K/uL (2.0-7.4) Lymphocytes # (Auto) 0.9 K/uL (1.3-3.6) Monocytes # (Auto) 0.6 K/uL (0.3-1.0) Eosinophils # (Auto) 0.2 K/uL (0.0-0.5) Basophils # (Auto) 0.1 K/uL (0.0-0.1) Nucleated RBC Absolute Count (auto) 0.00 K/uL Peripheral Blood Smear No Y/N D-Dimer Quantitative (PE/DVT) 0.78 ug/ml (0-0.50) Glomerular Filtration Rate Calc > 60.0 Calcium Level 8.9 mg/dl (8.4-10.2) Total Bilirubin 0.8 mg/dl (0.2-1.3) Aspartate Amino Transf (AST/SGOT) 24 U/L (0-35) Alanine Aminotransferase (ALT/SGPT) 22 U/L (0-56) Alkaline Phosphatase 104 U/L (0-126) Troponin I < 0.012 ng/ml Total Protein 7.3 g/dl (6.3-8.2) Albumin 3.9 g/dl (3.5-5.0) Coagulation Test 09/23/17 12:23 D-Dimer Quantitative (PE/DVT) 0.78 ug/ml ED Course/Re-evaluation ED Course ED clinical course a 2-year-old male history of A. fib comes emergency Department today with complaint of left shoulder pain which she awoke with this morning's is completely reproducible with any palpation or motion EKG showed A. fib with RVR Kam 20 of Cardizem he is now back in a normal sinus with a rate of 82 patient is has no chest pain whatsoever x-rays of the shoulder did demonstrate degenerative changes of the glenohumeral and before meals joint most likely chronic with potential nerve impingement put him in a sling repeat EKG showed again normal sinus d-dimer was elevated CT angiogram was negative for pulmonary emboli patient will be discharge diagnosis degenerative shoulder Decision to Disposition Date: Sep 23, 2017 Decision to Disposition Time: 15:33 Depart Departure Latest Vital Signs Vital Signs Date Time Temp Pulse Resp B/P (MAP) Pulse Ox O2 Delivery O2 Flow Rate FiO2 09/23/17 13:30 119/110 (113) 09/23/17 13:24 102 17 98 09/23/17 12:39 1.0 09/23/17 12:24 99.7 Nasal Cannula Impression: Primary Impression: Frozen shoulder Condition: Improved Disposition: HOME OR SELF-CARE Referrals: EILEEN SANTANA MD (PCP) ROHIT RIVAS MD 5 Days New Scripts Hydrocodone Bit/Acetaminophen (NORCO 5-325 TABLET) 1 Each Tablet 1 EACH PO 2-3XD, #14 TAB Prov: FIFI DAVIS MD 09/23/17 Patient Instructions: Shoulder Pain (ED) FIFI DAVIS MD Sep 23, 2017 12:54
--- NOTE | 2017-09-23 13:36 | RADIOLOGY IMAGING REPORT ---
FACILITY: [facility] PATIENT NAME: Jaquan Orlando : 1945 MR: [id number] V: [id number] EXAM DATE: ORDERING PHYSICIAN: FIFI DAVIS TECHNOLOGIST: [place] [facility] [place] Jaquan [place] : 1945 Visit/Account:[id number] Date of Sevice: 09/23/2017 CHEST PA AND LAT HISTORY: Chest pain. Shortness of breath. COMPARISON: Chest x-ray from September 05, 2016. FINDINGS: Cardiomediastinal contours: The heart is enlarged. Lungs and pleura: Of the diaphragms and an increase in AP diameter are suggestive of hyperinflation. There are areas o f lucency in the upper lung rodney bilaterally suggestive of central lobar emphysema. The size or co nfirmed on the previous CT scan. There is prominence the central pulmonary vessels suggestive chroni c pulmonary hypertension. Correlation for past medical history of smoking is recommended. Interstit ial prominence in the lung bases is probably related to shunting of blood flow inferiorly. There is no acute infiltrate. Bones/soft tissues: There are no findings of a fracture. IMPRESSION: 1. Hyperinflation the lungs, enlargement the central pulmonary vessels and areas of lucency in the u pper lung rodney bilaterally are suggestive of COPD/central lobar emphysema. Correlation with past m edical history is recommended. 2. Shunting of blood flow inferiorly resulting and prominence of the inferior pulmonary vascular mar kings. 3. No acute infiltrate seen. Report Dictated By: Danie Chavarria MD at 09/23/2017 1:29 PM Report E-Signed By: Danie Chavarria MD at 09/23/2017 1:32 PM WSN:[id number]
--- NOTE | 2017-09-23 13:38 | RADIOLOGY IMAGING REPORT ---
FACILITY: [facility] PATIENT NAME: Jaquan Orlando : 1945 MR: [id number] V: [id number] EXAM DATE: ORDERING PHYSICIAN: FIFI DAVIS TECHNOLOGIST: Location: [facility] Patient: Jaquan Orlando : 1945 Visit/Account:[id number] Date of Sevice: 09/23/2017 Exam type: SHOULDER MIN 2 VIEWS LEFT History: Chest pain, shortness of breath, pain in left shoulder Comparison: None. Findings: Two views the left shoulder demonstrate no evidence of acute fracture or dislocation. There are mild degenerative changes at the left glenohumeral joint and left AC joint IMPRESSION: 1. Mild degenerative changes at the left glenohumeral joint and left AC joint Report Dictated By: Yu Holden MD at 09/23/2017 1:33 PM Report E-Signed By: Yu Holden MD at 09/23/2017 1:34 PM WSN:[email or web address]
[2017-09-23] MEDS ORDERED: KETOROLAC 30 MG/ML VIAL IVP ONE (13:50)
[2017-09-23] MEDS ORDERED: IOPAMIDOL 76% 100 ML INFUS BTL 100 ML ONE (13:51)
[2017-09-23] MEDS ORDERED: NS 0.9% 25 ML BAG 50 ML ONE (14:02)
--- NOTE | 2017-09-23 15:25 | RADIOLOGY IMAGING REPORT ---
FACILITY: [facility] - [place] PATIENT NAME: Jaquan Orlando : 1945 MR: [id number] V: [id number] EXAM DATE: ORDERING PHYSICIAN: FIFI DAVIS TECHNOLOGIST: Location: [facility] - [place] Patient: Jaquan Orlando : 1945 Visit/Account:[id number] Date of Sevice: 09/23/2017 CT angiogram chest with contrast Indication: Shoulder pain. Comparison: 09/05/2016. Technique: Axial CT images are obtained through the chest after administration of 100 mL Isovue 370 I V contrast. Reformatted coronal and sagittal images were reviewed as well as coronal MIP images. One of the following dose optimization techniques was utilized in the performance of this exam: auto mated exposure control; adjustment of the mA and/or kV according to the patient's size; or use of an iterative reconstruction technique. Specific details can be referenced in the facility's radiology C T exam operational policy. FINDINGS: No evidence of acute filling defect within the pulmonary vasculature to suggest pulmonary embolus. Po ssible small residual nonoccluding thrombus seen in the subsegmental branch of the left lower lobe pu lmonary artery and the posterior aspect. This appears to have a similar appearance. The other previou s chronic appearing emboli in the right lower lobe is not appreciated on today's exam. The heart is normal size without pericardial effusion. The aorta shows mild atherosclerotic calcific changes without aneurysm or dissection. The mediastinum and hilar regions show no enlarged lymph node s or abnormal density. Lungs show no focal consolidation, pleural effusion or pneumothorax. There is chronic peripheral and basilar interstitial changes and atelectasis. The left lateral lower lung field does show a stable fo treva area of atelectasis. The right middle lobe does show a stable pleural-based 6 mm nodule, dating b ack to at least June 2016.. No other discrete nodules or focal interstitial opacities. The airways are clear. Bony structures show no acute fracture or aggressive bony lesions. The visualized shoulders are unrem arkable. Chest wall shows no enlarged axillary lymph nodes or masses. Limited views of the upper abdomen are unremarkable. IMPRESSION: 1. No acute pulmonary emboli. There is a stable chronic nonoccluding thrombus seen in the subsegmenta l branch of the left lower lobe posterior pulmonary artery which is not changed. 2. No acute cardiopulmonary disease. Chronic changes as described. 3. Stable pleural-based 6 mm nodule in the right middle lobe. Report Dictated By: Ross Steve at 09/23/2017 3:07 PM Report E-Signed By: Ross Steve at 09/23/2017 3:22 PM WSN:[id number]
[2017-09-23] MEDS ORDERED: HYDR-4309 PO (15:34)
[2017-09-23 15:40] VITALS: BP 121/66
== END 2017-09-23 15:50 | disposition home or self-care (01) ==
LOC: ER 12:28
DX: M75.02 Adhesive capsulitis of left shoulder (principal); I48.91 Unspecified atrial fibrillation; J44.9 Chronic obstructive pulmonary disease, unspecified; I50.9 Heart failure, unspecified; Z87.891 Personal history of nicotine dependence; Z79.899 Other long term (current) drug therapy; Z99.81 Dependence on supplemental oxygen
CPT/HCPCS: 71046; 71275; 73030; 83880; 84484; 85025; 85379; 93005; 96374; 96375; 99284; A4565; J1885; J3490; Q9967; 82040; 82247; 82310; 82374; 82435; 82565; 82947; 84075; 84132; 84155; 84295; 84450; 84460; 84520

== ENCOUNTER → 2017-09-23 | Outpatient (CLI) | payer MEDICARE, MEDICAID ==
[2017-08-19 09:39] VITALS: BMI 36.3
[~2017-09-23] MED LIST changes: +CEFU250T11 PO; +HYDR-4309 PO; +SPIR25TA80 PO
== END ==
LOC: AMB 11:59
PROVIDERS: ATTEND Nurse Practitioner
DX: R07.9 Chest pain, unspecified (principal); M25.512 Pain in left shoulder; R06.4 Hyperventilation
CPT/HCPCS: A0425; A0427

== ENCOUNTER → 2017-09-23 | Outpatient (CLI) | payer MEDICARE, MEDICAID ==
[2017-08-19 09:39] VITALS: BMI 36.3
== END ==
LOC: AMB 15:49
PROVIDERS: ATTEND Nurse Practitioner
DX: R07.9 Chest pain, unspecified (principal); M25.512 Pain in left shoulder
CPT/HCPCS: A0425; A0428

== ENCOUNTER 2017-09-28 10:27 | Inpatient (IN) | payer MEDICARE, MEDICAID ==
[~2017-09-28] VITALS: Ht 182.9 cm; Wt 127.5 kg
--- NOTE | 2017-09-28 10:32 | ER Report ---
History and Physical Time Seen By MD: 10:31 HPI/ROS CHIEF COMPLAINT: Shortness of breath HISTORY OF PRESENT ILLNESS: Patient is a 72-year-old male with history of chronic atrial fibrillation on anticoagulation also history of CHF and COPD. Patient is a former smoker. Patient is brought in by ambulance today for worsening shortness of breath and chest pain that began yesterday. He chronically wears at least 4 L of nasal cannula oxygen daily. States that since yesterday midmorning has been having increased work of breathing along with chest pain that he describes as different than his typical shortness of breath he experiences with his CHF. Patient states that he lives by himself. Patient denies any fevers or chills. He describes the discomfort as some pressure over the precordium of the chest. He describes dyspnea worse with exertion. Further he has noted increased peripheral edema that is worsening gradually over the past week but much worse in the last 24 hours. REVIEW OF SYSTEMS: Constitutional: No fever, no chills. Eyes: No discharge. ENT: No sore throat. Cardiovascular: Chest pressure Respiratory: Dyspnea Gastrointestinal: No abdominal pain, no vomiting. Genitourinary: No hematuria. Musculoskeletal: No back pain. Skin: No rashes. Neurological: No headache. Extremities: Worsening peripheral edema Allergies: Coded Allergies: tiotropium (Verified Allergy, Mild, visual changes, 07/05/17) Home Meds Active Scripts Digoxin (Digox) 125 Mcg Tablet, 1 TAB PO QDAY, #90 TAB PRN Refills Prov:SAL TARANGO APRN ASSOCIATE PRODUCT INTEGRITY ENGINEER-C 08/28/17 Dutasteride (AVODART) 0.5 Mg Capsule, 1 TAB PO QDAY, #90 CAPSULE 2 Refills Prov:EILEEN SANTANA MD 08/21/17 Diltiazem Hcl (DILTIAZEM 24HR CD) 240 Mg Cap.er.24h, 240 MG PO QDAY, #30 CAP.SR.24H Prov:RONAN NGUYEN DO 08/20/17 Montelukast Sodium (SINGULAIR) 10 Mg Tablet, 1 TAB PO QDAY, #90 TAB 3 Refills Prov:EILEEN SANTANA MD 08/14/17 Ropinirole Hcl (ROPINIROLE HCL) 1 Mg Tablet, 2 MG PO QHS, #100 TAB 11 Refills Increase by half a tab every week if needed to a maximum of 4 tabs a night. Prov:EILEEN SANTANA MD 08/13/17 Spironolactone (SPIRONOLACTONE) 25 Mg Tablet, 25 MG PO QDAY, #90 3 Refills Prov:EILEEN SANTANA MD 07/23/17 Rivaroxaban 20 Mg (XARELTO 20 MG) 20 Mg Tablet, 1 TAB PO DAILY, #90 TAB 1 Refill Prov:SAL TARANGO APRN-C 04/30/17 Potassium Chloride (POTASSIUM CHLORIDE) 20 Meq Tab.er.prt, 2 TAB PO TID, #180 TAB 5 Refills Prov:EILEEN SANTANA MD 04/27/17 Tamsulosin Hcl (TAMSULOSIN HCL) 0.4 Mg Cap.er.24h, 1 CAP PO BID, #180 CAP 1 Refill Prov:EILEEN SANTANA MD 04/16/17 Levothyroxine Sodium (LEVOTHYROXINE SODIUM) 150 Mcg Tablet, 150 MCG PO QDAY, # 90 TAB 3 Refills Prov:EILEEN SANTANA MD 04/15/17 Dexlansoprazole (DEXILANT) 60 Mg Boo., 1 CAP PO DAILY, #90 TAB 4 Refills Prov:EILEEN SANTANA MD 03/27/17 Pravastatin Sodium (PRAVASTATIN SODIUM) 80 Mg Tablet, 1 TAB PO QDAY, #90 TAB 3 Refills Prov:EILEEN SANTANA MD 03/11/17 Furosemide (LASIX) 80 Mg Tablet, 1 TAB PO BID, #180 TAB 3 Refills Prov:EILEEN SANTANA MD 03/05/17 Polyethylene Glycol 3350 (MIRALAX) 17 Gm Powd.pack, 1 PACKET PO DAILY, #90 PKT 4 Refills Prov:EILEEN SANTANA MD 01/06/17 Gabapentin (GABAPENTIN) 300 Mg Capsule, 1 CAP PO TID, #90 CAPSULE 11 Refills Prov:SAL TARANGO APRN 01/01/17 Fluticasone/Salmeterol (ADVAIR 500-50 DISKUS) 1 Each Disk.w.dev, 1 EACH IH BID, #1 EACH 11 Refills Prov:EILEEN SANTANA MD 09/08/16 Fluticasone Prop 50 Mcg Ns (FLONASE 50 MCG NS) 16 Gm [place].susp, 1 SPRAY NS DAILY, #1 BOT 11 Refills Prov:EILEEN SANTANA MD 06/06/16 Nitroglycerin (NITROSTAT) 0.4 Mg Subl, 0.4 MG SL Q5MIN Y for CHEST PAIN, #30 TAB 11 Refills Prov:EILEEN SANTANA MD 02/04/16 Reported Medications Metolazone (METOLAZONE) 2.5 Mg Tablet, 2.5 MG PO 09/28/17 Albuterol Sulfate (PROVENTIL HFA) 6.7 Gm Inh, 1-2 PUFF INH Q4-6H Y for SHORTNESS OF BREATH, INH 09/05/16 Cyanocobalamin (Vitamin B-12) (VITAMIN B-12) 2,000 Mcg Tablet.er, 2000 MCG PO DAILY 09/05/16 Ferrous Sulfate (FERROUS SULFATE) 325 Mg Tablet, 325 MG PO BID, #60 05/07/16 Cholecalciferol (Vitamin D3) (VITAMIN D-3) 2,000 Unit Capsule, 2000 UNIT PO DAILY, CAPSULE 12/21/14 Multivitamin (MULTI VITAMIN DAILY) 1 Each Tablet, 1 EACH PO DAILY 12/21/14 Discontinued Reported Medications Guaifenesin (MUCINEX) 600 Mg Tablet.er, 1200 MG PO BID, #2 TAB 07/05/17 Discontinued Scripts Hydrocodone Bit/Acetaminophen (NORCO 5-325 TABLET) 1 Each Tablet, 1 EACH PO 2- 3XD, #14 TAB Prov:FIFI DAVIS MD 09/23/17 Prednisone 10 Mg Tab (PREDNISONE 10 MG TAB) 10 Mg Tablet, 10 MG PO QDAY Y for reduce lung inflammation, #21 4 tabs daily for 3 days 2 tabs daily for 3 days 1 tab daily for 3 days Prov:KI LANDEROS DO 08/24/17 Cefuroxime Axetil (CEFUROXIME) 250 Mg Tablet, 250 MG PO BID for infection, #14 TAB Prov:KI LANDEROS DO 08/24/17 Past Medical/Surgical History Past medical history significant for atrial fibrillation, COPD, CHF wears supplemental oxygen approximately 4 L per day; history of chronic anticoagulation, history of peripheral edema, hypertension, cor pulmonale, hyperlipidemia, hypothyroidism, restless leg syndrome, stenosis of the right subclavian artery, history of pulmonary embolism, history of embolic stroke, history of GI bleed resolved Hx Smoking: Yes Smoking Status: Former Smoker Exposure to Second Hand Smoke?: Yes Hx Substance Use Disorder: No Hx Alcohol Use: Yes (COUPLE DAILY, "been 3-4 days") Constitutional Vital Sign - Last 24 Hours 09/28/17 09/28/17 09/28/17 09/28/17 10:31 10:41 10:55 10:55 Temp 98.2 Pulse 107 107 Resp 28 14 Pulse Ox 96 O2 Delivery Non-Rebreather O2 Flow Rate 15.0 FiO2 60.0 09/28/17 09/28/17 10:55 11:25 Pulse 102 Resp 16 Pulse Ox 99 O2 Delivery Bi-PAP FiO2 60.0 Intake and Output 09/28/17 09/28/17 09/29/17 15:00 23:00 07:00 Output Total 50 ml Balance -50 ml Physical Exam General/Constitutional: Patient is awake, alert, requires sitting upright with increased work of breathing including use of accessory muscles. Patient is on 15 L nonrebreather facemask. Head: Normocephalic and atraumatic. Eyes: Conjunctival clear, Pupils are equal and reactive to light. Extraocular muscles are intact and symmetrical. Sclera are clear and anicteric. Ears:External canals are clear. Nares: No rhinorrhea or bleeding. Turbinates are pink and moist. Oropharyngeal: Mucous membranes are moist. There is no pharyngeal erythema or exudate. There are no palatal petechiae. Uvula is midline and symmetrical. Neck: Supple, no adenopathy. Cardiovascular: Heart is irregularly irregular with a ventricular rate of 100 bpm. Pulmonary: Lungs are noted for decreased breath sounds bilaterally with rales specifically in the right base. Abdomen: Soft, nontender, no guarding or peritoneal signs. Extremities: No gross deformities, No peripheral cyanosis. Able to move all 4 extremities. Neuro: Alert and oriented X3, Skin: Chronic peripheral vascular disease changes 4+ pitting edema bilaterally. Medical Decision Making Data Points Result Diagram: 09/28/17 1114 09/28/17 1114 Laboratory Hematology Test 09/28/17 11:14 Red Blood Count 3.83 M/uL (4.00-5.60) Mean Corpuscular Volume 102.1 fL (80.0-96.0) Mean Corpuscular Hemoglobin 34.3 pg (26.0-33.0) Mean Corpuscular Hemoglobin Concent 33.6 g/dL (32.0-36.0) Red Cell Distribution Width 17.0 % (11.5-14.5) Mean Platelet Volume 6.6 fL (7.2-11.1) Neutrophils (%) (Auto) 80.2 % (39.4-72.5) Lymphocytes (%) (Auto) 9.9 % (17.6-49.6) Monocytes (%) (Auto) 6.8 % (4.1-12.4) Eosinophils (%) (Auto) 2.5 % (0.4-6.7) Basophils (%) (Auto) 0.6 % (0.3-1.4) Nucleated RBC Relative Count (auto) 0.0 /100WBC Neutrophils # (Auto) 5.2 K/uL (2.0-7.4) Lymphocytes # (Auto) 0.6 K/uL (1.3-3.6) Monocytes # (Auto) 0.4 K/uL (0.3-1.0) Eosinophils # (Auto) 0.2 K/uL (0.0-0.5) Basophils # (Auto) 0.0 K/uL (0.0-0.1) Nucleated RBC Absolute Count (auto) 0.00 K/uL Peripheral Blood Smear Yes Y/N Prothrombin Time 14.0 seconds (12.0-14.4) Prothromb Time International Ratio 1.08 Activated Partial Thromboplast Time 37 seconds (23-35) Sodium Level 141 mmol/L (137-145) Potassium Level 5.6 mmol/L (3.5-5.0) Chloride Level 92 mmol/L (98-107) Carbon Dioxide Level 44 mmol/L (22-30) Blood Urea Nitrogen 27 mg/dl (9-21) Creatinine 1.40 mg/dl (0.66-1.25) Glomerular Filtration Rate Calc 49.5 Random Glucose 103 mg/dl (75-110) Calcium Level 8.9 mg/dl (8.4-10.2) Magnesium Level 2.4 mg/dl (1.7-2.2) Total Bilirubin 0.6 mg/dl (0.2-1.3) Aspartate Amino Transf (AST/SGOT) 27 U/L (0-35) Alanine Aminotransferase (ALT/SGPT) 14 U/L (0-56) Alkaline Phosphatase 85 U/L (0-126) Troponin I < 0.012 ng/ml B-Type Natriuretic Peptide 44 pg/ml (0-100) Total Protein 7.0 g/dl (6.3-8.2) Albumin 3.6 g/dl (3.5-5.0) Digoxin Level 0.9 ng/ml Digoxin Last Dose Date unk Digoxin Last Dose Time unk Chemistry Test 09/28/17 11:14 White Blood Count 6.5 k/uL (4.5-11.0) Red Blood Count 3.83 M/uL (4.00-5.60) Hemoglobin 13.1 g/dL (14.0-18.0) Hematocrit 39.1 % (42.0-52.0) Mean Corpuscular Volume 102.1 fL (80.0-96.0) Mean Corpuscular Hemoglobin 34.3 pg (26.0-33.0) Mean Corpuscular Hemoglobin Concent 33.6 g/dL (32.0-36.0) Red Cell Distribution Width 17.0 % (11.5-14.5) Platelet Count 229 K/uL (150-450) Mean Platelet Volume 6.6 fL (7.2-11.1) Neutrophils (%) (Auto) 80.2 % (39.4-72.5) Lymphocytes (%) (Auto) 9.9 % (17.6-49.6) Monocytes (%) (Auto) 6.8 % (4.1-12.4) Eosinophils (%) (Auto) 2.5 % (0.4-6.7) Basophils (%) (Auto) 0.6 % (0.3-1.4) Nucleated RBC Relative Count (auto) 0.0 /100WBC Neutrophils # (Auto) 5.2 K/uL (2.0-7.4) Lymphocytes # (Auto) 0.6 K/uL (1.3-3.6) Monocytes # (Auto) 0.4 K/uL (0.3-1.0) Eosinophils # (Auto) 0.2 K/uL (0.0-0.5) Basophils # (Auto) 0.0 K/uL (0.0-0.1) Nucleated RBC Absolute Count (auto) 0.00 K/uL Peripheral Blood Smear Yes Y/N Prothrombin Time 14.0 seconds (12.0-14.4) Prothromb Time International Ratio 1.08 Activated Partial Thromboplast Time 37 seconds (23-35) Glomerular Filtration Rate Calc 49.5 Calcium Level 8.9 mg/dl (8.4-10.2) Magnesium Level 2.4 mg/dl (1.7-2.2) Total Bilirubin 0.6 mg/dl (0.2-1.3) Aspartate Amino Transf (AST/SGOT) 27 U/L (0-35) Alanine Aminotransferase (ALT/SGPT) 14 U/L (0-56) Alkaline Phosphatase 85 U/L (0-126) Troponin I < 0.012 ng/ml B-Type Natriuretic Peptide 44 pg/ml (0-100) Total Protein 7.0 g/dl (6.3-8.2) Albumin 3.6 g/dl (3.5-5.0) Digoxin Level 0.9 ng/ml Digoxin Last Dose Date unk Digoxin Last Dose Time unk Coagulation Test 09/28/17 11:14 Prothrombin Time 14.0 seconds Prothromb Time International Ratio 1.08 Activated Partial Thromboplast Time 37 seconds Toxicology Test 09/28/17 11:14 Digoxin Level 0.9 ng/ml Digoxin Last Dose Date unk Digoxin Last Dose Time unk EKG/Imaging EKG Interpretation EKG shows atrial fibrillation with rapid ventricular response with a ventricular rate around 100 bpm. Monitor Interpretation: Atrial Fibrillation Imaging FACILITY: [facility] PATIENT NAME: Jaquan Orlando : 1945 MR: [id number] V: [id number] EXAM DATE: ORDERING PHYSICIAN: NORTH HIDALGO TECHNOLOGIST: Location: [facility] Patient: Jaquan Orlando : 1945 Visit/Account:[id number] Date of Sevice: 09/28/2017 Exam type: CHEST SINGLE AP History: RESP DISTRESS Comparison: September 23, 2017. Findings: Since the prior study there has been development of patchy airspace consolidation the right lung base worrisome for developing infiltrate and/or atelectasis. Linear stranding in the left lung base appears similar to the prior examination. There is no evidence of a pneumothorax or pneumomediastinum. Surgical clips project over the medial aspect the right upper thorax. The cardiac silhouette is normal in size. IMPRESSION: 1. Increasing airspace consolidation right lung base worrisome for developing infiltrate and/or atelectasis Report Dictated By: Yu Holden MD at 09/28/2017 11:21 AM Report E-Signed By: Yu Holden MD at 09/28/2017 11:24 AM WSN:[email or web address] ED Course/Re-evaluation Clinical Indication for ER IV: IV Access ED Course 09/28/2017 11:07:12 am Patient is requiring 15 L by face mask to keep SPO2 greater than 94% plan at this time will be to perform cardiac workup. Physical exam consistent with acute overload. We'll obtain chest x-ray will give IV Lasix 40 mg we'll start the patient on BiPAP and give a hour-long nebulizer treatment with albuterol and Atrovent Decision to Disposition Date: Sep 28, 2017 Decision to Disposition Time: 12:04 Depart Departure Latest Vital Signs Vital Signs Date Time Temp Pulse Resp B/P (MAP) Pulse Ox O2 Delivery O2 Flow Rate FiO2 09/28/17 11:25 102 16 09/28/17 10:55 99 Bi-PAP 60.0 09/28/17 10:41 15.0 09/28/17 10:31 98.2 Impression: Primary Impression: Pneumonia Condition: Improved Disposition: Admitted from ER (to Ted nguyen) Referrals: EILEEN SANTANA MD (PCP) Problem Qualifiers Primary Impression: Pneumonia Pneumonia type: due to unspecified organism Laterality: right Lung location : lower lobe of lung Qualified Codes: J18.1 - Lobar pneumonia, unspecified organism NORTH HIDALGO MD Sep 28, 2017 10:32
[2017-09-28] MEDS ORDERED: ALBUTEROL 2.5 MG/0.5ML ER ONLY NEB ONE (10:35)
[2017-09-28] MEDS ORDERED: IPRATROPIUM 0.5MG/2.5ML NEB NEB ONE (10:35)
[2017-09-28] MEDS ORDERED: FUROSEMIDE 40 MG/4 ML VIAL IVP SCH (11:00)
--- NOTE | 2017-09-28 11:05 | EKG ---
FACILITY: [facility] PATIENT NAME: LEWIS FLETCHER : [id number] MR: [id number] V: [id number] EXAM DATE: ORDERING PHYSICIAN: NORTH HIDALGO TECHNOLOGIST: REINA Curiel Reason : CARDIAC Blood Pressure : / mmHG Vent. Rate : 101 BPM Atrial Rate : 119 BPM P-R Int : 180 ms QRS Dur : 094 ms QT Int : 322 ms P-R-T Axes : 000 063 047 degrees QTc Int : 417 ms Atrial fibrillation Otherwise normal ECG No previous ECGs available Confirmed by RONAN NGUYEN ([id number]) on 09/28/2017 4:11:57 PM Referred By: ROCKY Confirmed By:RONAN NGUYEN
[2017-09-28 11:27] LABS: PLATELET COUNT, AUTOMATED 229 K/uL (150-450)
--- NOTE | 2017-09-28 11:28 | RADIOLOGY IMAGING REPORT ---
FACILITY: [facility] [place] PATIENT NAME: Jaquan Orlando : 1945 MR: [id number] V: [id number] EXAM DATE: ORDERING PHYSICIAN: NORTH HIDALGO TECHNOLOGIST: Location: [facility] Patient: Jaquan Orlando : 1945 Visit/Account:[id number] Date of Sevice: 09/28/2017 Exam type: CHEST SINGLE AP History: RESP DISTRESS Comparison: September 23, 2017. Findings: Since the prior study there has been development of patchy airspace consolidation the right lung base worrisome for developing infiltrate and/or atelectasis. Linear stranding in the left lung base appe ars similar to the prior examination. There is no evidence of a pneumothorax or pneumomediastinum. Surgical clips project over the medial aspect the right upper thorax. The cardiac silhouette is norm al in size. IMPRESSION: 1. Increasing airspace consolidation right lung base worrisome for developing infiltrate and/or atel ectasis Report Dictated By: Yu Holden MD at 09/28/2017 11:21 AM Report E-Signed By: Yu Holden MD at 09/28/2017 11:24 AM WSN:[email or web address]
[2017-09-28] MEDS ORDERED: METO2.5T15 PO (11:29)
[2017-09-28 11:33] LABS: INR 1.08
[2017-09-28] MEDS ORDERED: AZITHROMYCIN(*) 500 MG 500 MG in NS(*) 0.9% 250 ML BAG 250 ML IVPB ONE (11:35)
[2017-09-28] MEDS ORDERED: cefTRIAXone 1 GM VIAL IVP ONE (11:35)
[2017-09-28 13:18] VITALS: BP 125/69
[2017-09-28] MEDS ORDERED: INFLUENZA VIRUS VAC 0.5 ML SYR IM ONLY ONE (13:35)
[2017-09-28] MEDS ORDERED: GUAI600T57 PO (13:55)
[2017-09-28] MEDS ORDERED: NITROGLYCERN* 50 MG/D5W 250 ML 250 ML IV PRN (14:00)
--- NOTE | 2017-09-28 14:01 | History & Physical ---
History of Present Illness Chief Complaint Shortness of breath History of Present Illness This patient presented to the emergency room complaining of increased shortness of breath and weight gain. His symptoms started over the last week and have been increasing to the point where he is no longer able to function at home. He does report a cough, but denies any fever or chills. History Problems: (1) Acute kidney injury Status: Resolved (2) Atrial flutter Status: Chronic (3) COPD (chronic obstructive pulmonary disease) Status: Chronic (4) COPD with exacerbation Status: Chronic (5) GERD (gastroesophageal reflux disease) Status: Chronic (6) HTN (hypertension) Status: Chronic (7) Hyperlipidemia Status: Chronic (8) Hypothyroidism Status: Chronic (9) Neuropathy Status: Chronic (10) RLS (restless legs syndrome) Status: Chronic (11) Iron deficiency anemia Status: Chronic (12) BPH w urinary obs/LUTS Status: Chronic Home Meds Active Scripts Digoxin (Digox) 125 Mcg Tablet, 1 TAB PO QDAY, #90 TAB PRN Refills Prov:SAL TARANGO APRN-C 08/28/17 Dutasteride (AVODART) 0.5 Mg Capsule, 1 TAB PO QDAY, #90 CAPSULE 2 Refills Prov:EILEEN SANTANA MD 08/21/17 Diltiazem Hcl (DILTIAZEM 24HR CD) 240 Mg Cap.er.24h, 240 MG PO QDAY, #30 CAP.SR.24H Prov:RONAN NGUYEN DO 08/20/17 Montelukast Sodium (SINGULAIR) 10 Mg Tablet, 1 TAB PO QDAY, #90 TAB 3 Refills Prov:EILEEN SANTANA MD 08/14/17 Ropinirole Hcl (ROPINIROLE HCL) 1 Mg Tablet, 2 MG PO QHS, #100 TAB 11 Refills Increase by half a tab every week if needed to a maximum of 4 tabs a night. Prov:EILEEN SANTANA MD 08/13/17 Spironolactone (SPIRONOLACTONE) 25 Mg Tablet, 25 MG PO QDAY, #90 3 Refills Prov:EILEEN SANTANA MD 07/23/17 Rivaroxaban 20 Mg (XARELTO 20 MG) 20 Mg Tablet, 1 TAB PO DAILY, #90 TAB 1 Refill Prov:SAL TARANGO APRN-C 04/30/17 Potassium Chloride (POTASSIUM CHLORIDE) 20 Meq Tab.er.prt, 2 TAB PO TID, #180 TAB 5 Refills Prov:EILEEN SANTANA MD 04/27/17 Tamsulosin Hcl (TAMSULOSIN HCL) 0.4 Mg Cap.er.24h, 1 CAP PO BID, #180 CAP 1 Refill Prov:EILEEN SANTANA MD 04/16/17 Levothyroxine Sodium (LEVOTHYROXINE SODIUM) 150 Mcg Tablet, 150 MCG PO QDAY, # 90 TAB 3 Refills Prov:EILEEN SANTANA MD 04/15/17 Dexlansoprazole (DEXILANT) 60 Mg Boo., 1 CAP PO DAILY, #90 TAB 4 Refills Prov:EILEEN SANTANA MD 03/27/17 Pravastatin Sodium (PRAVASTATIN SODIUM) 80 Mg Tablet, 1 TAB PO QDAY, #90 TAB 3 Refills Prov:EILEEN SANTANA MD 03/11/17 Furosemide (LASIX) 80 Mg Tablet, 1 TAB PO BID, #180 TAB 3 Refills Prov:EILEEN SANTANA MD 03/05/17 Polyethylene Glycol 3350 (MIRALAX) 17 Gm Powd.pack, 1 PACKET PO DAILY, #90 PKT 4 Refills Prov:EILEEN SANTANA MD 01/06/17 Gabapentin (GABAPENTIN) 300 Mg Capsule, 1 CAP PO TID, #90 CAPSULE 11 Refills Prov:SAL TARANGO APRN BUSINESS PROCESS CONSULTANT-C 01/01/17 Fluticasone/Salmeterol (ADVAIR 500-50 DISKUS) 1 Each Disk.w.dev, 1 EACH IH BID, #1 EACH 11 Refills Prov:EILEEN SANTANA MD 09/08/16 Fluticasone Prop 50 Mcg Ns (FLONASE 50 MCG NS) 16 Gm [place].susp, 1 SPRAY NS DAILY, #1 BOT 11 Refills Prov:EILEEN SANTANA MD 06/06/16 Nitroglycerin (NITROSTAT) 0.4 Mg Subl, 0.4 MG SL Q5MIN Y for CHEST PAIN, #30 TAB 11 Refills Prov:EILEEN SANTANA MD 02/04/16 Reported Medications Metolazone (METOLAZONE) 2.5 Mg Tablet, 2.5 MG PO 8/6/18 Albuterol Sulfate (PROVENTIL HFA) 6.7 Gm Inh, 1-2 PUFF INH Q4-6H Y for SHORTNESS OF BREATH, INH 09/05/16 Cyanocobalamin (Vitamin B-12) (VITAMIN B-12) 2,000 Mcg Tablet.er, 2000 MCG PO DAILY 09/05/16 Ferrous Sulfate (FERROUS SULFATE) 325 Mg Tablet, 325 MG PO BID, #60 05/07/16 Cholecalciferol (Vitamin D3) (VITAMIN D-3) 2,000 Unit Capsule, 2000 UNIT PO DAILY, CAPSULE 12/21/14 Multivitamin (MULTI VITAMIN DAILY) 1 Each Tablet, 1 EACH PO DAILY 12/21/14 Discontinued Reported Medications Guaifenesin (MUCINEX) 600 Mg Tablet.er, 1200 MG PO BID, #2 TAB 07/05/17 Discontinued Scripts Hydrocodone Bit/Acetaminophen (NORCO 5-325 TABLET) 1 Each Tablet, 1 EACH PO 2- 3XD, #14 TAB Prov:FIFI DAVIS MD 09/23/17 Prednisone 10 Mg Tab (PREDNISONE 10 MG TAB) 10 Mg Tablet, 10 MG PO QDAY Y for reduce lung inflammation, #21 4 tabs daily for 3 days 2 tabs daily for 3 days 1 tab daily for 3 days Prov:KI LANDEROS DO 08/24/17 Cefuroxime Axetil (CEFUROXIME) 250 Mg Tablet, 250 MG PO BID for infection, #14 TAB Prov:KI LANDEROS DO 08/24/17 Allergies: Coded Allergies: tiotropium (Verified Allergy, Mild, visual changes, 07/05/17) Patient History: FH: multiple sclerosis BROTHER OR SISTER FH: prostate cancer FATHER Paraplegia MOTHER Hx Smoking: Yes Smoking Status: Former Smoker Exposure to Second Hand Smoke?: Yes Caffeine Intake: Soda Caffeine/Cups Per Day: 2 can per day Hx Alcohol Use: Yes (COUPLE DAILY, "been 3-4 days") Hx Substance Use Disorder: No Social Drug Use: Never Review of Systems All Systems Reviewed/Normal: Yes, Except as Noted Respiratory: Shortness of Breath, Cough Exam Vital Signs Vital Signs Date Time Temp Pulse Resp B/P (MAP) Pulse Ox O2 Delivery O2 Flow Rate FiO2 09/28/17 13:34 95 Bi-PAP 40.0 8/6/18 13:18 124 31 125/69 (87) 09/28/17 10:41 15.0 09/28/17 10:31 98.2 Neuro: No Gross deficits Eyes: PERRLA Cardiovascular: Regular Rate and Rhythm, Other (JVD present.) Respiratory: Other (Bilateral crackles.) GI: Abd Soft and Non-Tender Extremities: Edema Integumentary: No Cyanosis Medical Decision Making Data Points Result Diagram: 09/28/17 1114 09/28/17 1114 EKG / Imaging EKG Interpretation EKG reviewed. Imaging Chest x-ray reviewed. Assessment and Plan Problems: (1) Acute on chronic systolic right heart failure Assessment & Plan: He did present with increased shortness of breath and weight gain. His records indicate that he is up nearly 10Kg since his last discharge. His BNP is not elevated and his echocardiogram (03/2017) showed an ejection fraction of 52%, but he has had recurrent right sided failure in the past. We have started him on scheduled Lasix and daily weight monitoring. (2) Bacterial pneumonia Assessment & Plan: His chest x-ray does show increased consolidation on the right lung, but he is afebrile and his WBC is normal. He received a dose of ceftriaxone and azithromycin in the emergency department. We will defer scheduling antibiotics at this time. A repeat chest x-ray and blood cultures are pending. (3) Hyperkalemia Assessment & Plan: We will monitor his potassium after several doses of diuretics. His chronic potassium supplements and spironolactone have been held. (4) COPD (chronic obstructive pulmonary disease) Status: Chronic Assessment & Plan: His is on chronic treatment with inhalers and Advair. (5) Atrial flutter Status: Chronic Assessment & Plan: He is on chronic treatment with diltiazem and Xarelto. (6) Hypothyroidism Status: Chronic Assessment & Plan: He is on chronic treatment with Synthroid. A TSH has been ordered. (7) Hyperlipidemia Status: Chronic Assessment & Plan: He is on chronic treatment with Pravastatin. (8) Neuropathy Status: Chronic Assessment & Plan: He is on chronic treatment with gabapentin. (9) RLS (restless legs syndrome) Status: Chronic Assessment & Plan: He is on chronic treatment with ropinirole. (10) Iron deficiency anemia Status: Chronic Assessment & Plan: He is on chronic iron therapy. (11) BPH w urinary obs/LUTS Status: Chronic Assessment & Plan: He is on chronic treatment with tamsulosin. Central Venous Access Medical Necessity for Access: IV Access, Medication Administration Copies to: EILEEN SANTANA MD Venous Thromboembolism Antithrombotics Is Pt On Any Antithrombotics?: Yes Heart Failure Ejection Fraction %: 68 RVSP (mmHg): 60 NYHA Class: III Is Patient on JUDY Inhibitor?: Yes Is Patient on Beta Janet?: Yes Admission Weight: 280 Exam Sepsis Risk: No Definite Risk RONAN NGUYEN DO Sep 28, 2017 14:01
[2017-09-28] MEDS: GABAPENTIN 300 MG CAP PO SCH ×2 (14:17→21:26)
[2017-09-28] MEDS: FUROSEMIDE 40 MG/4 ML VIAL IVP SCH ×2 (14:17→21:27)
[2017-09-28] MEDS ORDERED: NS(*) 0.9% 500 ML BAG 500 ML ONE (14:44)
[2017-09-28 14:54] VITALS: BP 104/77
[2017-09-28] MEDS: SALMETEROL/FLUTIC 500/50 1 INH INH SCH (17:01)
[2017-09-28] MEDS ORDERED: DILTIAZEM(*) 5 MG/ML 5ML IVP 125 MG in NS(*) 0.9% 100 ML BAG 100 ML IV SCH (18:15)
[2017-09-28 18:33] VITALS: BP 113/68
[2017-09-28] MEDS ORDERED: PROMETHAZINE 25 MG/ML 1 ML AMP IVP PRN (19:40)
[2017-09-28] MEDS: FERROUS SULFATE 325 MG TAB PO SCH (21:26)
[2017-09-28] MEDS: TAMSULOSIN HCL 0.4 MG CAP PO SCH (21:27)
[2017-09-28 22:49] VITALS: BP 112/61
[2017-09-29 02:31] VITALS: BP 107/61
[2017-09-29] MEDS: SALMETEROL/FLUTIC 500/50 1 INH INH SCH ×2 (05:32→16:57)
[2017-09-29] MEDS: LEVOTHYROXINE SOD 0.150 MG TAB PO SCH (05:35)
[2017-09-29 05:38] LABS: PLATELET COUNT, AUTOMATED 190 K/uL (150-450)
--- NOTE | 2017-09-29 06:35 | RADIOLOGY IMAGING REPORT ---
FACILITY: [facility] PATIENT NAME: Jaquan Orlando : 1945 MR: [id number] V: [id number] EXAM DATE: ORDERING PHYSICIAN: RONAN NGUYEN TECHNOLOGIST: Location: [facility] Patient: Jaquan Orlando : 1945 Visit/Account:[id number] Date of Sevice: 09/29/2017 AP CHEST 09/29/2017 6:00 AM. INDICATION: pneumonia COMPARISON: Yesterday. FINDINGS: Bilateral mixed opacification greatest at the right base is not significantly changed. Question smal l right pleural effusion, unchanged. No pneumothorax. Heart size is unchanged. Unchanged surgical clips over the right upper chest/lower neck. IMPRESSION: No significant change. Report Dictated By: Wes Dobbs MD at 09/29/2017 6:30 AM Report E-Signed By: Wes Dobbs MD at 09/29/2017 6:32 AM WSN:[id number]
[2017-09-29 07:00] VITALS: BP 111/60
[2017-09-29] MEDS: NS(*) 0.9% 500 ML BAG 500 ML IV PRN (08:45)
[2017-09-29] MEDS: FLUTICASONE PROP 0.05% 16 GM SCH (09:00)
[2017-09-29] MEDS: POLYETHYLENE GLYCOL 17 GM PKT PO SCH (09:00)
[2017-09-29] MEDS: FUROSEMIDE 40 MG/4 ML VIAL IVP SCH ×4 (09:00→20:34)
[2017-09-29] MEDS: DIGOXIN 0.125 MG TAB PO SCH (09:09)
[2017-09-29] MEDS: GABAPENTIN 300 MG CAP PO SCH ×3 (09:09→20:33)
[2017-09-29] MEDS: MONTELUKAST SODIUM 10 MG TAB PO SCH (09:09)
[2017-09-29] MEDS: FERROUS SULFATE 325 MG TAB PO SCH ×2 (09:09→20:33)
[2017-09-29] MEDS: PRAVASTATIN SOD 20 MG TAB PO SCH (09:09)
[2017-09-29] MEDS: TAMSULOSIN HCL 0.4 MG CAP PO SCH ×2 (09:09→20:33)
[2017-09-29] MEDS: DILTIAZEM CD 120 MG CAPCR PO SCH (09:09)
[2017-09-29] MEDS: DUTASTERIDE 0.5 MG CAP PO SCH (09:10)
[2017-09-29] MEDS: RIVAROXABAN 10 MG TAB PO SCH (09:10)
[2017-09-29 09:54] VITALS: Ht 182.9 cm; Wt 127.5 kg
[2017-09-29] MEDS: ACETAMINOPHEN 325 MG TAB PO PRN ×2 (10:08→20:34)
--- NOTE | 2017-09-29 10:53 | Hospitalist Progress Note ---
Subjective Progress Notes Subjective 72M presented with SOB, this am reports increased chest tightness. Denies any radiating pain. Patient Complains of: Neurological: No: Syncope, Confusion, Weakness Cardiovascular: Other (tightness), No: Chest Pain, Palpitations Respiratory: Shortness of Breath, No: Cough, Congestion Gastrointestinal: No Nausea, No Vomiting Genitourinary: No Dysuria Musculoskeletal: No: Pain, Sprain, Strain Physical Exam Vital Signs Date Time Temp Pulse Resp B/P (MAP) Pulse Ox O2 Delivery O2 Flow Rate FiO2 09/29/17 09:09 102 09/29/17 08:06 92 Vapotherm 30.0 65.0 09/29/17 07:00 22 111/60 (77) 09/29/17 02:31 98.7 Intake and Output 09/30/17 07:00 Intake Total 815.8 ml Balance 815.8 ml Intake Oral 220 ml IV Total 595.8 ml General Appearance: Alert, Awake, Afebrile Neuro: No Gross deficits Eyes: PERRLA ENT: Normal Neck: No Masses Cardiovascular: Other (irregularly irregular, + edema) Respiratory: Other (Vapotherm) Chest: No Masses GI: Soft and Non-Tender Lymph: Cervical Nodes Benign Extremities: Pulses, Edema Integumentary: Skin Intact without Lesion / Mass Psych: Alert & Oriented X3 Result Diagram: 09/29/17 0517 09/29/17 05 Monitor Interpretation: Atrial Flutter Assessment and Plan Problems: (1) Acute on chronic systolic right heart failure Assessment & Plan: He did present with increased shortness of breath and weight gain, troponin negative. EKG no evidence of ischemia. His records indicate that he is up nearly 10Kg since his last discharge. His BNP is not elevated and his echocardiogram (03/2017) showed an ejection fraction of 52%, but he has had recurrent right sided failure in the past. We have started him on scheduled Lasix and daily weight monitoring. Will repeat ECHO. (2) Bacterial pneumonia Assessment & Plan: His chest x-ray does show increased consolidation on the right lung, but he is afebrile and his WBC is normal. He received a dose of ceftriaxone and azithromycin in the emergency department. We will defer scheduling antibiotics at this time. A repeat chest x-ray showed no acute changes, BCx NGTD. (3) Hyperkalemia Assessment & Plan: We will monitor his potassium after several doses of diuretics. His chronic potassium supplements and spironolactone have been held. (4) COPD (chronic obstructive pulmonary disease) Status: Chronic Assessment & Plan: His is on chronic treatment with inhalers and Advair. (5) Atrial flutter Status: Chronic Assessment & Plan: He is on chronic treatment with diltiazem, digoxin and Xarelto. (6) Hypothyroidism Status: Chronic Assessment & Plan: He is on chronic treatment with Synthroid. A TSH has been ordered. (7) Hyperlipidemia Status: Chronic Assessment & Plan: He is on chronic treatment with Pravastatin. (8) Neuropathy Status: Chronic Assessment & Plan: He is on chronic treatment with gabapentin. (9) RLS (restless legs syndrome) Status: Chronic Assessment & Plan: He is on chronic treatment with ropinirole. (10) Iron deficiency anemia Status: Chronic Assessment & Plan: He is on chronic iron therapy. (11) BPH w urinary obs/LUTS Status: Chronic Assessment & Plan: He is on chronic treatment with tamsulosin. Central Venous Access Medical Necessity for Access: IV Access, Medication Administration Heart Failure Ejection Fraction %: 68 RVSP (mmHg): 60 NYHA Class: III Is Patient on JUDY Inhibitor?: Yes Is Patient on Beta Janet?: Yes Admission Weight: 280 Exam Sepsis Risk: No Definite Risk SHELLEY JACINTO DO Sep 29, 2017 10:53
[2017-09-29] MEDS ORDERED: FUROSEMIDE 40 MG/4 ML VIAL IVP ONE (12:10)
--- NOTE | 2017-09-29 12:32 | EKG ---
[place] [facility] [place] LEWIS FLETCHER : [id number] MR: [id number] V: [id number] EXAM DATE: ORDERING PHYSICIAN: SHELLEY MONTOYA TECHNOLOGIST: ANGEL Curiel Reason : TACHY \ TIGHTNESS Blood Pressure : / mmHG Vent. Rate : 109 BPM Atrial Rate : 249 BPM P-R Int : 000 ms QRS Dur : 090 ms QT Int : 334 ms P-R-T Axes : 000 058 053 degrees QTc Int : 449 ms Atrial flutter with variable AV block Abnormal ECG When compared with ECG of 28-SEP-2017 10:40, Atrial flutter has replaced Atrial fibrillation Confirmed by Shelley Peters ([id number]) on 09/30/2017 12:06:31 AM Referred By: ZARINA MONTOYA Confirmed By:Shelley Montoya
[2017-09-29 15:28] VITALS: BP 112/71
--- NOTE | 2017-09-29 15:46 | Medical Nutrition Therapy ---
Nutrition Anthropometrics Height (Inches): 72.00 Height (Calculated Centimeters: 182.390893 Weight (Pounds): 284 Weight (Calculated Kilograms): 128.820 BMI: 38.5 Hank Nutrition Score: Adequate Hank Nutrition Risk Score: 15 Dietary Referral Nutrition Risk Factors: Special Diet Nutrition Risk Comment: NO SALT Physical Findings Physical Appearance: Overweight BMI 25-29 Skin Appearance Skin Appearance: Edema Edema Location Modifier: Both Edema Location: Lower Extremity Type of Edema: Degree of Edema: 2+ Gastrointestinal Symptoms GI Symtoms: Tube Present: Bowel Sounds: Recent Bowel Pattern: Stool Characteristics: Nutritional Diagnosis Nutritional Risk Acuity 2: CHF w/Complication Nutritional Risk Acuity 3: Fair Appetite Nutritional Risk Acuity 4: Modified Diet Past Medical History: 09/28. Pt hx of CHF, Afib, COPD, and HTN. Nutritional Acuity: 2-Moderate Nutrition Diagnosis: Over-weight/Obesity Nutrition Etiology: Physiological Causes Nutrition Problem/Etiology/Sym: Overweight/obesity r/t physiological causes AEB increase in peripheral edema. Energy Requirement: 2570 ([place] St Jeor 1.3 AF) Protein Requirement: 122 (1g/kg) Fluid Requirement: 2000 Diet Type: CHF Diet Nutrition Intervention: Cont diet as ordered, Encourage intake Drug: Diuretics Nutrition Monitoring & Eval Nutrition Goals: Eat 75-100% Meal, Drink > 2 liters/day Nutrition Follow-Up: Good Intake RD Patient Assessment Time: [address] Assessment Type: RD Assessment Patient Nutrition Acuity: 2-Moderate Follow Up Date: Oct 03, 2017 Nutritional Comment: 09/29. Admitted for SOB and chest pain that felt different than his typical SOB with his CHF. Pt is on a heart failure diet. Ate 75% of dinner meal on 09/28. 09/29. Pt noted he typically drinks 3 4-8oz shots nightly and was a former smoker. CO2 elevated, 41. BMI in obese class 2, weighs 284lbs with a BMI of 38.6. Noticed an increase in weight since last discharge from the hospital, 16lb weight gain, which may be due to an increase in his peripheral edema. Pt came in 3+ pitting changed to 2+ pitting. GERARDO PONCE Sep 29, 2017 15:18
--- NOTE | 2017-09-29 16:40 | Medical Nutrition Therapy ---
Nutrition Anthropometrics Height (Inches): 72.00 Height (Calculated Centimeters: 182.092663 Weight (Pounds): 284 Weight (Calculated Kilograms): 128.820 BMI: 38.5 Hank Nutrition Score: Adequate Hank Nutrition Risk Score: 15 Dietary Referral Nutrition Risk Factors: Special Diet Nutrition Risk Comment: NO SALT Physical Findings Physical Appearance: Obese BMI 30-39 Skin Appearance Skin Appearance: Edema Edema Location Modifier: Both Edema Location: Lower Extremity Type of Edema: Degree of Edema: 2+ Gastrointestinal Symptoms GI Symtoms: Tube Present: Bowel Sounds: Recent Bowel Pattern: Stool Characteristics: Nutritional Diagnosis Nutritional Risk Acuity 2: CHF w/Complication Nutritional Risk Acuity 3: Fair Appetite Nutritional Risk Acuity 4: Modified Diet Past Medical History: 09/28. Pt hx of CHF, Afib, COPD, and HTN. Nutritional Acuity: 2-Moderate Nutrition Diagnosis: Over-weight/Obesity Nutrition Etiology: Physiological Causes Nutrition Problem/Etiology/Sym: Overweight/obesity r/t physiological causes AEB increase in peripheral edema. Energy Requirement: 2570 ([place] St Jeor 1.3 AF) Protein Requirement: 122 (1g/kg) Fluid Requirement: 2000 Diet Type: CHF Diet Nutrition Intervention: Cont diet as ordered, Encourage intake Drug: Diuretics Additional Diet Restrictions: NO FLUIDS WITH MEAL- HAVE NURSING DISPENSE ALL FLUIDS Nutrition Monitoring & Eval RD Patient Assessment Time: [address] Assessment Type: RD Assessment Patient Nutrition Acuity: 2-Moderate Follow Up Date: Oct 03, 2017 Nutritional Comment: 09/29. Admitted for SOB and chest pain that felt different than his typical SOB with his CHF. Pt is on a heart failure diet. Ate 75% of dinner meal on 09/28. Pt noted he typically drinks 3 4-8oz shots nightly and was a former smoker. CO2 elevated, 41. BMI in obese class 2, weighs 284lbs with a BMI of 38.6. Noticed an increase in weight since last discharge from the hospital, 16lb weight gain, which may be due to an increase in his peripheral edema. Pt came in 3+ pitting changed to 2+ pitting. MR 8/7 Pt on 1.5 fluid restriction. Will have nursing dispense all fluids. JOSH PENA Sep 29, 2017 16:40
--- NOTE | 2017-09-29 17:51 | RADIOLOGY IMAGING REPORT ---
FACILITY: [facility] - [place] PATIENT NAME: Jaquan Orlando : 1945 MR: [id number] V: [id number] EXAM DATE: ORDERING PHYSICIAN: ARMIN FERNÁNDEZ TECHNOLOGIST: Location: [facility] Patient: Jaquan Orlando : 1945 Visit/Account:[id number] Date of Sevice: 09/29/2017 Exam type: PICC LINE INSERTION, PICC LINE PLACEMENT History: unable to obtain IV access, long hospital stay Comparison: None. Findings: Informed consent was obtained. The patient's left arm was prepped and draped in usual sterile fashio n. Local anesthesia was accomplished with 1% lidocaine. Utilizing both sonographic and fluoroscopic guidance a 52 cm long trimmed 5 Brazilian double lumen power PICC was inserted via the patent left basi lic vein with the distal tip resting in superior vena cava. Both lumens of the power PICC were flush ed with 5 mL of saline flush. Proximal portion of the PICC line was secured to the patient's arm the sterile dressing. The sonographic images were saved to PACS. The procedure was accomplished withou t apparent cortication. The fluoroscopy dose area product was 120.26 micro-[place] per meter squared. IMPRESSION: 1. Successful placement of a 52 cm long trimmed 5 Brazilian double lumen power PICC inserted via the pa tent left basilic vein with the distal tip resting in superior vena cava Report Dictated By: Yu Holden MD at 09/29/2017 5:47 PM Report E-Signed By: Yu Holden MD at 09/29/2017 5:48 PM WSN:[email or web address]
--- NOTE | 2017-09-29 17:52 | RADIOLOGY IMAGING REPORT ---
FACILITY: [facility] - [place] PATIENT NAME: Jaquan Orlando : 1945 MR: [id number] V: [id number] EXAM DATE: ORDERING PHYSICIAN: ARMIN FERNÁNDEZ TECHNOLOGIST: [place] [facility] [place] Patient: Jaquan Orlando : 1945 Visit/Account:[id number] Date of Sevice: 09/29/2017 Exam type: PICC LINE INSERTION, PICC LINE PLACEMENT History: unable to obtain IV access, long hospital stay Comparison: None. Findings: Informed consent was obtained. The patient's left arm was prepped and draped in usual sterile fashio n. Local anesthesia was accomplished with 1% lidocaine. Utilizing both sonographic and fluoroscopic guidance a 52 cm long trimmed 5 Somali double lumen power PICC was inserted via the patent left basi lic vein with the distal tip resting in superior vena cava. Both lumens of the power PICC were flush ed with 5 mL of saline flush. Proximal portion of the PICC line was secured to the patient's arm the sterile dressing. The sonographic images were saved to PACS. The procedure was accomplished withou t apparent cortication. The fluoroscopy dose area product was 120.26 micro-[place] per meter squared. IMPRESSION: 1. Successful placement of a 52 cm long trimmed 5 Somali double lumen power PICC inserted via the pa tent left basilic vein with the distal tip resting in superior vena cava Report Dictated By: Yu Holden MD at 09/29/2017 5:47 PM Report E-Signed By: Yu Holden MD at 09/29/2017 5:48 PM WSN:[email or web address]
[2017-09-29 19:35] VITALS: BP 118/57
[2017-09-29 23:16] VITALS: BP 108/64
[2017-09-29] MEDS ORDERED: METOPROLOL TART 5 MG/5 ML VIAL IVP ONE (23:50)
[2017-09-30] MEDS: FUROSEMIDE 40 MG/4 ML VIAL IVP SCH ×3 (00:10→13:28)
[2017-09-30] MEDS: APAP/HYDROCODONE 325/5 TAB PO PRN ×3 (00:10→20:01)
[2017-09-30 03:45] VITALS: BP 113/62
[2017-09-30] MEDS: ACETAMINOPHEN 325 MG TAB PO PRN ×2 (03:51→20:01)
[2017-09-30] MEDS: SALMETEROL/FLUTIC 500/50 1 INH INH SCH ×2 (06:02→18:16)
[2017-09-30] MEDS: LEVOTHYROXINE SOD 0.150 MG TAB PO SCH (06:06)
[2017-09-30 08:42] VITALS: BP 122/61
[2017-09-30] MEDS: GABAPENTIN 300 MG CAP PO SCH ×3 (08:50→20:43)
[2017-09-30] MEDS: MONTELUKAST SODIUM 10 MG TAB PO SCH (08:50)
[2017-09-30] MEDS: DUTASTERIDE 0.5 MG CAP PO SCH (08:51)
[2017-09-30] MEDS: TAMSULOSIN HCL 0.4 MG CAP PO SCH ×2 (08:51→20:43)
[2017-09-30] MEDS: DILTIAZEM CD 120 MG CAPCR PO SCH (08:51)
[2017-09-30] MEDS: PRAVASTATIN SOD 20 MG TAB PO SCH (08:51)
[2017-09-30] MEDS: FERROUS SULFATE 325 MG TAB PO SCH ×2 (08:51→20:43)
[2017-09-30] MEDS: DIGOXIN 0.125 MG TAB PO SCH (08:51)
[2017-09-30] MEDS: RIVAROXABAN 10 MG TAB PO SCH (08:52)
[2017-09-30] MEDS: FLUTICASONE PROP 0.05% 16 GM SCH (09:00)
[2017-09-30] MEDS: POLYETHYLENE GLYCOL 17 GM PKT PO SCH (09:00)
[2017-09-30] MEDS ORDERED: FUROSEMIDE 40 MG/4 ML VIAL IVP ONE (10:55)
[2017-09-30] MEDS: SPIRONOLACTONE 25 MG TAB PO SCH (11:10)
[2017-09-30 11:46] VITALS: BP 126/58
--- NOTE | 2017-09-30 13:00 | Hospitalist Progress Note ---
Subjective Progress Notes Subjective He reports some mild improvement in his SOB. He still feels fuzzy with his mentation. Physical Exam Vital Signs Date Time Temp Pulse Resp B/P (MAP) Pulse Ox O2 Delivery O2 Flow Rate FiO2 09/30/17 11:46 98.8 101 22 126/58 (80) 90 Vapotherm 30.0 50.0 Intake and Output 10/01/17 07:00 Intake Total 160 ml Output Total 500 ml Balance -340 ml Intake Oral 160 ml Output Urine Total 500 ml General Appearance: Alert, Awake, No Acute Distress Cardiovascular: Other (irreg irreg) Respiratory: Clear to Auscultation Extremities: Edema (1+ pitting in shins. Reactive erythema on shins bilaterally) Result Diagram: 09/29/1751609/30/17516 Monitor Interpretation: Atrial Flutter Assessment and Plan Problems: (1) Acute on chronic systolic right heart failure Assessment & Plan: He did present with increased shortness of breath and weight gain, troponin negative. EKG no evidence of ischemia. His records indicate that he is up nearly 10Kg since his last discharge. His BNP is not elevated and his echocardiogram (03/2017) showed an ejection fraction of 52%, but he has had recurrent right sided failure in the past. We have started him on scheduled Lasix and daily weight monitoring. (2) Bacterial pneumonia Assessment & Plan: His chest x-ray does show increased consolidation on the right lung, but he is afebrile and his WBC is normal. He received a dose of ceftriaxone and azithromycin in the emergency department. We will defer scheduling antibiotics at this time. A repeat chest x-ray showed no acute changes, BCx NGTD. (3) Hyperkalemia Assessment & Plan: Initially, his chronic KCL and spironolactone were held. Now his potassium is wnl. Will restart spironolactone and only half the dose of KCL (i.e. 20mEq tid rather than 40mEq tid). Will follow. (4) COPD (chronic obstructive pulmonary disease) Status: Chronic Assessment & Plan: His is on chronic treatment with inhalers and Advair. (5) Atrial flutter Status: Chronic Assessment & Plan: His rate is not ideally controlled. He is on chronic treatment with diltiazem, digoxin and Xarelto. If his heart rate continues to be >100bpm, then will increase diltiazem. (6) Hypothyroidism Status: Chronic Assessment & Plan: He is on chronic treatment with Synthroid. TSH is wnl. (7) Hyperlipidemia Status: Chronic Assessment & Plan: He is on chronic treatment with Pravastatin. (8) Neuropathy Status: Chronic Assessment & Plan: He is on chronic treatment with gabapentin. (9) RLS (restless legs syndrome) Status: Chronic Assessment & Plan: He is on chronic treatment with ropinirole. (10) Iron deficiency anemia Status: Chronic Assessment & Plan: He is on chronic iron therapy. (11) BPH w urinary obs/LUTS Status: Chronic Assessment & Plan: He is on chronic treatment with tamsulosin. Central Venous Access Medical Necessity for Access: IV Access, Medication Administration Heart Failure Ejection Fraction %: 68 RVSP (mmHg): 60 NYHA Class: III Is Patient on JUDY Inhibitor?: Yes Is Patient on Beta Janet?: Yes Admission Weight: 280 Exam Sepsis Risk: Severe Sepsis Risk PAUL GAINES MD Sep 30, 2017 13:00
[2017-09-30] MEDS: POTASSIUM CHL 20 MEQ TABCR PO SCH ×2 (13:28→16:44)
--- NOTE | 2017-09-30 13:47 | Medical Nutrition Therapy ---
Nutrition Anthropometrics Height (Inches): 72.00 Height (Calculated Centimeters: 182.960707 Weight (Pounds): 281 Weight (Calculated Kilograms): 127.516 BMI: 38.5 Hank Nutrition Score: Adequate Hank Nutrition Risk Score: 15 Dietary Referral Nutrition Risk Factors: Special Diet Nutrition Risk Comment: NO SALT Nutritional Diagnosis Nutritional Risk Acuity 2: CHF w/Complication Nutritional Risk Acuity 3: Fair Appetite Nutritional Risk Acuity 4: Modified Diet Past Medical History: 09/28. Pt hx of CHF, Afib, COPD, and HTN. Nutritional Acuity: 2-Moderate Nutrition Diagnosis: Over-weight/Obesity Nutrition Etiology: Physiological Causes Nutrition Problem/Etiology/Sym: Overweight/obesity r/t physiological causes AEB increase in peripheral edema. Energy Requirement: 2570 ([place] St Jeor 1.3 AF) Protein Requirement: 122 (1g/kg) Fluid Requirement: 2000 Diet Type: CHF Diet Nutrition Intervention: Cont diet as ordered, Encourage intake Drug: Diuretics Additional Diet Restrictions: PT MAY HAVE UP TO 1C (240ML) FLUIDS WITH MEALS. Nutrition Monitoring & Eval RD Patient Assessment Time: [address] Assessment Type: RD Assessment Patient Nutrition Acuity: 2-Moderate Follow Up Date: Oct 03, 2017 Nutritional Comment: 09/29. Admitted for SOB and chest pain that felt different than his typical SOB with his CHF. Pt is on a heart failure diet. Ate 75% of dinner meal on 09/28. Pt noted he typically drinks 3 4-8oz shots nightly and was a former smoker. CO2 elevated, 41. BMI in obese class 2, weighs 284lbs with a BMI of 38.6. Noticed an increase in weight since last discharge from the hospital, 16lb weight gain, which may be due to an increase in his peripheral edema. Pt came in 3+ pitting changed to 2+ pitting. MR 8/7 Pt on 1.5 fluid restriction. Will have nursing dispense all fluids. JOSH PENA Sep 30, 2017 13:47
[2017-09-30 16:15] VITALS: BP 134/94
[2017-09-30] MEDS ORDERED: ALBUTEROL 2.5 MG/3 ML NEB NEB PRN (19:10)
[2017-09-30 19:43] VITALS: BP 121/64
[2017-09-30 23:57] VITALS: BP 99/58
[2017-10-01 02:51] VITALS: BP 124/66
[2017-10-01] MEDS: SALMETEROL/FLUTIC 500/50 1 INH INH SCH ×2 (03:21→17:11)
[2017-10-01] MEDS: LEVOTHYROXINE SOD 0.150 MG TAB PO SCH (05:15)
[2017-10-01 06:11] LABS: PLATELET COUNT, AUTOMATED 210 K/uL (150-450)
[2017-10-01 10:12] VITALS: BP 123/71
[2017-10-01] MEDS: RIVAROXABAN 10 MG TAB PO SCH (10:20)
[2017-10-01] MEDS: SPIRONOLACTONE 25 MG TAB PO SCH (10:20)
[2017-10-01] MEDS: PRAVASTATIN SOD 20 MG TAB PO SCH (10:20)
[2017-10-01] MEDS: GABAPENTIN 300 MG CAP PO SCH ×3 (10:20→20:24)
[2017-10-01] MEDS: TAMSULOSIN HCL 0.4 MG CAP PO SCH ×2 (10:20→20:24)
[2017-10-01] MEDS: FERROUS SULFATE 325 MG TAB PO SCH ×2 (10:20→20:24)
[2017-10-01] MEDS: METOLAZONE 2.5 MG TAB PO SCH ×2 (10:20→20:23)
[2017-10-01] MEDS: DUTASTERIDE 0.5 MG CAP PO SCH (10:21)
[2017-10-01] MEDS: POTASSIUM CHL 20 MEQ TABCR PO SCH ×3 (10:21→17:12)
[2017-10-01] MEDS: MONTELUKAST SODIUM 10 MG TAB PO SCH (10:21)
[2017-10-01] MEDS: FLUTICASONE PROP 0.05% 16 GM SCH ×2 (10:22→10:35)
[2017-10-01] MEDS: POLYETHYLENE GLYCOL 17 GM PKT PO SCH (10:24)
[2017-10-01] MEDS: DIGOXIN 0.125 MG TAB PO SCH (10:24)
[2017-10-01] MEDS: FUROSEMIDE 40 MG/4 ML VIAL IVP SCH ×2 (10:55→13:31)
--- NOTE | 2017-10-01 11:05 | Hospitalist Progress Note ---
Subjective Progress Notes Subjective This patient was admitted for heart failure. He had no acute events overnight. Patient Complains of: Cardiovascular: No: Chest Pain Respiratory: Shortness of Breath Physical Exam Vital Signs Date Time Temp Pulse Resp B/P (MAP) Pulse Ox O2 Delivery O2 Flow Rate FiO2 10/01/17 10:24 102 10/01/17 10:12 99.0 20 123/71 (88) 89 Vapotherm 30.0 50.0 Intake and Output 10/02/17 07:00 Intake Total 360 ml Output Total 500 ml Balance -140 ml Intake Oral 360 ml Output Urine Total 500 ml Cardiovascular: Regular Rate and Rhythm Respiratory: Other (Bilateral crackles.) Extremities: Edema Result Diagram: 10/01/17 0510/01/17 05 Monitor Interpretation: Atrial Flutter Assessment and Plan Problems: (1) Acute on chronic systolic right heart failure Assessment & Plan: He did present with increased shortness of breath and weight gain, troponin negative. EKG no evidence of ischemia. His records indicate that he is up nearly 10Kg since his last discharge. His echocardiogram has shown an ejection fraction of 55%, but his right pressure is elevated at 55mmHg. He has been receiving scheduled Lasix with little improvement. His Lasix dose was increased yesterday and metolazone was restarted today. (2) Bacterial pneumonia Assessment & Plan: His chest x-ray does show increased consolidation on the right lung, but he is afebrile and his WBC is normal. He received a dose of ceftriaxone and azithromycin in the emergency department. We have not continued antibiotics and his cultures have been negative. (3) Hyperkalemia Assessment & Plan: Resolved. We have restarted his spironolactone at a lower dose. (4) COPD (chronic obstructive pulmonary disease) Status: Chronic Assessment & Plan: His is on chronic treatment with inhalers and Advair. (5) Atrial flutter Status: Chronic Assessment & Plan: His rate is not ideally controlled. He is on chronic treatment with diltiazem, digoxin and Xarelto. He required a diltiazem infusion earlier in the admission. His oral dose has been increased. (6) Hypothyroidism Status: Chronic Assessment & Plan: He is on chronic treatment with Synthroid. TSH is wnl. (7) Hyperlipidemia Status: Chronic Assessment & Plan: He is on chronic treatment with Pravastatin. (8) Neuropathy Status: Chronic Assessment & Plan: He is on chronic treatment with gabapentin. (9) RLS (restless legs syndrome) Status: Chronic Assessment & Plan: He is on chronic treatment with ropinirole. (10) Iron deficiency anemia Status: Chronic Assessment & Plan: He is on chronic iron therapy. (11) BPH w urinary obs/LUTS Status: Chronic Assessment & Plan: He is on chronic treatment with tamsulosin. Central Venous Access Medical Necessity for Access: IV Access, Medication Administration Heart Failure Ejection Fraction %: 68 RVSP (mmHg): 60 NYHA Class: III Is Patient on JUDY Inhibitor?: Yes Is Patient on Beta Janet?: Yes Admission Weight: 280 Exam Sepsis Risk: Sepsis Risk RONAN NGUYEN DO Oct 01, 2017 11:05
[2017-10-01] MEDS: DILTIAZEM CD 120 MG CAPCR PO SCH (11:31)
[2017-10-01 15:26] VITALS: BP 135/77
[2017-10-01] MEDS: APAP/HYDROCODONE 325/5 TAB PO PRN (17:13)
[2017-10-01 18:36] VITALS: BP 127/72
[2017-10-01 23:12] VITALS: BP 131/64
[2017-10-02 03:09] VITALS: BP 135/87
[2017-10-02] MEDS: LEVOTHYROXINE SOD 0.150 MG TAB PO SCH (05:15)
[2017-10-02] MEDS: SALMETEROL/FLUTIC 500/50 1 INH INH SCH ×2 (05:39→17:58)
[2017-10-02 08:36] VITALS: BP 126/74
[2017-10-02] MEDS ORDERED: FLUTICASONE PROP 0.05% 16 GM PRN (09:00)
[2017-10-02] MEDS ORDERED: DILTIAZEM CD 120 MG CAPCR PO SCH (09:00)
[2017-10-02] MEDS: FUROSEMIDE 40 MG/4 ML VIAL IVP SCH ×2 (09:49→14:13)
[2017-10-02] MEDS: POTASSIUM CHL 20 MEQ TABCR PO SCH (09:49)
[2017-10-02] MEDS: RIVAROXABAN 10 MG TAB PO SCH (09:51)
[2017-10-02] MEDS: GABAPENTIN 300 MG CAP PO SCH ×3 (09:51→20:08)
[2017-10-02] MEDS: DILTIAZEM CD 120 MG CAPCR PO SCH (09:51)
[2017-10-02] MEDS: SPIRONOLACTONE 25 MG TAB PO SCH (09:51)
[2017-10-02] MEDS: POLYETHYLENE GLYCOL 17 GM PKT PO SCH (09:52)
[2017-10-02] MEDS: DIGOXIN 0.125 MG TAB PO SCH (09:52)
[2017-10-02] MEDS: MORPHINE 2 MG/ML SYR IVP PRN ×2 (10:12→11:26)
[2017-10-02] MEDS: LORazepam 2 MG/ML VIAL IVP PRN ×2 (11:29→20:09)
--- NOTE | 2017-10-02 11:57 | Hospitalist Progress Note ---
Subjective Progress Notes Subjective He reports continued difficulty with breathing despite the diuresis. He wants to be comfort care. His daughter was present and is in agreement. Physical Exam Vital Signs Date Time Temp Pulse Resp B/P (MAP) Pulse Ox O2 Delivery O2 Flow Rate FiO2 10/02/17 09:52 106 10/02/17 08:36 99.0 126/74 (91) 88 Vapotherm 30.0 10/02/17 08:00 60.0 10/01/17 23:12 20 Intake and Output 10/03/17 07:00 Intake Total 160 ml Output Total 225 ml Balance -65 ml Intake Oral 160 ml Output Urine Total 225 ml General Appearance: Alert, Awake, Other (Mild work of breathing) Respiratory: Clear to Auscultation Result Diagram: 10/01/1751110/02/17 05 Monitor Interpretation: Atrial Flutter Assessment and Plan Problems: (1) End of life care Status: Acute Assessment & Plan: The patient reports that he would like to stop aggressive treatment and focus on comfort. Because of his end stage COPD and refractory HFpEF he qualifies. Will add morphine for air hunger and lorazepam for anxiety. Will try to stop the VapoTherm and use NC O2. Depending on how he does in the next 24-48 hours will determine disposition (i.e. [facility] vs home with Hospice vs Hospice House). (2) Acute diastolic (congestive) heart failure Status: Acute Assessment & Plan: He did present with increased shortness of breath and weight gain, troponin negative. EKG no evidence of ischemia. His records indicate that he was up nearly 10Kg since his last discharge. His BNP is not elevated and his echocardiogram (03/2017) showed an ejection fraction of 52%. Despite schedule Lasix/Spironolactone/Metolazone his WOB is unchanged. His weight is down some. He wants to be comfort care so will stop Metolazone/KCL and continue Lasix/Spironolactone because of the discomfort of worsening edema, per his request. (3) COPD (chronic obstructive pulmonary disease) Status: Chronic Assessment & Plan: Severe with high O2 requirement baseline. He is on chronic treatment with inhalers and Advair, which will be continued. (4) Bacterial pneumonia Assessment & Plan: His chest x-ray does show increased consolidation on the right lung, but he is afebrile and his WBC is normal. He received a dose of ceftriaxone and azithromycin in the emergency department. We have not continued antibiotics and his cultures have been negative. (5) Hyperkalemia Assessment & Plan: Resolved. (6) Atrial flutter Status: Chronic Assessment & Plan: His rate has not been ideally controlled. He is on chronic treatment with diltiazem, digoxin and Xarelto. He required a diltiazem infusion earlier in the admission. Diltiazem has been increased to 360mg a day , which will be continued with the digoxin because he gets more anxious and SOB with tachycardia. Will stop Xarelto per his request. (7) Hypothyroidism Status: Chronic Assessment & Plan: He is on chronic treatment with Synthroid. TSH is wnl. (8) Neuropathy Status: Chronic Assessment & Plan: He is on chronic treatment with gabapentin. (9) RLS (restless legs syndrome) Status: Chronic Assessment & Plan: He is on chronic treatment with ropinirole. Central Venous Access Medical Necessity for Access: IV Access, Medication Administration Heart Failure Ejection Fraction %: 68 RVSP (mmHg): 60 NYHA Class: III Is Patient on JUDY Inhibitor?: Yes Is Patient on Beta Janet?: Yes Admission Weight: 280 Exam Sepsis Risk: Sepsis Risk PAUL GAINES MD Oct 02, 2017 11:57
[2017-10-02 19:43] VITALS: BP 127/86
[2017-10-03] MEDS: LORazepam 2 MG/ML VIAL IVP PRN ×2 (00:12→12:10)
[2017-10-03] MEDS: LEVOTHYROXINE SOD 0.150 MG TAB PO SCH (05:39)
[2017-10-03] MEDS: SALMETEROL/FLUTIC 500/50 1 INH INH SCH ×2 (05:44→17:59)
[2017-10-03 07:57] VITALS: BP 136/86
[2017-10-03] MEDS: MORPHINE 2 MG/ML SYR IVP PRN ×5 (08:05→23:50)
[2017-10-03] MEDS: DILTIAZEM CD 120 MG CAPCR PO SCH (08:55)
[2017-10-03] MEDS: DIGOXIN 0.125 MG TAB PO SCH (08:55)
[2017-10-03] MEDS: SPIRONOLACTONE 25 MG TAB PO SCH (08:55)
[2017-10-03] MEDS: FUROSEMIDE 40 MG/4 ML VIAL IVP SCH ×2 (08:55→13:45)
[2017-10-03] MEDS: POLYETHYLENE GLYCOL 17 GM PKT PO SCH (08:55)
[2017-10-03] MEDS: GABAPENTIN 300 MG CAP PO SCH ×3 (08:55→19:55)
--- NOTE | 2017-10-03 12:23 | Medical Nutrition Therapy ---
Nutrition Anthropometrics Height (Inches): 72.00 Height (Calculated Centimeters: 182.204732 Weight (Pounds): 281 Weight (Calculated Kilograms): 127.459 BMI: 38.5 Hank Nutrition Score: Adequate Hank Nutrition Risk Score: 15 Dietary Referral Nutrition Risk Factors: Special Diet Nutrition Risk Comment: NO SALT Physical Findings Physical Appearance: Obese BMI 30-39 Skin Appearance Skin Appearance: Edema Edema Location Modifier: Both Edema Location: Lower Extremity Type of Edema: Degree of Edema: 1+ Gastrointestinal Symptoms GI Symtoms: Constipation Tube Present: Bowel Sounds: Recent Bowel Pattern: Stool Characteristics: Nutritional Diagnosis Nutritional Risk Acuity 2: CHF w/Complication Nutritional Risk Acuity 3: Fair Appetite Nutritional Risk Acuity 4: Modified Diet Past Medical History: 09/28. Pt hx of CHF, Afib, COPD, and HTN. Nutritional Acuity: 2-Moderate Nutrition Diagnosis: Decreased Nutrient Needs Nutrition Etiology: Physiological Causes Nutrition Problem/Etiology/Sym: Decreased fluid needs related to physiological causes as evidenced by 10kg wt gain, edema, heart failure and need for fluid restriction. Adjusted Energy Requirement Re: 2218 ([id number] (adj for obesity/edema)) Protein Requirement: 100 (.8 g/kg actual wt) Fluid Requirement: 1500 (per hosptalist fluid restriction) Diet Type: CHF Diet Nutrition Intervention: Cont diet as ordered, Encourage intake Drug: Diuretics Food Likes: soft fruits only, baked ghanaian fries Food Dislikes: fried ghanaian fries Additional Diet Restrictions: PT MAY HAVE UP TO 1C (240ML) FLUIDS WITH MEALS. Nutrition Monitoring & Eval RD Patient Assessment Time: [address] Assessment Type: RD Re-Assessment Patient Nutrition Acuity: 2-Moderate Follow Up Date: Oct 08, 2017 Nutritional Comment: 09/29. Admitted for SOB and chest pain that felt different than his typical SOB with his CHF. Pt is on a heart failure diet. Ate 75% of dinner meal on 09/28. Pt noted he typically drinks 3 4-8oz shots nightly and was a former smoker. CO2 elevated, 41. BMI in obese class 2, weighs 284lbs with a BMI of 38.6. Noticed an increase in weight since last discharge from the hospital, 16lb weight gain, which may be due to an increase in his peripheral edema. Pt came in 3+ pitting changed to 2+ pitting. MR 8/ Pt on 1.5 fluid restriction. Will have nursing dispense all fluids. BK 10/03 Pt and family considering comfort care. Still on CHF diet with 1.5L fluid restriction. Intake of 100% of most meals. Notable labs (from 10/02) include tot pro 6, alb 3, BUN 22 and Na 135. Will cont to monitor clinical course. -MIGUEL ANGEL HAYDEN Oct 03, 2017 12:23
--- NOTE | 2017-10-03 14:18 | Hospitalist Progress Note ---
Subjective Progress Notes Subjective 72M presented with acute hypoxic respiratory failure 2/2 exacerbation of CHF. Now comfort care, no concerns this am. Physical Exam Vital Signs Date Time Temp Pulse Resp B/P (MAP) Pulse Ox O2 Delivery O2 Flow Rate FiO2 10/03/17 13:42 95 High-Flow Nasal Cannula 19.0 10/03/17 12:08 121 10/03/17 07:57 98.1 20 136/86 (103) 10/02/17 08:00 60.0 Intake and Output 10/04/17 07:00 Intake Total 120 ml Output Total 750 ml Balance -630 ml Intake Oral 120 ml Output Urine Total 750 ml General Appearance: Alert, Awake Neuro: No Gross deficits Eyes: PERRLA ENT: Normal Neck: No Masses Cardiovascular: Normal Rhythm & Peripheral Pulses Respiratory: Other (15L from 2 NC (30L total)) GI: Soft and Non-Tender Lymph: Cervical Nodes Benign Extremities: Warm, Pulses, Perfused Result Diagram: 10/01/17 0512 10/02/17 0512 Monitor Interpretation: Atrial Flutter Assessment and Plan Problems: (1) End of life care Status: Acute Assessment & Plan: The patient reports that he would like to stop aggressive treatment and focus on comfort. Because of his end stage COPD and refractory HFpEF he qualifies. Morphine for air hunger and lorazepam for anxiety. Depending on how he does in the next 24-48 hours will determine disposition ( i.e. [facility] vs home with Hospice vs Hosp[facility] House). (2) Acute diastolic (congestive) heart failure Status: Acute Assessment & Plan: He did present with increased shortness of breath and weight gain, troponin negative. EKG no evidence of ischemia. His records indicate that he was up nearly 10Kg since his last discharge. His BNP is not elevated and his echocardiogram (03/2017) showed an ejection fraction of 52%. Despite schedule Lasix/Spironolactone/Metolazone his WOB is unchanged. His weight is down some. He wants to be comfort care so will stop Metolazone/KCL and continue Lasix/Spironolactone because of the discomfort of worsening edema, per his request. (3) COPD (chronic obstructive pulmonary disease) Status: Chronic Assessment & Plan: Severe with high O2 requirement baseline. He is on chronic treatment with inhalers and Advair, which will be continued. (4) Bacterial pneumonia Assessment & Plan: His chest x-ray does show increased consolidation on the right lung, but he is afebrile and his WBC is normal. He received a dose of ceftriaxone and azithromycin in the emergency department. We have not continued antibiotics and his cultures have been negative. (5) Hyperkalemia Assessment & Plan: Resolved. (6) Atrial flutter Status: Chronic Assessment & Plan: His rate has not been ideally controlled. He is on chronic treatment with diltiazem, digoxin and Xarelto. He required a diltiazem infusion earlier in the admission. Diltiazem has been increased to 360mg a day , which will be continued with the digoxin because he gets more anxious and SOB with tachycardia. Will stop Xarelto per his request. (7) Hypothyroidism Status: Chronic Assessment & Plan: He is on chronic treatment with Synthroid. TSH is wnl. (8) Neuropathy Status: Chronic Assessment & Plan: He is on chronic treatment with gabapentin. (9) RLS (restless legs syndrome) Status: Chronic Assessment & Plan: He is on chronic treatment with ropinirole. Central Venous Access Medical Necessity for Access: IV Access, Medication Administration Heart Failure Ejection Fraction %: 68 RVSP (mmHg): 60 NYHA Class: III Is Patient on JUDY Inhibitor?: Yes Is Patient on Beta Janet?: Yes Admission Weight: 280 Exam Sepsis Risk: No Definite Risk SRINIVASAN SHELLEY BUNDY DO Oct 03, 2017 14:18
[2017-10-04] MEDS: LEVOTHYROXINE SOD 0.150 MG TAB PO SCH (05:28)
[2017-10-04] MEDS: SALMETEROL/FLUTIC 500/50 1 INH INH SCH ×2 (06:00→17:54)
[2017-10-04] MEDS: MORPHINE 2 MG/ML SYR IVP PRN ×2 (07:33→18:30)
[2017-10-04] MEDS: SPIRONOLACTONE 25 MG TAB PO SCH (09:05)
[2017-10-04] MEDS: GABAPENTIN 300 MG CAP PO SCH ×3 (09:05→21:25)
[2017-10-04] MEDS: FUROSEMIDE 40 MG/4 ML VIAL IVP SCH ×2 (09:05→13:34)
[2017-10-04] MEDS: DIGOXIN 0.125 MG TAB PO SCH (09:05)
[2017-10-04] MEDS: DILTIAZEM CD 120 MG CAPCR PO SCH (09:05)
[2017-10-04] MEDS: POLYETHYLENE GLYCOL 17 GM PKT PO SCH (09:05)
--- NOTE | 2017-10-04 10:07 | Hospitalist Progress Note ---
Subjective Progress Notes Subjective This patient was admitted for heart failure. He has now elected to transfer to comfort care. Patient Complains of: Cardiovascular: No: Chest Pain Respiratory: Shortness of Breath Physical Exam Vital Signs Date Time Temp Pulse Resp B/P (MAP) Pulse Ox O2 Delivery O2 Flow Rate FiO2 10/04/17 09:05 122 10/04/17 07:35 97.9 28 93 Nasal Cannula 22.0 10/03/17 07:57 136/86 (103) 10/02/17 08:00 60.0 Cardiovascular: Regular Rate and Rhythm Respiratory: Other (Bilateral crackles.) Result Diagram: 10/01/17 0512 10/02/17 0512 Monitor Interpretation: Atrial Flutter Assessment and Plan Problems: (1) End of life care Status: Acute Assessment & Plan: The patient reports that he would like to stop aggressive treatment and focus on comfort. We will request an ECF evaluation tomorrow. (2) Acute diastolic (congestive) heart failure Status: Acute Assessment & Plan: He did present with increased shortness of breath and weight gain, troponin negative. EKG no evidence of ischemia. His records indicate that he was up nearly 10Kg since his last discharge. His BNP is not elevated and his echocardiogram (03/2017) showed an ejection fraction of 52%. Despite schedule Lasix/Spironolactone/Metolazone his shortness of breath is unchanged. He does want to transition to comfort care as above. (3) COPD (chronic obstructive pulmonary disease) Status: Chronic Assessment & Plan: Severe with high O2 requirement baseline. He is on chronic treatment with inhalers and Advair, which will be continued. (4) Bacterial pneumonia Assessment & Plan: His chest x-ray does show increased consolidation on the right lung, but he is afebrile and his WBC is normal. He received a dose of ceftriaxone and azithromycin in the emergency department. We have not continued antibiotics and his cultures have been negative. (5) Hyperkalemia Assessment & Plan: Resolved. (6) Atrial flutter Status: Chronic Assessment & Plan: His rate has not been ideally controlled. He is on chronic treatment with diltiazem, digoxin and Xarelto. He required a diltiazem infusion earlier in the admission. Diltiazem has been increased to 360mg a day , which will be continued with the digoxin because he gets more anxious and SOB with tachycardia. Xarelto has been discontinued. (7) Hypothyroidism Status: Chronic Assessment & Plan: He is on chronic treatment with Synthroid. TSH is wnl. (8) Neuropathy Status: Chronic Assessment & Plan: He is on chronic treatment with gabapentin. (9) RLS (restless legs syndrome) Status: Chronic Assessment & Plan: He is on chronic treatment with ropinirole. Central Venous Access Medical Necessity for Access: IV Access, Medication Administration Heart Failure Ejection Fraction %: 68 RVSP (mmHg): 60 NYHA Class: III Is Patient on JUDY Inhibitor?: Yes Is Patient on Beta Janet?: Yes Admission Weight: 280 Exam Sepsis Risk: No Definite Risk RONAN NGUYEN DO Oct 04, 2017 10:07
[2017-10-04] MEDS ORDERED: ALTEPLASE RECOMB 2 MG VIAL IVP ONE (15:30)
[2017-10-04 19:50] VITALS: BP 132/71
[2017-10-05] MEDS: MORPHINE 2 MG/ML SYR IVP PRN (03:24)
[2017-10-05] MEDS: SALMETEROL/FLUTIC 500/50 1 INH INH SCH (05:50)
[2017-10-05] MEDS: LEVOTHYROXINE SOD 0.150 MG TAB PO SCH (06:00)
[2017-10-05] MEDS ORDERED: MORPHINE 1 MG/ML 30 ML PCA IV PRN ×2 (09:00→10:40)
--- NOTE | 2017-10-05 09:12 | Hospitalist Progress Note ---
Subjective Progress Notes Asif Partida has now decided he would like to stop all treatments (including oxygen) and see only to his comfort care. He states he is now "ready to go" and "not afraid to "...."I just want to be done". His family is in agreement with and supportive of his decisions. Physical Exam Vital Signs Date Time Temp Pulse Resp B/P (MAP) Pulse Ox O2 Delivery O2 Flow Rate FiO2 10/05/17 03:32 89 High-Flow Nasal Cannula 30.0 10/05/17 03:29 105 10/04/17 19:50 99.5 20 132/71 (91) 10/02/17 08:00 60.0 Intake and Output 10/06/17 06:59 Intake Total 0 ml Balance 0 ml Intake Oral 0 ml General Appearance: Alert, Awake Cardiovascular: Other (Slightly tachycardic distant tones) Respiratory: Other (diminished breath sounds bilaterally) Extremities: Warm, Perfused, Edema Result Diagram: 10/01/1751110/02/17 05 Monitor Interpretation: Atrial Flutter Assessment and Plan Problems: (1) End of life care Status: Acute Assessment & Plan: The patient reports that he would like to stop all treatment and focus only on comfort. He does understand he will most likely fairly soon. We have agreed to abide by his decisions and will try to control any noxious symptoms he might encounter. Will use IV morphine to help with any pain/dyspnea. He has not been tolerant of Ativan in the past. Will also use Phenergan if he has any nausea. (2) Acute diastolic (congestive) heart failure Status: Acute Assessment & Plan: He did present with increased shortness of breath and weight gain, troponin negative. EKG no evidence of ischemia. His records indicate that he was up nearly 10Kg since his last discharge. His BNP is not elevated and his echocardiogram (03/2017) showed an ejection fraction of 52%. Despite schedule Lasix/Spironolactone/Metolazone his shortness of breath is unchanged. He does want to transition to comfort care/end-of-life care as above. (3) COPD (chronic obstructive pulmonary disease) Status: Chronic Assessment & Plan: Severe with high O2 requirement baseline. He has been on chronic treatment with inhalers and Advair. He will now be stopping all of this as noted above. (4) Bacterial pneumonia Assessment & Plan: His chest x-ray did show increased consolidation on the right lung, but he is afebrile and his WBC is normal. He received a dose of ceftriaxone and azithromycin in the emergency department. We did not continue antibiotics and his cultures have been negative. (5) Hyperkalemia Assessment & Plan: Resolved. (6) Atrial flutter Status: Chronic Assessment & Plan: His rate has not been ideally controlled. He has been on chronic treatment with diltiazem, digoxin and Xarelto. He required a diltiazem infusion earlier in the admission. Diltiazem, digoxin, and Xarelto will now be discontinued per his request. (7) Hypothyroidism Status: Chronic Assessment & Plan: He has been on chronic treatment with Synthroid. TSH was in normal range. (8) Neuropathy Status: Chronic Assessment & Plan: He has been on chronic treatment with gabapentin. (9) RLS (restless legs syndrome) Status: Chronic Assessment & Plan: He has been on chronic treatment with ropinirole. Central Venous Access Medical Necessity for Access: IV Access, Medication Administration Heart Failure Ejection Fraction %: 68 RVSP (mmHg): 60 NYHA Class: III Is Patient on JUDY Inhibitor?: Yes Is Patient on Beta Janet?: Yes Admission Weight: 280 Exam Sepsis Risk: No Definite Risk MICHAEL DIEZ MD Oct 05, 2017 09:12
[2017-10-05] MEDS: NS(*) 0.9% 500 ML BAG 500 ML IV PRN (09:43)
[2017-10-05] MEDS ORDERED: MORPHINE 2 MG/ML SYR ONE (14:13)
--- NOTE | 2017-10-05 15:46 | Death Summary ---
Pronounced Date: Oct 05, 2017 Pronounced Time: 15:15 Preliminary Cause of : Endstage chronic lung disease Cor pulmonale Acute diastolic heart failure Assessment: History of embolic stroke COPD Benign prostatic hypertrophy Stenosis of right subclavian artery Tracheobronchomalacia Restless leg syndrome Hypertension Hypothyroidism Atrial Fibrillation/flutter History of pulmonary embolism GERD History of gastrointestinal bleed History of Present Illness Please see admission history and physical for details. Hospital Course He did present with increased shortness of breath, weight gain, but negative troponin and EKG with no evidence of ischemia. His records indicated that he was up nearly 10kg since his last discharge. His BNP was not elevated and his echocardiogram (03/2017) showed an ejection fraction of 52%. Despite scheduled Lasix/Spironolactone/Metolazone his shortness of breath did not improve. His chest x-ray did show increased consolidation on the right lung, but he was afebrile and his WBC was normal. He received a dose of ceftriaxone and azithromycin in the emergency department. We did not continue antibiotics and his cultures were all negative. Overall, his condition did not show any significant improvements. Ultimately, the patient and his family made the decision to transition to comfort measures/end-of-life care. The patient stated he would like to stop all treatments (including oxygen) and focus only on comfort. He did understand he would most likely fairly soon. We agreed to abide by his decisions. We tried to control any noxious symptoms he might encounter. We used IV morphine to help with any pain/dyspnea. Unfortunately, he had not been tolerant of Ativan in the past. We also used Phenergan if he happened to have any nausea. His condition deteriorated very quickly. He was found without spontaneous respirations or heart tones and pronounced at 1515 hours on 10/05/17. Copies to: EILEEN SANTANA MD Medical Records to be sent: History and Physical, Summary MICHAEL DIEZ MD Oct 05, 2017 15:46
== END 2017-10-05 15:15 | disposition expired | DRG 291 ==
LOC: ER 10:40 → MED 12:17
PROVIDERS: ADMIT Family Medicine; ATTEND Family Medicine
PROC: 5A09357 Assistance with Respiratory Ventilation, Less than 24 Consecutive Hours, Continuous Positive Airway Pressure (ICD-10-PCS; 2017-09-28)
PROC: 02HV33Z Insertion of Infusion Device into Superior Vena Cava, Percutaneous Approach (ICD-10-PCS; principal; 2017-09-29)
PROC: B548ZZA Ultrasonography of Superior Vena Cava, Guidance (ICD-10-PCS; 2017-09-29)
DX: I11.0 Hypertensive heart disease with heart failure (principal); J15.9 Unspecified bacterial pneumonia; J44.0 Chronic obstructive pulmonary disease with (acute) lower respiratory infection; I48.92 Unspecified atrial flutter; N13.8 Other obstructive and reflux uropathy; I50.43 Acute on chronic combined systolic (congestive) and diastolic (congestive) heart failure; Z51.5 Encounter for palliative care; J39.8 Other specified diseases of upper respiratory tract; E87.5 Hyperkalemia; E03.9 Hypothyroidism, unspecified; E78.5 Hyperlipidemia, unspecified; G62.9 Polyneuropathy, unspecified; G25.81 Restless legs syndrome; I27.81 Cor pulmonale (chronic); D50.9 Iron deficiency anemia, unspecified; N40.1 Benign prostatic hyperplasia with lower urinary tract symptoms; Z79.01 Long term (current) use of anticoagulants; Z99.81 Dependence on supplemental oxygen; Z87.891 Personal history of nicotine dependence; Z86.718 Personal history of other venous thrombosis and embolism; Z95.1 Presence of aortocoronary bypass graft; Z88.8 Allergy status to other drugs, medicaments and biological substances; Z86.73 Personal history of transient ischemic attack (TIA), and cerebral infarction without residual deficits; Z86.711 Personal history of pulmonary embolism
CPT/HCPCS: 36415; 36569; 71045; 76937; 80162; 81001; 82040; 82247; 82310; 82374; 82435; 82565; 82947; 83735; 83880; 84075; 84132; 84155; 84295; 84443; 84450; 84460; 84484; 84520; 85025; 85379; 85610; 85730; 87040; 93005; 93306; 94640; 94644; 94660; 96365; 96375; 97161; 97165; 99284; C1751; J0456; J0696; J1642; J1940; J2060; J2270; J2550; J2997; J3490; J7040; J7050; J7611; J7613; J7644

== ENCOUNTER → 2017-09-28 | Outpatient (CLI) | payer MEDICARE, MEDICAID ==
[~2017-09-28] MED LIST changes: +HYDR-4309 PO
[2017-09-29 09:54] VITALS: BMI 38.5
== END ==
LOC: AMB 10:11
PROVIDERS: ATTEND Nurse Practitioner
DX: R06.03 Acute respiratory distress (principal); J44.1 Chronic obstructive pulmonary disease with (acute) exacerbation; J45.901 Unspecified asthma with (acute) exacerbation
CPT/HCPCS: A0425; A0427